=== PATIENT | female | born 1995 | race Caucasian/White ===

== ENCOUNTER 2019-11-21 14:00 | Emergency (ER) | payer OTHER, SELFPAY ==
[2019-11-21 14:28] VITALS: BP 134/81; PULSE 106; RESP 18; TEMP 37.3; O2SAT 100
--- NOTE | 2019-11-21 14:40 | ED.GENADULT ---
HPI - General Adult General Chief complaint: Upper Respiratory Infection Stated complaint: Cold symptoms Source: patient and RN notes reviewed Mode of arrival: ambulatory Limitations: no limitations History of Present Illness HPI narrative: This patient had onset of a nonproductive cough yesterday, 11/20/2019, without any ear pain or nasal drainage. She has had no sore throat. She had a temperature to 101 maximum took Tylenol it did bring the temperature down. She has not had any nausea, no vomiting, and no diarrhea. She has had no hematuria, no dysuria, no pyuria. She has had no rashes. She not been traveling. She has had no known exposure anyone with strep throat, mono, influenza, bronchitis, pneumonia that she is aware of. Related Data Home Medications Medication Instructions Recorded Confirmed No Home Medications 11/21/19 11/21/19 Allergies Allergy/AdvReac Type Severity Reaction Status Date / Time codeine Allergy Intermediate Hives / Verified 02/03/19 14:55 Red Face prochlorperazine AdvReac Unknown DYSTONIC Unverified 02/03/19 14:55 REACTION Review of Systems Review of Systems: Narrative: CONSTITUTIONAL: Denies fever, chills, or sweats. Noncontributory except as pertains to the past medical history and history of present illness. EYES: Denies visual changes, redness, or discharge. ENT: Denies rhinorrhea, congestion, sore throat, or otalgia. CARDIOVASCULAR: Denies chest pain, palpitations, or edema. RESPIRATORY: Denies cough or dyspnea. GASTROINTESTINAL: Denies abdominal pain, nausea, vomiting, or diarrhea. GENITOURINARY: Denies dysuria or hematuria. SKIN: Denies rash or itching. MUSCULOSKELETAL: Denies back pain, joint pain, or myalgia. NEUROLOGIC: Denies headache, numbness, or weakness. PSYCHIATRIC: Denies anxiety or depression. PMFSH Comments At time of signature, I have reviewed and agree with nursing past medical, surgical, social, and family history.Please see nursing chart for further information. There is no relevant family history pertinent to the presenting complaint. Exam Narrative: Exam Narrative: GENERAL: Well-appearing, well-nourished, and in no acute distress. HEAD: Normocephalic, atraumatic. EYES: PERRLA and EOMI. EARS: TM's clear bilaterally and the canals are clear. NOSE: Nares clear, no rhinorrhea or epistaxis. THROAT:Mucous membranes moist.Oropharynx Normal without erythema or exudates. NECK: Supple. No adenopathy of the neck, supraclavicular, axillary, or inguinal areas. RESPIRATORY: No respiratory distress. Airway patent. Respirations non-labored. Clear to auscultation. She has a loose wet mild cough during the exam. There are no wheezes, no rales, no retractions, no use accessory muscle respirations. Patient not cyanotic and not dyspneic. Her pulse ox on room air is 100% current temperature is 37.3 ?C. HEART: Regular rate and rhythm. No murmur heard. Normal peripheral pulses. ABDOMEN: Soft, nontender, nondistended, normal active bowel sounds.No masses. No rebound or guarding, No organomegaly. No CVA pain. No pain McBurney's point. Patient is a negative Navarro sign and negative Rovsing sign. There are no pulsatile masses no audible bruits. EXTREMITIES: No clubbing/cyanosis/ edema. Normal strength & range of motion. SKIN: Warm, dry.Normal Color. No skin rash or skin lesions. Patient is well-nourished well-hydrated and has moist mucous membranes and no tenting of the skin. NEURO: Alert and oriented. CN 2-12 grossly intact. No focal deficits. PSYCH: Normal mood and affect. Course Vital Signs Vital signs: Vital Signs Temperature 37.3 C 11/21/19 14:28 Pulse Rate 106 H 11/21/19 14:28 Respiratory Rate 18 11/21/19 14:28 Blood Pressure 134/81 11/21/19 14:28 Pulse Oximetry 100 11/21/19 14:28 Temperature 37.3 C 11/21/19 14:28 Pulse Rate 106 H 11/21/19 14:28 Respiratory Rate 18 11/21/19 14:28 Blood Pressure 134/81 11/21/19 14:28 Pulse Oximet
== END 2019-11-21 14:55 | disposition home or self-care (01) ==
PROVIDERS: Emergency Provider Family Medicine; PCP Physician Assistant
DX: J06.9 Acute upper respiratory infection, unspecified (principal)
CPT/HCPCS: 87804; 99213; G0463

== ENCOUNTER 2021-05-22 17:47 | Emergency (ER) | payer OTHER, SELFPAY ==
[2021-05-22 17:55] VITALS: BP 153/100; PULSE 90; RESP 17; TEMP 37.1; O2SAT 97
--- NOTE | 2021-05-22 18:08 | ED.GENADULT ---
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 Her headache started 5 days ago. It came on over a few minutes. Since that time she has had right sided pounding headache pain that shoots to the left occasioinally. She admits a little nausea but no vomiting. No photo or phonophobia. Her vision is usually fine but it occasionally gets blurry when the pain shoots to the left. Then it returns to normal. No trauma reported. Related Data Home Medications Medication Instructions Recorded Confirmed tramadol 50 mg PO PRN PRN 05/22/21 05/22/21 Allergies Allergy/AdvReac Type Severity Reaction Status Date / Time codeine Allergy Intermediate Hives / Verified 02/03/19 14:55 Red Face prochlorperazine AdvReac Unknown DYSTONIC Unverified 02/03/19 14:55 REACTION Review of Systems Constitutional: Constitutional: Reports no additional constitutional complaints Eyes: Eyes: Reports as per HPI and Reports no additional eye complaints ENT: Reports system reviewed and no additional complaints, except as documented Cardiovascular: Cardiovascular: Reports no additional cardiovascular complaints Respiratory: Respiratory: Reports no additional respiratory complaints Gastrointestinal: Gastrointestinal: Reports no additional gastrointestinal complaints Genitourinary: Genitourinary: Reports no additional female genitourinary complaints Musculoskeletal: Musculoskeletal: Reports no additional musculoskeletal complaints Integumentary/Breasts: Skin/Breast: Reports system reviewed and no additional complaints, except as docu Neurologic: Reports as per HPI Psychiatric: Psychiatric: Reports no additional psychiatric complaints Endocrine: Endocrine: Reports no additional endocrine complaints Hematologic/Lymphatic: Hematologic/Lymphatic: Reports no additional hematologic/lymphatic complaints Allergic/Immunologic: Allergic/Immunologic: Reports no additional allergic/immunologic complaints Exam Const: General: no acute distress and alert Orientation/consciousness: patient oriented x3 Limitations: No altered mental status HENMT: Head: normal to inspection Other: atraumatic Eyes: Conjunctivae: conjunctivae normal Pupils: Equal, round and reactive pupils present Neck: Neck: normal visual inspection Chest: Chest palpation & inspection: normal inspection of the chest Resp: Effort & Inspection: normal respiratory effort Cardio: Rate: regular rate GI: Inspection: non-distended GI Palp: Yes Soft to palpation, No Tenderness to palpation present (GI) and No Guarding due to palpation present (GI) Skin: General skin exam: normal color Rashes: no rashes Neuro: General: patient oriented x3, moves all extremities, no meningeal signs, no focal motor deficits and CN's II-XI intact bilaterally (had 3 beats of nystagmus to the right) Extrem: General: normal to inspection Psych: Appearance: grossly normal Mental Status: mental status grossly normal Course Course Emergency Course: Annie was evalauted. Ordered fluids, benadryl and toradol. (allergic to compazine). Headache only improved from 7 to 03/20. Ordered haldol and Tylenol. This resolved her pain and she stated that she was ready to go home. Vital Signs Vital signs: Vital Signs Temperature 98.7 F 05/22/21 17:55 Pulse Rate 90 05/22/21 17:55 Respiratory Rate 17 05/22/21 17:55 Blood Pressure 153/100 H 05/22/21 17:55 Pulse Oximetry 97 05/22/21 17:55 Temperature 98.7 F 05/22/21 17:55 Pulse Rate 73 05/22/21 19:37 Respiratory Rate 20 05/22/21 19:37 Blood Pressure 101/66 05/22/21 19:37 Pulse Oximetry 97 05/22/21 19:37 Medical Dec
[2021-05-22] MEDS: SODIUM CHLORIDE 0.9% IV 1,000 ML 999 ML IV CONT (18:16)
[2021-05-22] MEDS: KETOROLAC 15 MG/ML VIAL (*BKC) IV PUSH (18:17)
[2021-05-22] MEDS: diphenhydrAMINE HCl INJ 50 MG/ML VIAL IV PUSH (18:17)
[2021-05-22 19:37] VITALS: BP 101/66; PULSE 73; RESP 20; O2SAT 97
[2021-05-22] MEDS: ACETAMINOPHEN 500 MG TABLET 1000 MG PO (19:43)
[2021-05-22] MEDS: HALOPERIDOL LACTATE 5 MG/ML VIAL 2.5 MG IV PUSH (19:53)
[2021-05-22 20:27] VITALS: BP 98/62; PULSE 92; RESP 20; TEMP 36.9; O2SAT 98
== END 2021-05-22 20:35 | disposition home or self-care (01) ==
PROVIDERS: Emergency Provider Family Medicine; PCP Physician Assistant
DX: R51.9 Headache, unspecified (principal)
CPT/HCPCS: 96361; 96374; 96375; 99283; 99284; J1200; J1630; J1885; J7030

== ENCOUNTER 2021-10-14 11:47 | Outpatient (CLI) | payer OTHER, SELFPAY ==
[2021-10-14 13:53] LABS: SARS-CoV-2 RNA PCR Positive (Negative)
== END 2021-10-14 11:48 | disposition home or self-care (01) ==
LOC: CHSLAB 11:50
PROVIDERS: PCP Physician Assistant; Visit Provider Physician Assistant
DX: U07.1 COVID-19 (principal); B34.9 Viral infection, unspecified
CPT/HCPCS: C9803; U0003; U0005

== ENCOUNTER 2022-09-22 18:09 | Emergency (ER) | payer OTHER, SELFPAY ==
[2022-09-22 18:20] VITALS: BP 140/84; PULSE 88; RESP 20; TEMP 37; O2SAT 100
--- NOTE | 2022-09-22 19:38 | ED.DENTAL ---
HPI - Dental/Oral General Chief complaint: Dental/Oral Stated complaint: Facial Swelling Time Seen by Provider: 09/22/22 19:30 Source: patient, family, RN notes reviewed and old records reviewed Mode of arrival: ambulatory Limitations: no limitations History of Present Illness HPI Narrative: 27 year old female presents to [facility] with acute dental pain to #19 tooth lower left for the past 3 weeks. Patient reports that she took 10 days of Amoxicillin she had at home and it day get a little better now is worse again. Patient has been taking Tylenol and Ibuprofen for her discomfort rates pain at present time 05/20. Patient has some left facial swelling noted, no difficulty with swallowing or any difficulty breathing no trismus nted. MD Complaint: tooth pain Location: Tooth # (19) Severity scale (1-10): 8 Treatment prior to arrival: other (Tylenol and Ibuprofen) Related Data Allergies Allergy/AdvReac Type Severity Reaction Status Date / Time codeine Allergy Intermediate Hives / Verified 09/22/22 18:31 Red Face prochlorperazine AdvReac Unknown DYSTONIC Verified 09/22/22 18:31 REACTION Review of Systems Review of Systems: CONSTITUTIONAL: Denies fever, chills, or sweats. ENT: Denies rhinorrhea, congestion, sore throat, or otalgia. Reports dental pain to #19 tooth with some left facial swelling CARDIOVASCULAR: Denies chest pain, palpitations, or edema. RESPIRATORY: Denies cough or dyspnea. SKIN: Denies rash or itching. MUSCULOSKELETAL: Denies myalgia. 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 There is no relevant family history pertinent to the presenting complaint Exam Narrative: GENERAL: Well-appearing, well-nourished, and in no acute distress HEAD: Normocephalic, atraumatic. EYES: PERRLA and EOMI. ENT: Nares clear, no rhinorrhea or epistaxis. Mucous membranes moist. #19 dental caries with tooth darkened and gum red swollen, facial swelling left side. No Lukas angina or trismus noted NECK: Supple.no lymphadenopathy CHEST: Clear to auscultation. No respiratory distress.SAO2 100% on room air HEART: Regular rate and rhythm. No murmur heard. Normal peripheral pulses. SKIN: Warm, dry, no rash. NEURO: No focal deficits. Alert and oriented x3. Course Course Emergency Course: Patient is aware of diagnosis, understands and agrees to treatment plan. Anticipatory guidance given. Patient agrees to follow-up as directed and is aware of reasons to seek care at the emergency department. Portions of this record may have been created with voice recognition software Level of Care: Express Care Visit Vital Signs Vital signs: Vital Signs Temperature 37.0 C 09/22/22 18:20 Pulse Rate 88 09/22/22 18:20 Respiratory Rate 20 09/22/22 18:20 Blood Pressure 140/84 09/22/22 18:20 Pulse Oximetry 100 09/22/22 18:20 Oxygen Delivery Room Air 09/22/22 18:20 Temperature 37.0 C 09/22/22 18:20 Pulse Rate 88 09/22/22 18:20 Respiratory Rate 20 09/22/22 18:20 Blood Pressure 140/84 09/22/22 18:20 Pulse Oximetry 100 09/22/22 18:20 Oxygen Delivery Room Air 09/22/22 18:20 Reviewed MDM - Dental/Oral MDM Narrative Medical decision making narrative: Patients pain and complaint coupled with physical findings are consistent with dentalgi
== END 2022-09-22 19:45 | disposition home or self-care (01) ==
PROVIDERS: Emergency Provider Registered Nurse; PCP Physician Assistant
DX: K04.7 Periapical abscess without sinus (principal); M41.9 Scoliosis, unspecified
CPT/HCPCS: 99213; G0463

== ENCOUNTER 2022-12-21 17:49 | Emergency (ER) | payer OTHER, SELFPAY ==
[2022-12-21] VITALS (11 sets, daily range): BP systolic 110–129; BP diastolic 72–81; PULSE 88–97; RESP 18–28; TEMP 36.3; O2SAT 99–100
--- NOTE | ~2022-12-21 | CT_ITS ---
Non-contrast Head CT History: Headache Technique: Axial non-contrast imaging of the brain was performed. Dose reduction technique was used on this scan by utilizing automated exposure control and iterative reconstruction technique. The dose -length product (DLP) was 605.33 mGy-cm. Findings: There is no evidence of intracranial hemorrhage, mass lesion, or acute infarct. Brain par enchyma appears normal. The ventricles and subarachnoid spaces are normal in size. The calvarium ap pears normal. The visualized paranasal sinuses and mastoid air cells are clear. Impression: No significant abnormality seen. Reviewed, dictated and finalized at location . Impression: No significant abnormality seen.
--- NOTE | 2022-12-21 22:59 | ED.GENADULT ---
HPI - General Adult General Chief complaint: Headache Stated complaint: headache Time Seen by Provider: 12/21/22 22:46 History of Present Illness HPI narrative: 27-year-old female who is 7 weeks reports for headache x3 days. Patient reports the headache is posterior and radiates up into her right zoroastrian. Reports associated blurred vision earlier that resolved when she blinked. Reports headache worse with position changes, especially when she bends foward. Patient states she has felt nauseous today and reports 3 episodes of vomiting. Denies hematemesis. She reports a history of headaches when she was in high school, however has not had any recently. She states the headache came on suddenly and is the worst headache of her life. Denies recent head trauma and use of anticoagulants. She reports a confirmed IUP w/o complications. Saw OB on 12/15. Denies abdominal pain, vaginal bleeding or discharge, urinary complaints, cough, congestion, fever, body aches, chills, CP, SOB, focal numbness or weakness, dizziness. Related Data Allergies Allergy/AdvReac Type Severity Reaction Status Date / Time codeine Allergy Intermediate Hives / Verified 12/21/22 22:53 Red Face prochlorperazine AdvReac Unknown DYSTONIC Verified 12/21/22 22:53 REACTION Review of Systems Review of Systems: CONSTITUTIONAL: Denies fever, chills EYES: Denies visual changes, redness, or discharge. ENT: Denies rhinorrhea, congestion, sore throat, or otalgia. CARDIOVASCULAR: Denies chest pain, palpitations, or edema. RESPIRATORY: Denies cough or dyspnea. GASTROINTESTINAL: Denies abdominal pain, nausea, vomiting, or diarrhea. GENITOURINARY: Denies dysuria or hematuria. SKIN: Denies rash or itching. MUSCULOSKELETAL: Denies back pain, joint pain, or myalgia. NEUROLOGIC: See HPI PSYCHIATRIC: Denies anxiety or depression. 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 Pt sitting in exam bed, pleasant and conversational. HEAD: Normocephalic, atraumatic. EYES: PERRLA and EOMI. Strabismus to L eye. ENT: Nares clear, no rhinorrhea or epistaxis. Mucous membranes moist. Oropharynx without tonsillar hypertrophy exudate or other lesions. Bilateral TMs pearly palomino nonbulging NECK: Supple. No adenopathy or masses. No nuchal rigidity. Full ROM of neck. Negative Brudzinski's and Kernig's CHEST: Clear to auscultation. No respiratory distress. No wheezes rales or rhonchi HEART: Regular rate and rhythm. No murmur heard. Normal peripheral pulses. ABDOMEN: Soft, nontender, nondistended, normal active bowel sounds. EXTREMITIES: Normal range of motion. No edema. SKIN: Warm, dry, no rash. NEURO: No focal deficits. Alert and oriented x3. CN II-XII intact. Strength 5/5 in all extremities. Sensation intact. No cerebellar signs. PSYCH: Normal mood and affect. Course Course Emergency Course: 230: Discussed risk vs benefits of CT brain w/o contrast in . Educated patient on risk of fetotoxicity with radiation secondary to CT, but also concern for SAH given patient's acute onset and severity of headache. Pt reports she would like to get a CT despite risks to fetus. Vital Signs Vital signs: Vital Signs Temperature 97.4 F L 12/21/22 18:13 Pulse Rate 88 12/21/22 18:13 Respiratory Rate 18 12/21/22 18:13 Pulse Oximetry 100 12/21/22 18:13 Oxygen Delivery Room Air 12/21/22 18:13 Temperature 97.4 F L
[2022-12-21 23:28] LABS: Basophils Percent Auto 0.1 % (0.2-1.2); Eosinophils Percent Auto 0.1 % (0-4.4); Hematocrit 35.7 % (37.0-47.0); Hemoglobin 12.1 g/dL (12.0-15.0); Immature Granulocyte Absolute 0.02 K/mm3 (0.00-0.031); Immature Granulocyte Percent A 0.3 % (0-0.5); Lymphocytes Absolute Auto 2.49 K/mm3 (0.9-3.2); Lymphocytes Percent Auto 31.2 % (18.3-44.2); Mean Corpuscular HGB Conc 33.9 g/dl (32-36); Mean Corpuscular Hemoglobin 30.4 pg (26-34); Mean Corpuscular Volume 89.7 fl (80-100); Mean Platelet Volume 9.7 fl (7.4-10.4); Monocytes Absolute Auto 0.5 K/mm3 (0.1-0.6); Monocytes Percent Auto 6.5 % (2.6-8.5); Neutrophils Absolute Auto 4.9 K/mm3 (1.3-6.7); Neutrophils Percent Auto 61.8 % (45.5-73.1); Platelet Count Result 261 k/mm3 (150-375); Red Blood Count 3.98 M/mm3 (4.2-5.4); Red Cell Distribution Width 13.1 % (11.5-14.5)
[2022-12-21 23:38] LABS: Alanine Aminotransferase 23 U/L (6-35); Albumin Level 4.1 g/dL (3.5-5.1); Alkaline Phosphatase 65 U/L (38-126); Anion Gap 5 mmol/L (8-16); Aspartate Amino Transferase 25 U/L (14-36); Bilirubin,Total 0.4 mg/dL (0.2-1.3); Blood Urea Nitrogen 12 mg/dL (7-17); Carbon Dioxide 26 mmol/L (22-30); Chloride 103 mmol/L (98-107); Estimated CRCL calculation 151 ml/min; Estimated Glomerular Filt Rate > 60; Glucose 107 mg/dL (65-110); Potassium 3.4 mmol/L (3.4-5.0); Sodium 134 mmol/L (137-145)
[2022-12-21] MEDS: SODIUM CHLORIDE 0.9% IV 1,000 ML 999 ML IV CONT (23:47)
[2022-12-21] MEDS: diphenhydrAMINE HCl INJ 50 MG/ML VIAL 25 MG IV PUSH (23:48)
[2022-12-22] VITALS (8 sets, daily range): BP systolic 114; BP diastolic 67; PULSE 79–92; RESP 19–33; O2SAT 98–100
[2022-12-22] LABS: Appearance Urine Clear (Clear); Bilirubin Urine Negative (Negative); Blood Urine Negative (Negative); Color Urine Yellow (Yellow); Glucose Urine UA Negative (Negative); Ketones Urine Trace mg/dL (Negative); Leukocyte Esterase Ur Negative LEU/UL (Negative); Nitrate Urine Negative (Negative); Protein Urine Negative (Negative); Specific Grav Ur 1.028 (1.001-1.035)
[2022-12-22 00:08] LABS: Add Urine Microscopic? NO
== END 2022-12-22 02:29 | disposition home or self-care (01) ==
PROVIDERS: Emergency Provider Physician Assistant; PCP Physician Assistant
DX: O26.891 Other specified pregnancy related conditions, first trimester (principal); R51.9 Headache, unspecified; Z3A.01 Less than 8 weeks gestation of pregnancy
CPT/HCPCS: 36415; 70450; 80053; 81003; 85025; 96374; 96375; 99284; J0131; J1200; J7030

== ENCOUNTER 2023-02-12 10:35 | Emergency (ER) | payer OTHER, SELFPAY ==
[2023-02-12 10:53] VITALS: BP 118/77; PULSE 90; RESP 18; TEMP 36.7; O2SAT 100
--- NOTE | 2023-02-12 11:32 | PC.NURSE ---
c/o n/v x 2 weeks. states she is 15 weeks preg. took zofran but states it gave her a lr so ob switched to reglan and it is not workiing. states ob called in rx for patches but was told to come here first for eval. denies any abd pain or vaginal bleeding. a0
[2023-02-12 12:00] LABS: Basophils Percent Auto 0.2 % (0.2-1.2); Eosinophils Percent Auto 0.1 % (0-4.4); Hematocrit 37.1 % (37.0-47.0); Hemoglobin 12.7 g/dL (12.0-15.0); Immature Granulocyte Absolute 0.02 K/mm3 (0.00-0.031); Immature Granulocyte Percent A 0.2 % (0-0.5); Lymphocytes Absolute Auto 1.95 K/mm3 (0.9-3.2); Lymphocytes Percent Auto 21.1 % (18.3-44.2); Mean Corpuscular HGB Conc 34.2 g/dl (32-36); Mean Corpuscular Hemoglobin 30.5 pg (26-34); Mean Platelet Volume 9.6 fl (7.4-10.4); Monocytes Absolute Auto 0.4 K/mm3 (0.1-0.6); Monocytes Percent Auto 3.9 % (2.6-8.5); Neutrophils Absolute Auto 6.9 K/mm3 (1.3-6.7); Neutrophils Percent Auto 74.5 % (45.5-73.1); Platelet Count Result 235 k/mm3 (150-375); Red Blood Count 4.17 M/mm3 (4.2-5.4); Red Cell Distribution Width 13.2 % (11.5-14.5); White Blood Count 9.2 K/mm3 (4.5-10.0)
[2023-02-12 12:02] LABS: Appearance Urine Clear (Clear); Bilirubin Urine Negative (Negative); Blood Urine Negative (Negative); Color Urine Yellow (Yellow); Glucose Urine UA Negative (Negative); Ketones Urine Negative (Negative); Leukocyte Esterase Ur Negative LEU/UL (Negative); Nitrate Urine Negative (Negative); Protein Urine Negative (Negative); Urobilinogen Urine 0.2 mg/dL (<2.0)
[2023-02-12 12:11] LABS: Alanine Aminotransferase 16 U/L (6-35); Alkaline Phosphatase 55 U/L (38-126); Anion Gap 6 mmol/L (8-16); Aspartate Amino Transferase 22 U/L (14-36); Bilirubin,Total 0.4 mg/dL (0.2-1.3); Blood Urea Nitrogen 7 mg/dL (7-17); Calcium 9.1 mg/dL (8.4-10.2); Carbon Dioxide 26 mmol/L (22-30); Chloride 102 mmol/L (98-107); Estimated CRCL calculation 195 ml/min; Estimated Glomerular Filt Rate > 60; Glucose 85 mg/dL (65-110); Lipase 115 U/L (23-300); Potassium 3.8 mmol/L (3.4-5.0); Sodium 134 mmol/L (137-145)
[2023-02-12] MEDS: SODIUM CHLORIDE 0.9% IV 1,000 ML 999 ML IV CONT (12:16)
[2023-02-12] MEDS: ONDANSETRON INJ 4 MG/2 ML VIAL IV PUSH (12:16)
[2023-02-12 12:19] VITALS: BP 112/72; PULSE 80
[2023-02-12 12:19] LABS: Add Urine Microscopic? NO
[2023-02-12 12:21] VITALS: BP 108/71; PULSE 82
[2023-02-12 12:23] VITALS: BP 108/74; PULSE 92
--- NOTE | 2023-02-12 13:32 | ED.GENADULT ---
HPI - General Adult General Chief complaint: Nausea/Vomiting/Diarrhea Stated complaint: OB sent for dehydration Time Seen by Provider: 02/12/23 11:44 History of Present Illness HPI narrative: Patient is a 27-year-old female who is 15 weeks that presents to the ER with nausea and vomiting. She has been taking Zofran and Reglan. No vaginal bleeding. No urinary frequency urgency or dysuria. Denies fevers or chills or sweats. She was sent here by her OB to get fluids. Related Data Allergies Allergy/AdvReac Type Severity Reaction Status Date / Time codeine Allergy Intermediate Hives / Verified 02/12/23 10:36 Red Face prochlorperazine AdvReac Unknown DYSTONIC Verified 02/12/23 10:36 REACTION Review of Systems Review of Systems: All systems reviewed & are unremarkable except as noted in HPI and below Constitutional: Constitutional: Denies chills, Denies fatigue and Denies fever(s) ENT: Denies nasal congestion and Denies sore throat Cardiovascular: Cardiovascular: Denies chest pain and Denies radiating jaw, neck or arm pain Respiratory: Respiratory: Denies cough, Denies dyspnea and Denies wheezing Gastrointestinal: Gastrointestinal: Denies abdominal pain, Denies diarrhea, Reports nausea and Reports vomiting Genitourinary: Genitourinary: Denies nocturia and Denies dysuria PMFSH Past Medical History Medical History Scoliosis has had 13 surgeries Surgical History Surgical History 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 HEAD: Normocephalic, atraumatic. EYES: PERRL and EOMI. ENT: Mucous membranes moist. CHEST: Clear to auscultation. No respiratory distress. HEART: Regular rate and rhythm. Normal peripheral pulses. ABDOMEN: Soft, nontender, nondistended. EXTREMITIES: Normal range of motion. No edema. NEURO: Alert and oriented x3. PSYCH: Normal mood and affect. Course Course Emergency Course: Patient resting comfortably. Hydrated and given antiemetics. Feels comfortable discharge home. Reports her doctor is called in scopolamine for her to use for antinausea. Vital Signs Vital signs: Vital Signs Temperature 98.0 F 02/12/23 10:53 Pulse Rate 90 02/12/23 10:53 Respiratory Rate 18 02/12/23 10:53 Blood Pressure 118/77 02/12/23 10:53 Pulse Oximetry 100 02/12/23 10:53 Oxygen Delivery Room Air 02/12/23 10:53 Temperature 98.0 F 02/12/23 10:53 Pulse Rate 92 02/12/23 12:23 Respiratory Rate 18 02/12/23 10:53 Blood Pressure 108/74 02/12/23 12:23 Pulse Oximetry 100 02/12/23 10:53 Oxygen Delivery Room Air 02/12/23 10:53 Medical Decision Making Vital Signs Vital Signs: Vital Signs Temperature 98.0 F 02/12/23 10:53 Pulse Rate 90 02/12/23 10:53 Respiratory Rate 18 02/12/23 10:53 Blood Pressure 118/77 02/12/23 10:53 Pulse Oximetry 100 02/12/23 10:53 Oxygen Delivery Room Air 02/12/23 10:53 Temperature 98.0 F 02/12/23 10:53 Pulse Rate 92 02/12/23 12:23 Respiratory Rate 18 02/12/23 10:53 Blood Pressure 108/74 02/12/23 12:23 Pulse Oximetry 100 02/12/23 10:53 Oxygen Delivery Room Air 02/12/23 10:53 Lab Data 02/12/23 11:44 02/12/23 11:44 Labs: Lab Results 02/12/23 Range/Units 11:44 WBC 9.2 (4.5-10.0) K/mm3 RBC 4.17 L (4.2-5.4) M/mm3 Hgb 12.7 (12.0-15.0) g/dL Hct 37.1 (37.0-47.0) % MCV 89.0 (80-100) fl MCH 30.5 (26-34) pg MCHC 34.2 (32-36) g/dl RDW 13.2 (11.5-14.5) % Plt Count 235
[2023-02-12 14:07] VITALS: BP 107/63; PULSE 74; RESP 16; O2SAT 100
== END 2023-02-12 14:08 | disposition home or self-care (01) ==
PROVIDERS: Emergency Provider Emergency Medicine; PCP Physician Assistant
DX: O21.9 Vomiting of pregnancy, unspecified (principal); Z3A.15 15 weeks gestation of pregnancy
CPT/HCPCS: 36415; 80053; 81003; 81025; 83690; 85025; 96361; 96374; 99284; J2405; J7030

== ENCOUNTER 2023-04-24 16:27 | Observation (INO) | payer OTHER, SELFPAY ==
[2023-04-24 16:50] VITALS: BP 111/73; PULSE 98
[2023-04-24 17:00] VITALS: BP 107/83; PULSE 98; BMI 30.4
--- NOTE | 2023-04-24 17:01 | LDADM ---
This patient, Annie Chirinos, was admitted to [facility] on 04/24/23 at 16:27. Plans for labor, pain management and were discussed with patient. Patient/family oriented to hospital policies and general routines including ID bracelet, bed and alarms, visiting hours, pain management, procedures, bathroom and other care routines, personal items, smoking policy, room service/diet and guest tray routines, infant security routines, and visiting hours. Patient/Family are encouraged to report perceived risks to care and to ask questions if they do not understand what they are told or what they should do. See OBIX for further documentation.
[2023-04-24 17:06] LABS: Appearance Urine Cloudy (Clear); Bacteria Urine Rare /hpf; Bilirubin Urine Negative (Negative); Blood Urine Negative (Negative); Color Urine Yellow (Yellow); Glucose Urine UA Negative (Negative); Ketones Urine Negative (Negative); Leukocyte Esterase Ur Trace LEU/UL (Negative); Nitrate Urine Negative (Negative); Non Pathogenic Casts 0-2; Protein Urine Trace mg/dL (Negative); RBC Urine 0-2 /hpf (0-2); Specific Grav Ur 1.026 (1.001-1.035); Squamous Epithelial Cell Urine Few /hpf (Few); pH Urine 7.5 (5.0-9.0)
[2023-04-24 17:15] VITALS: BP 111/77; PULSE 101
[2023-04-24 17:30] VITALS: BP 108/77; PULSE 93
[2023-04-24 17:36] LABS: Add Urine Microscopic? YES
--- NOTE | 2023-04-24 17:58 | PC.NURSE ---
Addendum entered by Nancy Cunningham RN 04/24/23 18:14: *Notified MD of lab results when speaking with him about patient complaints and NST. Original Note: Patient admitted for observation with complaints of losing her mucus plug around 1400 with intermittent abdominal cramping and continuous back pain since then. Obtained UA as well as NST. Notified MD of complaints and NST results. Orders to check cervix and send home with labor precautions if cervix is closed. Cervical exam was closed and thick.
--- NOTE | 2023-04-28 07:11 | PM.OBTRLD ---
OB - Triage/Final Diagnosis Visit Information Comments/Additional reasons for admission: I have assessed the risk for this patient, Annie Chirinos, and determined that she would benefit from observation care. Evaluation Laboratory results: Laboratory Tests 04/24/23 16:42 Urine Color Yellow Urine Appearance Cloudy H Urine pH 7.5 Ur Specific [place] 1.026 Urine Protein Trace Urine Glucose (UA) Negative Urine Ketones Negative Ur Blood (Man) Negative Urine Nitrate Negative Urine Bilirubin Negative Urine Urobilinogen 1.0 Leukocyte Esterase Rfl Trace H Urine RBC 0-2 Urine WBC 6-10 H Ur Squamous Epith Cells Few Urine Bacteria Rare Urine Casts 0-2 Final Diagnosis (1) Back pain affecting : Code(s): O99.891 - Other specified diseases and conditions complicating ; M54.9 - Dorsalgia, unspecified Status: Acute (2) contractions: Code(s): O47.00 - False labor before 37 completed weeks of gestation, unspecified trimester Status: Acute
== END 2023-04-24 18:15 | disposition home or self-care (01) ==
PROVIDERS: Admitting Provider Obstetrics & Gynecology; PCP Physician Assistant; Visit Provider Obstetrics & Gynecology
DX: O99.891 Other specified diseases and conditions complicating pregnancy (principal); M54.9 Dorsalgia, unspecified; O47.02 False labor before 37 completed weeks of gestation, second trimester; Z3A.24 24 weeks gestation of pregnancy
CPT/HCPCS: 81001; 87086; 87088; G0378; G0379

== ENCOUNTER 2023-10-07 09:20 | Emergency (ER) | payer OTHER, SELFPAY ==
--- NOTE | 2023-10-07 09:30 | ED.URI ---
HPI - URI/Sore Throat General Chief Complaint: Upper Respiratory Infection Stated Complaint: Cough;Congestiom;Nausea Time Seen by Provider: 10/07/23 09:30 Source: patient Mode of arrival: ambulatory Limitations: no limitations History of Present Illness HPI Narrative: Don is a 28-year-old female patient presenting to clinic today with complaints of cough, congestion, and nausea at x3 days. She reports symptoms started on Aubree Arlen. Reports having cough, left nasal congestion, headache, and nausea. No known fever or chills. MD elicited complaint: cough and nasal congestion Related Data Allergies Allergy/AdvReac Type Severity Reaction Status Date / Time codeine Allergy Intermediate Hives / Verified 10/07/23 09:30 Red Face prochlorperazine AdvReac Unknown DYSTONIC Verified 10/07/23 09:30 REACTION Review of Systems Review of Systems: Pertinent positives per HPI. Patient denies any fever, chills, rash, visual changes, dizziness, shortness of breath, chest pain, palpitations, nausea, vomiting, diarrhea, constipation, abdominal pain, or any urinary issues. 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 There is no relevant family history pertinent to the patient complaint. Exam Narrative: General: Well-developed, well nourished, in no apparent distress Head: Normocephalic, atraumatic Eyes: Pupils equally round and reactive to light bilaterally, EOM intact, sclera and conjunctive clear, no discharge, lids normal Ears: TMs intact and clear, ear canals clear, no drainage, grossly hearing normal. Nose: Nares patent, clear nasal discharge, no inflammation, no sinus tenderness. Mouth: Oral pharynx without lesions or masses, good dentition, MMM. Neck: Supple, trachea midline, no enlargement of anterior or posterior cervical nodes, no thyroid masses or goiter palpable. Cardio: Regular rate and rhythm, s1 and s2 normal, no murmur appreciated. Resp: Clear to auscultation bilaterally, no rhonchi, rales, wheezing or rubs Course Course Emergency Course: Portions of this record may have been created with voice recognition software. Level of Care: Express Care Visit Vital Signs Vital signs: Vital signs reviewed MDM - URI/Sore Throat MDM Narrative Medical decision making narrative: At the time of visit patient is resting comfortably on the exam table. Patient appears to be nontoxic. COVID and influenza testing was performed. COVID testing was positive. Prescription for Zofran was sent to the pharmacy for nausea. Supportive measures were discussed with the patient and they voiced understanding discharge instructions and agrees to treatment plan. Return precautions reviewed Differential Diagnosis Differential diagnosis: Likely upper respiratory infection, otitis media, sinusitis, viral infection, bronchitis, influenza, pharyngitis and other (COVID) Discharge Plan Discharge Clinical Impression: COVID-19 Patient Disposition: Home, Self-Care Condition: Stable Instructions: Antibiotic Form, COVID-19 (Coronavirus Disease 2019) (ED), How to Recover from COVID-19 at Home (ED) Additional Instructions: COVID testing was positive in the clinic today. You will need isolate for 5 days from the onset of symptoms. May return to work on October 09, 2023 Take prescription medications only as prescrib
[2023-10-07 09:32] VITALS: BP 131/87; PULSE 86; RESP 20; TEMP 37.4; O2SAT 100
== END 2023-10-07 10:01 | disposition home or self-care (01) ==
PROVIDERS: Emergency Provider Nurse Practitioner Family; PCP Physician Assistant
DX: U07.1 COVID-19 (principal)
CPT/HCPCS: 87426; 87804; 99213; C9803; G0463

== ENCOUNTER 2024-01-16 18:58 | Observation (INO) | payer OTHER, SELFPAY ==
--- NOTE | ~2024-01-16 | MR_ITS ---
EXAMINATION: MR brain/brain stem wo/w con DATE: 01/17/2024 07:57 INDICATION: Proximal leg weakness. TECHNIQUE: Magnetic resonance imaging (MRI) of the brain and brainstem was performed without and with 14 mL MultiHance intravenous contrast. COMPARISON: Head CT 01/16/2024 FINDINGS: There are greater than 20 scattered foci of increased T2-weighted signal intensity in the c erebral white matter including periventricular and juxtacortical foci. There is no intracranial hemor rhage or acute ischemic infarct. The ventricles are normal in size. There is mucosal thickening in th e paranasal sinuses. The orbits are normal. The mastoid air cells are normal. IMPRESSION: 1. Mild nonspecific cerebral white matter disease. The differential diagnosis includes premature chief creative officer dwain small vessel ischemic disease (especially if the patient has cardiovascular risk factors), demyel inating disease such as multiple sclerosis, drug abuse, vasculitis, or reactive astrocytosis (gliosis ) secondary to nonspecific etiology. Reviewed, dictated and finalized at location A. IMPRESSION: 1. Mild nonspecific cerebral white matter disease. The differential diagnosis i ncludes premature chronic small vessel ischemic disease (especially if the ty ent has cardiovascular risk factors), demyelinating disease such as multiple sc lerosis, drug abuse, vasculitis, or reactive astrocytosis (gliosis) secondary t o nonspecific etiology.
--- NOTE | ~2024-01-16 | MR_ITS ---
MRI of the cervical spine Clinical History: Multiple sclerosis Technique: Axial T2-weighted and gradient images, and sagittal T1-weighted, T2-weighted, and STIR andi ges were acquired.. Following intravenous administration of 14 cc MultiHance gadolinium, T1-weighted fat-sat imaging was performed in the axial and sagittal planes. Findings: There is no fracture or sublocation of the cervical spine. Vertebral bodies maintain normal height and line. No bone marrow signal abnormality seen. No significant disc bulge or herniation seen at any cervical level. No spinal canal stenosis, cord co mpression, or neural foraminal narrowing identified in the cervical spine. No abnormal signal seen in the spinal cord. Paravertebral soft tissues are unremarkable. No abnormal postcontrast enhancement identified. Impression: Unremarkable exam. Reviewed, dictated and finalized at [facility]. Impression: Unremarkable exam.
--- NOTE | ~2024-01-16 | CT_ITS ---
Non-contrast Head CT History: Proximal leg weakness Technique: Axial non-contrast imaging of the brain was performed. Dose reduction technique was used on this scan by utilizing automated exposure control and iterative reconstruction technique. The dose -length product (DLP) was 681.00 mGy-cm. Findings: There is no evidence of intracranial hemorrhage, mass lesion, or acute infarct. Brain par enchyma appears normal. The ventricles and subarachnoid spaces are normal in size. The calvarium ap pears normal. The visualized paranasal sinuses and mastoid air cells are clear. Impression: No significant abnormality seen. Reviewed, dictated and finalized at location . Impression: No significant abnormality seen.
--- NOTE | ~2024-01-16 | MR_ITS ---
MRI of the thoracic spine Clinical History: Multiple sclerosis Technique: Axial T2-weighted and gradient images, and sagittal T1-weighted, T2-weighted, and STIR andi ges were acquired. Following intravenous administration of 14 cc MultiHance gadolinium, T1-weighted f at-sat imaging was performed in the axial and sagittal planes. Findings: There is prominent levoscoliosis. No acute fracture or subluxation evident. No bone marrow signal abnormality evident. No significant disc bulge or herniation seen. No spinal canal stenosis or cord compression evident. T here is extensive probable partial fusion across the disc spaces from T2 through T12. Paravertebral soft tissues are unremarkable. No abnormal signal seen in the spinal cord. No abnormal postcontrast enhancement identified. Impression: No evidence of multiple sclerosis. Prominent levoscoliosis. Reviewed, dictated and finalized at [facility]. Impression: No evidence of multiple sclerosis. Prominent levoscoliosis.
--- NOTE | ~2024-01-16 | XR_ITS ---
EXAMINATION: XR chest 2V Exam Date/Time: 01/16/2024 21:43 CDT HISTORY: weakness Comparison: 11/17/2011, report only. RESULT: Lines, tubes, and devices: None. Lungs and pleura: Clear. Cardiomediastinal silhouette: Unremarkable.. Other: No acute osseous or upper abdominal finding. Severe thoracic scoliosis. Distorted anatomy of the thoracic cage. IMPRESSION: No acute cardiopulmonary process. Reviewed, dictated and finalized at location [facility].
--- NOTE | ~2024-01-16 | MR_ITS ---
MRI of the lumbar spine Clinical History: Multiple sclerosis Technique: Axial T2-weighted images, and sagittal T1-weighted, T2-weighted, and and T2 fat-sat images were acquired. Following intravenous administration of 14 cc MultiHance gadolinium, T1-weighted fat- sat imaging was performed in the axial and sagittal planes. Findings: There is no fracture or subluxation of the lumbar spine. No bone marrow signal abnormality seen. No significant disc bulge or herniation seen at any lumbar level. There is severe facet arthropathy a t the lower lumbar spine, especially L4-L5 and L5-S1, possible fusion of the facet joints. No spinal canal stenosis or neural foraminal narrowing evident in the lumbar spine. Paravertebral soft tissues are unremarkable. No abnormal postcontrast enhancement seen. Impression: No evidence for multiple sclerosis. Facet joint degenerative changes and fusion, presumably related to underlying scoliosis. Correlate fo r surgical change at the lower lumbar spine. Reviewed, dictated and finalized at location . Impression: No evidence for multiple sclerosis. Facet joint degenerative changes and fusion, presumably related to underlying s coliosis. Correlate for surgical change at the lower lumbar spine.
--- NOTE | ~2024-01-16 | CT_ITS ---
CT of the Abdomen and Pelvis: Indication: Abdominal pain Technique: 2.5 mm axial scans were obtained through the abdomen and pelvis following intravenous adm inistration of 100 cc of Omnipaque 350. Dose reduction technique was used on this scan by utilizing a utomated exposure control and iterative reconstruction technique. The dose-length product (DLP) was 9 44.39 mGy-cm. Findings: Scans through the lung bases are unremarkable. The liver, spleen, pancreas, gallbladder, adrenals and kidneys are within normal limits. No evidence of aortic aneurysm. No lymphadenopathy. No bowel obstruction or bowel wall thickening. There is no evidence to suggest acute appendicitis. Images through the pelvis were performed. Urinary bladder unremarkable. No pelvic mass seen. No ascit es. Impression: No acute abnormalities seen. Reviewed, dictated and finalized at location . Impression: No acute abnormalities seen.
[2024-01-16 19:08] VITALS: BP 145/76; PULSE 93; RESP 14; TEMP 36.8; O2SAT 100
[2024-01-16 21:17] VITALS: BP 121/77; PULSE 98; RESP 20; TEMP 36.8; O2SAT 100
[2024-01-16 21:18] VITALS: PULSE 99
[2024-01-16 21:19] VITALS: O2SAT 100
[2024-01-16 21:34] LABS: Basophils Percent Auto 0.4 % (0.2-1.2); Eosinophils Percent Auto 0.6 % (0-4.4); Hematocrit 37.5 % (37.0-47.0); Hemoglobin 12.1 g/dL (12.0-15.0); Lymphocytes Absolute Auto 1.57 K/mm3 (0.9-3.2); Lymphocytes Percent Auto 29.5 % (18.3-44.2); Mean Corpuscular HGB Conc 32.3 g/dl (32-36); Mean Corpuscular Hemoglobin 26.9 pg (26-34); Mean Corpuscular Volume 83.5 fl (80-100); Mean Platelet Volume 9.9 fl (7.4-10.4); Monocytes Absolute Auto 0.6 K/mm3 (0.1-0.6); Monocytes Percent Auto 10.3 % (2.6-8.5); Neutrophils Absolute Auto 3.2 K/mm3 (1.3-6.7); Neutrophils Percent Auto 59.2 % (45.5-73.1); Platelet Count Result 281 k/mm3 (150-375); Red Blood Count 4.49 M/mm3 (4.2-5.4); Red Cell Distribution Width 15.2 % (11.5-14.5); White Blood Count 5.3 K/mm3 (4.5-10.0)
--- NOTE | 2024-01-16 21:34 | ECG_ITS ---
Measurements Intervals [place] Rate: 93 P: 17 IA: 164 QRS: 7 QRSD: 94 T: -15 QT: 347 AVG RR: 643 QTc: 398 QTCB: 432 QTCF: 402 Interpretive Statements SINUS TACHYCARDIA ABNORMAL RHYTHM ECG SEE SCANNED COPY FOR SIGNATURE MTDD
[2024-01-16 21:47] LABS: Alanine Aminotransferase 56 U/L (6-35); Albumin Level 4.4 g/dL (3.5-5.1); Alkaline Phosphatase 108 U/L (38-126); Anion Gap 9 mmol/L (4-12); Aspartate Amino Transferase 46 U/L (14-36); Bilirubin,Total 0.2 mg/dL (0.2-1.3); Blood Urea Nitrogen 15 mg/dL (7-17); Calcium 9.5 mg/dL (8.4-10.2); Carbon Dioxide 23 mmol/L (22-30); Chloride 106 mmol/L (98-107); Estimated CRCL calculation 150 ml/min; Estimated Glomerular Filt Rate > 60; Glucose 118 mg/dL (65-110); Potassium 3.7 mmol/L (3.4-5.0); Sodium 138 mmol/L (137-145)
[2024-01-16 21:48] LABS: Appearance Urine Clear (Clear); Color Urine Yellow (Yellow)
[2024-01-16 21:49] LABS: Glucose Urine UA Negative (Negative); Protein Urine Negative (Negative); Specific Grav Ur 1.023 (1.001-1.035)
[2024-01-16 21:50] LABS: Bilirubin Urine Negative (Negative); Blood Urine Negative (Negative); Ketones Urine Negative (Negative); Leukocyte Esterase Ur 1+ LEU/UL (Negative); Nitrate Urine Negative (Negative); Urobilinogen Urine 0.2 mg/dL (<2.0)
[2024-01-16 21:51] LABS: Bacteria Urine 1+ /hpf; Squamous Epithelial Cell Urine Moderate /hpf (Few); WBC Urine 0-5 /hpf (0-3)
[2024-01-16 21:52] LABS: Hyaline Casts Urine 0-2 /lpf
[2024-01-16 21:55] LABS: Add Urine Microscopic? YES; Budding Yeast Urine Present /hpf; Mucus Urine Few /lpf
[2024-01-16 22:30] VITALS: BP 132/82; PULSE 99; RESP 24; O2SAT 100
[2024-01-16] MEDS: SODIUM CHLORIDE 0.9% IV 1,000 ML 999 ML IV CONT (22:33)
--- NOTE | 2024-01-16 22:35 | ED.WEAKNESS ---
HPI - Weakness General Chief complaint: Weakness Stated complaint: whole body is weak Time Seen by Provider: 01/16/24 21:12 History of Present Illness HPI Narrative: 28-year-old female with a hx of scoliosis and POTS presents to the emergency department for sudden-onset leg weakness. Patient states prior to arrival she was sitting all a garden when she felt lightheaded and nauseous. States the symptoms resolved and then she went to stand up in her legs gave out. States she has been able to walk since. She reports weakness in both of her legs but denies any pain or numbness. She is also reporting pain to the right right upper quadrant of her abdomen that wraps around to her back. She denies fever, vomiting or diarrhea, chest pain or shortness of breath, vision changes, focal numbness or weakness, saddle anesthesia, back pain, bowel or bladder incontinence or retention. Prior abdominal surgeries include 2 sections. Denies diarrhea or URI symptoms, recent known tick bite. States her last back surgery was approximately 16 years ago. Related Data Home Medications Medication Instructions Recorded Confirmed No Home Medications 01/17/24 01/17/24 Allergies Allergy/AdvReac Type Severity Reaction Status Date / Time codeine Allergy Intermediate Hives / Verified 10/07/23 09:30 Red Face prochlorperazine AdvReac Unknown DYSTONIC Verified 10/07/23 09:30 REACTION Review of Systems Review of Systems: CONSTITUTIONAL: Denies fever, chills, or sweats. EYES: Denies visual changes, redness, or discharge. ENT: Denies rhinorrhea, congestion, sore throat, or otalgia. CARDIOVASCULAR: Denies chest pain, palpitations, or edema. RESPIRATORY: Denies cough or dyspnea. GASTROINTESTINAL: See HPI GENITOURINARY: Denies dysuria or hematuria. SKIN: Denies rash or itching. MUSCULOSKELETAL: Denies back pain, joint pain, or myalgia. NEUROLOGIC: See HPI PSYCHIATRIC: Denies anxiety or depression. 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 HEAD: Normocephalic, atraumatic. EYES: PERRLA and EOMI. Left eye strabismus which patient states is chronic ENT: Nares clear, no rhinorrhea or epistaxis. Mucous membranes moist. NECK: No midline cervical spinous tenderness, step-offs or deformities. No nuchal rigidity BACK: No thoracolumbar spinous tenderness, step-offs or deformities. Well-healed surgical scars throughout the thoracolumbar spine. CHEST: Clear to auscultation. No respiratory distress. HEART: Regular rate and rhythm. No murmur heard. Normal peripheral pulses. ABDOMEN: Quiet bowel sounds. Abdomen soft with mild tenderness in the right upper quadrant without rebound, guarding or rigidity. Negative Navarro's. No CVA tenderness. EXTREMITIES: Normal range of motion. No edema. Knee extension and flexion, Dorsiflexion and plantar flexion 5/5 bilaterally. Patient able to lift bilateral legs off the bed against gravity but and able to hold against resistance. Patellar reflex 2+ bilaterally. Sensation intact throughout. No saddle anesthesia. SKIN: Warm, dry, no rash. NEURO: No focal deficits. Alert and oriented x3. Cranial nerves 2-12 intact. Strength 5/5 in BUE, see extremity exam for strength in BLE. Sensation intact throughout. Normal [id number]. No pronator drift. Course Vital Signs Vital signs: Vital Signs Temperature 98.2 F 01/16/24 19:08 Pulse Ra
[2024-01-16 23:00] LABS: CRP 2.7 mg/dL (<1.0)
[2024-01-16 23:15] LABS: Lactic Acid Reflex 0.7 mmol/L (0.7-2.0)
[2024-01-16 23:25] LABS: Influenza A QL RT-PCR Negative (Negative); Influenza B QL RT-PCR Negative (Negative); RSV RNA, RT-PCR Negative (Negative); SARS-CoV-2 RNA PCR Negative (Negative)
[2024-01-16 23:46] LABS: Erythrocyte Sedimentation Rate 17 mm/hr (0-20)
[2024-01-17] VITALS (14 sets, daily range): BP systolic 112–135; BP diastolic 61–89; PULSE 78–110; RESP 16–24; TEMP 36.9–37.1; O2SAT 97–100; BMI 30.7
[2024-01-17 00:14] LABS: Creatine Kinase 72 U/L (30-135)
--- NOTE | 2024-01-17 03:06 | PM.IMHP ---
H&P: HPI History of Present Illness Date/Time: 01/17/24 03:06 Chief Complaint: gait disturbance Narrative: this is a 28-year-old female with past medical history significant for scoliosis status post multiple surgeries during childhood, patient presents to the emergency room after having episode of bilateral lower extremity weakness start and eating in and ready to leave the restaurant was unable to get up on her on from sitting position, her legs felt heavy like having sand bags attached to them. Patient denies it pre abdominal pain no fevers no rigors no chills no cough she has been her usual state of health up until this point. Patient has been placed in observation for further evaluation management and treatment. EXAMINATION:? XR chest 2V Exam Date/Time:? 01/16/2024 21:43 CDT HISTORY: weakness ? Comparison:? 11/17/2011, report only. RESULT: Lines, tubes, and devices:? None. Lungs and pleura:? Clear. Cardiomediastinal silhouette:? Unremarkable.. Other:? No acute osseous or upper abdominal finding. Severe thoracic scoliosis. Distorted anatomy of the thoracic cage. ? IMPRESSION: No acute cardiopulmonary process. Review of Systems Review of Systems: Bilateral lower extremity weakness, gait disturbance Constitutional: Constitutional: Denies chills, Denies fever(s), Denies headache(s), Denies malaise, Denies poor appetite and Reports weakness Eyes: Eyes: Denies change in vision ENT: Denies dysphagia, Denies vertigo, Denies dizziness and Denies odynophagia Cardiovascular: Cardiovascular: Denies chest pain, Denies radiating jaw, neck or arm pain and Denies palpitations Respiratory: Respiratory: Denies cough and Denies excessive phlegm production Gastrointestinal: Gastrointestinal: Denies abdominal pain, Denies diarrhea, Denies nausea and Denies vomiting Genitourinary: Genitourinary: Denies dysuria Musculoskeletal: Musculoskeletal: Denies back pain, Denies myalgias, Denies arthralgias and Reports muscle weakness Integumentary/Breasts: Skin/Breast: Denies rash Neurologic: Reports abnormal gait, Denies focal weakness, Denies Sensory deficit (Neuro) and Reports weakness Psychiatric: Psychiatric: Reports no additional psychiatric complaints and Reports as per HPI Endocrine: Endocrine: Denies cold intolerance, Denies flushing, Denies heat intolerance, Denies polyphagia, Denies polydipsia, Denies polyuria and Denies palpitations Hematologic/Lymphatic: Hematologic/Lymphatic: Reports no additional hematologic/lymphatic complaints and Reports as per HPI Allergic/Immunologic: Allergic/Immunologic: Reports no additional allergic/immunologic complaints and Reports as per HPI [facility] Past Medical History Medical History Scoliosis has had 13 surgeries Surgical History Surgical History 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e Degree Difficulty w/ Childcare or Family Care: No Gender identity (if verbalized by the patient): Female Spiritual care concerns: No Meds Home Medications and Allergies Home Medications Medication Instructions Recorded Confirmed Type No Home Medications 01/17/24 01/17/24 History Allergies Allergy/AdvReac Type Severity Reaction Status Date / Time codeine Allergy Intermediate Hives / Verified 10/07/23 09:30 Red Face
--- NOTE | 2024-01-17 15:51 | PM.IMPN ---
Progress Note: A&P Assessment and Plan (1) Proximal leg weakness: Code(s): R29.898 - Other symptoms and signs involving the musculoskeletal system Status: Acute Assessment and Plan: Patient developed spontaneous symmetrical weakness of the lower extremities. Before today she was independent in all ADLs. Now requiring assistance with ambulation and has severe weakness of bilateral lower extremities on exam. - Brain MRI: Mild nonspecific cerebral white matter disease. The differential diagnosis includes premature chronic small vessel ischemic disease (especially if the patient has cardiovascular risk factors), demyelinating disease such as multiple sclerosis, drug abuse, vasculitis, or reactive astrocytosis (gliosis) secondary to nonspecific etiology. - Head CT: No significant abnormality seen - Neurology following. Plan to get a MRI Cervical Spine and MRI Thoracic Spine for further MS workup. Depending on results patient may need a spinal tap. If necessary will likely be done with IR due to prior spinal surgery secondary to scoliosis. Time Spent With Patient Time with patient: 25 - 35 minutes Subjective Date/time seen: 01/17/24 15:51 Interval history: 28-year-old female with a history of scoliosis and POTS presents to the hospital for sudden-onset leg weakness. She states that her and her were at a restaurant and when going to leave she was unable to stand up. She continues to be weak and unable to walk without assistance. She states that the weakness is even for each leg without associated numbness or tingling. She notes that when the symptoms first started she felt tingling/numbness to both of her arms, but this has resolved. She denies similar symptoms in the past. She also denies chest pain, shortness of breath, nausea/vomitng, and changes in bowel/bladder. She notes that her mother was previously worked up for MS and possibly her maternal grandmother as well. She was evaluated by neurology and will undergo more testing while inpatient. Review of Systems Review of Systems: All systems reviewed & are unremarkable except as noted in HPI and below Exam Narrative: AF HR 84 RR 18 SpO2 100 BP 114/61 General: well nourished, well-developed female in no acute respiratory distress who is nontoxic appearing, lying semi recumbent in bed. HEENT: Normocephalic. Atraumatic. Pupils equal round reactive to light. Extraocular movement intact. No facial asymmetry. Chest: Lungs are clear to auscultation bilaterally. No wheezes or crackles. CV: Heart was regular rate and rhythm. S1-S2. No murmurs, gallops, or rubs. Abd: Abdomen was soft. Nontender. Nondistended. Positive bowel sounds. No organomegaly or masses. Ext: No clubbing, cyanosis, or edema. 2+ DP pulses bilaterally. Neuro: Patient is alert and oriented x4. Strength is 5/5 in both upper extremities. Lower extremities symmetrically weak, unable to keep them lifted without support. Cranial nerves 2-12 are intact. Speech is clear. Psych: Normal mood and affect. Patient is pleasant and cooperative. Skin: Warm and dry. No rashes noted. Scar from prior spinal surgery extending down entire mid back. Objective Data Vital Signs Vital Signs: Vital Signs - 24 hr 01/16/24 19:08 01/16/24 21:17 01/16/24 21:18 Temperature 98.2 F 98.2 F Pulse Rate 93 98 99 Respiratory Rate 14 20 Blood Pressure 145/76 H 121/77 Pulse Oximetry 100 100 Oxygen Delivery Room Air 01/16/24 21:19 01/16/24 22:30 01/17/24 00:20 Temperature Pulse Rate 99 110 H Respiratory Rate 24 H 24 H Blood Pressure 132/82 135/81 Pulse Oximetry 100 100 100 Oxygen Delivery Room Air 01/17/24 00:55 01/17/24 02:32 01/17/24 04:00 Temperature Pulse Rate 100 90 85 Respiratory Rate 19 17 Blood Pressure 126/89 122/82 Pulse Oximetry 100 100 Oxygen Delivery 01/17/24 04:08 01/17/24 03:10 01/17/24 03:19 Temperature Pulse Rate 92 90 Respiratory Rate 20 17 Blood Pressure 114/75 1
--- NOTE | 2024-01-17 17:33 | WPDNEURCNPN ---
Assessment and Plan Assessment and plan (1) Proximal leg weakness: Code(s): R29.898 - Other symptoms and signs involving the musculoskeletal system Status: Acute (2) Abdominal pain: Qualifiers: Abdominal location: right upper quadrant Qualified Code(s): R10.11 - Right upper quadrant pain Code(s): R10.9 - Unspecified abdominal pain Status: Acute Plan Sudden onset of subjective weakness in both lower limbs along with abdominal pain requires further evaluation. Deep tendon reflexes in the lower limbs appears somewhat brisk compared to upper limbs however no sensory level noted. Patient denies any bladder or bowel symptoms. I doubt she has any vascular etiology. Demyelinating conditions have been considered. There is no history suggestive of possible development of when brain syndrome nevertheless that could be a differential diagnosis with multiple sclerosis although I doubt at this time. Further follow-up and investigations are recommended. I would suggest MRI of the cervical and dorsal spine and also lumbar spine. She has had MRI of the brain that shows mild white matter changes. Although not typical for multiple sclerosis that certainly would be a consideration. In terms of the history it was noted that she has had multiple surgeries on the spine scoliosis. Consult date: 01/17/24 Reason for consult: Weakness and legs HPI: Annie Chirinos is a 28 year old female with complaints of sudden onset of weakness in the lower limbs yesterday. She also has some pain in the right side of the abdomen for which she is being investigated. MRI of the brain was performed the results of which were reviewed and this is a to be discussed below. No bladder difficulties. No weakness in upper limbs. No diplopia or difficulty speech or swallowing. No history of trauma or any febrile illness. Review of Systems Review of Systems: All systems reviewed & are unremarkable except as noted in HPI and below Constitutional: Constitutional: Denies chills, Denies fever(s) and Denies weight loss Eyes: Eyes: Denies diplopia and Denies loss of vision ENT: Denies dizziness, Denies hearing loss and Denies tinnitus Cardiovascular: Cardiovascular: Denies chest pain, Denies syncope and Denies dyspnea Respiratory: Respiratory: Denies cough, Denies dyspnea and Denies wheezing Gastrointestinal: Gastrointestinal: Denies abdominal pain, Denies change in bowel habits and Denies vomiting Genitourinary: Genitourinary: Denies urinary incontinence Musculoskeletal: Musculoskeletal: Denies arthralgias and Denies joint swelling Integumentary/Breasts: Skin/Breast: Denies new lesions and Denies rash Neurologic: Reports as per HPI, Denies dizziness, Denies syncope and Denies loss of vision Psychiatric: Psychiatric: Denies anxiety and Denies depression Endocrine: Endocrine: Denies cold intolerance and Denies heat intolerance Hematologic/Lymphatic: Hematologic/Lymphatic: Denies easy bleeding and Denies easy bruising Allergic/Immunologic: Allergic/Immunologic: Denies no additional allergic/immunologic complaints and Denies wheezing PMFSH Past Medical History Medical History Scoliosis has had 13 surgeries Surgical History Surgical History 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
[2024-01-18] VITALS (10 sets, daily range): BP systolic 117–126; BP diastolic 73–76; PULSE 85–101; RESP 16–21; TEMP 36.4–37.1; O2SAT 97–100
[2024-01-18 09:12] LABS: Hematocrit 37.9 % (37.0-47.0); Hemoglobin 11.8 g/dL (12.0-15.0); Mean Corpuscular HGB Conc 31.1 g/dl (32-36); Mean Corpuscular Hemoglobin 26.8 pg (26-34); Mean Corpuscular Volume 86.1 fl (80-100); Mean Platelet Volume 10.2 fl (7.4-10.4); Platelet Count Result 282 k/mm3 (150-375); Red Cell Distribution Width 15.2 % (11.5-14.5); White Blood Count 7.6 K/mm3 (4.5-10.0)
[2024-01-18 09:21] LABS: Anion Gap 8 mmol/L (4-12); Blood Urea Nitrogen 16 mg/dL (7-17); Calcium 8.9 mg/dL (8.4-10.2); Carbon Dioxide 23 mmol/L (22-30); Chloride 108 mmol/L (98-107); Estimated CRCL calculation 156 ml/min; Estimated Glomerular Filt Rate > 60; Glucose 97 mg/dL (65-110); Potassium 3.5 mmol/L (3.4-5.0); Sodium 139 mmol/L (137-145)
--- NOTE | 2024-01-18 14:32 | PCCCNOTE ---
On 01/18/24, the student, Sharon Galicia, provided care and completed [facility] documentation on this patient. I have reviewed the student's documentation and agree with the findings.
--- NOTE | 2024-01-18 15:43 | PM.IMPN ---
Progress Note: A&P Assessment and Plan (1) Proximal leg weakness: Code(s): R29.898 - Other symptoms and signs involving the musculoskeletal system Status: Acute Assessment and Plan: Patient developed spontaneous symmetrical weakness of the lower extremities. Before today she was independent in all ADLs. Now requiring assistance with ambulation and has severe weakness of bilateral lower extremities on exam. Of note she has had extensive spinal surgery for scoliosis. - C spine MRI: unremarkable - Thoracic MRI: No evidence of MS. Prominent levoscoliosis. - Lumbar MRI: No evidence of MS. Facet joint degenerative changes And fusion presumably related to underlying scoliosis. - Brain MRI: Mild nonspecific cerebral white matter disease. The differential diagnosis includes premature chronic small vessel ischemic disease (especially if the patient has cardiovascular risk factors), demyelinating disease such as multiple sclerosis, drug abuse, vasculitis, or reactive astrocytosis (gliosis) secondary to nonspecific etiology. - Head CT: No significant abnormality seen - Neurology following. Plan to get a MRI Cervical Spine and MRI Thoracic Spine for further MS workup. Depending on results patient may need a spinal tap. If necessary will likely be done with IR due to prior spinal surgery secondary to scoliosis. Time Spent With Patient Time with patient: 25 - 35 minutes Subjective Date/time seen: 01/18/24 15:43 Interval history: 28-year-old female with a history of scoliosis and POTS presents to the hospital for sudden-onset leg weakness. She denies similar symptoms in the past. Patient is lying in bed comfortably with at bedside. She states that the weakness is the same as yesterday and she continues to struggle with ambulation. She notes that her legs will begin to tingle and become increasingly numb when dangling on the side of the bed. This sensation quickly resolves with elevation. 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 She also denies chest pain, shortness of breath, nausea/vomitng, and changes in bowel/bladder. She remains inpatient pending neurology recommendations. She has had several spinal surgeries at [facility] for her scoliosis. She states that following one of her surgeries she developed leg weakness resulting in her legs spontaneously giving out. She is unsure what was done for this problem, but it did resolve. She last saw the [facility] spine doctor for a spinal shot 4 years ago. She states that the doctor told her that if the shot did not work she may need to return to the OR for complete spinal fusion of the lumbar spine. Review of Systems Review of Systems: All systems reviewed & are unremarkable except as noted in HPI and below Exam Narrative: AF HR 85 RR 16 SpO2 100 BP 117/73 General: well nourished, well-developed female in no acute respiratory distress who is nontoxic appearing, lying semi recumbent in bed. HEENT: Normocephalic. Atraumatic. Pupils equal round reactive to light. Extraocular movement intact. No facial asymmetry. Chest: Lungs are clear to auscultation bilaterally. No wheezes or crackles. CV: Heart was regular rate and rhythm. S1-S2. No murmurs, gallops, or rubs. Abd: Abdomen was soft. Nontender. Nondistended. Positive bowel sounds. No organomegaly or masses. Ext: No clubbing, cyanosis, or edema. 2+ DP pulses bilaterally. Neuro: Patient is alert and oriented x4. Strength is 5/5 in both upper extremities. Lower extremities symmetrically weak, unable to keep them lifted without support. Cranial nerves 2-12 are intact. Speech is clear. Psych: Normal mood and affect. Patient is pleasant and cooperative. Skin: Warm and dry. No rashes noted. Scar from prior spinal surgery extending down entire mid back. Objective Data Vital Signs Vital Signs: Vital Signs - 24 hr 01/17/24 16:00 01/17/24 19:43 01/17/24 20:11 Temperature 98.7 F P
[2024-01-19] VITALS: PULSE 86
[2024-01-19 04:00] VITALS: PULSE 87
[2024-01-19 05:09] LABS: Hematocrit 37.2 % (37.0-47.0); Hemoglobin 11.5 g/dL (12.0-15.0); Mean Corpuscular HGB Conc 30.9 g/dl (32-36); Mean Corpuscular Hemoglobin 26.4 pg (26-34); Mean Corpuscular Volume 85.3 fl (80-100); Platelet Count Result 293 k/mm3 (150-375); Red Blood Count 4.36 M/mm3 (4.2-5.4); Red Cell Distribution Width 14.8 % (11.5-14.5); White Blood Count 6.4 K/mm3 (4.5-10.0)
[2024-01-19 05:20] LABS: Anion Gap 9 mmol/L (4-12); Blood Urea Nitrogen 15 mg/dL (7-17); Carbon Dioxide 23 mmol/L (22-30); Chloride 108 mmol/L (98-107); Estimated CRCL calculation 128 ml/min; Estimated Glomerular Filt Rate > 60; Glucose 101 mg/dL (65-110); Potassium 3.9 mmol/L (3.4-5.0); Sodium 140 mmol/L (137-145)
[2024-01-19 06:00] VITALS: BP 115/63; PULSE 88; RESP 21; TEMP 36.2; O2SAT 100
[2024-01-19 08:00] VITALS: PULSE 111
--- NOTE | 2024-01-19 10:52 | WPDNEUROPN ---
Subjective Date/time seen: 01/19/24 10:52 Interval history: 28 years old right-handed female seen by Dr. Sotelo in for the complaints of the leg weakness of sudden onset along with the abdominal pain and with the finding of mildly brisk deep tendon reflexes in the lower extremities but no sensory changes and also no bowel or bladder dysfunction. Consideration was given to the possibility of demyelinating disease MRI of lumbar spine was obtained in addition to MRI of cervical and thoracic s. . MRI of the lumbar spine was negative except the facet joint arthritis fusion with underlying scoliosis, MRI of the thoracic spine was negative except prominent levoscoliosis An MRI of cervical spine was normal. Patient remains clinically stable and at present she can be involved in physical therapy as an outpatient can be discharged from the hospital with instruction to follow-up with the [place] neurosurgeon either at [facility] or [facility] to see if any further intervention is necessary for the chronic pain or else an onset of weakness the consideration of the vascular supply to spinal cord is the rneason. But at present she definitely and is stable. Objective Data Vital Signs Vital Signs: Vital Signs - 24 hr 01/18/24 15:23 01/18/24 16:00 01/18/24 19:48 Temperature 36.8 C Pulse Rate 85 87 Respiratory Rate 16 Blood Pressure 117/73 Pulse Oximetry 100 Oxygen Delivery Room Air 01/18/24 22:33 01/18/24 20:00 01/19/24 00:00 Temperature 36.4 C L Pulse Rate 89 90 86 Respiratory Rate 21 H Blood Pressure 122/75 Pulse Oximetry 100 Oxygen Delivery 01/19/24 04:00 01/18/24 21:55 01/19/24 06:00 Temperature 36.2 C L Pulse Rate 87 88 Respiratory Rate 21 H Blood Pressure 115/63 Pulse Oximetry 100 100 Oxygen Delivery Room Air 01/19/24 09:45 Temperature Pulse Rate Respiratory Rate Blood Pressure Pulse Oximetry Oxygen Delivery Room Air Intake/Output Intake/Output: Intake & Output 01/16/24 01/17/24 01/18/24 01/19/24 23:59 23:59 23:59 23:59 Intake Total 1000 790 550 720 Output Total 400 1000 Balance 1000 390 550 -280 Meds/Results Radiology Results: ITS Impressions Chest X-Ray 01/16/24 21:57 IMPRESSION: No acute cardiopulmonary process. Abdomen/Pelvis CT 01/17/24 05:41 Impression: No acute abnormalities seen. Head CT 01/17/24 05:41 Impression: No significant abnormality seen. Brain MRI 01/17/24 08:36 IMPRESSION: 1. Mild nonspecific cerebral white matter disease. The differential diagnosis includes premature chronic small vessel ischemic disease (especially if the patient has cardiovascular risk factors), demyelinating disease such as multiple sclerosis, drug abuse, vasculitis, or reactive astrocytosis (gliosis) secondary to nonspecific etiology. Cervical Spine MRI 01/18/24 12:37 Impression: Unremarkable exam. Thoracic Spine MRI 01/18/24 12:40 Impression: No evidence of multiple sclerosis. Prominent levoscoliosis. Lumbar Spine MRI 01/18/24 12:42 Impression: No evidence for multiple sclerosis. Facet joint degenerative changes and fusion, presumably related to underlying scoliosis. Correlate for surgical change at the lower lumbar spine. Labs Labs: Laboratory Results - last 24 hr 01/19/24 04:39 WBC 6.4 RBC 4.36 Hgb 11.5 L Hct 37.2 MCV 85.3 MCH 26.4 MCHC 30.9 L RDW 14.8 H Plt Count 293 MPV 10.0 Sodium 140 Potassium 3.9 Chloride 108 H Carbon Dioxide 23 Anion Gap 9 BUN 15 Creatinine 0.50 L Estim Creat Clear Calc 128 Estimated GFR > 60 Glucose 101 Calcium 9.0 Amg Follow-up Billing Hospital Follow-up Hospital Follow-up: [id number] [facility]
[2024-01-19 14:11] VITALS: BP 99/65; PULSE 95; RESP 16; TEMP 36.7; O2SAT 99
--- NOTE | 2024-01-19 15:49 | PM.DS ---
DS: Admitting Diagnosis Discharge Date 01/19/24 Admitting Diagnosis gait disturbance DS: Discharge Diagnosis Discharge Diagnosis (1) Proximal leg weakness: Code(s): R29.898 - Other symptoms and signs involving the musculoskeletal system Status: Acute Assessment and Plan: Patient developed spontaneous symmetrical weakness of the lower extremities. Before today she was independent in all ADLs. Now requiring assistance with ambulation and has severe weakness of bilateral lower extremities on exam. Of note she has had extensive spinal surgery for scoliosis. - C spine MRI: unremarkable - Thoracic MRI: No evidence of MS. Prominent levoscoliosis. - Lumbar MRI: No evidence of MS. Facet joint degenerative changes And fusion presumably related to underlying scoliosis. - Brain MRI: Mild nonspecific cerebral white matter disease. The differential diagnosis includes premature chronic small vessel ischemic disease (especially if the patient has cardiovascular risk factors), demyelinating disease such as multiple sclerosis, drug abuse, vasculitis, or reactive astrocytosis (gliosis) secondary to nonspecific etiology. - Head CT: No significant abnormality seen - Neurology following and cleared for d/c with outpatient PT. (2) Scoliosis: Code(s): M41.9 - Scoliosis, unspecified Status: Chronic DS: Summary Hospital Course Hospital Course: Patient is a 28-year-old female with PMH of scoliosis status post multiple surgeries during childhood, with most recent f/u with [facility] provider 2019. She is 6 months PP. She was admitted after having episode of bilateral lower extremity weakness after she was unable to get up on her on own from a sitting position, reports her legs felt heavy like having sand bags attached to them. Neurology consulted and imaging obtained. She was evaluated for demyelinating disease with MRI of lumbar spine in addition to MRI of cervical and thoracic spine. MRI of the lumbar spine was negative except the facet joint arthritis fusion with underlying scoliosis, MRI of the thoracic spine was negative except prominent levoscoliosis An MRI of cervical spine was normal. Neurology felt the patient clinically stable and can have PT outpatient therapy as an outpatient and to follow-up with the [place] neurosurgeon at [facility]. Attempt was made to transfer to [facility] per patient and family request. Discussed with [facility] neurology who declined to accept. Discussed options with patient/family and ordered outpatient PT until she can see neuro at [facility] with information given and clinician reviewing [facility] records. Patient is otherwise stable for d/c, denies incontinence, numbness/tingling or inability to move her legs. Symptoms have not worsened and she would like to go home today. Status at Discharge Functional status at discharge: wheelchair bound Overall status at discharge: patient is not back to baseline Time Spent with Patient Time attestation: Total time spent providing and/or coordinating discharge services: Exam Narrative: General: well nourished, well-developed female in no acute respiratory distress HEENT: Normocephalic. Atraumatic. PERRLA, EOMI. No facial asymmetry. Chest: Lungs are clear to auscultation bilaterally. No wheezes or crackles. CV: RRR. S1-S2. No murmurs, gallops, or rubs. Abd: soft, nontender. Nondistended. Positive bowel sounds. Ext: No clubbing, cyanosis, or edema. 2+ DP pulses bilaterally. Skin: Warm and dry. No rashes noted. Scar from prior spinal surgery extending down entire mid back. Neuro: alert and oriented x4. Strength is 5/5 in both upper extremities. Lower extremities symmetrically weakened, Cranial nerves 2-12 are intact. Speech is clear. Psych: Normal mood and affect. Patient is pleasant and cooperative. DS: Data Data Completed and Pending Labs on day of discharge: Labs from last 24 hours 01/19/24 04:39 WBC 6.4 RBC 4.36 Hgb 11.5 L Hct 37.2 MCV 85.3 MCH 26.4 MCHC 30.9 L RDW
== END 2024-01-19 16:20 | disposition home or self-care (01) ==
LOC: ANHED 01-17 02:30 → ANH2MED 01-17 03:19 → ANH3MEDSUR 01-20 07:34
PROVIDERS: Emergency Medicine; Student in an Organized Health Care Education/Training Program; Admitting Provider Internal Medicine; Emergency Provider Physician Assistant; PCP Physician Assistant; Visit Provider Student in an Organized Health Care Education/Training Program
DX: R29.898 Other symptoms and signs involving the musculoskeletal system (principal); M41.9 Scoliosis, unspecified; R10.11 Right upper quadrant pain; G90.A Postural orthostatic tachycardia syndrome [POTS]; Z99.3 Dependence on wheelchair; R90.82 White matter disease, unspecified; R94.31 Abnormal electrocardiogram [ECG] [EKG]; Z20.822 Contact with and (suspected) exposure to COVID-19
CPT/HCPCS: 36415; 70450; 70553; 71046; 72156; 72157; 72158; 74177; 80048; 80053; 81001; 81025; 82550; 83605; 85025; 85027; 85652; 86140; 87086; 87637; 93005; 96360; 99285; A9577; G0378; J7030; Q9967

== ENCOUNTER 2025-01-22 10:18 | Emergency (ER) | payer MEDICARE, SELFPAY ==
[2025-01-22 10:27] VITALS: BP 123/72; PULSE 80; RESP 16; TEMP 36.3; O2SAT 100
--- NOTE | 2025-01-22 10:45 | ED.HA ---
HPI - Headache General Chief Complaint: Headache Stated Complaint: headache and blurred vision Time Seen by Provider: 01/22/25 10:22 Source: patient Mode of arrival: ambulatory Limitations: no limitations History of Present Illness HPI Narrative: Patient is a 29-year-old female who presents with the worst headache of her life and burn vision since 6:00 a.m.. Patient states she had minor headache starting Wednesday but thought it was just stressed from daughters and competition. Patient tried multiple different kinds of pain medication both Wednesday and Wednesday without any relief. Denies any numbness, tingling or weakness to extremities. Reports pain wraps from back of head to behind her eyes on both sides. Denies any history of migraines Related Data Home Medications ?Medication ?Instructions ?Recorded ?Confirmed ?Last Taken ?Type epinephrine 0.3 mg/0.3 mL 11/12/24 Unknown History injection, auto-injector Allergies Allergy/AdvReac Type Severity Reaction Status Date / Time codeine Allergy Intermediate Hives / Verified 01/22/25 10:33 Red Face prochlorperazine AdvReac Unknown DYSTONIC Verified 01/22/25 10:33 REACTION Review of Systems Review of Systems: All systems reviewed & are unremarkable except as noted in HPI and below Constitutional: Constitutional: Denies body ache(s), Denies chills, Denies fatigue, Denies fever(s), Denies headache(s), Denies malaise and Denies weakness Eyes: Eyes: Reports blurry vision, Reports change in vision, Denies irritation and Denies loss of vision ENT: Denies otalgia, Reports headache(s), Denies nasal discharge, Denies sinus pain and Denies sore throat Cardiovascular: Cardiovascular: Denies chest pain, Denies irregular heart rhythm and Denies dyspnea Respiratory: Respiratory: Denies dyspnea Gastrointestinal: Gastrointestinal: Denies abdominal pain, Denies melena, Denies hematochezia, Denies diarrhea, Denies nausea and Denies vomiting Musculoskeletal: Musculoskeletal: Denies back pain, Denies myalgias and Denies arthralgias Integumentary/Breasts: Skin/Breast: Denies pruritus and Denies rash Neurologic: Reports headache(s), Denies loss of vision and Denies weakness Psychiatric: Psychiatric: Reports no additional psychiatric complaints Endocrine: Endocrine: Denies fatigue PMFSH Past Medical History Medical History Scoliosis has had 13 surgeries Surgical History Surgical History History of tonsillectomy Hx of eye surgery 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 Social History Social History Smoking status: Never smoker Alcohol intake: never Substance use: never Do You Feel Safe in your Home?: Yes Lack of Transportation: No Lack of Food: Never True Current Housing: I Have Housing Concerned About Future Housing: No Difficulty Paying Gas/Electric Bills: No Difficulty Paying for Meds: No Currently Unemployed: No Education: Associate Degree Difficulty w/ Childcare or Family Care: No Gender identity (if verbalized by the patient): Female Spiritual care concerns: No Comments At time of signature, agree with nursing past medical, surgical, social and family history. There is no relevant family history pertinent to the presenting complaint. Exam Const: General: cooperative, healthy appearing, comfortable, no acute distress and well nourished Nutritional Appearance: well nourished Orientation/consciousness: patient oriented x3 Limitations: no limitations HENMT: Head: normal to inspection, normocephalic and atraumatic Ears: hearing grossly normal bilaterally and external ears normal Face/Nose/Sinus: Normal external nose present, normal facial exam and face symmetric Face and sinus: normal facial exam and face symmetric Mouth: Yes lip normal Eyes: General: appearance normal, both eyes and all related structures Alignment and Position: alignment normal and position normal Periorbital: periorbital findings normal Eyelids: eyelids normal Pupils: Equal, round and reactive pupils present EOM: EOMs intact bilaterally Neck: Neck: normal visual inspection, full ROM and supple Chest: Chest palpation & inspection: normal inspection of the chest Resp: Effort & Inspection: normal respiratory effort and able to speak in complete sentences Auscultation: clear to auscultation bilaterally Cardio: Rate: regular rate Rhythm: regular rhythm Heart sounds: S1 normal heart sound present and S2 normal heart sound present GI: Inspection: normal to inspection Skin: General skin exam: normal color and no rashes or lesions noted Neuro: General: patient oriented x3 and moves all extremities Cranial nerves: Yes CN's II-XII intact bilaterally and Yes Equal, round and reactive pupils present Cognition (Neuro): normal cognition Speech: normal speech Gait exam (Neuro): Normal gait present Motor exam (neuro): 5/5 motor strength present throughout, Normal motor muscle tone present throughout and Motor abnormalities not present Sensory Exam: normal sensation Extrem: General: normal to inspection, full ROM and no edema Psych: Appearance: grossly normal and well kempt Mental Status: mental status grossly normal Speech and movement: Normal speech and movement present Affect: normal affect Attitude: cooperative Thought process: Normal thought process present Course Course Emergency Course: Patient being transferred to [facility] for further workup and evaluation. Patient having headache with blurred vision requiring advanced imaging, labs and potentially IV fluids or medication. Portions of this record may have been created with voice recognition software Level of Care: Express Care Visit Vital Signs Vital signs: Vital Signs Temperature 36.3 C L 01/22/25 10:27 Pulse Rate 80 01/22/25 10:27 Respiratory Rate 16 01/22/25 10:27 Blood Pressure 123/72 01/22/25 10:27 Pulse Oximetry 100 01/22/25 10:27 Oxygen Delivery Room Air 01/22/25 10:27 Temperature 36.3 C L 01/22/25 10:27 Pulse Rate 80 01/22/25 10:27 Respiratory Rate 16 01/22/25 10:27 Blood Pressure 123/72 01/22/25 10:27 Pulse Oximetry 100 01/22/25 10:27 Oxygen Delivery Room Air 01/22/25 10:27 Reviewed Transfer Transfered to: [facility] Transportation: Other (private auto, refused EMS transport) Transfer rationale: Patient having headache with blurred vision requiring advanced imaging, labs and potentially IV fluids or medication. MDM - Headache MDM Narrative Medical decision making narrative: Patient being transferred to [facility] for further workup and evaluation. Patient having headache with blurred vision requiring advanced imaging, labs and potentially IV fluids or medication. Patient is neuro intact with equal strength and sensation bilaterally Differential Diagnosis Differential diagnosis: Likely migraine, tension headache, subarachnoid hemorrhage, headache and other (Intracranial abnormality) Medical Records Attestation: I reviewed the patient's medical records. Discharge Plan Discharge Clinical Impression: Headache, Changes in vision Patient Disposition: Acute Care Hospital Condition: Stable Patient Language: Korean Prescriptions: No Action epinephrine 0.3 mg/0.3 mL auto-injector 0.3 mg IM Q10M PRN (Reason: anaphylaxis) Follow-up/Referrals: Cristina,Chavez Mccollum PA [Primary Care Provider] - Time of Disposition: 10:55
--- OUTSIDE RECORDS SUMMARY | 2025-01-22 11:34 | XMS_ITS | Clinical Summary ---
Author Organization [facility] Address [address] [place] [address] Care Team Providers Care Hose Wrapper Name Role Phone Chavez Evans Primary Care Provider [phone] Source Comments [facility],non-owned Affiliates and Associated Physician Practices is amultiple site organization consisting of ambulatory clinics and hospital sitesin [place], [place], [place] and [place]. This disclosure is being madepursuant to the Care Everywhere program and may not contain all information available regarding this patient. Last updated 18.[facility] Allergies Active Allergy Reactions Criticality Noted Date Comments Codeine Urticaria Medium 03/07/2024 Prochlorperazine Other High 03/07/2024 Medications * Be aware that medications may not be up to date on this document. Alwaysverify current medications with the patient. 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, glaucoma, hypertelorism, microdontia, hypospadias, heart defects) Autosomal Dominant (iris abnormalities, glaucoma, hypertelorism, microdontia, hypospadias, heart defects) History of spinal fusion 02/05/2023 Overview (03/07/2024): multiple, no spinal/epidural, CS under GENERAL multiple, no spinal/epidural, CS under GENERAL Tachycardia 02/05/2023 Overview (03/07/2024): 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, ECHO end of February, off metoprolol 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, ECHO end february, off metoprolol 02/01/2023 Social History Tobacco Use Types Packs/Day Years Used Date Smoking Tobacco: Never Assessed Comments Unknown Sex and Gender Information Value Date Recorded Sex Assigned at Not on file Legal Sex Female 11:06 AM CDT Gender Identity Not on file Sexual Orientation Not on file Last Filed Vital Signs Vital Sign Reading Time Taken Comments Blood Pressure 138/88 03/07/2024 3:47 PM CDT Pulse 98 03/07/2024 3:47 PM CDT Temperature - - Respiratory Rate - - Oxygen Saturation 99% 03/07/2024 3:47 PM CDT Inhaled Oxygen Concentration - - Weight 76 kg (167 lb 8 oz) 03/07/2024 3:47 PM CD T Height 154.9 cm (5' 1 ) 03/07/2024 3:47 PM CDT Body Mass Index 31.65 03/07/2024 3:47 PM CDT Plan of Treatment Health Maintenance Due Date Last Done Comments PAP SMEAR 1995 HEPATITIS C SCREENING 04/16/2013 DTAP/TDAP/TD VACCINES (1 - Tdap) 2014 HEPATITIS B VACCINE (1 of 3 - 19+ 3-dose series) 2014 COVID-19 VACCINE (1 - 2023-2 5 season) 2024 DEPRESSION SCREENING 10/11/2024 MEDICARE AWV CALENDAR YEAR 2024 INFLUENZA VACCINE (Season Ended) 2025 ZOSTER VACCINE (1 of 2) 2045 HIV SCREENING Completed 03/01/2023 HIB VACCINE Aged Out No longer eligi ble based on patient's age to complete this topic HPV VACCINE Aged Out No longer eligi ble based on patient's age to complete this topic MENINGOCOCCAL (Group B) VACC INE SHARED DECISION-MAKING Aged Out No longer eligibl e based on patient's age to complete this topic MENINGOCOCCAL GROUPS A/C/Y/W VACCINE Aged Out No longer eligible b ased on patient's age to complete this topic PNEUMOCOCCAL VACCINE Aged Out No long er eligible based on patient's age to complete this topic Insurance [employer] MEDICARE DUAL ADV [place] Care Teams Hose Wrapper Relationship Specialty Start Date End Date Chavez Evans PA [address] [place] [address] PCP - General Physician Director Life Insurance 03/07/24
--- OUTSIDE RECORDS SUMMARY | 2025-01-22 11:34 | XMS_ITS | Clinical Summary ---
Author Organization [facility] Address [address] [place] [address] Phone Care Team Providers Care Hedge Fund Accountant Name Role Phone Chavez Evans Primary Care Provider [phone] Allergies Active Allergy Reactions Criticality Noted Date Comments Codeine Hives 01/08/2016 Prochlorperazine Maleate Other (see Comments) 0 01/08/2016 Medications traMADol (ULTRAM) 50 MG Tablet Take 50 mg by mouth every 8 hours as needed. Active butalbital-aceta minophen-caffein e-codeine (FIORICET WITH CODEINE) 31-284-36-30 MG Capsule Take 1 Cap by mouth every 4 hours as needed. Active HYDROcodone-acet aminophen (NORCO) 5-325 MG Tablet Take 1 Tab by mouth every 6 hours as needed for Severe pain. 8 Tab 01/18/2019 Active Social History Tobacco Use Types Packs/Day Years Used Date Smoking Tobacco: Never Alcohol Use Standard Drinks/Week Comments Not Currently 0 (1 standard drink = 0.6 oz pur e alcohol) Comments No Sex and Gender Information Value Date Recorded Sex Assigned at Not on file Legal Sex Female 7:23 PM CDT Gender Identity Not on file Sexual Orientation Not on file Last Filed Vital Signs Vital Sign Reading Time Taken Comments Blood Pressure 126/79 05/12/2022 4:21 PM CDT Pulse 82 05/12/2022 4:21 PM CDT Temperature 36.7 C (98 F) 05/12/2022 4:21 PM CDT Respiratory Rate 16 05/12/2022 4:21 PM CDT Oxygen Saturation 100% 05/12/2022 4:21 PM CDT Inhaled Oxygen Concentration - - Weight 59.9 kg (132 lb) 05/12/2022 3:27 PM CDT Height 154.9 cm (5' 1 ) 05/12/2022 3:27 PM CDT Body Mass Index 24.94 05/12/2022 3:27 PM CDT Plan of Treatment Health Maintenance Due Date Last Done Comments Hepatitis C Virus (HCV) Screening 1995 TdaP Immunization 1995 Hepatitis B Immunization (1 of 3 - 19+ 3-dose series) 2014 Influenza Immunization (#1) 2024 SARS-COV-2 Immunization (2023- season) 2024 Respiratory Syncytial Virus (RSV) Immunization (Adult) (1 - 1-dose 75+ series) 2070 Meningococcal Immunization (ACWY) Aged Out No longer eligible based on patient's age to complete this topic Pneumococcal Immunization Combined Aged Out No longer eligible based on patient's age to complete this topic Rotavirus Immunization Aged Out No lo nger eligible based on patient's age to complete this topic Insurance MEDICARE C [employer] Care Teams Hedge Fund Accountant Relationship Specialty Start Date End Date Chavez Evans PAC [address] [place] [address] PCP - General Physician Food Beverage Attendant 01/18/19
--- OUTSIDE RECORDS SUMMARY | 2025-01-22 11:34 | XMS_ITS | Data Portability ---
Author Organization 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 Discussed plan. Not available 04/07/2023 11:10:53 Plan of Treatment Reminders Order Date Submit Date Provider Last Modified By Organization Details Last Modified Time Details Appointments None recorded. Lab None recorded. Referral None recorded. Procedures None recorded. Surgeries None recorded. Imaging US, obstetric, nuchal translucenc y 2022 023 [facility], [address], [address], [place], [address], 13:30:23 Medication Orders None recorded. Patient TargetsNo targets recorded. Patient InstructionsNo instructions recorded. Reason for Referral None Reported. Results Created Date Observation Date Name Description Value Unit Range Abnormal Flag Note LastModifiedBy Organization Detail LastModifiedTime 01/12/2001/11/2023 LEAD, BLOOD (ADUL T/PED IATRI C) lead, whole blood <1.0 mcg/d L <3.5 See Note 1 A blood lead refer ence value of <5 mcg/d L shoul d apply to only [facility] resid ents per [facility] D[facility]. Tanya sis was perfo rmed by Myranda Chapman ed Plasm a Mass Spect romet ry (ICPM S) Note 1 This test was devel oped and its tanya tical perfo rmanc e rodrigo cteri stics have been deter mined by [employer] ostic s. It has not been clear ed or appro sumeet by the FDA. This assay has been valid ated pursu ant to the CLIA regul ation s and is used for clini mj purpo ses. Ethni city: Not Hispa julio or Latin o Perfo rming Organ izati on Infor matio n: Site ID: [id number] Name: [facility] [employer] [facility]-Julio [facility] Chloe parnell Addre ss: [id number] Chloe [facility] [place] [address] Direc tor: Roselyn perez M.D. Not Available [facility] (Lab) [address], [place], [address], 01/16/2023 19:36:43 02/02/2002/01/2023 CULTU RE: URINE result report SEE RESULT S BELOW Test: Cultu re: Urine Speci men Sourc e: Urine Voide d Speci men Type: Urine Speci men Date: 2022 3:45 PM Resul t Date: 2022 5:50 AM Resul t Statu s: Final resul t Abnor mal: No Resul ting Lab: [facility] [address] [facility] [address] Tel: CULTU RE ----- ----- ----- --- No growt h in 1 day (dete ction level of 10,00 0 colon ies / ml.) Not Available [facility] (Lab) [address] , [place], [address], 02/03/2023 06:53:42 02/02/2002/01/2023 drug scree n, urine Amphetamines : negati ve Not Available [place] [address], [place], [address], 02/01/2023 15:05:00 02/02/20 23 02/01/2023 drug scree n, urine Cannabinoids : negati ve Not Available [place] [address], [place], [address], 02/01/2023 15:05:00 02/02/20 23 02/01/2023 drug scree n, urine Opiates: negati ve Not Available [place] [address], [place], [address], 02/01/2023 15:05:00 02/02/20 23 02/01/2023 drug scree n, urine Benzodiazepi stephen: negati ve Not Available [place] [address], [place], [address], 02/01/2023 15:05:00 03/01/20 23 03/01/2023 CBC W/DIF F WBC 8.3 10'3/ uL 3.6-10 .2 Not Available [facility] (Lab) [address], [place], [address], 03/02/2023 11:33:45 03/01/20 23 03/01/2023 CBC W/DIF F RBC 4.21 10'6/ uL (based on docume nted legal sex) 4.10-5 .30 Not Available [facility] (Lab) [address], [place], [address], 03/02/2023 11:33:45 03/01/20 23 03/01/2023 CBC W/DIF F HGB 12.6 g/dL (based on docume nted legal sex) 11.9-1 5.8 Not Available [facility] (Lab) [address], [place], [address], 03/02/2023 11:33:45 03/01/20 23 03/01/2023 CBC W/DIF F HCT 38.7 % (based on docume nted legal sex) 37.4-4 8.3 Not Available [facility] (Lab) [address], [place], [address], 03/02/2023 11:33:45 03/01/20 23 03/01/2023 CBC W/DIF F MCV 91.9 fL 82.0-9 9.0 Not Available [facility] (Lab) [address], [place], [address], 03/02/2023 11:33:45 03/01/20 23 03/01/2023 CBC W/DIF F MCH 29.9 pg 27.0-3 3.0 Not Available [facility] (Lab) [address], [place], [address], 03/02/2023 11:33:45 03/01/20 23 03/01/2023 CBC W/DIF F MCHC 32.6 g/dL 32.0-3 6.0 Not Available [facility] (Lab) [address], [place], [address], 03/02/2023 11:33:45 03/01/20 23 03/01/2023 CBC W/DIF F RDW 14.2 % 11.0-1 5.0 Not Available [facility] (Lab) [address], [place], [address], 03/02/2023 11:33:45 03/01/20 23 03/01/2023 CBC W/DIF F plt 266 10'3/ uL 150-45 0 Not Available [facility] (Lab) [address], [place], [address], 03/02/2023 11:33:45 03/01/20 23 03/01/2023 CBC W/DIF F MPV 10.5 fL 9.8-12 .7 Not Available [facility] (Lab) [address], [place], [address], 03/02/2023 11:33:45 03/01/20 23 03/01/2023 CBC W/DIF F NRBC's 0.0 % 0 Not Available [facility] (Lab) [address], [place], [address], 03/02/2023 11:33:45 03/01/20 23 03/01/2023 CBC W/DIF F absolute NRBCs 0.0 10'3/ uL 0 Not Available [facility] (Lab) [address], [place], [address], 03/02/2023 11:33:45 03/01/20 23 03/01/2023 CBC W/DIF F neutrophils 71.3 % 37.0-7 2.0 Not Available [facility] (Lab) [address], [place], [address], 03/02/2023 11:33:45 03/01/20 23 03/01/2023 CBC W/DIF F lymphocytes 23.5 % 16.0-4 8.0 Not Available [facility] (Lab) [address], [place], [address], 03/02/2023 11:33:45 03/01/20 23 03/01/2023 CBC W/DIF F monocytes 4.5 % 4.0-14 .0 Not Available [facility] (Lab) [address], [place], [address], 03/02/2023 11:33:45 03/01/20 23 03/01/2023 CBC W/DIF F eosinophils 0.2 % 0.0-9. 0 Not Available [facility] (Lab) [address], [place], [address], 03/02/2023 11:33:45 03/01/20 23 03/01/2023 CBC W/DIF F basophils 0.4 % 0.0-2. 0 Not Available [facility] (Lab) [address] [place], [address], 03/02/2023 11:33:45 03/01/20 23 03/01/2023 CBC W/DIF F immature granulocytes 0.1 % no define d refere nce range Not Available [facility] (Lab) [address] [place], [address], 03/02/2023 11:33:45 03/01/20 23 03/01/2023 CBC W/DIF F absolute neutrophils 5.9 10'3/ uL 1.1-6. 0 Not Available [facility] (Lab) [address], [place], [address], 03/02/2023 11:33:45 03/01/20 23 03/01/2023 CBC W/DIF F absolute lymphocytes 2.0 10'3/ uL 0.7-3. 4 Not Available [facility] (Lab) [address], [place], [address], 03/02/2023 11:33:45 03/01/20 23 03/01/2023 CBC W/DIF F absolute monocytes 0.4 10'3/ uL 0.3-1. 0 Not Available [facility] (Lab) [address], [place], [address], 03/02/2023 11:33:45 03/01/20 23 03/01/2023 CBC W/DIF F absolute eosinophils 0.0 10'3/ uL 0.0-0. 6 Not Available [facility] (Lab) [address], [place], [address], 03/02/2023 11:33:45 03/01/20 23 03/01/2023 CBC W/DIF F absolute basophils 0.0 10'3/ uL 0.0-0. 1 Not Available [facility] (Lab) [address], [place], [address], 03/02/2023 11:33:45 03/01/20 23 03/01/2023 CBC W/DIF F absolute immature granulocytes 0.0 10'3/ uL 0.00-0 .10 2022 3:37 AM: P indic ates parti al resul ts on a panel have been relea sed. Addit ional resul ts will leobardoo w. 2022 3:37 AM: This resul t has been final verif ied. No addit ional or chin ed resul ts are expec pricila. Not Available [facility] (Lab) [address], [place], [address], 03/02/2023 11:33:45 03/01/20 23 03/01/2023 HEPAT ITIS C ANTIB CARLITOS SCREE N, REFLE X TO CONFI RMATI ON hepatitis C antibody Non-re active non-re active Antib odies to HCV Not Detec pricila, does not exclu de the possi bilit y of expos ure to HCV. Not Available [facility] (Lab) [address], [place], [address], 03/02/2023 11:33:46 03/01/20 23 03/01/2023 HIV 1/2 ANTIG EN/AN TIBOD Y, REFLE X CONFI RMATI ON HIV antigen/anti body Nonrea ctive nonrea ctive HIV-1 antig en and HIV-1 /HIV- 2 antib odies were not detec pricila. No labor atory evide nce of HIV infec tion. Not Available [facility] (Lab) [address], [place], [address], 03/02/2023 11:33:47 03/01/20 23 03/01/2023 HEPAT ITIS B SURFA CE ANTIG EN hepatitis B surface antigen Non-re active non-re active This assay was perfo rmed using [employer] ratio n reage nts and test kits. Value s obtai bobby with other assay metho ds or kits canno t be used inter chin eably . Not Available [facility] (Lab) [address], [place], [address], 03/02/2023 11:33:47 03/01/20 23 03/01/2023 TSH, REFLE X FREE T4 TSH 1.07 uIU/m L 0.30-5 .33 Not Available [facility] (Lab) [address], [place], [address], 03/02/2023 11:33:48 03/01/20 23 03/01/2023 RUBEL LA IGG ANTIB CARLITOS, QUANT rubella antibodies, IgG Reacti ve reacti ve Not Available [facility] (Lab) [address], [place], [address], 03/02/2023 11:33:49 03/01/20 23 03/01/2023 RUBEL LA IGG ANTIB CARLITOS, QUANT rubella antibodies, IgG quant 73.7 IU/mL >=10 Non-r eacti ve (Non- Immun e) <10 IU/mL React boy (Immu ne) > or = 10 IU/mL Not Available [facility] (Lab) [address], [place], [address], 03/02/2023 11:33:49 03/01/20 23 03/01/2023 HEMOG LOBIN A1C hemoglobin A1C 5.3 % 0-5.6 The Ameri can Diabe ranjit Assoc iatio n recom mends that a prima ry goal of thera py shoul d be a HBA1C of < 7% and that physi cians shoul d reeva luate the treat ment regim en in patie nts with HBA1C value s consi stent ly > 8%. <5.7% Lorraine l 5.7 - 6.4% Incre ased risk for diabe ranjit >=6.5 % Diagn ostic of diabe ranjit <7.0% Goal of thera py >8.0% Actio n sugge sted Not Available [facility] (Lab) [address], [place], [address], 03/02/2023 11:33:50 03/01/20 23 03/01/2023 TYPE/ RH/SC REEN ABO/Rh type B POS Not Available [facility] (Lab) [address], [place], [address], 03/02/2023 11:33:51 03/01/20 23 03/01/2023 TYPE/ RH/SC REEN antibody screen NEG Not Available [facility] (Lab) [address], [place], [address], 03/02/2023 11:33:51 03/01/20 23 03/01/2023 TYPE/ RH/SC REEN exp date 2022 23:59 Not Available [facility] (Lab) [address], [place], [address], 03/02/2023 11:33:51 03/01/20 23 03/01/2023 RPR SCREE N/REF DALTON TITER /FTA RPR screen Nonrea ctive nonrea ctive Not Available [facility] (Lab) [address], [place], [address], 03/02/2023 11:33:52 02/02/20 23 02/01/2023 US, obste tric, nucha l trans lucen cy No observ ation record ed. [email or web address] [place] [address], [place], [address], 02/01/2023 17:48:17 02/02/20 23 02/01/2023 US, obste tric, nucha l trans lucen cy No observ ation record ed. UYEN [address] [facility], [place], [address], 02/12/2023 09:24:43 03/25/20 23 03/25/2023 US, obste tric, follo w-up No observ ation record ed. [email or web address] [facility] [address] [facility] [address], [place], [address], 04/08/2023 14:17:34 04/22/20 23 04/22/2023 US, obste tric, follo w-up No observ ation record ed. [email or web address] [facility] [address] [facility] [address], [place], [address], 04/23/2023 11:58:16 Result Notes None recorded. Problems Name Problem SNOMED Code Status Onset Date Resolution Date Notes Provider Name and Address Organization Details Recorded Time Pregnanc y 59961130 Completed 202207/30/2023 Noemi Mcclendon [facility] 3 11:58:54 Tachycar yolis 6576959 Active 2022 has cardiolo gist, ECHO end of February, off metoprol ol [facility] Hakan [facility] 3 11:58:50 Tachycar yolis 4796146 Completed 2022 has cardiolo gist, ECHO end of February, [facility] 3 11:58:50 History of spinal fusion 05222755302 107 Active 2022 multiple , no spinal/e pidural, [facility] 3 11:58:50 History of spinal fusion 35190747177 107 Completed 2022 multiple , no spinal/e pidural, CS under GENERAL Noemi Spannle [facility] 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 3 11:58:50 Axenfeld -Jessica syndrome 675287518 Completed 2022 [employer] Domin[employer] (iris abnormal ities, glaucoma , hypertel orism, microdon tia, hypospad ias, heart defects) [facility] 3 11:58:50 Past pregnanc y history of section 595758489 Active repeat under GENERAL Noemi Spannle [facility] 3 11:58:50 Past pregnanc y history of section 386777245 Completed repeat under GENERAL Noemi andrea, [facility] 3 11:58:50 Problem Notes None recorded. Procedures Surgical History Date Name Laterality Status Provider Name and Address Organization Details Recorded Time 12/15/19 23 Date of Last Pap Smear completed [facility] 04/06/2023 15:50:01 09/14/20 16 Caesarean Section completed [facility] 12/14/2022 15:28:24 10/11/19 16 cardiac catheterization completed [facility] 12/22/2022 19:42:33 10/11/19 14 surgical procedure on eye proper using laser completed [facility] 12/22/2022 19:43:49 10/11/19 13 Tonsillectomy completed [facility] 12/14/2022 15:37:48 10/11/19 08 application of back brace completed [facility] 12/14/2022 15:31:39 10/11/19 08 procedure on back completed [facility] 12/14/2022 15:36:11 10/11/19 07 application of back brace completed [facility] 12/14/2022 15:31:35 10/11/19 07 procedure on back completed [facility] 12/14/2022 15:36:02 10/11/19 05 application of back brace completed [facility] 12/14/2022 15:31:25 10/11/19 05 procedure on back completed [facility] 12/14/2022 15:35:51 10/11/19 05 procedure on back completed [facility] 12/14/2022 15:35:54 10/11/19 05 procedure on back completed [facility] 12/14/2022 15:35:58 10/11/19 05 surgical procedure on eye proper using laser completed [facility] 12/22/2022 19:43:33 10/11/19 04 back fusion completed [facility] 12/14/2022 15:29:02 10/11/19 04 application of back brace completed [facility] 12/14/2022 15:31:09 10/11/19 04 procedure on back completed [facility] 12/14/2022 15:35:48 10/11/19 03 application of back brace completed [facility] 12/14/2022 15:31:06 10/11/19 03 procedure on back completed [facility] 12/14/2022 15:35:44 10/11/19 03 surgical procedure on eye proper using laser completed [facility] 12/22/2022 19:43:17 10/11/19 02 application of back brace completed [facility] 12/14/2022 15:31:02 10/11/19 02 procedure on back completed [facility] 12/14/2022 15:35:41 10/11/19 01 application of back brace completed [facility] 12/14/2022 15:30:59 10/11/19 01 procedure on back completed [facility] 12/14/2022 15:35:38 10/11/19 00 application of back brace completed [facility] 12/14/2022 15:30:52 10/11/19 00 procedure on back completed [facility] 12/14/2022 15:35:33 10/11/18 99 procedure on ear completed [facility] 12/14/2022 15:29:45 10/11/18 99 application of back brace completed [facility] 12/14/2022 15:30:44 10/11/18 99 procedure on back completed [facility] 12/14/2022 15:35:29 10/11/18 98 application of back brace completed [facility] 12/14/2022 15:30:42 10/11/18 98 procedure on back completed [facility] 12/14/2022 15:35:26 10/11/18 97 procedure on ear completed [facility] 12/14/2022 15:29:26 10/11/18 97 adenomyomectomy completed [facility] 12/14/2022 15:38:32 10/11/18 96 application of back brace completed [facility] 12/14/2022 15:30:19 10/11/18 96 procedure on back completed [facility] 12/14/2022 15:36:36 10/11/18 96 biopsy of muscle completed [facility] 12/14/2022 15:37:20 Imaging Results Imaging Date Name Status LastModified by Organization Details LastModified Time 02/01/2023 US, obstetric, nuchal translucency completed [email or web address] [place] [address], [place], [address], 02/01/2023 17:48:17 02/01/2023 US, obstetric, nuchal translucency completed UYEN Iman [address], [place], [address], 02/12/2023 09:24:43 03/25/2023 US, obstetric, follow-up completed [email or web address] [facility] [address], [place], [address], 04/08/2023 14:17:34 04/22/2023 US, obstetric, follow-up completed [email or web address] [facility] [address], [place], [address], 04/23/2023 11:58:16 Procedure Notes None recorded. Medical Equipment None Reported. Allergies Allergen ID Allergen Name Allergen Category Reaction Reaction Severity Criticality Documentation Date Start Date Code Code System Note Provider Name and Address Organization Details Recorded Time codeine medicatio n hives moderate Not available 12/14/2022 2670 RxNorm Katalina andrea [facility] 15:20:39 adhesive tape environme nt,medica tion rash moderate Not available 12/14/2022 65820 UNK Katalina andrea [facility] 3 11:36:27 Compazine medicatio n other severe Not available 12/14/2022 68348 6 RxNorm Katalina Carmichael [facility] 15:20:39 Medications Name Sig Start Date Stop Date Status Note LastModified by Organization Details LastModified Time verapamil ER (SR) 120 mg tablet,exte nded release TAKE 1 TABLET BY MOUTH NIGHTLY 12/14 completed Not Available Not Available Not Available cyclobenzap rine 10 mg tablet TAKE 1 TABLET BY MOUTH THREE TIMES A DAY NEEDED FOR MUSCLE SPASMS 12/14 completed Not Available Not Available Not Available amoxicillin 500 mg capsule TAKE 1 CAPSULE BY MOUTH 4 TIMES A DAY UNTIL GONE 12/14 completed Not Available Not Available Not Available prednisone 10 mg tablet PLEASE SEE ATTACHED FOR DETAILED DIRECTION S 12/14 completed Not Available Not Available Not Available clindamycin HCl 300 mg capsule TAKE 1 CAPSULE BY MOUTH EVERY 6 HOURS FOR 14 DAYS 12/14 completed Not Available Not Available Not Available ibuprofen 800 mg tablet TAKE 1 TABLET (800 MG TOTAL) BY MOUTH 3 (THREE) TIMES A DAY NEEDED FOR PAIN/SWEL LING - WITH FOOD 12/14 completed Not Available Not Available Not Available riboflavin (vitamin B2) 100 mg tablet TAKE 4 TABLETS BY MOUTH DAILY 02/01 completed Not Available Not Available Not Available metoprolol succinate ER 50 mg tablet,exte nded release 24 hr TAKE 1 TABLET BY MOUTH EVERY DAY active Not Available Not Available No t Available hydrocodone 5 mg-acetamin ophen 325 mg tablet TAKE 1 TABLET BY MOUTH EVERY 6 HOURS NEEDED FOR PAIN OR 1/2 TABLET FOR COUGH NEEDED 12/14 completed Not Available Not Available Not Available dexamethaso ne 6 mg tablet TAKE 1 TABLET (6 MG TOTAL) BY MOUTH 2 (TWO) TIMES A DAY WITH MEALS FOR 3 DAYS 12/14 completed Not Available Not Available Not Available penicillin V potassium 500 mg tablet TAKE 1 TABLET BY MOUTH EVERY 12 HOURS FOR 10 DAYS 12/14 completed Not Available Not Available Not Available hydrocodone 10 mg-acetamin ophen 325 mg tablet TAKE 1 TABLET BY MOUTH EVERY 4-6 HOURS NEEDED FOR PAIN 12/14 completed Not Available Not Available Not Available aspirin 81 mg tablet,rik yed release TAKE 1 TABLET BY MOUTH EVERY DAY active Not Available Not Available No t Available ofloxacin 0.3 % ear drops INSTILL 10 DROPS INTO LEFT EAR EVERY DAY FOR 7 DAYS 04/07 completed Not Available Not Available Not Available magnesium oxide 400 mg (241.3 mg magnesium) tablet TAKE 1 TABLET BY MOUTH EVERY DAY active Not Available Not Available No t Available metoclopram eleanor 5 mg tablet TAKE 1 TABLET BY MOUTH EVERY 6 HOURS NEEDED active Not Available Not Available No t Available docusate sodium 100 mg capsule TAKE 1 CAPSULE BY MOUTH TWICE A DAY active Not Available Not Available No t Available Senna Laxative 8.6 mg tablet TAKE 1 TABLET BY MOUTH EVERY DAY 02/01 completed Not Available Not Available Not Available mupirocin 2 % topical ointment APPLY TO AFFECTED AREA 3 TIMES A DAY 02/01 completed Not Available Not Available Not Available metoprolol succinate ER 25 mg tablet,exte nded release 24 hr TAKE 1 TABLET (25 MG TOTAL) BY MOUTH DAILY. active Not Available Not Available No t Available ibuprofen 600 mg tablet TAKE 1 TABLET BY MOUTH 4 TIMES A DAY NEEDED FOR PAIN WITH FOOD 12/14 completed Not Available Not Available Not Available polyethylen e glycol 3350 17 gram/dose oral powder MIX 17 GRAMS IN LIQUID AND DRINK BY MOUTH 2 (TWO) TIMES A DAY NEEDED (CONSTIPA TION) active Not Available Not Available No t Available scopolamine 1 mg over 3 days transdermal patch Apply 1 patch behind the ear every 72 hours. active Not Available Not Available No t Available amoxicillin 875 mg-potassiu m clavulanate 125 mg tablet TAKE 1 TABLET BY MOUTH EVERY 12 HOURS 12/14 completed Not Available Not Available Not Available nabumetone 500 mg tablet TAKE 1 TABLET BY MOUTH TWICE A DAY 12/14 completed Not Available Not Available Not Available azithromyci n 500 mg tablet TAKE 1 TABLET EVERY NIGHT AT BEDTIME FOR 5 DAYS 12/14 completed Not Available Not Available Not Available FeroSul 325 mg (65 mg iron) tablet TAKE 1 TABLET BY MOUTH EVERY DAY WITH BREAKFAST active Not Available Not Available No t Available Vitals Date Recorded Body height Body mass index (BMI) Body weight Systolic blood pressure Diastolic blood pressure Provider Name and Address Organization Details Last Updated DateTime 02/01/2023 154.94 cm 29.7 kg/m2 32076.00 209 g 120 mm[Hg] 68 mm[Hg] Peg Bland [facility] 3 15:00:33 Date Recorded Body height Body mass index (BMI) Body weight Systolic blood pressure Diastolic blood pressure Provider Name and Address Organization Details Last Updated DateTime 03/01/2023 154.94 cm 29.5 kg/m2 17694.40 972 g 112 mm[Hg] 77 mm[Hg] Katalina Carmichael [facility] 3 11:35:59 Date Recorded Body height Body mass index (BMI) Body weight Systolic blood pressure Diastolic blood pressure Provider Name and Address Organization Details Last Updated DateTime 04/07/2023 154.94 cm 30 kg/m2 63912.18 683 g 118 mm[Hg] 78 mm[Hg] Katalina Carmichael [facility] 3 11:03:33 Date Recorded Body height Body mass index (BMI) Body weight Systolic blood pressure Diastolic blood pressure Provider Name and Address Organization Details Last Updated DateTime 05/04/2023 154.94 cm 30.4 kg/m2 09421.37 157 g 116 mm[Hg] 77 mm[Hg] [facility] 3 11:41:52 Date Recorded Body height Body mass index (BMI) Body weight Systolic blood pressure Diastolic blood pressure Provider Name and Address Organization Details Last Updated DateTime 05/17/2023 154.94 cm 30.4 kg/m2 87230.37 157 g 108 mm[Hg] 75 mm[Hg] [facility] 3 11:30:21 Social History Question Answer Notes LastModified by Organizat ion Details LastModified Time Tobacco Smoking Status Never Smoker Katalina Carmichael [facility], [facility] 03/01/2023 11:36:28 What Is Your Level Of Alcohol Consumption? None [email or web address] Information not available 12/14/2022 If You Are , What Was Your Level Of Alcohol Consumption Prior To ? None [email or web address] Information not available 03/01/2023 Are You Blind Or Do You Have Difficulty Seeing? No [email or web address] Information n ot available 12/14/2022 What Is Your Level Of Caffeine Consumption? Moderate [email or web address] Information not available 12/14/2022 How Much Tobacco Do You Chew? None [email or web address] Information not available 12/14/2022 In The 14 Days Before Symptom Onset, Have You Had Close Contact With A Laboratory-confirm ed COVID-19 While That Case Was Ill? No [email or web address] Information n ot available 12/14/2022 In The 14 Days Before Symptom Onset, Have You Had Close Contact With A Person Who Is Under Investigation For COVID-19 While That Person Was Ill? No [email or web address] Information not available 12/14/2022 Have You Been To An Area Known To Be High Risk For COVID-19? No [email or web address] Information not available 12/14/2022 Are You Deaf Or Do You Have Serious Difficulty Hearing? No Information not available 12/14/2022 What Type Of Diet Are You Following? REGULAR [email or web address] Information n ot available 12/14/2022 What Is The Highest Grade Or Level Of School You Have Completed Or The Highest Degree You Have Received? 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 No [email or web address] Information not available 12/14/2022 Do You Use Protection During Sex? No [email or web address] Information not available 12/14/2022 Do You Use Your Seat Belt Or Car Seat Routinely? Yes [email or web address] Information not available 12/14/2022 Do You Have Smoke And Carbon Monoxide Detectors In Your Home? Yes [email or web address] Information not available 12/14/2022 How Much Tobacco Do You Smoke? No Information not available 12/14/2022 Do You Feel Stressed (tense, Restless, Nervous, Or Anxious, Or Unable To Sleep At Night)? [id number] [email or web address] Information not available 03/01/2023 Do You Use Any Illicit Or Recreational Drugs? No [email or web address] Information not available 12/14/2022 Do You Use Sunscreen Routinely? No Information not available 12/14/2022 Has Tobacco Cessation Counseling Been Provided? No [email or web address] Information not available 03/01/2023 Have You Used IV Drugs? No [email or web address] Information not available 03/01/2023 Do You Or Have You Ever Used Any Other Forms Of Tobacco Or Nicotine? No [email or web address] Information not available 03/01/2023 Sex: Unknown Functional Status Question Answer Note LastModified by Organizat ion Details LastModified Time Do you have difficulty walking or climbing stairs? No [email or web address] Information not available 03/01/2023 Are you able to walk? YESWOREST [email or web address] Information not available 12/14/2022 Are you able to care for yourself? Yes [email or web address] Information not available 03/01/2023 Do you have difficulty dressing or bathing? No [email or web address] Information not available 03/01/2023 What is your exercise level? Occasional Information not available 12/14/2022 Mental Status None recorded. Family History Relationship Description Onset Age of this Age Resolved Age Notes LastModified by Organization Details LastModified Time Mother Asthma [email or web address] Not available 12/14/2022 15:20:39 Mother Heart disease [email or web address] Not available 03/01 11:36:27 Mother Mitral valve prolapse [email or web address] Not available 03/01 11:36:27 Brother Asthma [email or web address] Not availabl e 12/14/2022 15:20:39 Brother Heart disease [email or web address] Not available 03/01 11:36:27 Sister Asthma [email or web address] Not available 12/14/2022 15:20:39 Daughter Asthma [email or web address] Not availab le 12/14/2022 15:20:39 Maternal Grandmother Heart disease [email or web address] Not available 03/01 11:36:27 Maternal Grandmother Aneurysm Not available 11:36:27 Maternal Grandmother Diabetes mellitus [email or web address] Not available 03/01 11:36:27 Maternal Grandmother Hypertensive disorder [email or web address] Not available 03/01 11:36:27 Maternal Grandmother Hypercholest erolemia gznxiqvm57 Not available 03/01 11:36:27 Maternal Grandfather Diabetes mellitus [email or web address] Not available 03/01 11:36:27 Medical History Condition Response Allergies (Food, seasonal, environmental ) N Other N Breast Cancer N Drug/Latex Allergies/Reactions Y Blood Transfusion N Dermatologic Disorders N Lung Disease N Defects or Inherited Disease N Breast Problem N Gestational Diabetes N Hematologic disorders N Anesthesia Complications N History of STI N Deep Vein Thrombosis N Polycystic ovary syndrome N Anxiety Disorder N Autoimmune disease N Arthritis N Infertility N Polyps N Acid Reflux (GERD) N History of abnormal pap N Cancer N Stroke N Varicosities N Neurologic/Epilepsy Y Endometriosis N High Cholesterol N Headaches N Fibromyalgia N Kidney Disease N Heart Problems Y Kidney or Bladder Problems N Thyroid Problems N GI Problems N Eating Disorder N Anemia N Art (IVF or FET) N Psychiatric Illness N Ovarian Cancer N Diabetes N Pulmonary (TB, Asthma) N Hepatitis/Liver Disease N No Past Medical History N Eczema N Urinary Tract Infection N Abuse/Domestic Violence N Asthma N Trauma/Violence N Depression/ depression N Heart Disease N Pre-Eclampsia N Hypertension N Osteoporosis N Thrombophilias N Gynecological History Statement/Question Response Date of Last Mammogram Date of LMP 11/01/2022 On BCP's at Conception? N N Was last menstrual period normal Y STIs/STDs N HPV Vaccine N Duration of Flow (days) 5 Current Control Method Frequency of Cycle (Q days) 28 Sexually Active? Y N/A Date of DEXA bone scan Age of first menstrual cycle 12 Date of Last Pap Smear 12/14/2022 Sexual Problems? N Desired Control Method N/A LMP Unknown N Obstetrics History GPAL:G 2 P 1 0 0 1 Type Value Full Term 1 Living 1 Total 2 Past Encounters Encounter ID Performer Location Encounter Start Date Encounter Closed Date Diagnosis/Indication Diagnosis SNOMED-CT Code Diagnosis ICD10 Code Diagnosis Note [id number] Snow Foster [place] [address],[facility] [place] [address] 12/14/2022 14:12:31 12/14/2022 14:49:15 [id number] Katalina Carmichael [place] [address],[facility] [place] [address] 12/14/2022 14:12:48 12/14/2022 15:58:50 Gynecologic examination 82487799 Z01.419 test positive 337745314 Z32.01 Risk factors addressed: Tobacco Cessation, Safe Sexual Practices, environmen marielle, work hazards, travel restrictio ns, seat belt use.Eat a health well balanced diet, avoid alcohol, tobacco, and street drugs.Enga ge in daily low impact exercise, avoid temperatur e extremes, and cat, rodent, and bird feces.Avoi d travel to areas where zika virus is a concern.Of fered cf/sma/nip t. Desires at 12 weeks. Handouts given and discussed with patient.Ch ildbirth classes recommende d.New OB sheet given.If previous , counseling .Pt verbalizes that she understand s the importance of above instructio ns.All questions were answered.P atient reminded to have annual well woman examinatio n and address preventati ve healthcare . Fatigue 56097746 R53.83 Increased fatigue and feeling very cold. 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 0 Past pregn azra history of section 293628110 Z98.890 [id number] Clare Jhaveri MD [place] [address],[place] [address] 03/01/2023 11:02:13 03/01/2023 14:34:42 Routine care 754571047 Z34.91 Tachycardia 4496892 R00. 0 Past pregn azra history of section 371707976 Z98.890 [id number] [facility] [address],[place] [address] 04/07/2023 10:50:17 04/07/2023 11:24:31 Routine care 897166750 Z34.92 [id number] Clare Jhaveri MD [place] [address],[place] [address] 05/04/2023 11:29:06 05/04/2023 12:20:05 Routine care 969496625 Z34.91 [id number] Clare Jhaveri MD [place] [address] [address] 05/17/2023 11:24:58 05/17/2023 11:51:31 Routine care 042222353 Z34.91 Health Concerns Section Related Observation LastModified by Organization Detai ls LastModified Time None Recorded Concern Status LastModified by Organization Details LastModified Time None Recorded Advance Directives Directive None Recorded Payers Encounter Date Sequence Insurance Name Policy Number Policy Castellanos Covered Member ID Castellanos Member ID Guarantor Name 02/01/2023 1 [employer] [place]MEDICARE - MEDICAID REPLACEMENT O) [id number] Annie Irwin Taran [id number] Annie Taran 03/01/2023 1 [employer] [place] - MEDICAID REPLACEMENT O) [id number] Annie Irwin Robeson [id number] Annie Taran 04/07/2023 1 [employer] [place] - MEDICAID REPLACEMENT O) [id number] Annie Irwin Robeson [id number] Annie Robeson 05/04/2023 1 [employer] [place] - MEDICAID REPLACEMENT O) [id number] Annie Irwin Taran [id number] Annie Robeson 05/17/2023 1 [employer] [place] - MEDICAID REPLACEMENT O) [id number] Annie Irwin Taran [id number] Annie Taran OBGyn Episode Ob Episode Information Episode Created Date Number of Fetuses Patient Bloodtype Patient rh Status Prepregnancy Weight lbs Domestic Partner Domestic Partner Phone Father Name Dope Maintenance Worker Status 02/02/20 23 1 B Positive 157 CLOSED Fetus Data First Name Last Name Admitted to NICU Weight (g) Sex Living Outcome Pediatric Complications Fetus ID Race Codes Race Delivery Type [id number] Problems Problem Notes MFM Next Appt WASHU: 05/20 U/ S Problem Name Start Date End Date Resolution Snomed Code Not e Past history of section 818595047 repeat under GENERAL Tachycardia 02/05/2023 [id number] has car diologist, ECHO end of February, off metoprolol History of spinal fusion 02/05/2023 [id number] multiple, no spinal/epidural, CS under GENERAL 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 Autosomal Domin ant (iris abnormalities, glaucoma, hypertelorism, microdontia, hypospadias, heart defects) Haja Calculation Initial Haja Date Initial Exam Date Initial Exam Provider Initial Ultrasound Date Last Menstrual Period Date Ultra Sound Weeks Gestation 08/08/2023 02/01/2023 12/31/2022 11/01/2022 9 Eighteen To Twenty Week Haja Update Ultra Sound Date Fundal Height At Umbil Quickening Date Ultra Sound Latest Weeks Gestation Final Haja Confirmed By Final Haja Confirmed Date Final Haja Date Ultra Sound Latest Days Gestation 0 [email or web address] 02/01/2023 08/08/20 23 0 Pre-derrick Flowsheet Flowsheet Date 02/01/2023 Gracia Score Blood Edema Fundus Height Fundus Units Glucose Ketones Leukocytes Nitrite Labor Signs Protein Cervic Dilation Cervic Effacement Cervic Station neg none none trace Type Weight in lbs Pre/Post Dialysis Refused Weight 157.712323348912 BP Diastolic BP Location Tested BP Systolic BP Type 68 120 Fetus Heart Rate Present A 155 Fetus Movement A No Comments Annie is a 27yo at 1 3.1 for care. Her history is significant for maternal tachycardia (she had a failed cardiac ablation because the vessels were to tortuous. she stopped her metoprolol. 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 She is already established at [facility] and delivered there last time. She would like to deliver with us if they ok it. I suspect they will do a echo as cardiac anomalies are part of AR syndrome. She also has mild asthma. She is planning a repeat CS which will have to be under general anesthesia. Does not want tubal. Normal NT today. Labs today. Flowsheet Date 03/01/2023 Gracia Score Blood Edema Fundus Height Fundus Units Glucose Ketones Leukocytes Nitrite Labor Signs Protein Cervic Dilation Cervic Effacement Cervic Station neg none none trace Type Weight in lbs Pre/Post Dialysis Refused Weight 156.741157196120 BP Diastolic BP Location Tested BP Systolic BP Type 77 112 Fetus Heart Rate Present A 155 Fetus Movement A Yes Comments Doing ok. Having daily tachy cardic episodes. Seeing cardiology 03/19 after echo on 03/09. Cardiology has her off metoprolol or the like until after echo. Back to [facility] for anatomy on 03/25. After these will determine if reasonable to deliver at and then talk with anesthesia. Flowsheet Date 04/07/2023 Gracia Score Blood Edema Fundus Height Fundus Units Glucose Ketones Leukocytes Nitrite Labor Signs Protein Cervic Dilation Cervic Effacement Cervic Station neg none none trace Type Weight in lbs Pre/Post Dialysis Refused Weight 159.093267105015 BP Diastolic BP Location Tested BP Systolic BP Type 78 118 Fetus Heart Rate Present Fetus Movement A Yes Comments patient is having some co ntractions. f/u at [facility] for anatomy on wednesday, doing well, no complaints, planning on care here and delivery at [facility] f/u 4 weeks Flowsheet Date 05/04/2023 Gracia Score Blood Edema Fundus Height Fundus Units Glucose Ketones Leukocytes Nitrite Labor Signs Protein Cervic Dilation Cervic Effacement Cervic Station neg none none trace Type Weight in lbs Pre/Post Dialysis Refused Weight 161.054233390054 BP Diastolic BP Location Tested BP Systolic BP Type 77 116 Fetus Heart Rate Present A 145 Fetus Movement A Yes Comments Diong fine. Delivering at [facility] and already did GCT there (100) and was found to be anemic, on iron. Discussed and encouraged Tdap. Will fully transfer care to [facility] at [facility] since needs to deliver there. Might have one more visit here. Flowsheet Date 05/17/2023 Gracia Score Blood Edema Fundus Height Fundus Units Glucose Ketones Leukocytes Nitrite Labor Signs Protein Cervic Dilation Cervic Effacement Cervic Station none 28 Type Weight in lbs Pre/Post Dialysis Refused Weight 161.538608596918 BP Diastolic BP Location Tested BP Systolic BP Type 75 108 Fetus Heart Rate Present A 140 Fetus Movement A Yes Comments Doing well. NO labor sx. Gre at . RH pos. GCT done. Tx to [facility]- this is last appt here. Will return . Menstrual History Last Menstrual Date Menses Monthly On Bcp Conception Prior Menses Frequency Hcg Plus Date Menarche Onset Age 0111/01/2022 Genetic Screening And Infection History Question Response Note Mental Retardation/Autism false Patient's Age Will Be 35 Years Or Older At Estim ated Date of Delivery false Thalassemia (Hebrew, Divehi, Mediterranean, Or Background): MCV < 80 false Neural Tube Defect (Meningomyelocele, Spina Bifi da, Or Anencephaly) false Congenital Heart Defect false Down Syndrome false Cristi-Sachs (eg, Amish, Cajun, Turkmen-Jessie) f alse Gardenia Disease false Sickle Cell Disease Or Trait () false Hemophilia Or Other Blood Disorders false Muscular Dystrophy false Cystic Fibrosis false Bertha's Chorea false Intellectual Disability/Autism false If Yes, Was Person Tested For Fragile X? false Other Inherited Genetic Or Chromosomal Disorder false Maternal Metabolic Disorder (eg, Type 1 Diabetes , PKU) false Patient Or Baby's Father Had A Child With Defects Not Listed Above false Recurrent Loss, Or A Stillbirth false Medications (including Suppl ements, Vitamins, Herbs, OTC Drugs), Illicit/Recreational Drugs, Alcohol false If Yes, Agent(s) And Strength/Dosage false Any Other Genetic History false Live With Someone With TB Or Exposed To TB false Patient Or Partner Has History Of Genital Herpes false Rash Or Viral Illness Since Last Menstrual Perio d false History Of STD, Gonorrhea, Chlamydia, HPV, Syphi lis false Other Infection History false History of HIV false History of Hepatitis false Prior GBS-infected child false Hemoglobinopathy Or Carrier false Other Structural Defect false Recent Travel History Outside of Country false Delivery Information Delivery Date Delivery Type Labor Anesthesia Weeks Gestation Incision Type Labor Labor Length Hrs Delivered By Post Complications Tubal Sterilization Discharge Date Comments Discharge Information Feeding Method Contraceptive Method Maternal HG B and HCT Levels Ob Episode Information Episode Created Date Number of Fetuses Patient Bloodtype Patient rh Status Prepregnancy Weight lbs Domestic Partner Domestic Partner Phone Father Name Dope Maintenance Worker Status 12/15/19 23 1 CLOSED Fetus Data First Name Last Name Admitted to NICU Weight (g) Sex Living Outcome Pediatric Complications Fetus ID Race Codes Race Delivery Type 3515.33 8 F Full Term [id number] Primary Haja Calculation Initial Haja Date Initial Exam Date Initial Exam Provider Initial Ultrasound Date Last Menstrual Period Date Ultra Sound Weeks Gestation 0 Eighteen To Twenty Week Haja Update Ultra Sound Date Fundal Height At Umbil Quickening Date Ultra Sound Latest Weeks Gestation Final Haja Confirmed By Final Haja Confirmed Date Final Haja Date Ultra Sound Latest Days Gestation 0 0 Menstrual History Last Menstrual Date Menses Monthly On Bcp Conception Prior Menses Frequency Hcg Plus Date Menarche Onset Age Delivery Information Delivery Date Delivery Type Labor Anesthesia Weeks Gestation Incision Type Labor Labor Length Hrs Delivered By Post Complications Tubal Sterilization Discharge Date Comments 6 39.5 history of elevated heart rate Discharge Information Feeding Method Contraceptive Method Maternal HG B and HCT Levels
--- OUTSIDE RECORDS SUMMARY | 2025-01-22 11:34 | XMS_ITS | Referral Summary ---
Author Organization [facility] Address [address] [place] [address] Care Team Providers Care Shredder Tender Name Role Phone Chavez Evans Primary Care Provider [phone] Lizzy Thompson DO Unavailable [phone] Encounters Date Type Department Care Team Description 01/03/2025 12:45 PM CDT Telemedicine [facility] Virtual Care [address] [place] [address] Jaimie Gustafson NP Pain in throat (Primary Dx) 01/02/2025 Patient Self-Triage [facility]/ Physicians [address] [place] [id number] Mychart, Generic Provider from Last 3 Months Allergies Active Allergy Reactions Criticality Noted Date Comments Adhesive Tape-Silicones Hives Medium 11/19/2017 Codeine Hives,Other (See comments),Nausea & Vomiting Medium Reaction: UNKNOWN, , , Reaction: Hives, , Duloxetine Nausea only,Nausea & Vomiting Low 06/27/2018 Latex Medium Prochlorperazine Dystonia High Medications ferrous sulfate 325 mg (65 mg of elemental iron) tabletIndicatio ns:Iron Deficiency Anemia Take 1 tablet (325 mg total) by mouth daily with breakfast 30 tablet 3 3 Active Additional Information Patient not taking.Reported on 08/03/2023 famotidine (PEPCID) 20 mg tablet Take 1 tablet (20 mg total) by mouth 2 (two) times a day 60 tablet 2 3 Active Additional Information Patient not taking.Reported on 08/03/2023 propranolol LA (INDERAL LA) 60 mg 24 hr capsule Take 1 capsule (60 mg total) by mouth daily 30 capsule 11 3 Active Additional Information Patient not taking.Reported on 08/03/2023 propranoloL (INDERAL) 10 mg tablet Take 1 tablet (10 mg total) by mouth 3 (three) times a day as needed (for HR greater the 120 for at least 5-10mins.) 60 tablet 2 3 Active Additional Information Patient not taking.Reported on 08/03/2023 cyclobenzaprine (FLEXERIL) 5 mg tablet Take 1 tablet (5 mg total) by mouth 3 (three) times a day as needed for muscle spasms 5 tablet 3 Active Additional Information Patient not taking.Reported on 08/03/2023 docusate sodium (COLACE) 100 mg capsuleIndicati ons:constipatio n,Stool Softener Take 1 capsule (100 mg total) by mouth 2 (two) times a day for 5 days 10 capsule 3 Active Additional Information Patient not taking.Reported on 08/03/2023 gabapentin (NEURONTIN) 100 mg capsule Take 2 capsules (200 mg total) by mouth 3 (three) times a day for 5 days 30 capsule 3 Active Additional Information Patient not taking.Reported on 08/03/2023 polyethylene glycol (MIRALAX) 17 gram/dose bulk powderIndicatio ns:constipation Take 17 g by mouth daily for 5 days 85 g 3 Active Additional Information Patient not taking.Reported on 08/03/2023 senna (SENOKOT) 8.6 mg tabletIndicatio ns:constipation Take 1 tablet by mouth 2 (two) times a day for 5 days 10 tablet 3 Active acetaminophen 32 mg/mL Active ofloxacin (FLOXIN) 0.3 % otic solutionIndicat ions:Acute swimmer's ear of right side Administer 5 drops into the right ear daily 5 mL 3 Active al & mag hydroxide with simethicone-dip henhydramine-li docaine (MAGIC MOUTHWASH) suspension [id number] s:Viral URI with cough Take 10 mL by mouth every 6 (six) hours as needed (Sore throat) May cause drowsiness, if drowsiness is undesirable may gargle and spit. 240 mL 3 Active Active Problems Problem Noted Date Diagnosed Date Pain in throat 01/03/2025 Assessment & Plan (01/03/2025 1:41 PM CDT): Feeling of something stuck in her throat. Reports possible pill. Recommend in person evaluation for physical exam. UC or CC. Patient verbalized understanding and agreed to plan of care at this time. History of section 03/25/2023 Overview (07/18/2023): Julián Chirinos is a 28 y.o. female at 37w0d who is dated by L=1 and is being admitted for a scheduled repeat due to gHTN . Admit to L&D: Consents signed and placed in chart. Labs: CBC and T&S pending. section after labs return. FWB: Continuous monitoring. NST to be performed. ID: 3rd trimester HIV (>28 wga) negative on 05/20/23. GBS unknown, collected 07/15 . RPR on admission: pending. Membrane Status: intact. Indications for UDS: none. Verbal consent obtained for UDS: Not indicated. MOF: Plans to breastfeed. Urine drug screen not indicated. Patient informed of results: N/A. MOC: Undecided on contraception. Pain management: for GETA given history of multiple spinal surgeries. Post DVT prophylaxis: The patient has the following MAJOR risk factors none and the following MINOR risk factors BMI 30-39 and delivery. enoxaparin 40 mg daily will be ordered for VTE prophylaxis . gHTN: Dx in outpatient setting. For CBC/CMP/UPC on admission. 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 Plan: - Continue home propanolol 10mg TID - Telemetry on L&D Delivery Planning: - Mode of delivery: No cardiac contraindication to vaginal delivery at this time - Mode of anesthesia: No cardiac contraindication anesthesia; per anesthesia recommendations - SBE prophylaxis is NOT indicated per 2020 ACC/AHA valve guidelines. - Telemetry monitoring is recommended. - Fluids: Usual management - Filtered lines ARE NOT required - Any other specific precautions: Check electrolytes on admission, supplement for goal K>4, Mg>2 Post- Management: - Volume overload IS NOT anticipated 24-72 hours post-delivery. - Post- monitoring: Per usual post- standards 11. Varicella equivocal: for Varivax PP. Assessment & Plan (07/08/2023 9:07 AM CDT): Hx of CS under GETA due to inability to get neuraxial anesthesia (multiple spine surgeries) Anesthesia consult completed 05/31/23 C/s scheduled 08/02 Melena 01/28/2023 Overview (03/11/2023): Patient reports recent black tarry stools. CBC without aenmia Saw GI 02/16- expectant mgmt Precautions reviewed. Assessment & Plan (07/15/2023 12:46 PM CDT): Reports this has not recurred. 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 Follows with [facility] Cardiology, last saw Dr Wilson 03/19 Stress echo 02/2020: LV low normal systolic function, LVEF 55%. Upper normal RV size with normal systolic function. Normal diastolic function. Mild MR, mild TR. PASP 25+3. Cardiac cath 2016: likely involution of coronary artery fistula with normal coronary anatomy Echo 03/09: Left ventricular systolic function is normal. EF 55-60%. Mild mitral and tricuspid regurg. RVSP normal. Plan: -Metoprolol to 50mg daily initially, now on propanolol 10mg TID with good effect - Next cardiology visit in Nov -Asa 81 mg - echo completed - Continue to monitor symptoms -Plan to deliver at [facility]: Delivery Planning: - Mode of delivery: No cardiac contraindication to vaginal delivery at this time - Mode of anesthesia: No cardiac contraindication anesthesia; per anesthesia recommendations - SBE prophylaxis is NOT indicated per 2020 ACC/AHA valve guidelines. - Telemetry monitoring is recommended. - Fluids: Usual management - Filtered lines ARE NOT required - Any other specific precautions: Check electrolytes on admission, supplement for goal K>4, Mg>2 Post- Management: - Volume overload IS NOT anticipated 24-72 hours post-delivery. 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 Follows with [facility]iology, last saw Dr Wilson 03/19 Stress echo 02/2020: LV low normal systolic function, LVEF 55%. Upper normal RV size with normal systolic function. Normal diastolic function. Mild MR, mild TR. PASP 25+3. Cardiac cath 2016: likely involution of coronary artery fistula with normal coronary anatomy Echo 03/09: Left ventricular systolic function is normal. EF 55-60%. Mild mitral and tricuspid regurg. RVSP normal. Plan: -Metoprolol to 50mg daily initially, now on propanolol 10mg TID with good effect - Next cardiology visit in Nov -Asa 81 mg - echo completed - Continue to monitor symptoms -Plan to deliver at [facility]: Delivery Planning: - Mode of delivery: No cardiac contraindication to vaginal delivery at this time - Mode of anesthesia: No cardiac contraindication anesthesia; per anesthesia recommendations - SBE prophylaxis is NOT indicated per 2020 ACC/AHA valve guidelines. - Telemetry monitoring is recommended. - Fluids: Usual management - Filtered lines ARE NOT required - Any other specific precautions: Check electrolytes on admission, supplement for goal K>4, Mg>2 Post- Management: - Volume overload IS NOT anticipated 24-72 hours post-delivery. 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 She is heterozygous for the FOXC1 gene, associated with ARS. G1 was uncomplicated from perspective. Her child does not have a diagnosis of ARS and is seeing a Hydrotel Operator at the end of December. We reviewed increased risk for growth restriction, congenital heart disease and other structural anomalies. We reviewed inheritance pattern for ARS, which Ms. Chirinos is familiar with. She is interested in genetic counseling. We discussed potential for diagnostic genetic testing for current in the setting of known single-gene variant. Plan: - Recommend follow up eye exam, pt to schedule - Genetic counseling Completed on 02/01/23, declines invasive testing - Specialized anatomic survey - echocardiogram completed - Serial growth US Assessment & Plan (07/15/2023 12:47 PM CDT): Inform Peds during admission. Assessment & Plan (07/08/2023 9:05 AM CDT): Axenfeld-Jessica syndrome (ARS) is an autosomal dominant disorder of neural crest development that results in a spectrum of abnormalities including ocular anterior segment dysgenesis, glaucoma, dental abnormalities, craniofacial dysmorphism, growth restriction, cardiovascular malformations and redundant periumbilical skin. 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 She is heterozygous for the FOXC1 gene, associated with ARS. G1 was uncomplicated from perspective. Her child does not have a diagnosis of ARS and is seeing a Hydrotel Operator at the end of December. Previously counseled Plan: - Recommend follow up eye exame - Genetic counseling Completed on 02/01/23, declines invasive testing - Specialized anatomic survey - echocardiogram completed - Serial growth US History of tachycardia 12/30/2022 Overview (07/08/2023): History of tachycardia and atypical chest pain, followed by [facility]. Required metoprolol for symptomatic tachycardia and palpitations in prior . She previously trialed verapamil, which did not alleviate symptoms. Transition back to metoprolol in May 2022, however stopped medication when she became . Restarted March 2023, switched to propanolol. Likely inappropriate sinus tachycardia, possible POTS. Most recent EKG 08/2022 - NSR Plan: - continue propanolol - Serial growth US -Telemetry at time of delivery - see above delivery planning Assessment & Plan (07/15/2023 12:46 PM CDT): Maternal HR wnl. At risk for hypoglycemia. Assessment & Plan (07/08/2023 9:06 AM CDT): History of tachycardia and atypical chest pain, followed by [facility]. Required metoprolol for symptomatic tachycardia and palpitations in prior . She previously trialed verapamil, which did not alleviate symptoms. Transition back to metoprolol in May 2022, however stopped medication when she became . Restarted March 2023, switched to propanolol. Likely inappropriate sinus tachycardia, possible POTS. Most recent EKG 08/2022 - NSR Plan: - continue propanolol - Serial growth US -Telemetry at time of delivery - see above delivery planning Assessment & Plan (05/31/2023 9:59 AM CDT): Discussed continuing to hydrate well, slow position changes, compression socks, metoprolol Scoliosis 12/30/2022 Overview (06/23/2023): History of multiple spinal fusions, 13 surgeries, including thoracic and lumbar spine. Prior required GETA due to contraindication for regional anesthesia. Plan for 3rd trimester anesthesia consult, done 05/31/23 Assessment & Plan (07/08/2023 9:07 AM CDT): History of multiple spinal fusions, 13 surgeries, including thoracic and lumbar spine. Prior required GETA due to contraindication for regional anesthesia. Plan for 3rd trimester anesthesia consult, done 05/31/23 Poor dentition 06/26/2022 Muscle spasm 06/25/2022 Elevated blood pressure reading 06/24/2022 Assessment & Plan (06/24/2022 10:51 PM CDT): No previously documented history of of hypertension. At the time of admission blood pressure was slightly elevated. Currently stable and improving. Will monitor for now. Patient is on metoprolol for palpitations. Dental infection 06/23/2022 Precordial pain 02/08/2020 Assessment & Plan (02/13/2021 3:36 PM CDT): Her chest pain does not sound anginal, and she had a negative stress test last year. It sounds pleuritic in quality - potentially consistent with pericarditis given the positional qualities of it. I would like to check an ESR, CRP, SSA and KSENIA to evaluate for possible pericarditis We will trial a 2 week course of ASA 650 bid and colchicine 0.6 mg BID. I have asked her to take pantoprazole 40 mg daily for GI protection We will call in 2 weeks to see if she has responded to this therapy Assessment & Plan (02/08/2020 3:32 PM CDT): The quality of her pain does have some anginal features, and she does have a known coronary to PA fistula. It is possible that the fistula flow has increased over time, or that she has developed an atrial arrhythmia which is leading to demand ischemia due to tachycardia + coronary steal. I have recommended she undergo an exercise stress echocardiogram given her baseline abnormal EKG and her coronary anomaly. I would like to check a BNP today. Coronary artery fistula 02/08/2020 Assessment & Plan (02/13/2021 3:37 PM CDT): No evidence of ischemia on functional testing Assessment & Plan (02/08/2020 3:32 PM CDT): We will check an KATLYN per above If abnormal, we will pursue LHC vs coronary CT for further direct imaging. Palpitations 02/08/2020 Assessment & Plan (06/24/2022 10:53 PM CDT): On metoprolol Assessment & Plan (02/08/2020 3:33 PM CDT): Her symptoms are concerning for atrial arrhythmia We will place a 7 d event monitor I will check a TSH today Resolved Problems Problem Noted Date Diagnosed Date Resolved Date care following delivery 07/18/2023 09/06/2023 Overview (07/21/2023): # ID: Afebrile. No signs/symptoms of infection. #Varicella equivocal: for Varivax PP. # Heme: EBL 600 mL. Hemodynamically stable. #Acute blood loss anemia: POD1 hgb 6.9. Symptomatic with dizziness. Transfused 1 unit pRBC 07/19 > 8.2 > 8.1 > 8.5. Ordered for iron supplement. # CV/Pulm: Gestational hypertension - Blood pressures well controlled on propanolol (see coronary art fistula problem below). Asymptomatic, denies BLACK/RUQ pain/vision changes. CBC/CMP wnl, UPC wnl. #Palpitations: propranolol XL 60 daily, propranolol 10mg TID prn. Propranolol XL not on formulary, ordered as propranolol 30 mg BID. # History of coronary artery fistula s/p involution and tachycardia with atypical chest pain: seen by Maternal Cardiology this , on propranolol as above Post- Management: - Volume overload IS NOT anticipated 24-72 hours post-delivery. - Post- monitoring: tele - supplement for goal K>4, Mg>2. Repletion ordered PRN. # GI/: Tolerating PO. Voiding spontaneously. # Pain: Controlled with above regimen. Discontinued BAR TACKER 07/19. # MOC: Declines s/p counseling. # MOF: . Urine drug screen not indicated. Patient informed of results: N/A. # Post DVT prophylaxis: The patient has the following MAJOR risk factors cardiac disease and the following MINOR risk factors delivery. enoxaparin 40 mg daily ordered for VTE prophylaxis. # Disposition: Follow up task sent to [facility] scheduling pool. Desires discharge home today. Gestational htn w/o signific ant proteinuria, third trimester 07/15/2023 09/06/2023 Overview (07/15/2023): Patient with 2 visits to [facility] that have documented mild elevation of her BP without proteinuria. She was seen yesterday when the diagnosis was confirmed and scheduled for ERCS at 37 weeks. Patient counseled on symptoms of severe disease and when to present to hospital respective of her BP. Patient has a BP cuff at home and aware to present if asymptomatic but SBP 160 or DBP 110 . ERCS scheduled on 07/18/23. We discussed the CS and patient had no questions. Other specified diseases and conditions complicating 12/30/2022 07/08/2023 Supervision of high-risk pre gnancy, third trimester 12/30/2022 09/06/2023 Overview (07/08/2023): [x] Full MFM Care; [] Red Team [x] Blue Team *Delivering at [facility]*-email sent to financial team for global on 03/25/23-jlb- CHERYLE referral sent 05/05/2023 Referring Provider: Farzana Gutierrez [phone] [] or Medicare Insurance [x] Dating Criteria: LMP 11/01/22 NISA 08/08/23 12-14-2022 NISA 08/08/23 [x] Labs: Rh [B+], Ab [negative], Rubella [immune], HIV [non-reactive], HepBSAg [non-reactive], RPR [non-reactive], Hep C [non-reactive], Varicella [equivocal], GC/CT [Negative/negative] [x] Genetic Screening: NIPT low risk, [x] CBC/Hgb 12.6/39.0 PLT 315 [] Early 1hr GTT [x] UCx: 02/01/23 no growth [x] Pap: 12/14/22 NILM [] LD ASA (if indicated) starting at 12 weeks: [] EPDS [ ]; PNBHS referral (if indicated) 2nd Tri Labs: [x] Anatomy ultrasound:incomplete 03/25, completed on 04/09 [x] CBC/Ferritin/1hr gtt at 24-28wks: 10.8/32.2/253, 1 hour gtt: 100. Ferritin: 25 on 05/20/23 [] Flu Shot (Jun-Sep):07/08/23 maybe next visit [x] Tdap (27-36wks):05/20 mj [] COVID Vaccine: B+ 3rd Tri Labs: [x] CBC/HIV/RPR/T&S: CBC: 11.2/31.3/263K Ferritin: 25, HIV: nonreactive, RPR: nonreactive done 05/20/2023 [] GBS: [] GC/CT (if indicated): [] testing: Consider weekly at 32 weeks (maternal cardiac disease) Counseling [x] MOD: Repeat Csection scheduled for 08/02/23 at 0930, letter to pt in [facility] [x] Place of delivery: [facility] [] Last clinic visit SVE: [] IOL start agent: [] Epidural: [] Consents signed: [] MOC: [] Method of feeding: [] Director Of Retail Merchandising: [] PP Depression Discussed: Assessment & Plan (07/08/2023 9:08 AM CDT): RTC 2 wks with growth scan 3rd trimester precautions discussed [x] Full MFM Care; [] Red Team [x] Blue Team *Delivering at [facility]*-email sent to financial team for global on 03/25/23-jlb- CHERYLE referral sent 05/05/2023 Referring Provider: Farzana Gutierrez [phone] [] or Medicare Insurance [x] Dating Criteria: LMP 11/01/22 NISA 08/08/23 12-14-2022 NISA 08/08/23 [x] Labs: Rh [B+], Ab [negative], Rubella [immune], HIV [non-reactive], HepBSAg [non-reactive], RPR [non-reactive], Hep C [non-reactive], Varicella [equivocal], GC/CT [Negative/negative] [x] Genetic Screening: NIPT low risk, [x] CBC/Hgb 12.6/39.0 PLT 315 [] Early 1hr GTT [x] UCx: 02/01/23 no growth [x] Pap: 12/14/22 NILM [] LD ASA (if indicated) starting at 12 weeks: [] EPDS [ ]; PNBHS referral (if indicated) 2nd Tri Labs: [x] Anatomy ultrasound:incomplete 03/25, completed on 04/09 [x] CBC/Ferritin/1hr gtt at 24-28wks: 10.8/32.2/253, 1 hour gtt: 100. Ferritin: 25 on 05/20/23 [] Flu Shot (Jun-Sep):07/08/23 maybe next visit [x] Tdap (27-36wks):05/20 mj [] COVID Vaccine: B+ 3rd Tri Labs: [x] CBC/HIV/RPR/T&S: CBC: 11.2/31.3/263K Ferritin: 25, HIV: nonreactive, RPR: nonreactive done 05/20/2023 [] GBS: [] GC/CT (if indicated): [] testing: Consider weekly at 32 weeks (maternal cardiac disease) Counseling [x] MOD: Repeat Csection scheduled for 08/02/23 at 0930, letter to pt in [facility] [x] Place of delivery: [facility] [] Last clinic visit SVE: [] IOL start agent: [] Epidural: [] Consents signed: [] MOC: [] Method of feeding: [] Director Of Retail Merchandising: [] PP Depression Discussed: Assessment & Plan (05/31/2023 9:59 AM CDT): Pepcid 20mg daily ordered for heartburn Growth US on 06/17 RTC in 3 weeks (appt with US) Assessment & Plan (01/05/2023 12:01 PM CDT): #Constipation - Rx for Miralax and Senna sent today. Advised adequate hydration. #Headaches - Rx for riboflavin sent to pharmacy Periorbital cellulitis of right eye 06/25/2022 03/11/2023 Cellulitis of face 06/24/2022 Assessment & Plan (06/24/2022 10:50 PM CDT): Noted small subperiosteal abscess. Consider inpatient ENT consult, otherwise patient will need outpatient referral for oral maxillary surgery for possible I&D. CBC in a.m. Pain control Tylenol p.r.n. for fever and pain Congenital heart disease 10/2022 Overview (06/24/2022): Continue metoprolol Immunizations Immunization Administration Dates Next Due Influenza, Unspecified 07/11/2016 Tdap 05/20/2023,09/07/2016 Varicella 07/21/2023 Social History Tobacco Use Types Packs/Day Years Used Date Smoking Tobacco: Never Smokeless Tobacco: Never Tobacco Cessation:Counseling Given: Not Answered Alcohol Use Standard Drinks/Week Comments No 0 (1 standard drink = 0.6 oz pur e alcohol) AUDIT-C Answer Date Recorded Q1: How often do you have a drink containing alc ohol? Monthly or less 02/16/2023 Average Number of Drinks Not on file 023 Frequency of Binge Drinking Not on file 06/2023 [place] Depression Scale Answer Date Recorded [place] Depression Scale Total 4 09/06/2023 The thought of harming myself has occurred to me . Never 09/06/2023 Personal Safety Answer Date Recorded Have you ever been in or are you currently in a harmful physical or emotional relationship or is someone making you feel afraid or unsafe? 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 Not on file Not on file Not on f ile Last Filed Vital Signs Vital Sign Reading Time Taken Comments Blood Pressure 120/84 09/14/2023 6:53 PM STOCK TRACER Pulse 71 09/14/2023 6:53 PM STOCK TRACER Temperature 36.9 C (98.4 F) 09/14/2023 6:53 PM STOCK TRACER Respiratory Rate 16 09/14/2023 6:53 PM STOCK TRACER Oxygen Saturation 99% 09/14/2023 6:53 PM STOCK TRACER Inhaled Oxygen Concentration - - Weight 72.6 kg (160 lb) 09/14/2023 6:53 PM STOCK TRACER Height 154.9 cm (5' 1 ) 09/14/2023 6:53 PM STOCK TRACER Body Mass Index 30.23 09/14/2023 6:53 PM STOCK TRACER Plan of Treatment Not on file Procedures Procedure Name Priority Date/Time Associated Diagnosis Comments THINPREP IMAGING PAP REFLEX HPV MRNA E6/E7 Routine 10/22/2016 1:38 PM STOCK TRACER HEPATITIS C ANTIBODY Routine 02/10/2016 3:50 PM CDT from Last 3 Months or Most Recently Relevant to Health Maintenance Results * ThinPrep Imaging Pap Reflex HPV mRNA E6/E7 (10/22/2016 1:38 PM STOCK TRACER) SOURCE: SEE NOTE [facility] HISTORICAL RESULTS Comment:Cervix, Endocervix CLINICAL INFORMATION: SEE NOTE [facility] HISTORICAL RESULTS Comment: LMP SEE NOTE [facility] HISTORICAL RESULTS Comment:NONE GIVEN Previous Pap SEE NOTE [facility] HISTORICAL RESULTS Comment:NONE GIVEN Prev. Bx SEE NOTE [facility] HISTORICAL RESULTS Comment:NONE GIVEN Pap, specimen adequacy SEE NOTE [facility] HISTORICAL RESULTS Comment:SATISFACTORY FOR THOM LUATION HPV interp SEE NOTE [facility] HISTORICAL RESULTS Comment: Negative for intraepithelial lesion or malignancy. Atrophic pattern; predominantly parabasal cells Lactobacillus species SEE NOTE [facility] H[facility]OR[facility] RESULTS Comment: This Pap test has been evaluated with computer assisted technology. Cryptologic Technician Technical SEE NOTE [facility] HISTORICAL RESULTS Comment: TMK, CT(ASCP) CT screening location: [place] [address] [place] [address] Test performed at [facility] [address] Director: BLAINE FERREIRA MD 10/22/2016 1:38 PM STOCK TRACER Gloria Turner MD LAB PATHOLOGY ORDERAB LES Final Result Performing Organization Address [facility] Co de Phone Number [facility] HISTORICAL RESULTS * Hepatitis C antibody (02/10/2016 3:50 PM CDT) Pathologist [facility] SIGNAL TO CUT-OFF 0.03 <1.00 [facility] HISTORICAL RESULTS Comment: Test performed at [facility] [address] [address] [place] [address] Director: JANE NEWSOME DO,MPH Hep C Ab NON-REACT SEAN NON-REACT SEAN [facility]OR[facility] RESULTS 02/10/2016 3:50 PM CDT Gloria Turner MD LAB MICROBIOLOGY - GE NERAL ORDERABLES Final Result [facility] HISTORICAL RESULTS from Last 3 Months or Most Recently Relevant to Health Maintenance Insurance [facility] [place] [employer] [facility] [place]UAL [place] [facility] MEDICARE [facility] MEDICARE Advance Directives For more information, please contact: [phone] * Full Code (Latest Code Status on File) Date Activated Date Inactivated Comments 07/18/2023 1:48 PM 07/21/2023 5:48 PM * Full Code Date Activated Date Inactivated Comments 07/18/2023 7:36 AM 07/18/2023 1:48 PM Full CPR in case of cardiopulmonary arrest * Full Code Date Activated Date Inactivated Comments 06/24/2022 9:18 PM 06/27/2022 5:29 PM Care Teams Shredder Tender Relationship Specialty Start Date End Date Chavez Evans PA [address] [place] [address] PCP - General 08/26/18 Lizzy Thompson DO [address] [place] [address] DR GEM Rolon [address] [address] Consulting Physician Otolaryngology 06/27/22
--- OUTSIDE RECORDS SUMMARY | 2025-01-22 11:34 | XMS_ITS | Clinical Summary ---
Author Organization [facility] Address [address] [place] [address] Care Team Providers Care Broadcast Systems Engineer Name Role Phone Chavez Evans Primary Care Provider [phone] JayLizzyWilly DO Unavailable [phone] Allergies Active Allergy Reactions Criticality Noted Date [...] with simethicone-dip henhydramine-li docaine (MAGIC MOUTHWASH) suspension [id number] s:Viral URI with cough Take 10 mL [...] History of section 03/25/2023 Overview (07/18/2023): Julián Barnett is a 28 y.o. 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 Follows with [facility], last saw Dr Wilson 03/19 Stress echo 02/2020: LV low normal systolic function, LVEF 55%. Upper normal RV size with normal systolic function. Normal diastolic function. Mild MR, mild TR. PASP 25+3. 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 EF 55-60%. Mild mitral and tricuspid regurg. RVSP normal. 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 Follows with [facility], last saw Dr Wilson 03/19 [...] good effect - Next cardiology visit in Aug -Asa 81 mg - echo completed - Continue to monitor symptoms -Plan to deliver at [facility]: Delivery Planning: - Mode of delivery: No [...] cardiovascular malformations and redundant periumbilical skin. 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 G1 was uncomplicated from perspective. Her child does not have a diagnosis of ARS and is seeing a Basting Puller at the end of December. We reviewed increased risk for growth restriction, congenital heart disease and other structural anomalies. We reviewed inheritance pattern for ARS, which Ms. Barnett is familiar with. She is interested in [...] cardiovascular malformations and redundant periumbilical skin. 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 G1 was uncomplicated from perspective. Her child does not have a diagnosis of ARS and is seeing a Basting Puller at the end of December. Previously counseled Plan: - Recommend follow up eye exame - Genetic counseling Completed on 02/01/23, declines invasive testing - Specialized anatomic survey - echocardiogram completed - Serial growth US History of tachycardia 12/30/2022 Overview (07/08/2023): History of tachycardia and atypical chest pain, followed by [facility]. Required metoprolol for symptomatic tachycardia [...] tachycardia and atypical chest pain, followed by [facility]. Required metoprolol for symptomatic tachycardia [...] per above If abnormal, we will pursue C vs coronary CT for further direct imaging. [...] # Pain: Controlled with above regimen. Discontinued CLIENT SERVICE REPRESENTATIVE 07/19. # MOC: Declines s/p counseling. # MOF: . Urine drug screen not indicated. Patient informed of results: N/A. # Post DVT prophylaxis: The patient has the following MAJOR risk factors cardiac disease and the following MINOR risk factors delivery. enoxaparin 40 mg daily ordered for VTE prophylaxis. # Disposition: Follow up task sent to [facility] scheduling pool. Desires discharge home today. Gestational htn w/o signific ant proteinuria, third trimester 07/15/2023 09/06/2023 Overview (07/15/2023): Patient with [address] [facility] that have documented mild elevation of her [...] Red Team [x] Blue Team *Delivering at [facility]*-email sent to financial team for global on 03/25/23-jlb- CHERYLE referral sent 05/05/2023 Referring Provider: Farzana Gutierrez [phone] [] or Medicare Insurance [x] Dating Criteria: [...] 08/02/23 at 0930, letter [facility] [place] [facility] [x] Place of delivery: [facility] [] Last clinic visit SVE: [] IOL start agent: [] Epidural: [] Consents signed: [] MOC: [] Method of feeding: [] Medical Officer Psychiatry: [] PP Depression Discussed: Assessment & Plan (07/08/2023 9:08 AM CDT): RTC 2 wks with growth scan 3rd trimester precautions discussed [x] Full MFM Care; [] Red Team [x] Blue Team *Delivering at [facility]*-email sent to financial team for global on 03/25/23-jlb- CHERYLE referral sent 05/05/2023 Referring Provider: Farzana Gutierrez [phone] [] or Medicare Insurance [x] Dating Criteria: [...] 08/02/23 at 0930, letter to pt [place] [facility] [x] Place of delivery: [facility] [] Last clinic visit SVE: [] IOL start agent: [] Epidural: [] Consents signed: [] MOC: [] Method of feeding: [] Medical Officer Psychiatry: [] PP Depression Discussed: Assessment & Plan [...] eye 06/25/2022 03/11/2023 Cellulitis of face 06/24/2022 3 Assessment & Plan (06/24/2022 10:50 PM CDT): Noted small subperiosteal abscess. Consider inpatient ENT consult, otherwise patient will need outpatient referral for oral maxillary surgery for possible I&D. CBC in a.m. Pain control Tylenol p.r.n. for fever and pain Congenital heart disease 10/2022 Overview (06/24/2022): Continue metoprolol Encounters Date Type Department Care Team Description 01/03/2025 12:45 PM CDT Telemedicine [facility] Virtual Care [address] [place] [id number] Jaimie Gustafson NP Pain in throat (Primary Dx) 01/02/2025 Patient Self-Triage [facility] [address] [place] [address] Mychart, Generic Provider from Last 3 Months Immunizations Immunization Administration Dates Next Due Influenza, Unspecified 07/11/2016 Tdap 05/20/2023,09/07/2016 Varicella 07/21/2023 Surgical History Surgery Date Site/Laterality Comments TONSILLECTOMY/ADENOIDECTOM Y Tonsillectomy and adenoidectomy TYMPANOSTOMY TUBE PLACEMENT Ear tubes MYRINGOTOMY W/ TUBES 11/10/2001 TONSILLECTOMY 10/11/2013 - 10/10/2014 ADENOIDECTOMY 10/11/2021 - 10/10/2022 SPINAL FUSION (lumbar spine 1998, 1999, 2000, 2001), (thoracic spine 1999, anterior fusion T7-L1 with rods, T5-L3 with 3 subsequent lengthening procedures), (thoracic spine 2003, posterior fusion T4-L2, anterior spine, diskectomy with local bone graft T5-T12) SECTION, LOW TRANSVERSE 10/11/2015 - 10/10/2016 BACK SURGERY Per pt - spinal surgery x 13 with jessenia placement, removal and eventual fusion EYE SURGERY for strabismus age 7, 12, 18 HEART SURGERY 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 GERD (gastroesophageal reflux disease) Hypertelorism Previous section Electi ve 1' LTCS for h/o scoliosis.; Outcome: 39W0D week 7lb(s) 12 oz Female Vision loss, left eye Family History Medical History Relation Name Comments Diabetes Maternal Grandmother Diabete s mellitus; Heart attack Maternal Grandmother Myocard ial infarction; Hypertension Maternal Grandmother Hyperte nsion; Stroke Maternal Grandmother Stroke; Migraines Mother Migraine; Relation Name Status Comments Maternal Grandmother Mother Social History Tobacco Use Types Packs/Day Years [...] Frequency of Binge Drinking Not on file 0 06/2023 Sweeny Depression Scale Answer Date Recorded Sweeny Depression Scale Total 4 09/06/2023 The thought [...] on file Legal Sex Female 2:59 AM PHOTOGRAMMETRIC TECH Gender Identity Female 02/01/2023 7:56 AM CDT Sexual Orientation Not on file 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 Not on file Not on file Not on f ile Obstetrics History Para Term AB IAB SAB Ectopic Multiple Livin g Live Births 2 2 2 0 0 0 2 2 Date Outcome GA Total Labor Labor/2nd/3rd Weight Sex Type Anes PTL Lupis A1 A5 Name Clin 2015 Term 39w 0d 3.515 kg (7 lb 12 oz) F C-Sec tion Livin g 2022 Term 37w 0d 0h 02m 0h 02m 3.06 kg (6 lb 11.9 oz) F C-Sec tion Genera l N Livin g 4 9 NARCISO HARRIS W,ENMA ROSS Y Quinn l, Herbert Galindo MD Complications:None Delivery Location:[facility] Main C ampus ([facility] L AND D PROCEDURE) Last Filed Vital Signs Vital Sign Reading Time Taken Comments Blood Pressure 120/84 09/14/2023 6:53 PM PHOTOGRAMMETRIC TECH Pulse 71 09/14/2023 6:53 PM PHOTOGRAMMETRIC TECH Temperature 36.9 C (98.4 F) 09/14/2023 6:53 PM PHOTOGRAMMETRIC TECH Respiratory Rate 16 09/14/2023 6:53 PM PHOTOGRAMMETRIC TECH Oxygen Saturation 99% 09/14/2023 6:53 PM PHOTOGRAMMETRIC TECH Inhaled Oxygen Concentration - - Weight 72.6 kg (160 lb) 09/14/2023 6:53 PM PHOTOGRAMMETRIC TECH Height 154.9 cm (5' 1 ) 09/14/2023 6:53 PM PHOTOGRAMMETRIC TECH Body Mass Index 30.23 09/14/2023 6:53 PM PHOTOGRAMMETRIC TECH Plan of Treatment Health Maintenance Due Date Last Done Comments Hepatitis B Screening 2013 Regular Well Visit/Exam 18-64 2013 Cervical Cancer Screening 10/22/2017 10/22/2016 Varicella Vaccines (2 of 2 - 13+ 2-dose series) 08/18/2023 07/21/2023 Depression Screening 09/06/2024 09/06/2023 Influenza Vaccine (Season Ended) 2025 07/11/2016 DTaP/Tdap/Td Vaccine (3 - Td or Tdap) 05/20/2033 05/20/2023, 09/07/2016 Hepatitis C Screening Completed 02/10/2016 HPV Vaccines Aged Out No longer eligi ble based on patient's age to complete this topic Pneumococcal vaccine <65 Aged Out No longer eligible based on patient's age to complete this topic Procedures Procedure Name Priority Date/Time Associated Diagnosis Comments THINPREP IMAGING PAP REFLEX HPV MRNA E6/E7 Routine 10/22/2016 1:38 PM PHOTOGRAMMETRIC TECH HEPATITIS C ANTIBODY Routine 02/10/2016 3:50 PM CDT from Last 3 Months or Most Recently Relevant to Health Maintenance Results * ThinPrep Imaging Pap Reflex HPV mRNA E6/E7 (10/22/2016 1:38 PM PHOTOGRAMMETRIC TECH) SOURCE: SEE NOTE [facility] HISTORICAL RESULTS Comment:Cervix, [...] has been evaluated with computer assisted technology. Licensed Therapist SEE NOTE [facility] HISTORICAL RESULTS Comment: TMK, CT(ASCP) CT screening location: [place] [address] [place] [address] Test performed at [facility] [address] Director: BLAINE FERREIRA MD 10/22/2016 1:38 PM PHOTOGRAMMETRIC TECH Gloria Turner MD LAB PATHOLOGY ORDERAB LES Final Result [facility] HISTORICAL RESULTS * Hepatitis C antibody (02/10/2016 3:50 PM CDT) SIGNAL TO CUT-OFF 0.03 <1.00 [facility] HISTORICAL RESULTS Comment: Test performed at [facility] [address] [address] Director: JANE NEWSOME DO,MPH Hep C Ab NON-REACT SEAN NON-REACT SEAN [facility] HISTORICAL RESULTS 02/10/2016 3:50 PM CDT Gloria Turner MD LAB MICROBIOLOGY - GE NERAL ORDERABLES Final Result Performing Organization Address City/[facility]/ZIP Co de Phone Number [facility] HISTORICAL RESULTS from Last 3 Months or Most Recently Relevant to Health Maintenance Insurance [facility] Member Subscriber Plan / Payer (Ef fective 2021-Present) Name:Julián Barnett Relation to Subscriber:Self Name:Julián Barnett Payer ID:[id number] (NAIC) Type:MEDICARE RISK OTHER Address: [address] FAMILY INSURANCE [place] [id number] [facility] MEDICARE [facility] MEDICARE Advance Directives For more information, please contact: [phone] * Full Code (Latest Code Status on File) Date Activated Date Inactivated Comments 07/18/2023 1:48 PM 07/21/2023 5:48 PM * Full Code Date Activated Date Inactivated Comments 07/18/2023 7:36 AM 07/18/2023 1:48 PM Full CPR in case of cardiopulmonary arrest * Full Code Date Activated Date Inactivated Comments 06/24/2022 9:18 PM 06/27/2022 5:29 PM Care Teams Broadcast Systems Engineer Relationship Specialty Start Date End Date Chavez Evans PA [address] [place] [address] PCP - General 08/26/18 Lizzy Thompson DO [address] [facility] [address] GEM Rolon [address] [address] Consulting Physician Otolaryngology 06/27/22
== END 2025-01-22 10:47 | disposition short-term general hospital (02) ==
PROVIDERS: Emergency Provider Nurse Practitioner Family; PCP Physician Assistant
DX: R51.9 Headache, unspecified (principal); H53.8 Other visual disturbances; M41.9 Scoliosis, unspecified
CPT/HCPCS: 99213; G0463

== ENCOUNTER 2025-01-22 11:05 | Emergency (ER) | payer MEDICARE, SELFPAY ==
--- NOTE | ~2025-01-22 | XR_ITS ---
CHEST RADIOGRAPH CLINICAL HISTORY: headache . COMPARISON: 01/16/2024 TECHNIQUE: Single portable view of the chest. FINDINGS Redemonstration of severe thoracic scoliosis markedly distorting the anatomy of the mediastinum and t he bilateral lung molina. The lungs are clear. IMPRESSION: No focal infiltrate or effusion. Reviewed, dictated and finalized at location A.
--- NOTE | ~2025-01-22 | CT_ITS ---
EXAMINATION: CT brain wo con DATE: 01/22/2025 12:41 INDICATION: Headache TECHNIQUE: Computed tomography (CT) of the head was performed without intravenous contrast. Sagittal and coronal reconstructions were performed. The mA was adjusted according to patient size. Iterative reconstruction technique was employed. The dose-length product was 605.33 mGy-cm. 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 No acute intracra nial hemorrhage, acute infarction or abnormal extra axial fluid collection. Ventricles are normal and symmetric. No mass/mass effect. The orbits, paranasal sinuses and mastoid air cells are normal. IMPRESSION: 1. 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 No acute intra cranial process. Reviewed, dictated and finalized at location A. IMPRESSION: 1. 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 No acute intracranial process.
[2025-01-22 11:28] VITALS: BP 126/77; PULSE 77; RESP 18; TEMP 37.2; O2SAT 100
--- NOTE | 2025-01-22 12:26 | ED_ITS ---
HPI - Headache General Chief Complaint: Headache Stated Complaint: headache Time Seen by Provider: 01/22/25 12:24 Source: patient Mode of arrival: ambulatory Limitations: no limitations History of Present Illness HPI Narrative: 29 years old white female history of anxiety and depression years ago, not on any medication anymore, came to the ED complaining of occipital headache radiating to the front bilaterally aching started few days ago, nothing make it worse, gets better if she sits in a quite place. Patient telling me that she have some stress lately because her daughter going to competition. She denies any fever, chills, nausea, vomiting, diarrhea, chest pain, shortness of breath, back pain or abdominal pain or urinary symptoms or vaginal bleeding or discharge. Patient is telling me that she been taking Tylenol, ibuprofen as needed with slight improvement. Related Data Home Medications ?Medication ?Instructions ?Recorded ?Confirmed ?Last Taken ?Type epinephrine 0.3 mg/0.3 mL 0.3 mg IM Q10M PRN anaphylaxis 11/12/24 01/22/25 Unknown History injection, auto-injector Allergies Allergy/AdvReac Type Severity Reaction Status Date / Time codeine Allergy Intermediate Hives / Verified 01/22/25 11:31 Red Face prochlorperazine AdvReac Unknown DYSTONIC Verified 01/22/25 11:31 REACTION Review of Systems 2 Review of Systems: All systems reviewed & are unremarkable except as noted in HPI and below PMFSH Past Medical History Medical History Scoliosis has had 13 surgeries Surgical History Surgical History History of tonsillectomy Hx of eye surgery 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 Social History Social History Smoking status: Never smoker Alcohol intake: never Substance use: never Do You Feel Safe in your Home?: Yes Lack of Transportation: No Lack of Food: Never True Current Housing: I Have Housing Concerned About Future Housing: No Difficulty Paying Gas/Electric Bills: No Difficulty Paying for Meds: No Currently Unemployed: No Education: Associate Degree Difficulty w/ Childcare or Family Care: No Gender identity (if verbalized by the patient): Female Spiritual care concerns: No Exam 2 Narrative: General appearance: Well-developed, well-nourished Skin: Normal color Head: Normocephalic, nontraumatic Eyes: Clear conjunctiva ENT: Oropharynx normal, ears normal, nose normal Neck: Supple, nontender Chest and respiratory: Airway patent, no respiratory distress, no accessory muscle use Heart: Regular rate/rhythm Abdomen: Soft, nontender, no organomegaly, quiet bowel sounds Vascular: Normal peripheral pulses, normal capillary refill. Musculoskeletal: Normal range of motion, nontender back Neurologic: Alert and oriented ?3, HOME HEALTH CARE CASE MANAGER is normal as tested, no gross motor deficit Course Vital Signs Vital signs: Vital Signs Temperature 37.2 C 01/22/25 11:28 Pulse Rate 77 01/22/25 11:28 Respiratory Rate 18 01/22/25 11:28 Blood Pressure 126/77 01/22/25 11:28 Pulse Oximetry 100 01/22/25 11:28 Oxygen Delivery Room Air 01/22/25 11:28 Temperature 37.2 C 01/22/25 11:28 Pulse Rate 77 01/22/25 11:28 Respiratory Rate 18 01/22/25 11:28 Blood Pressure 126/77 01/22/25 11:28 Pulse Oximetry 100 01/22/25 11:28 Oxygen Delivery Room Air 01/22/25 11:28 MDM - Headache MDM Narrative Medical decision making narrative: Headache Vital signs are stable Physical examination is unremarkable Differential diagnosis include stress like symptoms, tension headache, urinary tract infection, , electrolyte imbalance, dehydration, intracranial pathology. Blood workup today includes CBC, CMP, TSH showed no significant abnormality Urinalysis showed no evidence of infection Chest x-ray showed no significant abnormality CT head without contrast showed. Within normal limit Patient declined to get IV access and declined IV Toradol and would like to get diarrhea p.o.. Diagnosis headache, anxiety like symptoms-suspected Discharged home on [id number] Excedrin, ibuprofen as needed. The pt was discharged to home.the pt,s condition upon discharge was fair,education was provided to the pt in reference to the final impression,discharge study results,treatment,prognosis and need for follow up . Differential Diagnosis Differential diagnosis: Likely other (As above) Medical Records Attestation: I reviewed the patient's medical records. Lab Data Attestation: I reviewed the patient's lab results. 01/22/25 14:15 01/22/25 14:15 Labs: Lab Results 01/22/25 01/22/25 01/22/25 Range/Units 12:59 13:04 14:15 WBC 6.5 (4.5-10.0) K/mm3 RBC 4.37 (4.2-5.4) M/mm3 Hgb 12.4 (12.0-15.0) g/dL Hct 38.9 (37.0-47.0) % MCV 89.0 (80-100) fl MCH 28.4 (26-34) pg MCHC 31.9 L (32-36) g/dl RDW 13.8 (11.5-14.5) % Plt Count 292 (150-375) k/mm3 MPV 9.9 (7.4-10.4) fl Immature Gran % (Auto) 0.3 (0-0.5) % Neut % (Auto) 49.6 (45.5-73.1) % Lymph % (Auto) 42.4 (18.3-44.2) % Osage % (Auto) 6.3 (2.6-8.5) % Eos % (Auto) 0.9 (0-4.4) % Baso % (Auto) 0.5 (0.2-1.2) % Lymph # (Auto) 2.75 (0.9-3.2) K/mm3 [place] # (Auto) 0.4 (0.1-0.6) K/mm3 Eos # (Auto) 0.1 (0-0.3) K/mm3 Baso # (Auto) 0.0 (0.0-0.1) K/mm3 Abs Immat Gran (auto) 0.02 (0.00-0.031) K/mm3 Absolute Neuts (auto) 3.2 (1.3-6.7) K/mm3 Absolute Nucleated RBC 0.000 (0.0-0.012) K/mm3 Nucleated RBC % 0.0 (0.0-0.2) % Sodium 139 (137-145) mmol/L Potassium 4.0 (3.4-5.0) mmol/L Chloride 105 (98-107) mmol/L Carbon Dioxide 25 (22-30) mmol/L Anion Gap 9 (4-12) mmol/L BUN 13 (7-17) mg/dL Creatinine 0.49 L (0.7-1.0) mg/dL Estim Creat Clear Calc 131 ml/min Estimated GFR > 60 (59 - ) Glucose 94 (65-110) mg/dL Calcium 8.7 (8.4-10.2) mg/dL Total Bilirubin 0.4 (0.2-1.3) mg/dL AST 38 H (14-36) U/L ALT 52 H (6-35) U/L Alkaline Phosphatase 94 (38-126) U/L Total Protein 8.0 (6.3-8.2) g/dL Albumin 4.3 (3.5-5.1) g/dL Urine Color Yellow (Yellow) Urine Appearance Clear (Clear) Urine pH 5.5 (5.0-9.0) Ur Specific Hinkle 1.025 (1.001-1.035) Urine Protein Negative (Negative) mg/dL Urine Glucose (UA) Negative (Negative) mg/dL Urine Ketones Negative (Negative) mg/dL Ur Blood (Man) Negative (Negative) Urine Nitrate Negative (Negative) Urine Bilirubin Negative (Negative) Urine Urobilinogen 0.2 (<2.0) mg/dL Leukocyte Esterase Rfl Negative (Negative) GEORGE/UL POC Urine HCG, Qual Negative (Negative) Imaging Data Radiologist's impression: Impressions Head CT 01/22/25 12:44 IMPRESSION: 1. 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 No acute intracranial process. Chest X-Ray 01/22/25 12:45 IMPRESSION: No focal infiltrate or effusion. Critical Care Time Critical Care Time Critical Care Time: No Discharge Plan Discharge Clinical Impression: Headache Patient Disposition: Home Condition: Stable Instructions: Acute Headache (ED) Additional Instructions: Return if symptoms are worsening , call your family physician for appointment, continue home medication, take 2 tablets of Excedrin every 6 hours as needed, and or ibuprofen 600 every 6 hours as needed Patient Language: Frisian Prescriptions: No Action epinephrine 0.3 mg/0.3 mL auto-injector 0.3 mg IM Q10M PRN (Reason: anaphylaxis) Follow-up/Referrals: Cristina,MALIKA Astudillo [Primary Care Provider] - Stand Alone Forms: Work/School Release IP
--- OUTSIDE RECORDS SUMMARY | 2025-01-22 12:42 | XMS_ITS | Clinical Summary ---
Author Organization [facility] Address [address] [place] [address] Care Team Providers Care Copy Chaser Name Role Phone Chavez Evans Primary Care Provider [phone] Source Comments [facility],non-owned Affiliates and Associated Physician Practices is amultiple site organization consisting of ambulatory clinics and hospital sitesin [place], [place], [place] and [place]. This disclosure is being madepursuant to the Care Everywhere program and may not contain all information available regarding this patient. Last updated 18.[facility] Allergies Active Allergy Reactions Criticality Noted Date [...] under GENERAL Tachycardia 02/05/2023 Overview (03/07/2024): has record filing clerk, ECHO end of February, off metoprolol has record filing clerk, ECHO end february, off metoprolol 02/01/2023 Social [...] [employer] MEDICARE D[place] Care Teams Copy Chaser Relationship Specialty Start Date End Date Chavez Evans PA [address] [place] [address] PCP - General Physician Transition Mgr 03/07/24
--- OUTSIDE RECORDS SUMMARY | 2025-01-22 12:42 | XMS_ITS | Referral Summary ---
Author Organization [facility] Address [address] [place] [address] Care Team Providers Care Automotive Light Mechanic Name Role Phone Chavez Evans Primary Care Provider [phone] Lizzy Thompson DO Unavailable [phone] Encounters Date Type Department Care Team Description 01/03/2025 12:45 PM CDT Telemedicine [facility] Medical Group Virtual Care [address] [place] [address] Jaimie Gustafson NP Pain in throat (Primary Dx) 01/02/2025 Patient Self-Triage [facility] HealthCare/ Physicians [address] [place] [address] Mychart, Generic Provider from Last 3 [...] with simethicone-dip henhydramine-li docaine (MAGIC MOUTHWASH) suspension 8-0-8Kcpuzcpixi s:Viral URI with cough Take 10 mL [...] 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 Follows with [facility], last saw Dr Wilson 03/19 [...] to monitor symptoms -Plan to deliver at [facility]: Delivery Planning: - Mode of delivery: No [...] diagnosis of ARS and is seeing a Policy Writer at the end of December. We reviewed [...] diagnosis of ARS and is seeing a Policy Writer at the end of December. Previously counseled Plan: - Recommend follow up eye exame - Genetic counseling Completed on 02/01/23, declines invasive testing - Specialized anatomic survey - echocardiogram completed - Serial growth US History of tachycardia 12/30/2022 Overview (07/08/2023): History of tachycardia and atypical chest pain, followed by [facility]. Required metoprolol for symptomatic tachycardia [...] tachycardia and atypical chest pain, followed by [facility]. Required metoprolol for symptomatic tachycardia [...] # Pain: Controlled with above regimen. Discontinued DERMATOPATHOLOGIST 07/19. # MOC: Declines s/p counseling. # MOF: . Urine drug screen not indicated. Patient informed of results: N/A. # Post DVT prophylaxis: The patient has the following MAJOR risk factors cardiac disease and the following MINOR risk factors delivery. enoxaparin 40 mg daily ordered for VTE prophylaxis. # Disposition: Follow up task sent to [facility] scheduling pool. Desires discharge home today. Gestational htn w/o signific ant proteinuria, third trimester 07/15/2023 09/06/2023 Overview (07/15/2023): Patient with 2 visits to [facility] that have documented mild elevation of her [...] Red Team [x] Blue Team *Delivering at [facility]*-email sent to financial team for global on 03/25/23-jlb- CHERYLE referral sent 05/05/2023 Referring Provider: Farzana Gutierrez [phone] [] or Medicare Insurance [x] Dating Criteria: [...] 08/02/23 at 0930, [facility]x] Place of delivery: [facility] [] Last clinic visit SVE: [] IOL start agent: [] Epidural: [] Consents signed: [] MOC: [] Method of feeding: [] Cemetery Laborer: [] PP Depression Discussed: Assessment & Plan (07/08/2023 9:08 AM CDT): RTC 2 wks with growth scan 3rd trimester precautions discussed [x] Full MFM Care; [] Red Team [x] Blue Team *Delivering at [facility]*-email sent to financial team for global on 03/25/23-jlb- CHERYLE referral sent 05/05/2023 Referring Provider: Farzana Gutierrez [phone] [] or Medicare Insurance [x] Dating Criteria: [...] 08/02/23 at 0930, [facility] [x] Place of delivery: [facility] [] Last clinic visit SVE: [] IOL start agent: [] Epidural: [] Consents signed: [] MOC: [] Method of feeding: [] Cemetery Laborer: [] PP Depression Discussed: Assessment & Plan [...] of Binge Drinking Not on file 06/2023 Stephen Depression Scale Answer Date Recorded Stephen Depression Scale Total 4 09/06/2023 The thought [...] on file Legal Sex Female 2:59 AM DEPUTY DIRECTOR Gender Identity Female 02/01/2023 7:56 AM CDT Sexual Orientation Not on file 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 Not on file Not on f ile Last Filed Vital Signs Vital Sign Reading Time Taken Comments Blood Pressure 120/84 09/14/2023 6:53 PM DEPUTY DIRECTOR Pulse 71 09/14/2023 6:53 PM DEPUTY DIRECTOR Temperature 36.9 C (98.4 F) 09/14/2023 6:53 PM DEPUTY DIRECTOR Respiratory Rate 16 09/14/2023 6:53 PM DEPUTY DIRECTOR Oxygen Saturation 99% 09/14/2023 6:53 PM DEPUTY DIRECTOR Inhaled Oxygen Concentration - - Weight 72.6 kg (160 lb) 09/14/2023 6:53 PM DEPUTY DIRECTOR Height 154.9 cm (5' 1 ) 09/14/2023 6:53 PM DEPUTY DIRECTOR Body Mass Index 30.23 09/14/2023 6:53 PM DEPUTY DIRECTOR Plan of Treatment Not on file Procedures Procedure Name Priority Date/Time Associated Diagnosis Comments THINPREP IMAGING PAP REFLEX HPV MRNA E6/E7 Routine 10/22/2016 1:38 PM DEPUTY DIRECTOR HEPATITIS C ANTIBODY Routine 02/10/2016 3:50 PM CDT from Last 3 Months or Most Recently Relevant to Health Maintenance Results * ThinPrep Imaging Pap Reflex HPV mRNA E6/E7 (10/22/2016 1:38 PM DEPUTY DIRECTOR) SOURCE: SEE NOTE [facility] HISTORICAL RESULTS Comment:Cervix, [...] has been evaluated with computer assisted technology. Tar Heater SEE NOTE [facility] HISTORICAL RESULTS Comment: TMK, CT(ASCP) CT screening location: [place] [address] [place] [address] Test performed at [facility] [address] Director: BLAINE FERREIRA MD 10/22/2016 1:38 PM DEPUTY DIRECTOR Gloria Turner MD LAB PATHOLOGY ORDERAB LES Final Result Performing Organization Address [facility] Co de Phone Number [facility] HISTORICAL RESULTS * Hepatitis C antibody (02/10/2016 3:50 PM CDT) Pathologist [facility] SIGNAL TO CUT-OFF 0.03 <1.00 [facility] HISTORICAL RESULTS Comment: Test performed at [facility] [address] [address] [place] [address] Director: JANE NEWSOME DO,MPH Hep C Ab NON-REACT SEAN NON-REACT SEAN [facility] HISTORICAL RESULTS 02/10/2016 3:50 PM CDT Gloria Turner MD LAB MICROBIOLOGY - GE NERAL ORDERABLES Final Result [facility] HISTORICAL RESULTS from Last 3 Months or Most Recently Relevant to Health Maintenance Insurance [facility] DUAL [place] [employer] INSURANCE [facility]LL [facility] DUAL AR [facility] MEDICARE [facility] MEDICARE Advance Directives For more information, please contact: [phone] * Full Code (Latest Code Status on File) Date Activated Date Inactivated Comments 07/18/2023 1:48 PM 07/21/2023 5:48 PM * Full Code Date Activated Date Inactivated Comments 07/18/2023 7:36 AM 07/18/2023 1:48 PM Full CPR in case of cardiopulmonary arrest * Full Code Date Activated Date Inactivated Comments 06/24/2022 9:18 PM 06/27/2022 5:29 PM Care Teams Automotive Light Mechanic Relationship Specialty Start Date End Date Chavez Evans PA [address] [place] [address] PCP - General 08/26/18 Lizzy Thompson DO [address] [place] [address] DR GEM Rolon [address] [address] Consulting Physician Otolaryngology 06/27/22
--- OUTSIDE RECORDS SUMMARY | 2025-01-22 12:42 | XMS_ITS | Clinical Summary ---
Author Organization [facility] Address [address] [place] [address] Phone Care Team Providers Care Mainspring Former Name Role Phone Chavez Evans Primary Care Provider [phone] Allergies Active Allergy Reactions Criticality Noted Date Comments Codeine Hives 01/08/2016 Prochlorperazine Maleate Other (see Comments) 0 01/08/2016 Medications traMADol (ULTRAM) 50 MG Tablet Take 50 mg by mouth every 8 hours as needed. Active butalbital-aceta minophen-caffein e-codeine (FIORICET WITH CODEINE) [id number] MG Capsule Take 1 Cap by mouth [...] topic Insurance MEDICARE C [place] Care Teams Mainspring Former Relationship Specialty Start Date End Date Chavez Evans PAC [address] [place] [address] PCP - General Physician Shoe Parts Molder 01/18/19
--- OUTSIDE RECORDS SUMMARY | 2025-01-22 12:42 | XMS_ITS | Clinical Summary ---
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 Follows with [facility], last saw Dr Wilson 03/19 Stress [...] to monitor symptoms -Plan to deliver at [facility]: Delivery Planning: - Mode of delivery: No [...] diagnosis of ARS and is seeing a Parking Lot Attendant at the end of December. We reviewed [...] diagnosis of ARS and is seeing a Parking Lot Attendant at the end of December. Previously counseled Plan: - Recommend follow up eye exame - Genetic counseling Completed on 02/01/23, declines invasive testing - Specialized anatomic survey - echocardiogram completed - Serial growth US History of tachycardia 12/30/2022 Overview (07/08/2023): History of tachycardia and atypical chest pain, followed by [facility]. Required metoprolol for symptomatic tachycardia and [...] tachycardia and atypical chest pain, followed by [facility]. Required metoprolol for symptomatic tachycardia and [...] # Pain: Controlled with above regimen. Discontinued SAUSAGE STUFFER 07/19. # MOC: Declines s/p counseling. # MOF: . Urine drug screen not indicated. Patient informed of results: N/A. # Post DVT prophylaxis: The patient has the following MAJOR risk factors cardiac disease and the following MINOR risk factors delivery. enoxaparin 40 mg daily ordered for VTE prophylaxis. # Disposition: Follow up task sent to [facility] scheduling pool. Desires discharge home today. Gestational htn w/o signific ant proteinuria, third trimester 07/15/2023 09/06/2023 Overview (07/15/2023): Patient with 2 visits to [facility] that have documented mild elevation of her [...] Red Team [x] Blue Team *Delivering at [facility]*-email sent to financial team for global on 03/25/23-jlb- CHERYLE referral sent 05/05/2023 Referring Provider: Farzana Gutierrez [phone] [] or Medicare Insurance [x] Dating Criteria: [...] 08/02/23 at 0930, [facility] [x] Place of delivery: [facility] [] Last clinic visit SVE: [] IOL start agent: [] Epidural: [] Consents signed: [] MOC: [] Method of feeding: [] Cafe Aide: [] PP Depression Discussed: Assessment & Plan (07/08/2023 9:08 AM CDT): RTC 2 wks with growth scan 3rd trimester precautions discussed [x] Full MFM Care; [] Red Team [x] Blue Team *Delivering at [facility]*-email sent to financial team for global on 03/25/23-jlb- CHERYLE referral sent 05/05/2023 Referring Provider: Farzana Gutierrez [phone] [] or Medicare Insurance [x] Dating Criteria: [...] 08/02/23 at 0930, [facility] pt [facility] [x] Place of delivery: [facility] [] Last clinic visit SVE: [] IOL start agent: [] Epidural: [] Consents signed: [] MOC: [] Method of feeding: [] Cafe Aide: [] PP Depression Discussed: Assessment & Plan [...] Team Description 01/03/2025 12:[address] [facility] Medical Group Virtual Care [address] [place] [address] Jaimie Gustafson NP Pain in throat (Primary Dx) 01/02/2025 Patient Self-Triage 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 file Not on file [...] Quinn l, Herbert Galindo MD Complications:None Delivery Location:[facility] Main C ampus ([facility] L AND D PROCEDURE) Last Filed Vital Signs Vital Sign Reading Time Taken Comments Blood Pressure 120/84 09/14/2023 6:53 PM WOODEN BOAT BUILDER Pulse 71 09/14/2023 6:53 PM WOODEN BOAT BUILDER Temperature 36.9 C (98.4 F) 09/14/2023 6:53 PM WOODEN BOAT BUILDER Respiratory Rate 16 09/14/2023 6:53 PM WOODEN BOAT BUILDER Oxygen Saturation 99% 09/14/2023 6:53 PM WOODEN BOAT BUILDER Inhaled Oxygen Concentration - - Weight 72.6 kg (160 lb) 09/14/2023 6:53 PM WOODEN BOAT BUILDER Height 154.9 cm (5' 1 ) 09/14/2023 6:53 PM WOODEN BOAT BUILDER Body Mass Index 30.23 09/14/2023 6:53 PM WOODEN BOAT BUILDER Plan of Treatment Health Maintenance Due Date [...] HPV MRNA E6/E7 Routine 10/22/2016 1:38 PM WOODEN BOAT BUILDER HEPATITIS C ANTIBODY Routine 02/10/2016 3:50 PM CDT from Last 3 Months or Most Recently Relevant to Health Maintenance Results * ThinPrep Imaging Pap Reflex HPV mRNA E6/E7 (10/22/2016 1:38 PM WOODEN BOAT BUILDER) SOURCE: SEE NOTE [facility] HISTORICAL RESULTS Comment:Cervix, [...] has been evaluated with computer assisted technology. Communication Technician SEE NOTE [facility] HISTORICAL RESULTS Comment: TMK, CT(ASCP) CT screening location: [place] [address] [place] [address] Test performed at [facility] [address] Director: BLAINE FERREIRA MD 10/22/2016 1:38 PM WOODEN BOAT BUILDER Gloria Turner MD LAB PATHOLOGY ORDERAB LES Final Result [facility] HISTORICAL RESULTS * Hepatitis C antibody (02/10/2016 3:50 PM CDT) SIGNAL TO CUT-OFF 0.03 <1.00 [facility] HISTORICAL RESULTS Comment: Test performed at [facility] [address] [address] Director: JANE NEWSOME DO,MPH Hep C Ab NON-REACT SEAN NON-REACT SEAN [facility] HISTORICAL RESULTS 02/10/2016 3:50 PM CDT Gloria Turner MD LAB MICROBIOLOGY - GE NERAL ORDERABLES Final Result Performing Organization Address City/[facility]/ZIP Co de Phone Number [facility] HISTORICAL RESULTS from Last 3 Months or Most Recently Relevant to Health Maintenance Insurance [facility] Member Subscriber Plan / Payer (Ef fective 2021-Present) Name:Julián Barnett Relation to Subscriber:Self Name:Julián Barnett Payer ID:[id number] (NAIC) Type:MEDICARE RISK OTHER Address: [address] FAMILY INSURANCE [place] [address] [facility] MEDICARE D[facility]ELL [facility] MEDICARE Advance Directives For more information, please contact: [phone] * Full Code (Latest Code Status on File) Date Activated Date Inactivated Comments 07/18/2023 1:48 PM 07/21/2023 5:48 PM * Full Code Date Activated Date Inactivated Comments 07/18/2023 7:36 AM 07/18/2023 1:48 PM Full CPR in case of cardiopulmonary arrest * Full Code Date Activated Date Inactivated Comments 06/24/2022 9:18 PM 06/27/2022 5:29 PM Care Teams Receptionist Clerk Relationship Specialty Start Date End Date Chavez Evans PA [address] [place] [address] PCP - General 08/26/18 Lizzy Thompson DO [address] GEM Rolon [address] [address] Consulting Physician Otolaryngology 06/27/22
--- NOTE | 2025-01-22 12:49 | PC.NURSE ---
pt states she does not want the IV medications that are ordered. pt states she has had it in the past and does not like the way it makes her feel. pt requesting Tylenol instead. Dr. Castro made aware.
[2025-01-22] MEDS: ACETAMINOPHEN 500 MG TABLET 1000 MG PO (12:57)
[2025-01-22 13:06] LABS: BEDSIDEPREGUCG Negative (Negative)
[2025-01-22 13:11] LABS: Add Urine Microscopic? NO; Appearance Urine Clear (Clear); Bilirubin Urine Negative (Negative); Blood Urine Negative (Negative); Color Urine Yellow (Yellow); Glucose Urine UA Negative (Negative); Ketones Urine Negative (Negative); Leukocyte Esterase Ur Negative LEU/UL (Negative); Nitrate Urine Negative (Negative); Protein Urine Negative (Negative); Specific Grav Ur 1.025 (1.001-1.035); Urobilinogen Urine 0.2 mg/dL (<2.0); pH Urine 5.5 (5.0-9.0)
--- OUTSIDE RECORDS SUMMARY | 2025-01-22 13:35 | XMS_ITS | Referral Summary ---
Author Organization [facility] Address [address] [place] [address] Care Team Providers Care Foster Parent Name Role Phone Chavez Evans Primary Care Provider [phone] Lizzy Thompson DO Unavailable [phone] Encounters Date Type Department Care Team Description 01/03/2025 12:45 PM CDT Telemedicine [facility] Medical Group Virtual Care [address] [place] [address] Jaimie Gustafson NP Pain in throat (Primary Dx) 01/02/2025 Patient Self-Triage [facility] HealthCare/ Physicians [address] [place] [address] Mychart, Generic Provider from Last 3 [...] with simethicone-dip henhydramine-li docaine (MAGIC MOUTHWASH) suspension 5-0-2Olbzygcqgp s:Viral URI with cough Take 10 mL [...] 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 Follows with [facility], last saw Dr Wilson 03/19 Stress [...] to monitor symptoms -Plan to deliver at [facility]: Delivery Planning: - Mode of delivery: No [...] diagnosis of ARS and is seeing a Set And Exhibit Designer at the end of December. We reviewed [...] diagnosis of ARS and is seeing a Set And Exhibit Designer at the end of December. Previously counseled Plan: - Recommend follow up eye exame - Genetic counseling Completed on 02/01/23, declines invasive testing - Specialized anatomic survey - echocardiogram completed - Serial growth US History of tachycardia 12/30/2022 Overview (07/08/2023): History of tachycardia and atypical chest pain, followed by [facility]. Required metoprolol for symptomatic tachycardia and [...] tachycardia and atypical chest pain, followed by [facility]. Required metoprolol for symptomatic tachycardia and [...] # Pain: Controlled with above regimen. Discontinued KETTLE FIRER 07/19. # MOC: Declines s/p counseling. # MOF: . Urine drug screen not indicated. Patient informed of results: N/A. # Post DVT prophylaxis: The patient has the following MAJOR risk factors cardiac disease and the following MINOR risk factors delivery. enoxaparin 40 mg daily ordered for VTE prophylaxis. # Disposition: Follow up task sent to [facility] scheduling pool. Desires discharge home today. Gestational htn w/o signific ant proteinuria, third trimester 07/15/2023 09/06/2023 Overview (07/15/2023): Patient with 2 visits to [facility] that have documented mild elevation of [...] Red Team [x] Blue Team *Delivering at [facility]*-email sent to financial team for global on 03/25/23-jlb- CHERYLE referral sent 05/05/2023 Referring Provider: Farzana Gutierrez [phone] [] or Medicare Insurance [x] Dating Criteria: [...] 08/02/23 at 0930, letter to pt in [facility] [x] Place of delivery: [facility] [] Last clinic visit SVE: [] IOL start agent: [] Epidural: [] Consents signed: [] MOC: [] Method of feeding: [] International Marketing Manager: [] PP Depression Discussed: Assessment & Plan (07/08/2023 9:08 AM CDT): RTC 2 wks with growth scan 3rd trimester precautions discussed [x] Full MFM Care; [] Red Team [x] Blue Team *Delivering at [facility]*-email sent to financial team for global on 03/25/23-jlb- CHERYLE referral sent 05/05/2023 Referring Provider: Farzana Gutierrez [phone] [] or Medicare Insurance [x] Dating Criteria: [...] 08/02/23 at 0930, letter to pt in [facility] [x] Place of delivery: [facility] [] Last clinic visit SVE: [] IOL start agent: [] Epidural: [] Consents signed: [] MOC: [] Method of feeding: [] International Marketing Manager: [] PP Depression Discussed: Assessment & Plan [...] of Binge Drinking Not on file 06/2023 [place] Depression Scale Answer Date Recorded [place] Depression Scale Total 4 09/06/2023 The thought [...] on file Legal Sex Female 2:59 AM APPRENTICE STYLIST Gender Identity Female 02/01/2023 7:56 AM CDT Sexual Orientation Not on file 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 Not on file Not on f ile Last Filed Vital Signs Vital Sign Reading Time Taken Comments Blood Pressure 120/84 09/14/2023 6:53 PM APPRENTICE STYLIST Pulse 71 09/14/2023 6:53 PM APPRENTICE STYLIST Temperature 36.9 C (98.4 F) 09/14/2023 6:53 PM APPRENTICE STYLIST Respiratory Rate 16 09/14/2023 6:53 PM APPRENTICE STYLIST Oxygen Saturation 99% 09/14/2023 6:53 PM APPRENTICE STYLIST Inhaled Oxygen Concentration - - Weight 72.6 kg (160 lb) 09/14/2023 6:53 PM APPRENTICE STYLIST Height 154.9 cm (5' 1 ) 09/14/2023 6:53 PM APPRENTICE STYLIST Body Mass Index 30.23 09/14/2023 6:53 PM APPRENTICE STYLIST Plan of Treatment Not on file Procedures Procedure Name Priority Date/Time Associated Diagnosis Comments THINPREP IMAGING PAP REFLEX HPV MRNA E6/E7 Routine 10/22/2016 1:38 PM APPRENTICE STYLIST HEPATITIS C ANTIBODY Routine 02/10/2016 3:50 PM CDT from Last 3 Months or Most Recently Relevant to Health Maintenance Results * ThinPrep Imaging Pap Reflex HPV mRNA E6/E7 (10/22/2016 1:38 PM APPRENTICE STYLIST) SOURCE: SEE NOTE [facility] HISTORICAL RESULTS Comment:Cervix, [...] has been evaluated with computer assisted technology. Flame Brazing Machine Operator SEE NOTE [facility] HISTORICAL RESULTS Comment: TMK, CT(ASCP) CT screening location: [place] [address] [place] [address] Test performed at [facility] [address] Director: BLAINE FERREIRA MD 10/22/2016 1:38 PM APPRENTICE STYLIST Gloria Turner MD LAB PATHOLOGY ORDERAB LES Final Result Performing Organization Address [facility] Co de Phone Number [facility] HISTORICAL RESULTS * Hepatitis C antibody (02/10/2016 3:50 PM CDT) Pathologist [facility] SIGNAL TO CUT-OFF 0.03 <1.00 [facility] HISTORICAL RESULTS Comment: Test performed at [facility] [place] [address] [place] [address] Director: JANE NEWSOME DO,MPH Hep C Ab NON-REACT SEAN NON-REACT SEAN [facility] HISTORICAL RESULTS 02/10/2016 3:50 PM CDT Gloria Turner MD LAB MICROBIOLOGY - GE NERAL ORDERABLES Final Result [facility] HISTORICAL RESULTS from Last 3 Months or Most Recently Relevant to Health Maintenance Insurance [facility] DUAL [place] [employer] INSURANCE [facility] DUAL SD [facility] MEDICARE [facility] MEDICARE Advance Directives For more information, please contact: [phone] * Full Code (Latest Code Status on File) Date Activated Date Inactivated Comments 07/18/2023 1:48 PM 07/21/2023 5:48 PM * Full Code Date Activated Date Inactivated Comments 07/18/2023 7:36 AM 07/18/2023 1:48 PM Full CPR in case of cardiopulmonary arrest * Full Code Date Activated Date Inactivated Comments 06/24/2022 9:18 PM 06/27/2022 5:29 PM Care Teams Foster Parent Relationship Specialty Start Date End Date Chavez Evans PA [address] [place] [address] PCP - General 08/26/18 Lizzy Thompson DO [address] [place] [address] DR GEM Rolon [address] [address] Consulting Physician Otolaryngology 06/27/22
--- OUTSIDE RECORDS SUMMARY | 2025-01-22 13:35 | XMS_ITS | Clinical Summary ---
Author Organization [facility] Address [address] [place] [address] Phone Care Team Providers Care Driver Guard Name Role Phone Chavez Evans Primary Care Provider [phone] Allergies Active Allergy Reactions Criticality Noted Date Comments Codeine Hives 01/08/2016 Prochlorperazine Maleate Other (see Comments) 0 01/08/2016 Medications traMADol (ULTRAM) 50 MG Tablet Take 50 mg by mouth every 8 hours as needed. Active butalbital-aceta minophen-caffein e-codeine (FIORICET WITH CODEINE) 67-638-62-30 MG Capsule Take 1 Cap by mouth [...] topic Insurance MEDICARE C [place] Care Teams Driver Guard Relationship Specialty Start Date End Date Chavez Evans PAC [address] [place] [address] PCP - General Physician Food Or Baggage Handling [place] 01/18/19
--- OUTSIDE RECORDS SUMMARY | 2025-01-22 13:35 | XMS_ITS | Clinical Summary ---
Author Organization [facility] [employer] Address [address] [place] [address] Care Team Providers Care Technical Fellow Name Role Phone Chavez Evans Primary Care Provider [phone] Source Comments [facility] [employer] [employer]non-owned Affiliates and Associated Physician Practices is amultiple site organization consisting of ambulatory clinics and hospital sitesin [place], [place], [place] and [place]. This disclosure is being madepursuant to the Care Everywhere program and may not contain all information available regarding this patient. Last updated 18.[facility] [employer] [employer] Allergies Active Allergy Reactions Criticality Noted Date [...] under GENERAL Tachycardia 02/05/2023 Overview (03/07/2024): has signals collector/analyst, ECHO end of February, off metoprolol has signals collector/analyst, ECHO end february, off metoprolol 02/01/2023 Social [...] this topic Insurance [employer] MEDICARE D[place]V [place] Care Teams Technical Fellow Relationship Specialty Start Date End Date Chavez Evans PA [address] [place] [address] PCP - General Physician Tire Mold Tester 03/07/24
--- OUTSIDE RECORDS SUMMARY | 2025-01-22 13:35 | XMS_ITS | Clinical Summary ---
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 Follows with [facility]iology, last saw Dr Wilson [...] to monitor symptoms -Plan to deliver at [facility]: Delivery Planning: - Mode of [...] diagnosis of ARS and is seeing a Commissary Representative at the end of December. We reviewed [...] diagnosis of ARS and is seeing a Commissary Representative at the end of December. Previously counseled Plan: - Recommend follow up eye exame - Genetic counseling Completed on 02/01/23, declines invasive testing - Specialized anatomic survey - echocardiogram completed - Serial growth US History of tachycardia 12/30/2022 Overview (07/08/2023): History of tachycardia and atypical chest pain, followed by [facility]. Required metoprolol for symptomatic [...] tachycardia and atypical chest pain, followed by [facility]. Required metoprolol for symptomatic [...] # Pain: Controlled with above regimen. Discontinued COMPOUND SPECIALIST 07/19. # MOC: Declines s/p counseling. # MOF: . Urine drug screen not indicated. Patient informed of results: N/A. # Post DVT prophylaxis: The patient has the following MAJOR risk factors cardiac disease and the following MINOR risk factors delivery. enoxaparin 40 mg daily ordered for VTE prophylaxis. # Disposition: Follow up task sent to [facility] scheduling pool. Desires discharge home today. Gestational htn w/o signific ant proteinuria, third trimester 07/15/2023 09/06/2023 Overview (07/15/2023): Patient with 2 visits to [facility] that have documented mild elevation of [...] Red Team [x] Blue Team *Delivering at [facility]*-email sent to financial team for global on 03/25/23-jlb- CHERYLE referral sent 05/05/2023 Referring Provider: Farzana Gutierrez [phone] [] or Medicare Insurance [x] Dating Criteria: [...] 08/02/23 at 0930, [facility] [x] Place of delivery: [facility] [] Last clinic visit SVE: [] IOL start agent: [] Epidural: [] Consents signed: [] MOC: [] Method of feeding: [] Supply Officer: [] PP Depression Discussed: Assessment & Plan (07/08/2023 9:08 AM CDT): RTC 2 wks with growth scan 3rd trimester precautions discussed [x] Full MFM Care; [] Red Team [x] Blue Team *Delivering at [facility]*-email sent to financial team for global on 03/25/23-jlb- CHERYLE referral sent 05/05/2023 Referring Provider: Farzana Gutierrez [phone] [] or Medicare Insurance [x] Dating Criteria: [...] 08/02/23 at 0930, [facility] [x] Place of delivery: [facility] [] Last clinic visit SVE: [] IOL start agent: [] Epidural: [] Consents signed: [] MOC: [] Method of feeding: [] Supply Officer: [] PP Depression Discussed: Assessment & Plan [...] Team Description 01/03/2025 12:45 PM CDT Telemedicine [facility] Virtual Care [address] [place] [phone] Jaimie Gustafson NP Pain in throat (Primary Dx) 01/02/2025 Patient Self-Triage [facility] [address] [place] [address] Mychart, Generic Provider from Last [...] Binge Drinking Not on file 0 06/2023 [place] Depression Scale Answer Date Recorded [place] Depression Scale Total 4 09/06/2023 The thought [...] on file Legal Sex Female 2:59 AM BOOK CANVASSER Gender Identity Female 02/01/2023 7:56 AM CDT Sexual Orientation Not on file 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 file Not on file [...] Quinn l, Herbert Galindo MD Complications:None Delivery Location:[facility] Main C ampus ([facility] L AND D PROCEDURE) Last Filed Vital Signs Vital Sign Reading Time Taken Comments Blood Pressure 120/84 09/14/2023 6:53 PM BOOK CANVASSER Pulse 71 09/14/2023 6:53 PM BOOK CANVASSER Temperature 36.9 C (98.4 F) 09/14/2023 6:53 PM BOOK CANVASSER Respiratory Rate 16 09/14/2023 6:53 PM BOOK CANVASSER Oxygen Saturation 99% 09/14/2023 6:53 PM BOOK CANVASSER Inhaled Oxygen Concentration - - Weight 72.6 kg (160 lb) 09/14/2023 6:53 PM BOOK CANVASSER Height 154.9 cm (5' 1 ) 09/14/2023 6:53 PM BOOK CANVASSER Body Mass Index 30.23 09/14/2023 6:53 PM BOOK CANVASSER Plan of Treatment Health Maintenance Due Date [...] HPV MRNA E6/E7 Routine 10/22/2016 1:38 PM BOOK CANVASSER HEPATITIS C ANTIBODY Routine 02/10/2016 3:50 PM CDT from Last 3 Months or Most Recently Relevant to Health Maintenance Results * ThinPrep Imaging Pap Reflex HPV mRNA E6/E7 (10/22/2016 1:38 PM BOOK CANVASSER) SOURCE: SEE NOTE [facility]OR[facility] RESULTS Comment:Cervix, [...] has been evaluated with computer assisted technology. Senior Behavioral Scientist SEE NOTE [facility]OR[facility] RES[facility] Comment: TMK, CT(ASCP) CT screening location: [place] [address] [place] [address] Test performed at [facility] [address] Director: BLAINE FERREIRA MD 10/22/2016 1:38 PM BOOK CANVASSER Gloria Turner MD LAB PATHOLOGY ORDERAB LES Final Result [facility]OR[facility] RESULTS * Hepatitis C antibody (02/10/2016 3:50 PM CDT) SIGNAL TO CUT-OFF 0.03 <1.00 [facility] RES[facility] Comment: Test performed at [facility] [address] [address] Director: JANE NEWSOME DO,MPH Hep C Ab NON-REACT SEAN NON-REACT SEAN [facility] RESULTS 02/10/2016 3:50 PM CDT Gloria Turner MD LAB MICROBIOLOGY - GE NERAL ORDERABLES Final Result Performing Organization Address City/[facility]/ZIP Co de Phone Number [facility]ORICAL RESULTS from Last 3 Months or Most Recently Relevant to Health Maintenance Insurance [facility] Member Subscriber Plan / Payer (Ef fective 2021-Present) Name:Julián Barnett Relation to Subscriber:Self Name:Julián Barnett Payer ID:[id number] (NAIC) Type:MEDICARE RISK OTHER Address: [address] FAMILY INSURANCE [place] [address] [facility] MEDICARE [facility] MEDICARE Advance Directives For more information, please contact: [phone] * Full Code (Latest Code Status on File) Date Activated Date Inactivated Comments 07/18/2023 1:48 PM 07/21/2023 5:48 PM * Full Code Date Activated Date Inactivated Comments 07/18/2023 7:36 AM 07/18/2023 1:48 PM Full CPR in case of cardiopulmonary arrest * Full Code Date Activated Date Inactivated Comments 06/24/2022 9:18 PM 06/27/2022 5:29 PM Care Teams Potato Sorter Relationship Specialty Start Date End Date Chavez Evans PA [address] [place] [address] PCP - General 08/26/18 Lizzy Thompson DO [address] GEM Rolon [address] [address] Consulting Physician Otolaryngology 06/27/22
[2025-01-22 14:27] LABS: Basophils Percent Auto 0.5 % (0.2-1.2); Eosinophils Absolute Auto 0.1 K/mm3 (0-0.3); Eosinophils Percent Auto 0.9 % (0-4.4); Hematocrit 38.9 % (37.0-47.0); Hemoglobin 12.4 g/dL (12.0-15.0); Immature Granulocyte Absolute 0.02 K/mm3 (0.00-0.031); Immature Granulocyte Percent A 0.3 % (0-0.5); Lymphocytes Absolute Auto 2.75 K/mm3 (0.9-3.2); Lymphocytes Percent Auto 42.4 % (18.3-44.2); Mean Corpuscular HGB Conc 31.9 g/dl (32-36); Mean Corpuscular Hemoglobin 28.4 pg (26-34); Mean Platelet Volume 9.9 fl (7.4-10.4); Monocytes Absolute Auto 0.4 K/mm3 (0.1-0.6); Monocytes Percent Auto 6.3 % (2.6-8.5); Neutrophils Absolute Auto 3.2 K/mm3 (1.3-6.7); Neutrophils Percent Auto 49.6 % (45.5-73.1); Platelet Count Result 292 k/mm3 (150-375); Red Blood Count 4.37 M/mm3 (4.2-5.4); Red Cell Distribution Width 13.8 % (11.5-14.5); White Blood Count 6.5 K/mm3 (4.5-10.0)
[2025-01-22 14:42] LABS: Alanine Aminotransferase 52 U/L (6-35); Albumin Level 4.3 g/dL (3.5-5.1); Alkaline Phosphatase 94 U/L (38-126); Anion Gap 9 mmol/L (4-12); Aspartate Amino Transferase 38 U/L (14-36); Bilirubin,Total 0.4 mg/dL (0.2-1.3); Blood Urea Nitrogen 13 mg/dL (7-17); Calcium 8.7 mg/dL (8.4-10.2); Carbon Dioxide 25 mmol/L (22-30); Chloride 105 mmol/L (98-107); Estimated CRCL calculation 131 ml/min; Estimated Glomerular Filt Rate > 60; Glucose 94 mg/dL (65-110); Sodium 139 mmol/L (137-145)
[2025-01-22 15:14] VITALS: BP 123/76; PULSE 71; RESP 14; O2SAT 100
== END 2025-01-22 15:15 | disposition home or self-care (01) ==
PROVIDERS: Emergency Provider Emergency Medicine; PCP Physician Assistant
DX: R51.9 Headache, unspecified (principal)
CPT/HCPCS: 36415; 70450; 71045; 80053; 81003; 81025; 85025; 99284; A9270

== ENCOUNTER 2025-02-27 12:51 | Emergency (ER) | payer MEDICARE, SELFPAY ==
--- OUTSIDE RECORDS SUMMARY | 2025-02-27 12:55 | XMS_ITS | Clinical Summary ---
Author Organization [facility] Address [address] [place] [address] Care Team Providers Care Vacuum Tank Tender Name Role Phone Chavez Evans Primary Care Provider [phone] JayLizzyWilly DO Unavailable [phone] Allergies Active Allergy Reactions Criticality Noted Date [...] with simethicone-dip henhydramine-li docaine (MAGIC MOUTHWASH) suspension 0-7-0Didmabpoke s:Viral URI with cough Take 10 mL [...] to monitor symptoms -Plan to deliver at [facility]: Delivery Planning: - Mode of delivery: [...] to monitor symptoms -Plan to deliver at [facility]: Delivery Planning: - Mode of delivery: [...] diagnosis of ARS and is seeing a Machine Hand at the end of December. We reviewed [...] diagnosis of ARS and is seeing a Machine Hand at the end of December. Previously counseled [...] # Pain: Controlled with above regimen. Discontinued STATION ENGINEER MAIN LINE 07/19. # MOC: Declines s/p counseling. # MOF: . Urine drug screen not indicated. Patient informed of results: N/A. # Post DVT prophylaxis: The patient has the following MAJOR risk factors cardiac disease and the following MINOR risk factors delivery. enoxaparin 40 mg daily ordered for VTE prophylaxis. # Disposition: Follow up task sent to [facility] scheduling pool. Desires discharge home today. Gestational htn w/o signific ant proteinuria, third trimester 07/15/2023 09/06/2023 Overview (07/15/2023): Patient with 2 visits to [facility] that have documented mild elevation of her [...] Red Team [x] Blue Team *Delivering at [facility]*-email sent to financial team for global on 03/25/23-jlb- CHERYLE referral sent 05/05/2023 Referring Provider: Farzana Gutierrez [phone] [] or Medicare Insurance [x] Dating Criteria: [...] 08/02/23 at 0930, [facility] [x] Place of delivery: [facility] [] Last clinic visit SVE: [] IOL start agent: [] Epidural: [] Consents signed: [] MOC: [] Method of feeding: [] Last Picker: [] PP Depression Discussed: Assessment & Plan (07/08/2023 9:08 AM CDT): RTC 2 wks with growth scan 3rd trimester precautions discussed [x] Full MFM Care; [] Red Team [x] Blue Team *Delivering at [facility]*-email sent to financial team for global on 03/25/23-jlb- CHERYLE referral sent 05/05/2023 Referring Provider: Farzana Gutierrez [phone] [] or Medicare Insurance [x] Dating Criteria: [...] 08/02/23 at 0930, [facility] [x] Place of delivery: [facility] [] Last clinic visit SVE: [] IOL start agent: [] Epidural: [] Consents signed: [] MOC: [] Method of feeding: [] Last Picker: [] PP Depression Discussed: Assessment & Plan [...] Team Description 01/03/2025 12:45 PM CDT Telemedicine [facility] Medical [facility] Virtual Care [address] [place] [phone] Jaimie Gustafson NP Pain in throat (Primary Dx) 01/02/2025 Patient Self-Triage [facility] [address] [place] [address] Mychart, Generic Provider from Last [...] Binge Drinking Not on file 0 06/2023 [place] Depression Scale Answer Date Recorded [place] Depression Scale Total 4 09/06/2023 The thought [...] on file Legal Sex Female 2:59 AM CONTROL CLERK Gender Identity Female 02/01/2023 7:56 AM CDT Sexual Orientation Not on file 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 Not on file Not on file Not [...] Quinn l, Herbert Galindo MD Complications:None Delivery Location:[facility] Main C ampus ([facility] L AND D PROCEDURE) Last Filed Vital Signs Vital Sign Reading Time Taken Comments Blood Pressure 120/84 09/14/2023 6:53 PM CONTROL CLERK Pulse 71 09/14/2023 6:53 PM CONTROL CLERK Temperature 36.9 C (98.4 F) 09/14/2023 6:53 PM CONTROL CLERK Respiratory Rate 16 09/14/2023 6:53 PM CONTROL CLERK Oxygen Saturation 99% 09/14/2023 6:53 PM CONTROL CLERK Inhaled Oxygen Concentration - - Weight 72.6 kg (160 lb) 09/14/2023 6:53 PM CONTROL CLERK Height 154.9 cm (5' 1 ) 09/14/2023 6:53 PM CONTROL CLERK Body Mass Index 30.23 09/14/2023 6:53 PM CONTROL CLERK Plan of Treatment Health Maintenance Due Date [...] HPV MRNA E6/E7 Routine 10/22/2016 1:38 PM CONTROL CLERK HEPATITIS C ANTIBODY Routine 02/10/2016 3:50 PM CDT from Last 3 Months or Most Recently Relevant to Health Maintenance Results * ThinPrep Imaging Pap Reflex HPV mRNA E6/E7 (10/22/2016 1:38 PM CONTROL CLERK) SOURCE: SEE NOTE [facility]ISTOR[facility] RESULTS Comment:Cervix, [...] has been evaluated with computer assisted technology. Manufacturing Helper SEE NOTE [facility]ORICAL RESULTS Comment: TMK, CT(ASCP) CT screening location: [place] [address] [place] [address] Test performed at [facility] [address] Director: BLAINE FERREIRA MD 10/22/2016 1:38 PM CONTROL CLERK Gloria Turner MD LAB PATHOLOGY ORDERAB LES Final Result [facility]OR[facility] RESULTS * Hepatitis C antibody (02/10/2016 3:50 PM CDT) SIGNAL TO CUT-OFF 0.03 <1.00 [facility]OR[facility] RESULTS Comment: Test performed at [facility] [address] [address] Director: JANE NEWSOME DO,MPH Hep C Ab NON-REACT SEAN NON-REACT SEAN [facility]OR[facility] RESULTS 02/10/2016 3:50 PM CDT Gloria Turner MD LAB MICROBIOLOGY - GE NERAL ORDERABLES Final Result Performing Organization Address City/[facility]/ZIP Co de Phone Number [facility] HISTORICAL RESULTS from Last 3 Months or Most Recently Relevant to Health Maintenance Insurance [facility] Member Subscriber Plan / Payer (Ef fective 2021-Present) Name:Julián Barnett Relation to Subscriber:Self Name:Julián Barnett Payer ID:[id number] (NAIC) Type:MEDICARE RISK OTHER Address: [address] FAMILY INSURANCE [place] [id number] [facility] MEDICARE [facility] MEDICARE Advance Directives For more information, please contact: [phone] * Full Code (Latest Code Status on File) Date Activated Date Inactivated Comments 07/18/2023 1:48 PM 07/21/2023 5:48 PM * Full Code Date Activated Date Inactivated Comments 07/18/2023 7:36 AM 07/18/2023 1:48 PM Full CPR in case of cardiopulmonary arrest * Full Code Date Activated Date Inactivated Comments 06/24/2022 9:18 PM 06/27/2022 5:29 PM Care Teams Vacuum Tank Tender Relationship Specialty Start Date End Date Chavez Evans PA [address] [place] [address] PCP - General 08/26/18 Lizzy Thompson DO [address] [facility] [address] GEM Rolon [address] [address] Consulting Physician Otolaryngology 06/27/22
--- OUTSIDE RECORDS SUMMARY | 2025-02-27 12:55 | XMS_ITS | Referral Summary ---
Author Organization [facility] Address [address] [place] [address] Care Team Providers Care Auto Clutch Specialist Name Role Phone Chavez Evans Primary Care Provider [phone] Lizyz Thompson DO Unavailable [phone] Encounters Date Type Department Care Team Description 01/03/2025 12:45 PM CDT Telemedicine [facility] Virtual Care [address] [place] [address] Jaimie Gustafson NP Pain in throat (Primary Dx) 01/02/2025 Patient Self-Triage [facility] HealthCare/ Physicians [address] [place] [id number] Mychart, Generic Provider from Last 3 [...] with simethicone-dip henhydramine-li docaine (MAGIC MOUTHWASH) suspension 7-8-7Airhaggzhw s:Viral URI with cough Take 10 mL [...] 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 Follows with [facility]iology, last saw Dr Wilson 03/19 [...] to monitor symptoms -Plan to deliver at [facility]: Delivery Planning: - Mode of delivery: [...] diagnosis of ARS and is seeing a Feller Operator at the end of December. We [...] diagnosis of ARS and is seeing a Feller Operator at the end of December. Previously counseled Plan: - Recommend follow up eye exame - Genetic counseling Completed on 02/01/23, declines invasive testing - Specialized anatomic survey - echocardiogram completed - Serial growth US History of tachycardia 12/30/2022 Overview (07/08/2023): History of tachycardia and atypical chest pain, followed by [facility]. Required metoprolol for symptomatic tachycardia [...] tachycardia and atypical chest pain, followed by [facility]. Required metoprolol for symptomatic tachycardia [...] # Pain: Controlled with above regimen. Discontinued BATCH ROLLER OPERATOR 07/19. # MOC: Declines s/p counseling. # MOF: . Urine drug screen not indicated. Patient informed of results: N/A. # Post DVT prophylaxis: The patient has the following MAJOR risk factors cardiac disease and the following MINOR risk factors delivery. enoxaparin 40 mg daily ordered for VTE prophylaxis. # Disposition: Follow up task sent to [facility] scheduling pool. Desires discharge home today. Gestational htn w/o signific ant proteinuria, third trimester 07/15/2023 09/06/2023 Overview (07/15/2023): Patient with 2 visits to [facility] that have documented mild elevation of [...] Red Team [x] Blue Team *Delivering at [facility]*-email sent to financial team for global on 03/25/23-jlb- CHERYLE referral sent 05/05/2023 Referring Provider: Farzana Gutierrez [phone] [] or Medicare Insurance [x] Dating Criteria: [...] 08/02/23 at 0930, letter to pt in [facility] [x] Place of delivery: [facility] [] Last clinic visit SVE: [] IOL start agent: [] Epidural: [] Consents signed: [] MOC: [] Method of feeding: [] Manufacturing Engineer Chief: [] PP Depression Discussed: Assessment & Plan (07/08/2023 9:08 AM CDT): RTC 2 wks with growth scan 3rd trimester precautions discussed [x] Full MFM Care; [] Red Team [x] Blue Team *Delivering at [facility]*-email sent to financial team for global on 03/25/23-jlb- CHERYLE referral sent 05/05/2023 Referring Provider: Farzana Gutierrez [phone] [] or Medicare Insurance [x] Dating Criteria: [...] 08/02/23 at 0930, letter to pt in [facility] [x] Place of delivery: [facility] [] Last clinic visit SVE: [] IOL start agent: [] Epidural: [] Consents signed: [] MOC: [] Method of feeding: [] Manufacturing Engineer Chief: [] PP Depression Discussed: Assessment & Plan [...] of Binge Drinking Not on file 06/2023 Sandborn Depression Scale Answer Date Recorded Sandborn Depression Scale Total 4 09/06/2023 The thought [...] on file Legal Sex Female 2:59 AM CUSTOMER TRAINING SPECIALIST Gender Identity Female 02/01/2023 7:56 AM CDT Sexual Orientation Not on file 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 on file Not on file Not on f ile Last Filed Vital Signs Vital Sign Reading Time Taken Comments Blood Pressure 120/84 09/14/2023 6:53 PM CUSTOMER TRAINING SPECIALIST Pulse 71 09/14/2023 6:53 PM CUSTOMER TRAINING SPECIALIST Temperature 36.9 C (98.4 F) 09/14/2023 6:53 PM CUSTOMER TRAINING SPECIALIST Respiratory Rate 16 09/14/2023 6:53 PM CUSTOMER TRAINING SPECIALIST Oxygen Saturation 99% 09/14/2023 6:53 PM CUSTOMER TRAINING SPECIALIST Inhaled Oxygen Concentration - - Weight 72.6 kg (160 lb) 09/14/2023 6:53 PM CUSTOMER TRAINING SPECIALIST Height 154.9 cm (5' 1 ) 09/14/2023 6:53 PM CUSTOMER TRAINING SPECIALIST Body Mass Index 30.23 09/14/2023 6:53 PM CUSTOMER TRAINING SPECIALIST Plan of Treatment Not on file Procedures Procedure Name Priority Date/Time Associated Diagnosis Comments THINPREP IMAGING PAP REFLEX HPV MRNA E6/E7 Routine 10/22/2016 1:38 PM CUSTOMER TRAINING SPECIALIST HEPATITIS C ANTIBODY Routine 02/10/2016 3:50 PM CDT from Last 3 Months or Most Recently Relevant to Health Maintenance Results * ThinPrep Imaging Pap Reflex HPV mRNA E6/E7 (10/22/2016 1:38 PM CUSTOMER TRAINING SPECIALIST) SOURCE: SEE NOTE [facility] HISTORICAL RESULTS Comment:Cervix, [...] has been evaluated with computer assisted technology. Auto Electrical Technician SEE NOTE [facility] HISTORICAL RESULTS Comment: TMK, CT(ASCP) CT screening location: [place] [address] [place] [address] Test performed at [facility] [address] Director: BLAINE FERREIRA MD 10/22/2016 1:38 PM CUSTOMER TRAINING SPECIALIST Gloria Turner MD LAB PATHOLOGY ORDERAB LES Final Result Performing Organization Address [facility] Co de Phone Number [facility] HISTORICAL RESULTS * Hepatitis C antibody (02/10/2016 3:50 PM CDT) Pathologist [facility] SIGNAL TO CUT-OFF 0.03 <1.00 [facility]ISTORICAL RESULTS Comment: Test performed at [facility] [address] [address] [place] [address] Director: JANE NEWSOME DO,MPH Hep C Ab NON-REACT SEAN NON-REACT SEAN [facility] HISTORICAL RESULTS 02/10/2016 3:50 PM CDT Gloria Turner MD LAB MICROBIOLOGY - GE NERAL ORDERABLES Final Result [facility] HISTORICAL RESULTS from Last 3 Months or Most Recently Relevant to Health Maintenance Insurance [facility] DUAL [place] [facility] [employer] [facility] DUAL [place] [facility] MEDICARE [facility] MEDICARE Advance Directives For more information, please contact: [phone] * Full Code (Latest Code Status on File) Date Activated Date Inactivated Comments 07/18/2023 1:48 PM 07/21/2023 5:48 PM * Full Code Date Activated Date Inactivated Comments 07/18/2023 7:36 AM 07/18/2023 1:48 PM Full CPR in case of cardiopulmonary arrest * Full Code Date Activated Date Inactivated Comments 06/24/2022 9:18 PM 06/27/2022 5:29 PM Care Teams Auto Clutch Specialist Relationship Specialty Start Date End Date Chavez Evans PA [address] [place] [address] PCP - General 08/26/18 Lizzy Thompson DO [address] [place] [address] DR GEM Rolon [address] [address] Consulting Physician Otolaryngology 06/27/22
--- OUTSIDE RECORDS SUMMARY | 2025-02-27 12:55 | XMS_ITS | Clinical Summary ---
Author Organization [facility] Address [address] [place] [address] Care Team Providers Care Relish Blender Name Role Phone Chavez Evans Primary Care Provider [phone] Source Comments [facility],non-owned Affiliates and Associated Physician Practices is amultiple site organization consisting of ambulatory clinics and hospital sitesin [place], [place], [place] and [place]. This disclosure is being madepursuant to the Care Everywhere program and may not contain all information available regarding this patient. Last updated 18.[facility] Allergies Active Allergy Reactions Criticality Noted Date [...] under GENERAL Tachycardia 02/05/2023 Overview (03/07/2024): has wringer operator, ECHO end of February, off metoprolol has wringer operator, ECHO end february, off metoprolol 02/01/2023 Social [...] this topic Insurance [employer] MED[employer]ARE DUAL ADV [place] Care Teams Relish Blender Relationship Specialty Start Date End Date Chavez Evans PA [address] [place] [address] PCP - General Physician Street Car Mechanic 03/07/24
--- OUTSIDE RECORDS SUMMARY | 2025-02-27 12:55 | XMS_ITS | Clinical Summary ---
Author Organization [facility] Address [address] [place] [address] Phone Care Team Providers Care Cable Armorer Name Role Phone Chavez Evans Primary Care Provider [phone] Allergies Active Allergy Reactions Criticality Noted Date Comments Codeine Hives 01/08/2016 Prochlorperazine Maleate Other (see Comments) 0 01/08/2016 Medications traMADol (ULTRAM) 50 MG Tablet Take 50 mg by mouth every 8 hours as needed. Active butalbital-aceta minophen-caffein e-codeine (FIORICET WITH CODEINE) 62-219-01-30 MG Capsule Take 1 Cap by mouth [...] topic Insurance MEDICARE C [employer] Care Teams Cable Armorer Relationship Specialty Start Date End Date Chavez Evans PAC [address] [place] [address] PCP - General Physician Base Brander 01/18/19
--- OUTSIDE RECORDS SUMMARY | 2025-02-27 12:56 | XMS_ITS | Data Portability ---
Author Organization [facility] Address [address] [place] [address] [place] [address] Care Team Providers Care Industrial Controller Name Role Phone IZABEL TYLER Primary Care Provider [phone] Assessment Encounter Date Assessment Date Assessment LastModified [...] US, obstetric, nuchal translucenc y 2022 023 [facility], [address], [address], [place], [address], 13:30:23 Medication Orders None recorded. Patient TargetsNo [...] mcg/d L shoul d apply to only [facility] resid ents per [facility] DPH. Tanya sis was perfo rmed by Myranda Chapman ed Plasm a Mass Spect romet ry (ICPM S) Note 1 This test was devel oped and its tanya tical perfo rmanc e rodrigo cteri stics have been deter mined by [employer]. It has not been clear ed or appro sumeet by the FDA. This assay has been valid ated pursu ant to the CLIA regul ation s and is used for clini mj purpo ses. Ethni city: Not Hispa julio or Latin o Perfo rming Organ izati on Infor matio n: Site ID: [id number] Name: [facility] [employer] [facility] [employer] Chloe parnell Addre ss: [id number] formerly [place] [address] Direc tor: Roselyn perez M.D. Not Available [facility] (Lab) [address], [place], [address], 01/16/2023 19:36:43 02/02/2002/01/2023 CULTU RE: URINE result report SEE RESULT S BELOW Test: Cultu re: Urine Speci men Sourc e: Urine Voide d Speci men Type: Urine Speci men Date: 2022 3:45 PM Resul t Date: 2022 5:50 AM Resul t Statu s: Final resul t Abnor mal: No Resul ting Lab: [facility] [address] [facility] [address] Tel: CULTU RE ----- ----- ----- --- No growt h in 1 day (dete ction level of 10,00 0 colon ies / ml.) Not Available [facility] (Lab) [address], [place], [address], 02/03/2023 06:53:42 02/02/2002/01/2023 drug scree n, urine Amphetamines : negati ve Not Available [facility] [address], [place], [address], 02/01/2023 15:05:00 02/02/20 23 02/01/2023 drug scree n, urine Cannabinoids : negati ve Not Available [facility] [address], [place], [address], 02/01/2023 15:05:00 02/02/20 23 02/01/2023 drug scree n, urine Opiates: negati ve Not Available [facility] [address], [place], [address], 02/01/2023 15:05:00 02/02/20 23 02/01/2023 drug scree n, urine Benzodiazepi stephen: negati ve Not Available [facility] [address], [place], [address], 02/01/2023 15:05:00 03/01/20 23 03/01/2023 CBC W/DIF F WBC 8.3 10'3/ uL 3.6-10 .2 Not Available [facility] (Lab) [address], [place], [address], 03/02/2023 11:33:45 03/01/20 23 03/01/2023 CBC W/DIF F RBC 4.21 10'6/ uL (based on docume nted legal sex) 4.10-5 .30 Not Available [facility] (Lab) [address], [place], [address], 03/02/2023 11:33:45 03/01/20 23 03/01/2023 CBC W/DIF F HGB 12.6 g/dL (based on docume nted legal sex) 11.9-1 5.8 Not Available [facility] (Lab) [address], [place], [address], 03/02/2023 11:33:45 03/01/20 23 03/01/2023 CBC W/DIF F HCT 38.7 % (based on docume nted legal sex) 37.4-4 8.3 Not Available [facility] (Lab) [address], [place], [address], 03/02/2023 11:33:45 03/01/20 23 03/01/2023 CBC W/DIF F MCV 91.9 fL 82.0-9 9.0 Not Available [facility] (Lab) [address], [place], [address], 03/02/2023 11:33:45 03/01/20 23 03/01/2023 CBC W/DIF F MCH 29.9 pg 27.0-3 3.0 Not Available [facility] (Lab) [address], [place], [address], 03/02/2023 11:33:45 03/01/20 23 03/01/2023 CBC W/DIF F MCHC 32.6 g/dL 32.0-3 6.0 Not Available [facility] (Lab) [address], [place], [address], 03/02/2023 11:33:45 03/01/20 23 03/01/2023 CBC W/DIF F RDW 14.2 % 11.0-1 5.0 Not Available [facility] (Lab) [address], [place], [address], 03/02/2023 11:33:45 03/01/20 23 03/01/2023 CBC W/DIF F plt 266 10'3/ uL 150-45 0 Not Available [facility] (Lab) [address], [place], [address], 03/02/2023 11:33:45 03/01/20 23 03/01/2023 CBC W/DIF F MPV 10.5 fL 9.8-12 .7 Not Available [facility] (Lab) [address], [place], [address], 03/02/2023 11:33:45 03/01/20 23 03/01/2023 CBC W/DIF F NRBC's 0.0 % 0 Not Available [facility] (Lab) [address], [place], [address], 03/02/2023 11:33:45 03/01/20 23 03/01/2023 CBC W/DIF F absolute NRBCs 0.0 10'3/ uL 0 Not Available [facility] (Lab) [address], [place], [address], 03/02/2023 11:33:45 03/01/20 23 03/01/2023 CBC W/DIF F neutrophils 71.3 % 37.0-7 2.0 Not Available [facility] (Lab) [address], [place], [address], 03/02/2023 11:33:45 03/01/20 23 03/01/2023 CBC W/DIF F lymphocytes 23.5 % 16.0-4 8.0 Not Available [facility] (Lab) [address], [place], [address], 03/02/2023 11:33:45 03/01/20 23 03/01/2023 CBC W/DIF F monocytes 4.5 % 4.0-14 .0 Not Available [facility] (Lab) [address], [place], [address], 03/02/2023 11:33:45 03/01/20 23 03/01/2023 CBC W/DIF F eosinophils 0.2 % 0.0-9. 0 Not Available [facility] (Lab) [address], [place], [address], 03/02/2023 11:33:45 03/01/20 23 03/01/2023 CBC W/DIF F basophils 0.4 % 0.0-2. 0 Not Available [facility] (Lab) [address], [place], [address], 03/02/2023 11:33:45 03/01/20 23 03/01/2023 CBC W/DIF F immature granulocytes 0.1 % no define d refere nce range Not Available [facility] (Lab) [address], [place], [address], 03/02/2023 11:33:45 03/01/20 23 03/01/2023 CBC W/DIF F absolute neutrophils 5.9 10'3/ uL 1.1-6. 0 Not Available [facility] (Lab) [address], [place], [address], 03/02/2023 11:33:45 03/01/20 23 03/01/2023 CBC W/DIF F absolute lymphocytes 2.0 10'3/ uL 0.7-3. 4 Not Available [facility] (Lab) [address], [place], [address], 03/02/2023 11:33:45 03/01/20 23 03/01/2023 CBC W/DIF F absolute monocytes 0.4 10'3/ uL 0.3-1. 0 Not Available [facility] (Lab) [address], [place], [address], 03/02/2023 11:33:45 03/01/20 23 03/01/2023 CBC W/DIF F absolute eosinophils 0.0 10'3/ uL 0.0-0. 6 Not Available [facility] (Lab) [address], [place], [address], 03/02/2023 11:33:45 03/01/20 23 03/01/2023 CBC W/DIF F absolute basophils 0.0 10'3/ uL 0.0-0. 1 Not Available [facility] (Lab) [address], [place], [address], 03/02/2023 11:33:45 03/01/20 23 03/01/2023 CBC W/DIF F absolute immature granulocytes 0.0 10'3/ uL 0.00-0 .10 2022 3:37 AM: P indic ates parti al resul ts on a panel have been relea sed. Addit ional resul ts will follo w. 2022 3:37 AM: This resul t has been final verif ied. No addit ional or chin ed resul ts are expec pricila. Not Available [facility] (Lab) [address], [place], [address], 03/02/2023 11:33:45 03/01/20 23 03/01/2023 HEPAT ITIS C ANTIB CARLITOS SCREE N, REFLE X TO CONFI RMATI ON hepatitis C antibody Non-re active non-re active Antib odies to HCV Not Detec pricila, does not exclu de the possi bilit y of expos ure to HCV. Not Available [facility] (Lab) [address], [place], [address], 03/02/2023 11:33:46 03/01/20 23 03/01/2023 HIV 1/2 ANTIG EN/AN TIBOD Y, REFLE X CONFI RMATI ON HIV antigen/anti body Nonrea ctive nonrea ctive HIV-1 antig en and HIV-1 /HIV- 2 antib odies were not detec pricila. No labor atory evide nce of HIV infec tion. Not Available [facility] (Lab) [address], [place], [address], 03/02/2023 11:33:47 03/01/20 23 03/01/2023 HEPAT ITIS B SURFA CE ANTIG EN hepatitis B surface antigen Non-re active non-re active This assay was perfo rmed using [employer] ratio n reage nts and test kits. Value s obtai bobby with other assay metho ds or kits canno t be used inter chin eably . Not Available [facility] (Lab) [address], [place], [address], 03/02/2023 11:33:47 03/01/20 23 03/01/2023 TSH, REFLE X FREE T4 TSH 1.07 uIU/m L 0.30-5 .33 Not Available [facility] (Lab) [address], [place], [address], 03/02/2023 11:33:48 03/01/20 23 03/01/2023 RUBEL LA IGG ANTIB CARLITOS, QUANT rubella antibodies, IgG Reacti ve reacti ve Not Available [facility] (Lab) [address], [place], [address], 03/02/2023 11:33:49 03/01/20 23 03/01/2023 RUBEL LA IGG ANTIB CARLITOS, QUANT rubella antibodies, IgG quant 73.7 IU/mL >=10 Non-r eacti ve (Non- Immun e) <10 IU/mL React boy (Immu ne) > or = 10 IU/mL Not Available [facility] (Lab) [address], [place], [address], 03/02/2023 11:33:49 03/01/20 23 03/01/2023 HEMOG LOBIN [...] - 6.4% Incre ased risk for diabe ranjti >=6.5 % Diagn ostic of diabe ranjit <7.0% Goal of thera py >8.0% Actio n sugge sted Not Available [facility] (Lab) [address], [place], [address], 03/02/2023 11:33:50 03/01/20 23 03/01/2023 TYPE/ RH/SC REEN ABO/Rh type B POS Not Available [facility] (Lab) [address], [place], [address], 03/02/2023 11:33:51 03/01/20 23 03/01/2023 TYPE/ RH/SC REEN antibody screen NEG Not Available [facility] (Lab) [address], [place], [address], 03/02/2023 11:33:51 03/01/20 23 03/01/2023 TYPE/ RH/SC REEN exp date 2022 23:59 Not Available [facility] (Lab) [address], [place], [address], 03/02/2023 11:33:51 03/01/20 23 03/01/2023 RPR SCREE N/REF DALTON TITER /FTA RPR screen Nonrea ctive nonrea ctive Not Available [facility] (Lab) [address], [place], [address], 03/02/2023 11:33:52 02/02/20 23 02/01/2023 US, obste tric, nucha l trans lucen cy No observ ation record ed. [email or web address] [facility] [address], [place], [address], 02/01/2023 17:48:17 02/02/20 23 02/01/2023 US, obste tric, nucha l trans lucen cy No observ ation record ed. UY[facility] [address] [facility], [place], [address], 02/12/2023 09:24:43 03/25/20 23 03/25/2023 US, obste tric, follo w-up No observ ation record ed. [email or web address] [facility] [address] [facility] [address] [facility] [address], [place], [address], 04/08/2023 14:17:34 04/22/20 23 04/22/2023 US, obste tric, follo w-up No observ ation record ed. [email or web address] [facility] [address] [facility] [address], [place], [address], 04/23/2023 11:58:16 Result Notes None recorded. Problems Name Problem SNOMED Code Status Onset Date Resolution Date Notes Provider Name and Address Organization Details Recorded Time Pregnanc y 11128117 Completed 202207/30/2023 Noemi Mcclendon [facility] 3 11:58:54 Tachycar yolis 6389942 Active 2022 has cardiolo gist, ECHO end of February, off metoprol ol [facility] Hakan [facility] 3 11:58:50 Tachycar yolis [id number] Completed 2022 has cardiolo gist, ECHO end of February, [facility] 3 11:58:50 History of spinal fusion 02417330551 107 Active 2022 multiple , no spinal/e pidural, [facility] 3 11:58:50 History of spinal fusion 69607913341 107 Completed 2022 multiple , no spinal/e pidural, [facility] 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 3 11:58:50 Axenfeld -Jessica syndrome [id number] Completed 2022 [employer] Dominant (iris abnormal ities, glaucoma , hypertel orism, microdon tia, hypospad ias, heart defects) [facility] 3 11:58:50 Past pregnanc y history of section 187434151 Active repeat under GENERAL Noemi Spannle [facility] 3 11:58:50 Past pregnanc y history of section 263696876 Completed repeat under GENERAL Noemi andrea, [facility] 3 11:58:50 Problem Notes None recorded. Procedures Surgical History Date Name Laterality Status Provider Name and Address Organization Details Recorded Time 12/15/19 23 Date of Last Pap Smear completed [facility] 04/06/2023 15:50:01 09/14/20 16 Caesarean Section completed [facility] 12/14/2022 15:28:24 10/11/19 16 cardiac catheterization completed [facility] 12/22/2022 19:42:33 10/11/19 14 surgical procedure on eye proper using laser completed [facility] 12/22/2022 19:43:49 10/11/19 13 Tonsillectomy completed [facility] 12/14/2022 15:37:48 10/11/19 08 application of back brace completed [facility] 12/14/2022 15:31:39 10/11/19 08 procedure on back completed [facility] 12/14/2022 15:36:11 10/11/19 07 application of back brace completed [facility] 12/14/2022 15:31:35 10/11/19 07 procedure on back completed [facility] 12/14/2022 15:36:02 10/11/19 05 application of back brace completed [facility] 12/14/2022 15:31:25 10/11/19 05 procedure on back completed [facility] 12/14/2022 15:35:51 10/11/19 05 procedure on back completed [facility] 12/14/2022 15:35:54 10/11/19 05 procedure on back completed [facility] 12/14/2022 15:35:58 10/11/19 05 surgical procedure on eye proper using laser completed [facility] 12/22/2022 19:43:33 10/11/19 04 back fusion completed [facility] 12/14/2022 15:29:02 10/11/19 04 application of back brace completed [facility] 12/14/2022 15:31:09 10/11/19 04 procedure on back completed [facility] 12/14/2022 15:35:48 10/11/19 03 application of back brace completed [facility] 12/14/2022 15:31:06 10/11/19 03 procedure on back completed [facility] 12/14/2022 15:35:44 10/11/19 03 surgical procedure on eye proper using laser completed [facility] 12/22/2022 19:43:17 10/11/19 02 application of back brace completed [facility] 12/14/2022 15:31:02 10/11/19 02 procedure on back completed [facility] 12/14/2022 15:35:41 10/11/19 01 application of back brace completed [facility] 12/14/2022 15:30:59 10/11/19 01 procedure on back completed [facility] 12/14/2022 15:35:38 10/11/19 00 application of back brace completed [facility] 12/14/2022 15:30:52 10/11/19 00 procedure on back completed [facility] 12/14/2022 15:35:33 10/11/18 99 procedure on ear completed [facility] 12/14/2022 15:29:45 10/11/18 99 application of back brace completed [facility] 12/14/2022 15:30:44 10/11/18 99 procedure on back completed [facility] 12/14/2022 15:35:29 10/11/18 98 application of back brace completed [facility] 12/14/2022 15:30:42 10/11/18 98 procedure on back completed [facility] 12/14/2022 15:35:26 10/11/18 97 procedure on ear completed [facility] 12/14/2022 15:29:26 10/11/18 97 adenomyomectomy completed [facility] 12/14/2022 15:38:32 10/11/18 96 application of back brace completed [facility] 12/14/2022 15:30:19 10/11/18 96 procedure on back completed [facility] 12/14/2022 15:36:36 10/11/18 96 biopsy of muscle completed [facility] 12/14/2022 15:37:20 Imaging Results Imaging Date Name Status LastModified by Organization Details LastModified Time 02/01/2023 US, obstetric, nuchal translucency completed [email or web address] [facility] [address], [place], [address], 02/01/2023 17:48:17 02/01/2023 US, obstetric, nuchal translucency completed UYEN [facility]man [address], [place], [address], 02/12/2023 09:24:43 03/25/2023 US, obstetric, follow-up completed [email or web address] [facility] [address], [place], [address], 04/08/2023 14:17:34 04/22/2023 US, obstetric, follow-up completed [email or web address] [facility] [address], [place], [address], 04/23/2023 11:58:16 Procedure Notes None recorded. Medical Equipment None Reported. Allergies Allergen ID Allergen Name Allergen Category Reaction Reaction Severity Criticality Documentation Date Start Date Code Code System Note Provider Name and Address Organization Details Recorded Time codeine medicatio n hives moderate Not available 12/14/2022 2670 RxNorm Katalina andrea [facility] 15:20:39 adhesive tape environme nt,medica tion rash moderate Not available 12/14/2022 20763 UNK Katalina andrea [facility] 11:36:27 Compazine medicatio n other severe Not available 12/14/2022 [address]39 6 RxNorm Katalina andrea [facility] 15:20:39 Medications Name Sig Start [...] Updated DateTime 02/01/2023 154.94 cm 29.7 kg/m2 78686.00 209 g 120 mm[Hg] 68 mm[Hg] Peg Bland [facility] 3 15:00:33 Date Recorded Body height Body mass index (BMI) Body weight Systolic blood pressure Diastolic blood pressure Provider Name and Address Organization Details Last Updated DateTime 03/01/2023 154.94 cm 29.5 kg/m2 89123.40 972 g 112 mm[Hg] 77 mm[Hg] Katalina Carmichael [facility] 3 11:35:59 Date Recorded Body height Body mass index (BMI) Body weight Systolic blood pressure Diastolic blood pressure Provider Name and Address Organization Details Last Updated DateTime 04/07/2023 154.94 cm 30 kg/m2 88702.18 683 g 118 mm[Hg] 78 mm[Hg] Katalina Amol [facility] 3 11:03:33 Date Recorded Body height Body mass index (BMI) Body weight Systolic blood pressure Diastolic blood pressure Provider Name and Address Organization Details Last Updated DateTime 05/04/2023 154.94 cm 30.4 kg/m2 91298.37 157 g 116 mm[Hg] 77 mm[Hg] [facility] 3 11:41:52 Date Recorded Body height Body mass index (BMI) Body weight Systolic blood pressure Diastolic blood pressure Provider Name and Address Organization Details Last Updated DateTime 05/17/2023 154.94 cm 30.4 kg/m2 10166.37 157 g 108 mm[Hg] 75 mm[Hg] [facility] 684357|[id number]|2025-02-27 12:57:00|2025-02-27 12:57:00|ED_ITS|[employer]|Health Information Management|[id number]|"HPI - URI/Sore Throat General Chief Complaint: Upper Respiratory Infection Stated Complaint: sore throat Time Seen by Provider: 02/27/25 12:55 Source: patient Mode of arrival: ambulatory Limitations: no limitations History of Present Illness HPI Narrative: Patient is a 29-year-old female presenting with complaint of sore throat. Additional symptoms reported include right otalgia. Symptoms began on Wednesday. Treatments initiated prior to arrival include Aleve. No known exposure to COVID, flu, strep, pneumonia. No distal complaints. Related Data Home Medications Medication Instructions Recorded Confirmed Last Taken Type epinephrine 0.3 mg/0.3 mL 0.3 mg IM Q10M PRN anaphylaxis 11/12/24 02/27/25 Unknown History injection, auto-injector Allergies Allergy/AdvReac Type Severity Reaction Status Date / Time codeine Allergy Intermediate Hives / Verified 02/27/25 13:01 Red Face prochlorperazine AdvReac Unknown DYSTONIC Verified 02/27/25 13:01 REACTION Review of Systems Review of Systems: All systems reviewed & are unremarkable except as noted in HPI and below Constitutional: Constitutional: Denies chills, Denies fatigue, Denies fever(s), Denies headache(s), Denies malaise and Denies weakness Eyes: Eyes: Denies blurry vision, Denies itchy eyes and Denies loss of vision ENT: Reports otalgia, Denies headache(s), Reports nasal congestion, Denies sinus pain and Reports sore throat Cardiovascular: Cardiovascular: Denies chest pain, Denies irregular heart rhythm and Denies dyspnea Respiratory: Respiratory: Denies cough and Denies dyspnea Gastrointestinal: Gastrointestinal: Denies abdominal pain, Denies diarrhea, Denies nausea and Denies vomiting Musculoskeletal: Musculoskeletal: Denies back pain, Denies myalgias and Denies arthralgias Integumentary/Breasts: Skin/Breast: Denies pruritus and Denies rash Neurologic: Denies headache(s), Denies loss of vision and Denies weakness Psychiatric: Psychiatric: Reports no additional psychiatric complaints Endocrine: Endocrine: Denies fatigue Allergic/Immunologic: Allergic/Immunologic: Denies itchy eyes PMFSH Past Medical History Medical History Scoliosis has had 13 surgeries Surgical History Surgical History History of tonsillectomy Hx of eye surgery 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 Social History Social History Smoking status: Never smoker Alcohol intake: never Substance use: never Do You Feel Safe in your Home?: Yes Lack of Transportation: No Lack of Food: Never True Current Housing: I Have Housing Concerned About Future Housing: No Difficulty Paying Gas/Electric Bills: No Difficulty Paying for Meds: No Currently Unemployed: No Education: Associate Degree Difficulty w/ Childcare or Family Care: No Gender identity (if verbalized by the patient): Female Spiritual care concerns: No Comments At time of signature, agree with nursing past medical, surgical, social and family history. There is no relevant family history pertinent to the presenting complaint. Exam Const: General: cooperative, healthy appearing, comfortable, no acute distress and well nourished Nutritional Appearance: well nourished Orientation/consciousness: patient oriented x3 Limitations: no limitations HENMT: Head: normal to inspection, normocephalic and atraumatic Ears: hearing grossly normal bilaterally, external ears normal, TM's normal bilaterally, EAC's normal, no periauricular adenopathy and other (No mastoid tenderness.) Face/Nose/Sinus: Normal external nose present, Abnormal mucous membranes and turbinates present erythematous bilateral and diffuse, normal faci al exam, sinuses nontender and face symmetric Face and sinus: normal facial exam, sinuses nontender and face symmetric Mouth: Yes Normal oral and palatal mucosa present, Yes lip normal, Yes tongue normal, Yes Normal salivary glands and ducts present, Yes oropharynx normal and Yes moist mucous membranes Teeth and gingiva: dentition normal Throat: posterior oropharynx normal, uvula midline and other (Tonsils are surgically absent.) Eyes: General: appearance normal, both eyes and all related structures Alignment and Position: alignment normal and position normal Periorbital: periorbital findings normal Eyelids: eyelids normal Pupils: Equal, round and reactive pupils present Neck: Neck: normal visual inspection, full ROM, no lymphadenopathy and supple Chest: Chest palpation & inspection: normal inspection of the chest and normal palpation of entire chest wall Resp: Effort & Inspection: normal respiratory effort and able to speak in complete sentences Auscultation: clear to auscultation bilaterally, no crackles, no rales, no rhonchi and no wheezes Cardio: Rate: regular rate Rhythm: regular rhythm Heart sounds: S1 normal heart sound present and S2 normal heart sound present GI: Inspection: normal to inspection Skin: General skin exam: normal color and no rashes or lesions noted Neuro: General: patient oriented x3 and moves all extremities Cranial nerves: Yes Equal, round and reactive pupils present Speech: normal speech Gait exam (Neuro): Normal gait present Extrem: General: normal to inspection, full ROM and no edema Psych: Appearance: grossly normal and well kempt Mental Status: mental status grossly normal Speech and movement: Normal speech and movement present Affect: normal affect Attitude: cooperative Thought process: Normal thought process present Course Course Emergency Course: Discharge instructions reviewed with patient, as well as provided in writing per nursing staff. The instructions also include specific and strict return/GO TO THE ER as well as f/u information. All questions have been answered, and the patient deny any further questions with discharge and discharge plan. Portions of this record may have been created with voice recognition software Level of Care: Express Care Visit Vital Signs Vital signs: Vital Signs Temperature 36.6 C 02/27/25 13:04 Pulse Rate 94 02/27/25 13:04 Respiratory Rate 17 02/27/25 13:04 Blood Pressure 136/78 02/27/25 13:04 Pulse Oximetry 98 02/27/25 13:04 Oxygen Delivery Room Air 02/27/25 13:04 Temperature 36.6 C 02/27/25 13:04 Pulse Rate 94 02/27/25 13:04 Respiratory Rate 17 02/27/25 13:04 Blood Pressure 136/78 02/27/25 13:04 Pulse Oximetry 98 02/27/25 13:04 Oxygen Delivery Room Air 02/27/25 13:04 Reviewed MDM - URI/Sore Throat MDM Narrative Medical decision making narrative: Pt well hydrated appearing, in no respiratory distress, hemodynamically stable. Recommend supportive care. The patient is stable at time of discharge the clinical impression was discussed and the patient was given the opportunity to ask questions, which were addressed as completely as possible given the information available at present. Anticipatory guidance and return to care precautions were discussed and the importance of primary care follow-up was stressed and encouraged. The patient voiced understanding of the plan, indications to return, and the need for follow-up. Exam findings show no acute concerns or changes Patient is appropriate for outpatient treatment and follow-up. Differential diagnosis considered: Wakefield virus, strep pharyngitis, allergic rhinitis, upper respiratory tract infection, sinusitis, rhinosinusitis, nasopharyngitis. viral pharyngitis, otitis media, otitis externa, otitis effusion, foreign body, cerumen impaction, viral syndrome, and influenza. Medical Records Attestation: I reviewed the patient's medical records. Lab Data Attestation: I reviewed the patient's lab results. Labs: Lab Results 02/27/25 Range/Units 13:08 POC Grp A Strep Screen Negative (Negative) Discharge Plan Discharge Clinical Impression: Upper respiratory infection Qualifiers: URI type: unspecified viral URI Qualified Code(s): J06.9 - Acute upper respiratory infection, unspecified Patient Disposition: Home Condition: Stable Instructions: Upper Respiratory Infection (ED) Additional Instructions: Your rapid strep swab was negative today at [facility]. A throat culture will be sent to the laboratory for further testing. If the test is positive, you will receive a phone call within 48 hours and an appropriate antibiotic will be initiated at that time. Your symptoms are likely due to a viral illness, which is not treated with antibiotics. Viral symptoms can be present for up to a few weeks. -For pain/fever, you may take: Tylenol 650-1000mg by mouth every 4-6 hours. Do not exceed 4000mg in 24 hours. Advil (Ibuprofen) 600 mg by mouth every 6 hours. Do not exceed 2400mg in 24 hours. 8 AM: Tylenol 11 AM: Ibuprofen 2 PM: Tylenol 5 PM: Ibuprofen 8 PM: Tylenol 11 PM: Ibuprofen 2 AM: Tylenol 5 AM: Ibuprofen -Antihistamine medication such as Benadryl/Zyrtec at night and Claritin/Francesca during the day can help improve symptoms. -Use Flonase twice a day for 5 days then daily to help reduce the inflammation and dry up your sinuses. -You can also use Sudafed behind the pharmacy counter(12 or 24 hour). Be sure to drink plenty of water with these medications at least 8 ounces with every dose and it is important to drink 8 to 10 glasses of water per day. Water is a natural decongestant -Eat and drink things that are easy to swallow, like tea or soup, or popsicles. -Oral rinses such as: Salt water gargles and/or may use topical anesthetic (eg. Chloraseptic spray) or lozenges to relieve dryness or throat pain). -Frequent hand washing or hand crystal syrup maker is one of the best ways to prevent spread of infection. -Using a vaporizer or humidifier at night will also help thin secretions and help with coughing up phlegm. Call your Primary Care Doctor and make a follow-up appointment in 3 days. If your cough worsens, you develop a fever greater than 103, you develop shaking chills, a fast heartbeat, trouble breathing and/or feel you are are breathing much faster than usual, call your Primary Care Doctor or go to the ER. Patient Language: German Prescriptions: New fluticasone propionate [Flonase Allergy Relief] 50 mcg/actuation spray,suspension 1 spray intranasal DAILY Qty: 16 0RF Rx Instructions: administer into each nostril No Action epinephrine 0.3 mg/0.3 mL auto-injector 0.3 mg IM Q10M PRN (Reason: anaphylaxis) Follow-up/Referrals: Cristina,MALIKA Astudillo [Primary Care Provider] - Stand Alone Forms: Work/School Release IP Time of Disposition: 13:42 "
--- NOTE | 2025-02-27 12:57 | ED.URI ---
HPI - URI/Sore Throat General Chief Complaint: Upper Respiratory Infection Stated Complaint: sore throat Time Seen by Provider: 02/27/25 12:55 Source: patient Mode of arrival: ambulatory Limitations: no limitations History of Present Illness HPI Narrative: Patient is a 29-year-old female presenting with complaint of sore throat. Additional symptoms reported include right otalgia. Symptoms began on Wednesday. Treatments initiated prior to arrival include Aleve. No known exposure to COVID, flu, strep, pneumonia. No distal complaints. Related Data Home Medications Medication Instructions Recorded Confirmed Last Taken Type epinephrine 0.3 mg/0.3 mL 0.3 mg IM Q10M PRN anaphylaxis 11/12/24 02/27/25 Unknown History injection, auto-injector Allergies Allergy/AdvReac Type Severity Reaction Status Date / Time codeine Allergy Intermediate Hives / Verified 02/27/25 13:01 Red Face prochlorperazine AdvReac Unknown DYSTONIC Verified 02/27/25 13:01 REACTION Review of Systems Review of Systems: All systems reviewed & are unremarkable except as noted in HPI and below Constitutional: Constitutional: Denies chills, Denies fatigue, Denies fever(s), Denies headache(s), Denies malaise and Denies weakness Eyes: Eyes: Denies blurry vision, Denies itchy eyes and Denies loss of vision ENT: Reports otalgia, Denies headache(s), Reports nasal congestion, Denies sinus pain and Reports sore throat Cardiovascular: Cardiovascular: Denies chest pain, Denies irregular heart rhythm and Denies dyspnea Respiratory: Respiratory: Denies cough and Denies dyspnea Gastrointestinal: Gastrointestinal: Denies abdominal pain, Denies diarrhea, Denies nausea and Denies vomiting Musculoskeletal: Musculoskeletal: Denies back pain, Denies myalgias and Denies arthralgias Integumentary/Breasts: Skin/Breast: Denies pruritus and Denies rash Neurologic: Denies headache(s), Denies loss of vision and Denies weakness Psychiatric: Psychiatric: Reports no additional psychiatric complaints Endocrine: Endocrine: Denies fatigue Allergic/Immunologic: Allergic/Immunologic: Denies itchy eyes PMFSH Past Medical History Medical History Scoliosis has had 13 surgeries Surgical History Surgical History History of tonsillectomy Hx of eye surgery 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 Social History Social History Smoking status: Never smoker Alcohol intake: never Substance use: never Do You Feel Safe in your Home?: Yes Lack of Transportation: No Lack of Food: Never True Current Housing: I Have Housing Concerned About Future Housing: No Difficulty Paying Gas/Electric Bills: No Difficulty Paying for Meds: No Currently Unemployed: No Education: Associate Degree Difficulty w/ Childcare or Family Care: No Gender identity (if verbalized by the patient): Female Spiritual care concerns: No Comments At time of signature, agree with nursing past medical, surgical, social and family history. There is no relevant family history pertinent to the presenting complaint. Exam Const: General: cooperative, healthy appearing, comfortable, no acute distress and well nourished Nutritional Appearance: well nourished Orientation/consciousness: patient oriented x3 Limitations: no limitations HENMT: Head: normal to inspection, normocephalic and atraumatic Ears: hearing grossly normal bilaterally, external ears normal, TM's normal bilaterally, EAC's normal, no periauricular adenopathy and other (No mastoid tenderness.) Face/Nose/Sinus: Normal external nose present, Abnormal mucous membranes and turbinates present erythematous bilateral and diffuse, normal facial exam, sinuses nontender and face symmetric Face and sinus: normal facial exam, sinuses nontender and face symmetric Mouth: Yes Normal oral and palatal mucosa present, Yes lip normal, Yes tongue normal, Yes Normal salivary glands and ducts present, Yes oropharynx normal and Yes moist mucous membranes Teeth and gingiva: dentition normal Throat: posterior oropharynx normal, uvula midline and other (Tonsils are surgically absent.) Eyes: General: appearance normal, both eyes and all related structures Alignment and Position: alignment normal and position normal Periorbital: periorbital findings normal Eyelids: eyelids normal Pupils: Equal, round and reactive pupils present Neck: Neck: normal visual inspection, full ROM, no lymphadenopathy and supple Chest: Chest palpation & inspection: normal inspection of the chest and normal palpation of entire chest wall Resp: Effort & Inspection: normal respiratory effort and able to speak in complete sentences Auscultation: clear to auscultation bilaterally, no crackles, no rales, no rhonchi and no wheezes Cardio: Rate: regular rate Rhythm: regular rhythm Heart sounds: S1 normal heart sound present and S2 normal heart sound present GI: Inspection: normal to inspection Skin: General skin exam: normal color and no rashes or lesions noted Neuro: General: patient oriented x3 and moves all extremities Cranial nerves: Yes Equal, round and reactive pupils present Speech: normal speech Gait exam (Neuro): Normal gait present Extrem: General: normal to inspection, full ROM and no edema Psych: Appearance: grossly normal and well kempt Mental Status: mental status grossly normal Speech and movement: Normal speech and movement present Affect: normal affect Attitude: cooperative Thought process: Normal thought process present Course Course Emergency Course: Discharge instructions reviewed with patient, as well as provided in writing per nursing staff. The instructions also include specific and strict return/GO TO THE ER as well as f/u information. All questions have been answered, and the patient deny any further questions with discharge and discharge plan. Portions of this record may have been created with voice recognition software Level of Care: Express Care Visit Vital Signs Vital signs: Vital Signs Temperature 36.6 C 02/27/25 13:04 Pulse Rate 94 02/27/25 13:04 Respiratory Rate 17 02/27/25 13:04 Blood Pressure 136/78 02/27/25 13:04 Pulse Oximetry 98 02/27/25 13:04 Oxygen Delivery Room Air 02/27/25 13:04 Temperature 36.6 C 02/27/25 13:04 Pulse Rate 94 02/27/25 13:04 Respiratory Rate 17 02/27/25 13:04 Blood Pressure 136/78 02/27/25 13:04 Pulse Oximetry 98 02/27/25 13:04 Oxygen Delivery Room Air 02/27/25 13:04 Reviewed MDM - URI/Sore Throat MDM Narrative Medical decision making narrative: Pt well hydrated appearing, in no respiratory distress, hemodynamically stable. Recommend supportive care. The patient is stable at time of discharge the clinical impression was discussed and the patient was given the opportunity to ask questions, which were addressed as completely as possible given the information available at present. Anticipatory guidance and return to care precautions were discussed and the importance of primary care follow-up was stressed and encouraged. The patient voiced understanding of the plan, indications to return, and the need for follow-up. Exam findings show no acute concerns or changes Patient is appropriate for outpatient treatment and follow-up. Differential diagnosis considered: Wakefield virus, strep pharyngitis, allergic rhinitis, upper respiratory tract infection, sinusitis, rhinosinusitis, nasopharyngitis. viral pharyngitis, otitis media, otitis externa, otitis effusion, foreign body, cerumen impaction, viral syndrome, and influenza. Medical Records Attestation: I reviewed the patient's medical records. Lab Data Attestation: I reviewed the patient's lab results. Labs: Lab Results 02/27/25 Range/Units 13:08 POC Grp A Strep Screen Negative (Negative) Discharge Plan Discharge Clinical Impression: Upper respiratory infection Qualifiers: URI type: unspecified viral URI Qualified Code(s): J06.9 - Acute upper respiratory infection, unspecified Patient Disposition: Home Condition: Stable Instructions: Upper Respiratory Infection (ED) Additional Instructions: Your rapid strep swab was negative today at [facility]. A throat culture will be sent to the laboratory for further testing. If the test is positive, you will receive a phone call within 48 hours and an appropriate antibiotic will be initiated at that time. Your symptoms are likely due to a viral illness, which is not treated with antibiotics. Viral symptoms can be present for up to a few weeks. -For pain/fever, you may take: Tylenol 650-1000mg by mouth every 4-6 hours. Do not exceed 4000mg in 24 hours. Advil (Ibuprofen) 600 mg by mouth every 6 hours. Do not exceed 2400mg in 24 hours. 8 AM: Tylenol 11 AM: Ibuprofen 2 PM: Tylenol 5 PM: Ibuprofen 8 PM: Tylenol 11 PM: Ibuprofen 2 AM: Tylenol 5 AM: Ibuprofen -Antihistamine medication such as Benadryl/Zyrtec at night and Claritin/Francesca during the day can help improve symptoms. -Use Flonase twice a day for 5 days then daily to help reduce the inflammation and dry up your sinuses. -You can also use Sudafed behind the pharmacy counter(12 or 24 hour). Be sure to drink plenty of water with these medications at least 8 ounces with every dose and it is important to drink 8 to 10 glasses of water per day. Water is a natural decongestant -Eat and drink things that are easy to swallow, like tea or soup, or popsicles. -Oral rinses such as: Salt water gargles and/or may use topical anesthetic (eg. Chloraseptic spray) or lozenges to relieve dryness or throat pain). -Frequent hand washing or hand collections assistant is one of the best ways to prevent spread of infection. -Using a vaporizer or humidifier at night will also help thin secretions and help with coughing up phlegm. Call your Primary Care Doctor and make a follow-up appointment in 3 days. If your cough worsens, you develop a fever greater than 103, you develop shaking chills, a fast heartbeat, trouble breathing and/or feel you are are breathing much faster than usual, call your Primary Care Doctor or go to the ER. Patient Language: Tristanian Prescriptions: New fluticasone propionate [Flonase Allergy Relief] 50 mcg/actuation spray,suspension 1 spray intranasal DAILY Qty: 16 0RF Rx Instructions: administer into each nostril No Action epinephrine 0.3 mg/0.3 mL auto-injector 0.3 mg IM Q10M PRN (Reason: anaphylaxis) Follow-up/Referrals: Cristina,MALIKA Astudillo [Primary Care Provider] - Stand Alone Forms: Work/School Release IP Time of Disposition: 13:42
[2025-02-27 13:04] VITALS: BP 136/78; PULSE 94; RESP 17; TEMP 36.6; O2SAT 98
[2025-02-27 13:10] LABS: EDSTREPNEGPOS1 Negative (Negative)
== END 2025-02-27 13:47 | disposition home or self-care (01) ==
PROVIDERS: Emergency Provider Nurse Practitioner Family; PCP Physician Assistant
DX: J06.9 Acute upper respiratory infection, unspecified (principal); M41.9 Scoliosis, unspecified
CPT/HCPCS: 87081; 87880; 99213; G0463

== ENCOUNTER 2025-04-25 21:10 | Emergency (ER) | payer MEDICARE, SELFPAY ==
--- NOTE | ~2025-04-25 | XR_ITS ---
EXAMINATION: XR chest 1V portable Exam Date/Time: 04/25/2025 21:22 CDT HISTORY: LEFT SIDE CP Comparison: 01/22/2025. RESULT: Lines, tubes, and devices: Surgical clips over the midline upper posterior chest. Lungs and pleura: Subsegmental left basilar airspace disease with mild costophrenic angle blunting. Cardiomediastinal silhouette: Stable. Other: No acute osseous or upper abdominal finding. Chronic thoracic cage deformity. Scoliosis. IMPRESSION: Subsegmental left basilar atelectasis/consolidation. Possible small left pleural effusion. Reviewed, dictated and finalized at location K. IMPRESSION: Subsegmental left basilar atelectasis/consolidation. Possible small left pleura l effusion.
[2025-04-25 21:10] VITALS: BP 143/79; PULSE 82; RESP 14; TEMP 36.2; O2SAT 100
--- NOTE | 2025-04-25 21:11 | ECG_ITS ---
Test Date: 2025-04-25 21:23:10 Measurements Intervals [place] Rate: 83 P: 16 NM: 174 QRS: 8 QRSD: 103 T: 5 QT: 388 QTc: 457 Interpretive Statements SINUS RHYTHM No previous ECG available for comparison Electronically Signed On 04-26-2025 14:39:50 CDT by Den Flores M.D.
--- OUTSIDE RECORDS SUMMARY | 2025-04-25 21:13 | XMS_ITS | Clinical Summary ---
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 Follows with [facility], last saw Dr Wilson 03/19 [...] to monitor symptoms -Plan to deliver at [facility]: Delivery Planning: - Mode of delivery: No [...] diagnosis of ARS and is seeing a Telephone Collector at the end of December. We reviewed [...] diagnosis of ARS and is seeing a Telephone Collector at the end of December. Previously counseled Plan: - Recommend follow up eye exame - Genetic counseling Completed on 02/01/23, declines invasive testing - Specialized anatomic survey - echocardiogram completed - Serial growth US History of tachycardia 12/30/2022 Overview (07/08/2023): History of tachycardia and atypical chest pain, followed by [facility]. Required metoprolol for symptomatic tachycardia [...] tachycardia and atypical chest pain, followed by [facility]. Required metoprolol for symptomatic tachycardia [...] # Pain: Controlled with above regimen. 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 # MOC: Declines s/p counseling. # MOF: . Urine drug screen not indicated. Patient informed of results: N/A. # Post DVT prophylaxis: The patient has the following MAJOR risk factors cardiac disease and the following MINOR risk factors delivery. enoxaparin 40 mg daily ordered for VTE prophylaxis. # Disposition: Follow up task sent to [facility] scheduling pool. Desires discharge home today. Gestational htn w/o signific ant proteinuria, third trimester 07/15/2023 09/06/2023 Overview (07/15/2023): Patient with 2 visits to [facility] that have documented mild elevation of her [...] Red Team [x] Blue Team *Delivering at [facility]*-email sent to financial team for global on 03/25/23-jlb- CHERYLE referral sent 05/05/2023 Referring Provider: Farzana Gutierrez [phone] [] or Medicare Insurance [x] Dating Criteria: [...] 08/02/23 at 0930, [facility] [x] Place of delivery: [facility] [] Last clinic visit SVE: [] IOL start agent: [] Epidural: [] Consents signed: [] MOC: [] Method of feeding: [] Shoeblack: [] PP Depression Discussed: Assessment & Plan (07/08/2023 9:08 AM CDT): RTC 2 wks with growth scan 3rd trimester precautions discussed [x] Full MFM Care; [] Red Team [x] Blue Team *Delivering at [facility]*-email sent to financial team for global on 03/25/23-jlb- CHERYLE referral sent 05/05/2023 Referring Provider: Farzana Gutierrez [phone] [] or Medicare Insurance [x] Dating Criteria: [...] 08/02/23 at 0930, [facility] [x] Place of delivery: [facility] [] Last clinic visit SVE: [] IOL start agent: [] Epidural: [] Consents signed: [] MOC: [] Method of feeding: [] Shoeblack: [] PP Depression Discussed: Assessment & Plan [...] of Binge Drinking Not on file 06/2023 Irving Depression Scale Answer Date Recorded Irving Depression Scale Total 4 09/06/2023 The thought [...] file Legal Sex Female 2:59 AM BOOK REPAIRER Gender Identity Female 02/01/2023 7:56 AM CDT Sexual Orientation Not on file 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 Not on file [...] l N Livin g 4 9 NARCISO OLOME W,GIR LHALE Y Tramme l, Herbert Galindo MD Complications:None Delivery Location:[facility] Main C ampus ([facility] L AND D PROCEDURE) Last Filed Vital Signs Vital Sign Reading Time Taken Comments Blood Pressure 120/84 09/14/2023 6:53 PM BOOK REPAIRER Pulse 71 09/14/2023 6:53 PM BOOK REPAIRER Temperature 36.9 C (98.4 F) 09/14/2023 6:53 PM BOOK REPAIRER Respiratory Rate 16 09/14/2023 6:53 PM BOOK REPAIRER Oxygen Saturation 99% 09/14/2023 6:53 PM BOOK REPAIRER Inhaled Oxygen Concentration - - Weight 72.6 kg (160 lb) 09/14/2023 6:53 PM BOOK REPAIRER Height 154.9 cm (5' 1) 09/14/2023 6:53 PM BOOK REPAIRER Body Mass Index 30.23 09/14/2023 6:53 PM BOOK REPAIRER Plan of Treatment Health Maintenance Due Date Last Done Comments Hepatitis B Screening 2013 Regular Well Visit/Exam 18-64 2013 Cervical Cancer Screening 10/22/2017 10/22/2016 Varicella Vaccines (2 of 2 - 13+ 2-dose series) 08/18/2023 07/21/2023 Depression Screening 09/06/2024 09/06/2023 Influenza Vaccine (#1) 2025 07/11/2016 DTaP/Tdap/Td Vaccine (3 - Td [...] MRNA E6/E7 Routine 10/22/2016 1:38 PM BOOK REPAIRER HEPATITIS C ANTIBODY Routine 02/10/2016 3:50 PM CDT from Last 3 Months or Most Recently Relevant to Health Maintenance Results * ThinPrep Imaging Pap Reflex HPV mRNA E6/E7 (10/22/2016 1:38 PM BOOK REPAIRER) SOURCE: SEE NOTE [facility] HISTORICAL RESULTS Comment:Cervix, [...] has been evaluated with computer assisted technology. Membership Director SEE NOTE [facility]ISTORICAL RESULTS Comment: TMK, CT(ASCP) CT screening location: [place] [address] Test performed at [facility] [address] Director: BLAINE FERREIRA MD 10/22/2016 1:38 PM BOOK REPAIRER us Gloria Turner MD LAB PATHOLOGY ORDERAB LES Final Result [facility]ISTORICAL RESULTS * Hepatitis C antibody (02/10/2016 3:50 PM CDT) SIGNAL TO CUT-OFF 0.03 <1.00 [facility]OR[facility] RESULTS Comment: Test performed at [facility] [address] [place] [address] Director: JANE NEWSOME DO,MPH Hep C Ab NON-REACT SEAN NON-REACT SEAN [facility]ORICAL RESULTS 02/10/2016 3:50 PM CDT Gloria Turner MD LAB MICROBIOLOGY - NERAL ORDERABLES Final Result [facility]ISTORICAL RESULTS from Last 3 Months or Most Recently Relevant to Health Maintenance Insurance [employer] [place] [employer] [place] [id number] DANYELL CAR[employer]OS DUAL [place] MEDICARE [facility] MEDICARE Advance Directives For more information, please contact: [phone] * Full Code (Latest Code Status on File) Date Activated Date Inactivated Comments 07/18/2023 1:48 PM 07/21/2023 5:48 PM * Full Code Date Activated Date Inactivated Comments 07/18/2023 7:36 AM 07/18/2023 1:48 PM Full CPR in case of cardiopulmonary arrest * Full Code Date Activated Date Inactivated Comments 06/24/2022 9:18 PM 06/27/2022 5:29 PM Care Teams Tax Agent Relationship Specialty Start Date End Date Chavez Evans PA [address] [place] [address] PCP - General 08/26/18 Lizzy Thompson DO [address] [place] [address] [address] RABAGO B [address] [address] Consulting Physician Otolaryngology 06/27/22
--- OUTSIDE RECORDS SUMMARY | 2025-04-25 21:13 | XMS_ITS | Clinical Summary ---
Author Organization [facility] Address [address] [place] [address] Care Team Providers Care Licensed Occupational Therapy Assistant Name Role Phone Chavez Evans Primary Care Provider [phone] Source Comments [facility],non-owned Affiliates and Associated Physician Practices is amultiple site organization consisting of ambulatory clinics and hospital sitesin [place], [place], [place] and [place]. This disclosure is being madepursuant to the Care Everywhere program and may not contain all information available regarding this patient. Last updated 18.[facility] Allergies Active Allergy Reactions Criticality Noted Date [...] under GENERAL Tachycardia 02/05/2023 Overview (03/07/2024): has digital advisor, ECHO end of February, off metoprolol has digital advisor, ECHO end february, off metoprolol 02/01/2023 Social [...] PM CD T Height 154.9 cm (5' 1) 03/07/2024 3:47 PM CDT Body Mass Index 31.65 03/07/2024 3:47 PM CDT Plan of Treatment Health Maintenance Due Date Last Done Comments HEPATITIS C SCREENING 04/16/2013 DTAP/TDAP/TD VACCINES (1 - Tdap) 2014 HEPATITIS B VACCINE (1 of 3 - 19+ 3-dose series) 2014 PAP SMEAR 2016 HPV VACCINE (1 - 3-dose SCDM series) 2022 COVID-19 VACCINE (1 - 2023-2 5 season) 2024 DEPRESSION SCREENING 10/11/2024 MEDICARE AWV CALENDAR YEAR 2024 INFLUENZA VACCINE (#1) 2025 ZOSTER VACCINE (1 of 2) 2045 [...] this topic Insurance [employer] MEDICARE DUAL ADV [place] Care Teams Licensed Occupational Therapy Assistant Relationship Specialty Start Date End Date Chavez Evans PA [address] [place] [address] PCP - General Physician Tire Trimmer Hand 03/07/24"
--- OUTSIDE RECORDS SUMMARY | 2025-04-25 21:13 | XMS_ITS | Referral Summary ---
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 Previously counseled Plan: - Recommend follow up eye exame - Genetic counseling Completed on 02/01/23, declines invasive testing - Specialized anatomic survey - echocardiogram completed - Serial growth US History of tachycardia 12/30/2022 Overview (07/08/2023): History of tachycardia and atypical chest pain, followed by [facility]. Required metoprolol for symptomatic tachycardia [...] tachycardia and atypical chest pain, followed by [facility]. Required metoprolol for symptomatic tachycardia [...] # Pain: Controlled with above regimen. 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 # MOC: Declines s/p counseling. # MOF: . Urine drug screen not indicated. Patient informed of results: N/A. # Post DVT prophylaxis: The patient has the following MAJOR risk factors cardiac disease and the following MINOR risk factors delivery. enoxaparin 40 mg daily ordered for VTE prophylaxis. # Disposition: Follow up task sent to [facility] scheduling pool. Desires discharge home today. Gestational htn w/o signific ant proteinuria, third trimester 07/15/2023 09/06/2023 Overview (07/15/2023): Patient with 2 visits to [facility] that have documented mild elevation of [...] Red Team [x] Blue Team *Delivering at [facility]*-email sent to financial team for global on 03/25/23-jlb- CHERYLE referral sent 05/05/2023 Referring Provider: Farzana Gutierrez [phone] [] or Medicare Insurance [x] Dating Criteria: [...] 08/02/23 at 0930, [facility] [x] Place of delivery: [facility] [] Last clinic visit SVE: [] IOL start agent: [] Epidural: [] Consents signed: [] MOC: [] Method of feeding: [] Buffet Waiter/Waitress: [] PP Depression Discussed: Assessment & Plan (07/08/2023 9:08 AM CDT): RTC 2 wks with growth scan 3rd trimester precautions discussed [x] Full MFM Care; [] Red Team [x] Blue Team *Delivering at [facility]*-email sent to financial team for global on 03/25/23-jlb- CHERYLE referral sent 05/05/2023 Referring Provider: Farzana Gutierrez [phone] [] or Medicare Insurance [x] Dating Criteria: [...] 08/02/23 at 0930, [facility] [x] Place of delivery: [facility] [] Last clinic visit SVE: [] IOL start agent: [] Epidural: [] Consents signed: [] MOC: [] Method of feeding: [] Buffet Waiter/Waitress: [] PP Depression Discussed: Assessment & Plan [...] of Binge Drinking Not on file 06/2023 [place] Depression Scale Answer Date Recorded [place] Depression Scale Total 4 09/06/2023 The thought [...] on file Legal Sex Female 2:59 AM CORPORATE STRATEGY INTERN Gender Identity Female 02/01/2023 7:56 AM CDT Sexual Orientation Not on file 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 Not on file Not on file Not on f ile Last Filed Vital Signs Vital Sign Reading Time Taken Comments Blood Pressure 120/84 09/14/2023 6:53 PM CORPORATE STRATEGY INTERN Pulse 71 09/14/2023 6:53 PM CORPORATE STRATEGY INTERN Temperature 36.9 C (98.4 F) 09/14/2023 6:53 PM CORPORATE STRATEGY INTERN Respiratory Rate 16 09/14/2023 6:53 PM CORPORATE STRATEGY INTERN Oxygen Saturation 99% 09/14/2023 6:53 PM CORPORATE STRATEGY INTERN Inhaled Oxygen Concentration - - Weight 72.6 kg (160 lb) 09/14/2023 6:53 PM CORPORATE STRATEGY INTERN Height 154.9 cm (5' 1) 09/14/2023 6:53 PM CORPORATE STRATEGY INTERN Body Mass Index 30.23 09/14/2023 6:53 PM CORPORATE STRATEGY INTERN Plan of Treatment Not on file Procedures Procedure Name Priority Date/Time Associated Diagnosis Comments THINPREP IMAGING PAP REFLEX HPV MRNA E6/E7 Routine 10/22/2016 1:38 PM CORPORATE STRATEGY INTERN HEPATITIS C ANTIBODY Routine 02/10/2016 3:50 PM CDT from Last 3 Months or Most Recently Relevant to Health Maintenance Results * ThinPrep Imaging Pap Reflex HPV mRNA E6/E7 (10/22/2016 1:38 PM CORPORATE STRATEGY INTERN) SOURCE: SEE NOTE [facility] HISTORICAL RESULTS Comment:Cervix, [...] been evaluated with computer assisted technology. Senior Integration Architect SEE NOTE [facility] HISTORICAL RESULTS Comment: TMK, CT(ASCP) CT screening location: [place] [address] [place] [address] Test performed at [facility] [address] Director: BLAINE FERREIRA MD 10/22/2016 1:38 PM CORPORATE STRATEGY INTERN Gloria Turner MD LAB PATHOLOGY ORDERAB LES Final Result Performing Organization Address [facility] Co de Phone Number [facility]ISTOR[facility] RESULTS * Hepatitis C antibody (02/10/2016 3:50 PM CDT) SIGNAL TO CUT-OFF 0.03 <1.00 [facility]ORICAL RESULTS Comment: Test performed at [facility] [place] [address] [place] [address] Director: JANE NEWSOME DO,MPH Hep C Ab NON-REACT SEAN NON-REACT SEAN [facility]ORICAL RESULTS 02/10/2016 3:50 PM CDT Gloria Turner MD LAB MICROBIOLOGY - GE NERAL ORDERABLES Final Result [facility] HISTORICAL RESULTS from Last 3 Months or Most Recently Relevant to Health Maintenance Insurance [facility] [employer]URANCE [facility] MEDICARE [facility] MEDICARE Advance Directives For more information, please contact: [phone] * Full Code (Latest Code Status on File) Date Activated Date Inactivated Comments 07/18/2023 1:48 PM 07/21/2023 5:48 PM * Full Code Date Activated Date Inactivated Comments 07/18/2023 7:36 AM 07/18/2023 1:48 PM Full CPR in case of cardiopulmonary arrest * Full Code Date Activated Date Inactivated Comments 06/24/2022 9:18 PM 06/27/2022 5:29 PM Care Teams Training Executive Relationship Specialty Start Date End Date Chavez Evans PA [address] [place] [address] PCP - General 08/26/18 Lizzy Thompson DO [address] [place] [address] [address] RABAGO [address] [address] Consulting Physician Otolaryngology 06/27/22
--- OUTSIDE RECORDS SUMMARY | 2025-04-25 21:13 | XMS_ITS | Clinical Summary ---
Author Organization [facility] Address [address] [place] [address] Phone Care Team Providers Care Steel Post Installer Name Role Phone Chavez Evans Primary Care Provider [phone] Allergies Active Allergy Reactions Criticality Noted Date Comments Codeine Hives 01/08/2016 Prochlorperazine Maleate Other (see Comments) 0 01/08/2016 Medications traMADol (ULTRAM) 50 MG Tablet Take 50 mg by mouth every 8 hours as needed. Active butalbital-aceta minophen-caffein e-codeine (FIORICET WITH CODEINE) 66-477-27-30 MG Capsule Take 1 Cap by mouth [...] 3:27 PM CDT Height 154.9 cm (5' 1) 05/12/2022 3:27 PM CDT Body Mass Index 24.94 05/12/2022 3:27 PM CDT Plan of Treatment Health Maintenance Due Date Last Done Comments Hepatitis C Virus (HCV) Screening 1995 TdaP Immunization 1995 Human Papillomavirus (HPV) Immunization (1 - 3-dose series) 2010 Hepatitis B Immunization (1 of 3 - 19+ 3-dose series) 2014 Pap Smear 2016 SARS-COV-2 Immunization ( - 2023- season) 2024 Cervical Cancer Screening (CCS) 2025 HPV/Cotest 2025 Influenza Immunization (#1) 2025 Respiratory Syncytial Virus (RSV) Immunization (Adult) (1 - 1-dose 75+ series) 2070 Meningococcal Immunization (ACWY) Aged Out No longer eligible based on patient's age to complete this topic Pneumococcal Immunization Combined Aged Out No longer eligible based on patient's age to complete this topic Rotavirus Immunization Aged Out No lo nger eligible based on patient's age to complete this topic Insurance MEDICARE C CHILD Care Teams Steel Post Installer Relationship Specialty Start Date End Date Chavez Evans PAC [address] [place] [address] PCP - General Physician Photogrammetric Compilation Specialist 01/18/19
--- OUTSIDE RECORDS SUMMARY | 2025-04-25 21:13 | XMS_ITS | Data Portability ---
Author Organization [facility] Address [address] [address] Care Team Providers Care City Editor Name Role Phone JAYSONIZABEL Primary Care Provider Assessment Encounter Date Assessment [...] US, obstetric, nuchal translucenc y 2022 023 [facility], [address], [address], [place], [address], 13:30:23 Medication Orders None recorded. Patient TargetsNo [...] mcg/d L shoul d apply to only [facility] resid ents per [facility] D[facility]. Tanya sis was perfo rmed by Myranda Chapman ed Plasm a Mass Spect romet ry (ICPM S) Note 1 This test was devel oped and its tanya tical perfo rmanc e rodrigo cteri stics have been deter mined by [employer] ostic s. It has not been clear ed or appro sumeet by the FDA. This assay has been valid ated pursu ant to the CLIA regul ation s and is used for clini mj purpo ses. Ethni city: Not [facility] Latin o Perfo rming Organ izati on Infor matio n: Site ID: [id number] Name: [facility]Julio sai Cor[place] cia Addre ss: [id number] [place] [address] Direc tor: Roselyn perez M.D. Not Available [facility] (Lab) [address], [place], [address], 01/16/2023 19:36:43 02/02/2002/01/2023 CULTU RE: URINE result report SEE RESULT S BELOW Test: Cultu re: Urine Speci men Sourc e: Urine Voide d Speci men Type: Urine Speci men Date: 2022 3:45 PM Resul t Date: 2022 5:50 AM Resul t Statu s: Final resul t Abnor mal: No Resul ting Lab: [facility] [address] [facility] [address] Tel: CULTU RE ----- ----- ----- --- No growt h in 1 day (dete ction level of 10,00 0 colon ies / ml.) Not Available [facility] (Lab) [address], [place], [address], 02/03/2023 06:53:42 02/02/2002/01/2023 drug scree n, urine Amphetamines : negati ve Not Available [facility] [address], [place], [address], 02/01/2023 15:05:00 02/02/2002/01/2023 drug scree n, urine Cannabinoids : negati ve Not Available [facility] [address], [place], [address], 02/01/2023 15:05:00 02/02/20 23 02/01/2023 drug scree n, urine Opiates: negati ve Not Available [facility] [address], [place], [address], 02/01/2023 15:05:00 02/02/20 23 02/01/2023 drug scree n, urine Benzodiazepi stephen: negati ve Not Available [facility] [address], [place], [address], 02/01/2023 15:05:00 03/01/20 23 03/01/2023 CBC W/DIF F WBC 8.3 10'3/ uL 3.6-10 .2 Not Available [facility] (Lab) [address], [place], [address], 03/02/2023 11:33:45 03/01/20 23 03/01/2023 CBC W/DIF F RBC 4.21 10'6/ uL (based on docume nted legal sex) 4.10-5 .30 Not Available [facility] (Lab) [address], [place], [address], 03/02/2023 11:33:45 03/01/20 23 03/01/2023 CBC W/DIF F HGB 12.6 g/dL (based on docume nted legal sex) 11.9-1 5.8 Not Available [facility] (Lab) [address], [place], [address], 03/02/2023 11:33:45 03/01/20 23 03/01/2023 CBC W/DIF F HCT 38.7 % (based on docume nted legal sex) 37.4-4 8.3 Not Available [facility] (Lab) [address], [place], [address], 03/02/2023 11:33:45 03/01/20 23 03/01/2023 CBC W/DIF F MCV 91.9 fL 82.0-9 9.0 Not Available [facility] (Lab) [address], [place], [address], 03/02/2023 11:33:45 03/01/20 23 03/01/2023 CBC W/DIF F MCH 29.9 pg 27.0-3 3.0 Not Available [facility] (Lab) [address], [place], [address], 03/02/2023 11:33:45 03/01/20 23 03/01/2023 CBC W/DIF F MCHC 32.6 g/dL 32.0-3 6.0 Not Available [facility] (Lab) [address], [place], [address], 03/02/2023 11:33:45 03/01/20 23 03/01/2023 CBC W/DIF F RDW 14.2 % 11.0-1 5.0 Not Available [facility] (Lab) [address], [place], [address], 03/02/2023 11:33:45 03/01/20 23 03/01/2023 CBC W/DIF F plt 266 10'3/ uL 150-45 0 Not Available [facility] (Lab) [address], [place], [address], 03/02/2023 11:33:45 03/01/20 23 03/01/2023 CBC W/DIF F MPV 10.5 fL 9.8-12 .7 Not Available [facility] (Lab) [address], [place], [address], 03/02/2023 11:33:45 03/01/20 23 03/01/2023 CBC W/DIF F NRBC's 0.0 % 0 Not Available [facility] (Lab) [address], [place], [address], 03/02/2023 11:33:45 03/01/20 23 03/01/2023 CBC W/DIF F absolute NRBCs 0.0 10'3/ uL 0 Not Available [facility] (Lab) [address], [place], [address], 03/02/2023 11:33:45 03/01/20 23 03/01/2023 CBC W/DIF F neutrophils 71.3 % 37.0-7 2.0 Not Available [facility] (Lab) [address], [place], [address], 03/02/2023 11:33:45 03/01/20 23 03/01/2023 CBC W/DIF F lymphocytes 23.5 % 16.0-4 8.0 Not Available [facility] (Lab) [address], [place], [address], 03/02/2023 11:33:45 03/01/20 23 03/01/2023 CBC W/DIF F monocytes 4.5 % 4.0-14 .0 Not Available [facility] (Lab) [address], [place], [address], 03/02/2023 11:33:45 03/01/20 23 03/01/2023 CBC W/DIF F eosinophils 0.2 % 0.0-9. 0 Not Available [facility] (Lab) [address], [place], [address], 03/02/2023 11:33:45 03/01/20 23 03/01/2023 CBC W/DIF F basophils 0.4 % 0.0-2. 0 Not Available [facility] (Lab) [address] [place], [address], 03/02/2023 11:33:45 03/01/20 23 03/01/2023 CBC W/DIF F immature granulocytes 0.1 % no define d refere nce range Not Available [facility] (Lab) [address], [place], [address], 03/02/2023 11:33:45 03/01/20 23 03/01/2023 CBC W/DIF F absolute neutrophils 5.9 10'3/ uL 1.1-6. 0 Not Available [facility] (Lab) [address], [place], [address], 03/02/2023 11:33:45 03/01/20 23 03/01/2023 CBC W/DIF F absolute lymphocytes 2.0 10'3/ uL 0.7-3. 4 Not Available [facility] (Lab) [address], [place], [address], 03/02/2023 11:33:45 03/01/20 23 03/01/2023 CBC W/DIF F absolute monocytes 0.4 10'3/ uL 0.3-1. 0 Not Available [facility] (Lab) [address], [place], [address], 03/02/2023 11:33:45 03/01/20 23 03/01/2023 CBC W/DIF F absolute eosinophils 0.0 10'3/ uL 0.0-0. 6 Not Available [facility] (Lab) [address], [place], [address], 03/02/2023 11:33:45 03/01/20 23 03/01/2023 CBC W/DIF F absolute basophils 0.0 10'3/ uL 0.0-0. 1 Not Available [facility] (Lab) [address], [place], [address], 03/02/2023 11:33:45 03/01/20 23 03/01/2023 CBC W/DIF [...] resul ts are expec pricila. Not Available [facility] (Lab) [address], [place], [address], 03/02/2023 11:33:45 03/01/20 23 03/01/2023 HEPAT ITIS C ANTIB CARLITOS SCREE N, REFLE X TO CONFI RMATI ON hepatitis C antibody Non-re active non-re active Antib odies to HCV Not Detec pricila, does not exclu de the possi bilit y of expos ure to HCV. Not Available [facility] (Lab) [address], [place], [address], 03/02/2023 11:33:46 03/01/20 23 03/01/2023 HIV 1/2 ANTIG EN/AN TIBOD Y, REFLE X CONFI RMATI ON HIV antigen/anti body Nonrea ctive nonrea ctive HIV-1 antig en and HIV-1 /HIV- 2 antib odies were not detec pricila. No labor atory evide nce of HIV infec tion. Not Available [facility] (Lab) [address], [place], [address], 03/02/2023 11:33:47 03/01/2003/01/2023 HEPAT ITIS B SURFA CE ANTIG EN hepatitis B surface antigen Non-re active non-re active This assay was perfo rmed using [facility] [employer] [facility] [facility] [employer] ratio n reage nts and test kits. Value s obtai bobby with other assay metho ds or kits canno t be used inter chin eably . Not Available [facility] (Lab) [address], [place], [address], 03/02/2023 11:33:47 03/01/20 23 03/01/2023 TSH, REFLE X FREE T4 TSH 1.07 uIU/m L 0.30-5 .33 Not Available [facility] (Lab) [address], [place], [address], 03/02/2023 11:33:48 03/01/20 23 03/01/2023 RUBEL LA IGG ANTIB CARLITOS, QUANT rubella antibodies, IgG Reacti ve reacti ve Not Available [facility] (Lab) [address], [place], [address], 03/02/2023 11:33:49 03/01/20 23 03/01/2023 RUBEL LA IGG ANTIB CARLITOS, QUANT rubella antibodies, IgG quant 73.7 IU/mL >=10 Non-r eacti ve (Non- Immun e) <10 IU/mL React boy (Immu ne) > or = 10 IU/mL Not Available [facility] (Lab) [address], [place], [address], 03/02/2023 11:33:49 03/01/20 23 03/01/2023 HEMOG LOBIN [...] >8.0% Actio n sugge sted Not Available [facility] (Lab) [address], [place], [address], 03/02/2023 11:33:50 03/01/20 23 03/01/2023 TYPE/ RH/SC REEN ABO/Rh type B POS Not Available [facility] (Lab) [address], [place], [address], 03/02/2023 11:33:51 03/01/20 23 03/01/2023 TYPE/ RH/SC REEN antibody screen NEG Not Available [facility] (Lab) [address], [place], [address], 03/02/2023 11:33:51 03/01/20 23 03/01/2023 TYPE/ RH/SC REEN exp date 2022 23:59 Not Available [facility] (Lab) [address], [place], [address], 03/02/2023 11:33:51 03/01/20 23 03/01/2023 RPR SCREE N/REF DALTON TITER /FTA RPR screen Nonrea ctive nonrea ctive Not Available [facility] (Lab) [address], [place], [address], 03/02/2023 11:33:52 02/02/20 23 02/01/2023 US, obste tric, nucha l trans lucen cy No observ ation record ed. [email or web address] [place] [address], [place], [address], 02/01/2023 17:48:17 02/02/20 23 02/01/2023 US, obste tric, nucha l trans lucen cy No observ ation record ed. UYEN [address] [facility], [place], [address], 02/12/2023 09:24:43 03/25/20 23 03/25/2023 US, obste tric, follo w-up No observ ation record ed. [email or web address] [facility] [address] [facility] [address], [place], [address], 04/08/2023 14:17:34 04/22/20 23 04/22/2023 US, obste tric, follo w-up No observ ation record ed. [email or web address] [facility] [address] [facility] [address], [place], [address], 04/23/2023 11:58:16 Result Notes None recorded. Problems Name Problem SNOMED Code Status Onset Date Resolution Date Notes Provider Name and Address Organization Details Recorded Time Pregnanc y 56445811 Completed 202207/30/2023 Noemi Mcclendon [facility] 3 11:58:54 Tachycar yolis 5447480 Active 2022 has cardiolo gist, ECHO end of February, off metoprol ol [place] Hakan [facility] 3 11:58:50 Tachycar yolis 5788657 Completed 2022 has cardiolo gist, ECHO end of February, [facility] 3 11:58:50 History of spinal fusion 23012160358 107 Active 2022 multiple , no spinal/e pidural, [facility] 3 11:58:50 History of spinal fusion 89917300338 107 Completed 2022 multiple , no spinal/e pidural, CS under GENERAL Noemi Spannle [facility] 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 3 11:58:50 Past pregnanc y history of section 993705990 Active repeat under GENERAL Dainaaney Hakan [facility] 3 11:58:50 Past pregnanc y history of section 139017769 Completed repeat under GENERAL [facility] 11:58:50 Problem Notes None recorded. Procedures Surgical History Date Name Laterality Status Provider Name and Address Organization Details Recorded Time 12/15/19 23 Date of Last Pap Smear completed [facility] 04/06/2023 15:50:01 09/14/20 16 Caesarean Section completed [facility] 12/14/2022 15:28:24 10/11/19 16 cardiac catheterization completed [facility] 12/22/2022 19:42:33 10/11/19 14 surgical procedure on eye proper using laser completed [facility] 12/22/2022 19:43:49 10/11/19 13 Tonsillectomy completed [facility] 12/14/2022 15:37:48 10/11/19 08 application of back brace completed [facility] 12/14/2022 15:31:39 10/11/19 08 procedure on back completed [facility] 12/14/2022 15:36:11 10/11/19 07 application of back brace completed [facility] 12/14/2022 15:31:35 10/11/19 07 procedure on back completed [facility] 12/14/2022 15:36:02 10/11/19 05 application of back brace completed [facility] 12/14/2022 15:31:25 10/11/19 05 procedure on back completed [facility] 12/14/2022 15:35:51 10/11/19 05 procedure on back completed [facility] 12/14/2022 15:35:54 10/11/19 05 procedure on back completed [facility] 12/14/2022 15:35:58 10/11/19 05 surgical procedure on eye proper using laser completed [facility] 12/22/2022 19:43:33 10/11/19 04 back fusion completed [facility] 12/14/2022 15:29:02 10/11/19 04 application of back brace completed [facility] 12/14/2022 15:31:09 10/11/19 04 procedure on back completed [facility] 12/14/2022 15:35:48 10/11/19 03 application of back brace completed [facility] 12/14/2022 15:31:06 10/11/19 03 procedure on back completed [facility] 12/14/2022 15:35:44 10/11/19 03 surgical procedure on eye proper using laser completed [facility] 12/22/2022 19:43:17 10/11/19 02 application of back brace completed [facility] 12/14/2022 15:31:02 10/11/19 02 procedure on back completed [facility] 12/14/2022 15:35:41 10/11/19 01 application of back brace completed [facility] 12/14/2022 15:30:59 10/11/19 01 procedure on back completed [facility] 12/14/2022 15:35:38 10/11/19 00 application of back brace completed [facility] 12/14/2022 15:30:52 10/11/19 00 procedure on back completed [facility] 12/14/2022 15:35:33 10/11/18 99 procedure on ear completed [facility] 12/14/2022 15:29:45 10/11/18 99 application of back brace completed [facility] 12/14/2022 15:30:44 10/11/18 99 procedure on back completed [facility] 12/14/2022 15:35:29 10/11/18 98 application of back brace completed [facility] 12/14/2022 15:30:42 10/11/18 98 procedure on back completed [facility] 12/14/2022 15:35:26 10/11/18 97 procedure on ear completed [facility] 12/14/2022 15:29:26 10/11/18 97 adenomyomectomy completed [facility] 12/14/2022 15:38:32 10/11/18 96 application of back brace completed [facility] 12/14/2022 15:30:19 10/11/18 96 procedure on back completed [facility] 12/14/2022 15:36:36 10/11/18 96 biopsy of muscle completed [facility] 12/14/2022 15:37:20 Imaging Results None recorded. Procedure Notes None recorded. Medical Equipment None Reported. Allergies Allergen ID Allergen Name Allergen Category Reaction Reaction Severity Criticality Documentation Date Start Date Code Code System Note Provider Name and Address Organization Details Recorded Time codeine medicatio n hives moderate Not available 12/14/2022 2670 RxNorm Katalina Finchcindy andrea, [facility] 3 15:20:39 adhesive tape environme nt,medica tion rash moderate Not available 12/14/2022 36304 UNK Katalina Finchcindy andrea, [facility] 3 11:36:27 Compazine medicatio n other severe Not available 12/14/2022 41725 6 RxNorm Katalina Finchcindy andrea, [facility] 3 15:20:39 Medications Name Sig Start Date Stop [...] Body mass index (BMI) Body weight Systolic And Diastolic Provider Name and Address Organization Details Last Updated DateTime 02/01/2023 154.94 cm 29.7 kg/m2 75256.002 09 g 120/68 mm[Hg] [facility] 02/01/2023 15:00:33 Date Recorded Body height Body mass index (BMI) Body weight Systolic And Diastolic Provider Name and Address Organization Details Last Updated DateTime 03/01/2023 154.94 cm 29.5 kg/m2 86936.409 72 g 112/77 mm[Hg] [facility] 03/01/2023 11:35:59 Date Recorded Body height Body mass index (BMI) Body weight Systolic And Diastolic Provider Name and Address Organization Details Last Updated DateTime 04/07/2023 154.94 cm 30 kg/m2 17861.186 83 g 118/78 mm[Hg] [facility] 04/07/2023 11:03:33 Date Recorded Body height Body mass index (BMI) Body weight Systolic And Diastolic Provider Name and Address Organization Details Last Updated DateTime 05/04/2023 154.94 cm 30.4 kg/m2 99728.371 57 g 116/77 mm[Hg] [facility] 05/04/2023 11:41:52 Date Recorded Body height Body mass index (BMI) Body weight Systolic And Diastolic Provider Name and Address Organization Details Last Updated DateTime 05/17/2023 154.94 cm 30.4 kg/m2 41824.371 57 g 108/75 mm[Hg] [facility] 05/17/2023 11:30:21 Social History Question Answer Notes LastModified by Organizat ion Details LastModified Time Tobacco Smoking Status Never Smoker Katalina Carmichael [facility] 03/01/2023 11:36:28 If You Are , What Was Your Level Of Alcohol Consumption Prior To ? None [email or web address] Information not available 03/01/2023 Are You Blind Or Do You Have Difficulty Seeing? No [email or web address] Information n ot available 12/14/2022 What Is Your Level Of Caffeine Consumption? Moderate [email or web address] Information not available 12/14/2022 How Much Tobacco Do You Chew? None [email or web address] Information not available 12/14/2022 In The 14 Days Before Symptom Onset, Have You Had Close Contact With A Laboratory-confirm ed COVID-19 While That Case Was Ill? No [email or web address] Information n ot available 12/14/2022 In The 14 Days Before Symptom Onset, Have You Had Close Contact With A Person Who Is Under Investigation For COVID-19 While That Person Was Ill? No [email or web address] Information not available 12/14/2022 Have You Been To An Area Known To Be High Risk For COVID-19? No [email or web address] Information not available 12/14/2022 Are You Deaf Or Do You Have Serious Difficulty Hearing? No Information not available 12/14/2022 What Type Of Diet Are You Following? REGULAR [email or web address] Information n ot available 12/14/2022 What Is The Highest Grade Or Level Of School You Have Completed Or The Highest Degree You Have Received? [id number] [email or web address] Information not available 03/01/2023 Are There Any Guns Present In Your Home? No Information not available 12/14/2022 Do You Use Protection During Sex? No [email or web address] Information not available 12/14/2022 Do You Use Your Seat Belt Or Car Seat Routinely? Yes [email or web address] Information not available 12/14/2022 Do You Have Smoke And Carbon Monoxide Detectors In Your Home? Yes [email or web address] Information not available 12/14/2022 How Much Tobacco Do You Smoke? No [email or web address] Information not available 12/14/2022 Do You Use Sunscreen Routinely? No [email or web address] Information not available 12/14/2022 Has Tobacco Cessation Counseling Been Provided? No [email or web address] Information not available 03/01/2023 Have You Used IV Drugs? No [email or web address] Information not available 03/01/2023 Do You Have Difficulty Walking Or Climbing Stairs? No [email or web address] Information not available 03/01/2023 Sex: Unknown Functional Status Question Answer Note LastModified by Organizat ion Details LastModified Time Do you use any illicit or recreational drugs? No [email or web address] Information not available 12/14/2022 Do you or have you ever used any other forms of tobacco or nicotine? No [email or web address] Information not available 03/01/2023 What is your level of alcohol consumption? None [email or web address] Information not available 12/14/2022 Are you able to walk? YESWOREST [email or web address] Information not available 12/14/2022 Are you able to care for yourself? 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 No [email or web address] Information not available 03/01/2023 What is your exercise level? Occasional [email or web address] Information not available 12/14/2022 Mental Status Question Answer Note LastModified by Organization D etails LastModified Time Do you feel stressed (tense, restless, nervous, or anxious, or unable to sleep at night)? [id number] [email or web address] Information not available 03/01/2023 Family History Relationship Description Onset Age of this Age Resolved Age Notes LastModified by Organization Details LastModified Time Mother Asthma [email or web address] Not available 12/14/2022 15:20:39 Mother Heart disease [email or web address] Not available 03/01 11:36:27 Mother Mitral valve prolapse [email or web address] Not available 03/01 11:36:27 Brother Asthma [email or web address] Not availabl e 12/14/2022 15:20:39 Brother Heart disease [email or web address] Not available 03/01 11:36:27 Sister Asthma [email or web address] Not available 12/14/2022 15:20:39 Daughter Asthma [email or web address] Not availab le 12/14/2022 15:20:39 Maternal Grandmother Heart disease [email or web address] Not available 03/01 11:36:27 Maternal Grandmother Aneurysm [email or web address] Not available 11:36:27 Maternal Grandmother Diabetes mellitus [email or web address] Not available 03/01 11:36:27 Maternal Grandmother Hypertensive disorder Not available 03/01 11:36:27 Maternal Grandmother Hypercholest erolemia [email or web address] Not available 03/01 11:36:27 Maternal Grandfather Diabetes mellitus Not available 03/01 11:36:27 Medical History Condition [...] SNOMED-CT Code Diagnosis ICD10 Code Diagnosis Note [id number] David Fritz MD [facility] [address],[place] [address] 12/14/2022 14:12:31 12/14/2022 14:49:15 [id number] Farzana Gutierrez [facility] [address],[place] [address] 12/14/2022 14:12:48 12/14/2022 15:58:50 Gynecologic examination 11167477 Z01.419 test positive 849145782 Z32.01 Risk factors addressed: Tobacco Cessation, Safe [...] and address preventati ve healthcare . Fatigue 54763851 R53.83 Increased fatigue and feeling very cold. [id number] David Fritz MD [facility] [address],[place] [address] 01/11/2023 12:56:05 01/11/2023 13:21:28 [id number] Clare Jhaveri MD [facility] [address],[place] [address] 02/01/2023 14:05:46 02/01/2023 14:46:31 screening 738165650 Z36.82 [id number] Clare Jhaveri MD [facility] [address],[place] [address] 02/01/2023 14:06:04 02/02/2023 15:11:58 Routine care 852390706 Z34.91 Axenfeld-R ieger syndrome 850541712 Q13.89 History of spinal fusion 3371559531 9107 Z98.1 Tachycardia 0015164 R00. 0 Past pregn azra history of section 626094154 Z98.890 [id number] Clare Jhaveri MD [facility] [address],[place] [address] 03/01/2023 11:02:13 03/01/2023 14:34:42 Routine care 135043575 Z34.91 Tachycardia 7436202 R00. 0 Past pregn azra history of section 067698970 Z98.890 [id number] Lina Carcamo [facility] [address],[place] [address] 04/07/2023 10:50:17 04/07/2023 11:24:31 Routine care 809114491 Z34.92 [id number] Clare Jhaveri MD [facility] [address] [address],[place] [address] 05/04/2023 11:29:06 05/04/2023 12:20:05 Routine care [id number] Z34.91 [id number] Clare Jhaveri MD [facility] [address],[place] [address] 05/17/2023 11:24:58 05/17/2023 11:51:31 Routine care [id number] Z34.91 Health Concerns Section Related Observation LastModified by Organization Detai ls LastModified Time None Recorded Concern Status LastModified by Organization Details LastModified Time None Recorded Advance Directives Directive None Recorded Payers Insurance Date Sequence Insurance Name Policy Number Policy Castellanos Covered Member ID Castellanos Member ID Guarantor Name 06/17/2023 1 [facility] OPT[employer] (MEDICARE - MEDICAID REPLACEMENT HMO) [id number] Annie Chirinos [id number] Annie Chirinos OBGyn Episode Ob Episode Information Episode Created Date Number of Fetuses Patient Bloodtype Patient rh Status Prepregnancy Weight lbs Domestic Partner Domestic Partner Phone Father Name Wheel Worker Status 02/02/20 23 1 B Positive 157 CLOSED Fetus Data First Name Last Name Admitted to NICU Weight (g) Sex Living Outcome Pediatric Complications Fetus ID Race Codes Race Delivery Type [id number] Problems Problem Notes MFM Next Appt WASHU: 05/20 U/ S Problem Name Start Date End Date Resolution Snomed Code Not e Past history of section [id number] repeat under GENERAL Tachycardia 02/05/2023 [id number] has car diologist, ECHO end of February, off metoprolol History of spinal fusion 02/05/2023 [id number] multiple, no spinal/epidural, CS under GENERAL 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 She is already established at [facility] and delivered there last time. She would [...] Weight in lbs Pre/Post Dialysis Refused Weight 156.869548484071 BP Diastolic BP Location Tested BP Systolic BP Type 77 112 Fetus Heart Rate Present A 155 Fetus Movement A Yes Comments Doing ok. Having daily tachy cardic episodes. Seeing cardiology 03/19 after echo on 03/09. Cardiology has her off metoprolol or the like until after echo. Back to [facility] for anatomy on 03/25. After these will determine if reasonable to deliver at and then talk with anesthesia. Flowsheet Date 04/07/2023 Gracia Score Blood Edema Fundus Height Fundus Units Glucose Ketones Leukocytes Nitrite Labor Signs Protein Cervic Dilation Cervic Effacement Cervic Station neg none none trace Type Weight in lbs Pre/Post Dialysis Refused Weight 159.231423448011 BP Diastolic BP Location Tested BP Systolic BP Type 78 118 Fetus Heart Rate Present Fetus Movement A Yes Comments patient is having some co ntractions. f/u at [facility] for anatomy on wednesday, doing well, no complaints, planning on care here and delivery at [facility] f/u 4 weeks Flowsheet Date 05/04/2023 Gracia Score Blood Edema Fundus Height Fundus Units Glucose Ketones Leukocytes Nitrite Labor Signs Protein Cervic Dilation Cervic Effacement Cervic Station neg none none trace Type Weight in lbs Pre/Post Dialysis Refused Weight 161.100038475465 BP Diastolic BP Location Tested BP Systolic BP Type 77 116 Fetus Heart Rate Present A 145 Fetus Movement A Yes Comments Enrique brown. Delivering at [facility] and already did GCT there (100) and was found to be anemic, on iron. Discussed and encouraged Tdap. Will fully transfer care to [facility] at [facility] since needs to deliver there. Might have one more visit here. Flowsheet Date 05/17/2023 Gracia Score Blood Edema Fundus Height Fundus Units Glucose Ketones Leukocytes Nitrite Labor Signs Protein Cervic Dilation Cervic Effacement Cervic Station none 28 Type Weight in lbs Pre/Post Dialysis Refused Weight 161.876850436536 BP Diastolic BP Location Tested BP Systolic BP Type 75 108 Fetus Heart Rate Present A 140 Fetus Movement A Yes Comments Doing well. NO labor sx. Gre at . RH pos. GCT done. Tx to [facility]- this is last appt here. Will return . Menstrual History Last Menstrual Date Menses Monthly On Bcp Conception Prior Menses Frequency Hcg Plus Date Menarche Onset Age 0111/01/2022 Genetic Screening And Infection History Question Response Note Mental Retardation/Autism false Patient's Age Will Be 35 Years Or Older At Estim ated Date of Delivery false Thalassemia (Hungarian, Kyrgyz, Mediterranean, Or Background): MCV < 80 false Neural Tube Defect (Meningomyelocele, Spina Bifi da, Or Anencephaly) false Congenital Heart Defect false Down Syndrome false Cristi-Sachs (eg, Protestant, Cajun, Malay-[place]) f alse [place] Disease false Sickle Cell Disease Or Trait () false Hemophilia Or Other Blood Disorders false Muscular Dystrophy false Cystic Fibrosis false [place]'s Chorea false Intellectual Disability/Autism false If Yes, [...] Domestic Partner Domestic Partner Phone Father Name Wheel Worker Status 12/15/19 23 1 CLOSED Fetus Data First Name Last Name Admitted to NICU Weight (g) Sex Living Outcome Pediatric Complications Fetus ID Race Codes Race Delivery Type 3515.33 8 F Full Term [id number] Primary Haja Calculation Initial Haja Date Initial [...]
--- NOTE | 2025-04-25 21:18 | ED_ITS ---
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 Pain is unprovoked. Pain has been continuous with intermittent exacerbations. No nausea/ vomiting. Patient has some shortness of breath during the pain. Patient has lightheadedness during the pain episodes. Pain is currently noted as 7/10. patient to Pepcid and Prilosec without any relief. MD complaint: chest pain Onset (ago): hour(s) ( 6 hours) Timing of current episode: constant Prior episodes: Yes Onset: during rest Pain location: left chest Pain radiation: left arm and left shoulder Severity: moderate Pain scale (0-10): 7 Quality: aching Relieving factors: nothing Exacerbating factors: nothing Associated symptoms: dyspnea Treatment prior to arrival: none Risk Factors Coronary artery disease risk factors: none Thoracic aortic dissection risk factors: none Related Data On Oral Contraceptives: No Home Medications ?Medication ?Instructions ?Recorded ?Confirmed ?Last Taken ?Type epinephrine 0.3 mg/0.3 mL 0.3 mg IM Q10M PRN anaphylaxis 11/12/24 02/27/25 Unknown History injection, auto-injector Allergies Allergy/AdvReac Type Severity Reaction Status Date / Time codeine Allergy Intermediate Hives / Verified 04/25/25 21:35 Red Face prochlorperazine AdvReac Unknown DYSTONIC Verified 04/25/25 21:35 REACTION Review of Systems 2 Review of Systems: All systems reviewed & are unremarkable except as noted in HPI and below Constitutional: Constitutional: Reports as per HPI and Reports no additional constitutional complaints Eyes: Eyes: Reports as per HPI and Reports no additional eye complaints ENT: Reports system reviewed and no additional complaints, except as documented and Reports as per HPI Cardiovascular: Cardiovascular: Reports as per HPI, Reports no additional cardiovascular complaints and Reports chest pain Respiratory: Respiratory: Reports as per HPI and Reports no additional respiratory complaints Gastrointestinal: Gastrointestinal: Reports as per HPI and Reports no additional gastrointestinal complaints Genitourinary: Genitourinary: Reports no additional female genitourinary complaints and Reports as per HPI Musculoskeletal: Musculoskeletal: Reports no additional musculoskeletal complaints, Reports as per HPI and Reports back pain Integumentary/Breasts: Skin/Breast: Reports system reviewed and no additional complaints, except as docu and Reports as per HPI Neurologic: Reports system reviewed and no additional complaints, except as documented and Reports as per HPI Psychiatric: Psychiatric: Reports no additional psychiatric complaints and Reports as per HPI Endocrine: Endocrine: Reports no additional endocrine complaints and Reports as per HPI Hematologic/Lymphatic: Hematologic/Lymphatic: Reports no additional hematologic/lymphatic complaints and Reports as per HPI Allergic/Immunologic: Allergic/Immunologic: Reports no additional allergic/immunologic complaints and Reports as per HPI PMFSH Past Medical History Medical History Scoliosis has had 13 surgeries Surgical History Surgical History History of tonsillectomy Hx of eye surgery 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 Social History Social History Smoking status: Never smoker Alcohol intake: never Substance use: never Do You Feel Safe in your Home?: Yes Lack of Transportation: No Lack of Food: Never True Current Housing: I Have Housing Concerned About Future Housing: No Difficulty Paying Gas/Electric Bills: No Difficulty Paying for Meds: No Currently Unemployed: No Education: Associate Degree Difficulty w/ Childcare or Family Care: No Gender identity (if verbalized by the patient): Female Spiritual care concerns: No Exam 2 Narrative: Vitals are stable Const: General: healthy appearing and no acute distress O rientation/consciousness: patient oriented x3 HENMT: Head: normal to inspection Ears: external ears normal F audie/Nose/Sinus: Normal external nose present Face and sinus: normal facial exam Mouth: Yes Normal oral and palatal mucosa present Throat: posterior oropharynx normal Eyes: Conjunctivae: conjunctivae normal Pupils: Equal, round and reactive pupils present EOM: EOMs intact bilaterally Direct Ophthalmoscopy: no photophobia Neck: Neck: normal visual inspection, no lymphadenopathy and no meningeal signs Chest: Chest palpation & inspection: normal inspection of the chest Resp: Effort & Inspection: normal respiratory effort Auscultation: clear to auscultation bilaterally Cardio: Rate: regular rate Rhythm: regular rhythm GI: GI Palp: Yes Soft to palpation Auscultation: normal bowel sounds O ther: no tenderness/ rigidity /rebound. : General: Yes no CVA tenderness Back/Spine/Pelvis: Back: no CVA tenderness Other: Severe scoliosis with scarring in the Midline from previous surgeries. Skin: General skin exam: normal color Rashes: no rashes Wounds: no wounds Neuro: General: patient oriented x3, moves all extremities, no meningeal signs, no focal motor deficits and CN's II-XI intact bilaterally Cranial nerves: Yes Nystagmus not present Speech: normal speech Gait exam (Neuro): Normal gait present Extrem: General: normal to inspection, no clubbing, cyanosis or edema and no pedal edema Psych: Mental Status: mental status grossly normal Affect: normal affect Attitude: cooperative Course Course Emergency Course: left chest pain-- Unprovoked chest pain the past 6 hours. EKG does not show any acute ST elevation. Patient has normal troponin and D-dimer. X-ray revealed left basilar atelectasis /infiltrate-- patient is afebrile with no respiratory symptoms and a normal white cell count. This makes pneumonia unlikely. Vital Signs Vital signs: Vital Signs Temperature 36.2 C L 04/25/25 21:10 Pulse Rate 82 04/25/25 21:10 Respiratory Rate 14 04/25/25 21:10 Blood Pressure 143/79 H 04/25/25 21:10 Pulse Oximetry 100 04/25/25 21:10 Oxygen Delivery Room Air 04/25/25 21:10 Temperature 36.2 C L 04/25/25 21:10 Pulse Rate 82 04/25/25 21:10 Respiratory Rate 14 04/25/25 21:10 Blood Pressure 143/79 H 04/25/25 21:10 Pulse Oximetry 100 04/25/25 21:10 Oxygen Delivery Room Air 04/25/25 21:15 MDM - Chest Pain MDM Narrative Medical decision making narrative: atypical chest pain Differential Diagnosis Differential diagnosis: Likely pneumothorax, atypical chest pain and costochondritis Medical Records Data Attestation: I reviewed the patient's medical records. Lab Data Attestation: I reviewed the patient's lab results. 04/25/25 21:41 04/25/25 21:41 Labs: Lab Results 04/25/25 Range/Units 21:41 WBC 9.8 (4.8-10.8) K/mm3 RBC 4.40 (4.20-5.40) M/mm3 Hgb 12.8 (12.0-15.0) g/dL Hct 38.7 (35.0-49.0) % MCV 88.0 (78.0-102.0) fL MCH 29.1 (27.0-31.0) pg MCHC 33.1 (32-36) g/dL RDW 13.7 (11.6-14.4) % Plt Count 308 (150-420) K/mm3 MPV 9.7 (9.2-11.8) fl Immature Gran % (Auto) 0.3 H (0.0-0.0) % Neut % (Auto) 55.4 (50.0-70.0) % Lymph % (Auto) 37.6 (18.0-42.0) % [place] % (Auto) 5.6 (2.0-11.0) % Eos % (Auto) 0.7 L (1.0-6.0) % Baso % (Auto) 0.4 (0.0-1.0) % Lymph # (Auto) 3.68 (1.10-4.50) K/mm3 [place] # (Auto) 0.55 (0.10-0.90) K/mm3 Eos # (Auto) 0.07 (0.02-0.50) K/mm3 Baso # (Auto) 0.04 (0.00-0.10) K/mm3 Abs Immat Gran (auto) 0.03 H (0.00-0.00) K/mm3 Absolute Neuts (auto) 5.43 (1.70-7.20) K/mm3 Absolute Nucleated RBC 0.00 (0.00-0.00) K/mm3 Nucleated RBC % 0.0 (0-0.0) % D-Dimer 0.40 (0.19-0.50) mg/L Sodium 141 (137-145) mmol/L Potassium 4.1 (3.4-5.0) mmol/L Chloride 106 (98-107) mmol/L Carbon Dioxide 28 (22-30) mmol/L Anion Gap 7 (4-12) mmol/L BUN 14 (7-17) mg/dL Creatinine 0.65 L (0.7-1.0) mg/dL Estim Creat Clear Calc 100 ml/min Estimated GFR > 60 (59 - ) Glucose 101 (65-110) mg/dL Calculated Osmolality 292 (285-295) mOsm/kg Lactic Acid < 0.5 (0.4-2.0) mmol/L Calcium 9.7 (8.4-10.2) mg/dL Total Bilirubin 0.3 (0.2-1.3) mg/dL AST 50 H (14-36) U/L ALT 55 H (6-35) U/L Alkaline Phosphatase 88 (38-126) U/L Troponin I < 0.012 (0.000-0.034) ng/mL NT-Pro-B Natriuret Pep < 20 (19.9-100) pg/mL Total Protein 8.0 (6.3-8.2) g/dL Albumin 4.4 (3.5-5.1) g/dL Urine Color Light yellow (Yellow) Urine Appearance Clear (Clear) Urine pH 7.0 (5.0-8.0) Ur Specific [place] 1.015 (1.010-1.020) Urine Protein Negative (Negative) Urine Glucose (UA) Negative (Negative) Urine Ketones Negative (Negative) Ur Blood (Man) Negative (Negative) Urine Nitrate Negative (Negative) Urine Bilirubin Negative (Negative) Urine Urobilinogen 0.2 (0.2-1.0) mg/dL Leukocyte Esterase Rfl Trace H (Negative) GEORGE/UL Urine RBC None seen (0-2) /hpf Urine WBC 0-3 (0-3) /hpf Ur Squamous Epith Cells Few (Few) /hpf Urine Bacteria Trace (None) /hpf Urine Test Negative ECG Data EKG #1: ECG completion date: 04/25/25 ECG completion time: 21:23 Interpretation: normal sinus rhythm. Normal axis. No ST elevation. Discharge Plan Discharge Clinical Impression: Atypical chest pain Patient Disposition: Home Condition: Stable Instructions: Antibiotic Form, Chest Wall Pain (ED) Patient Language: Mongolian Prescriptions: No Action epinephrine 0.3 mg/0.3 mL auto-injector 0.3 mg IM Q10M PRN (Reason: anaphylaxis) fluticasone propionate [Flonase Allergy Relief] 50 mcg/actuation spray,suspension 1 spray intranasal DAILY Qty: 16 0RF Rx Instructions: administer into each nostril Follow-up/Referrals: Cristina,MALIKA Astudillo [Primary Care Provider] - Time of Disposition: 22:22 Quality HEART score for chest pain patients History: slightly suspicious ECG: normal Age: < or = to 45 years Risk factors: no risk factors known Troponin: < or = to 1x normal limit Heart score: 0
[2025-04-25 21:45] LABS: Hematocrit 38.7 % (35.0-49.0); Hemoglobin 12.8 g/dL (12.0-15.0); Immature Granulocyte Percent A 0.3 % (0.0-0.0); Lymphocytes Absolute Auto 3.68 K/mm3 (1.10-4.50); Mean Corpuscular HGB Conc 33.1 g/dL (32-36); Mean Corpuscular Hemoglobin 29.1 pg (27.0-31.0); Mean Corpuscular Volume 88.0 fL (78.0-102.0); Nucleated Red Blood Cells Absolute Auto 0.00 K/mm3 (0.00-0.00); Nucleated Red Blood Cells Perc 0.0 % (0-0.0); Platelet Count Result 308 K/mm3 (150-420); Red Blood Count 4.40 M/mm3 (4.20-5.40); White Blood Count 9.8 K/mm3 (4.8-10.8)
[2025-04-25 21:46] LABS: Add Urine Microscopic? YES; Appearance Urine Clear (Clear); Glucose Urine UA Negative (Negative); Leukocyte Esterase Ur Trace LEU/UL (Negative); Nitrate Urine Negative (Negative); Specific Grav Ur 1.015 (1.010-1.020)
[2025-04-25 21:54] LABS: Pregnancy On Board Control Positive
[2025-04-25 21:57] LABS: Alanine Aminotransferase 55 U/L (6-35); Albumin Level 4.4 g/dL (3.5-5.1); Alkaline Phosphatase 88 U/L (38-126); Anion Gap 7 mmol/L (4-12); Aspartate Amino Transferase 50 U/L (14-36); Bilirubin,Total 0.3 mg/dL (0.2-1.3); Blood Urea Nitrogen 14 mg/dL (7-17); Calcium 9.7 mg/dL (8.4-10.2); Carbon Dioxide 28 mmol/L (22-30); Chloride 106 mmol/L (98-107); Estimated CRCL calculation 100 ml/min; Estimated Glomerular Filt Rate > 60; Glucose 101 mg/dL (65-110); Osmolality Calculated 292 mOsm/kg (285-295); Potassium 4.1 mmol/L (3.4-5.0); Sodium 141 mmol/L (137-145); Total Protein 8.0 g/dL (6.3-8.2)
--- OUTSIDE RECORDS SUMMARY | 2025-04-25 21:57 | XMS_ITS | Clinical Summary ---
Author Organization [facility] [employer] Address [address] [place] [address] Care Team Providers Care Staffing Operations Manager Name Role Phone Chavez Evans Primary Care Provider [phone] Source Comments [facility] [employer],non-owned Affiliates and Associated Physician Practices is amultiple site organization consisting of ambulatory clinics and hospital sitesin [place], [place], [place] and [place]. This disclosure is being madepursuant to the Care Everywhere program and may not contain all information available regarding this patient. Last updated 18.[facility] [employer] Allergies Active Allergy Reactions Criticality Noted Date [...] under GENERAL Tachycardia 02/05/2023 Overview (03/07/2024): has marketing writer, ECHO end of February, off metoprolol has marketing writer, ECHO end february, off metoprolol 02/01/2023 Social [...] this topic Insurance [employer] MED[employer] DUAL [place] Care Teams Staffing Operations Manager Relationship Specialty Start Date End Date Chavez Evans PA [address] [place] [address] PCP - General Physician Airplane Designer 03/07/24
--- OUTSIDE RECORDS SUMMARY | 2025-04-25 21:57 | XMS_ITS | Clinical Summary ---
Author Organization [facility] Address [address] [place] [address] Care Team Providers Care Wall Insulation Sprayer Name Role Phone Chavez Evans Primary Care Provider [phone] JayLizzyWilly DO Unavailable [phone] Allergies Active Allergy Reactions Criticality Noted Date [...] with simethicone-dip henhydramine-li docaine (MAGIC MOUTHWASH) suspension 7-4-5Hhvykdtdiu s:Viral URI with cough Take 10 mL [...] 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 Follows with [facility] Cardiology, last saw Dr Wilson 03/19 [...] to monitor symptoms -Plan to deliver at [facility]: Delivery Planning: - Mode of [...] 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 Follows with [facility] Cardiology, last saw Dr Wilson 03/19 [...] to monitor symptoms -Plan to deliver at [facility]: Delivery Planning: - Mode of [...] diagnosis of ARS and is seeing a Cook Sauce at the end of December. We reviewed [...] diagnosis of ARS and is seeing a Cook Sauce at the end of December. Previously counseled Plan: - Recommend follow up eye exame - Genetic counseling Completed on 02/01/23, declines invasive testing - Specialized anatomic survey - echocardiogram completed - Serial growth US History of tachycardia 12/30/2022 Overview (07/08/2023): History of tachycardia and atypical chest pain, followed by [facility] Cardiology. Required metoprolol for symptomatic tachycardia [...] tachycardia and atypical chest pain, followed by [facility] Cardiology. Required metoprolol for symptomatic tachycardia [...] # Pain: Controlled with above regimen. Discontinued TRICOT KNITTER 07/19. # MOC: Declines s/p counseling. # MOF: . Urine drug screen not indicated. Patient informed of results: N/A. # Post DVT prophylaxis: The patient has the following MAJOR risk factors cardiac disease and the following MINOR risk factors delivery. enoxaparin 40 mg daily ordered for VTE prophylaxis. # Disposition: Follow up task sent to [facility] scheduling pool. Desires discharge home today. Gestational htn w/o signific ant proteinuria, third trimester 07/15/2023 09/06/2023 Overview (07/15/2023): Patient with 2 visits to [facility] that have documented mild [...] Red Team [x] Blue Team *Delivering at [facility]*-email sent to financial team for global on 03/25/23-jlb- CHERYLE referral sent 05/05/2023 Referring Provider: Farzana Gutierrez [phone] [] or Medicare Insurance [x] Dating Criteria: [...] 08/02/23 at 0930, letter to pt in [facility] [x] Place of delivery: [facility] [] Last clinic visit SVE: [] IOL start agent: [] Epidural: [] Consents signed: [] MOC: [] Method of feeding: [] Automotive Painter: [] PP Depression Discussed: Assessment & Plan (07/08/2023 9:08 AM CDT): RTC 2 wks with growth scan 3rd trimester precautions discussed [x] Full MFM Care; [] Red Team [x] Blue Team *Delivering at [facility]*-email sent to financial team for global on 03/25/23-jlb- CHERYLE referral sent 05/05/2023 Referring Provider: Farzana Gutierrez [phone] [] or Medicare Insurance [x] Dating Criteria: [...] 08/02/23 at 0930, letter to pt in [facility] [x] Place of delivery: [facility] [] Last clinic visit SVE: [] IOL start agent: [] Epidural: [] Consents signed: [] MOC: [] Method of feeding: [] Automotive Painter: [] PP Depression Discussed: Assessment & Plan [...] of Binge Drinking Not on file 06/2023 [place] Depression Scale Answer Date Recorded [place] Depression Scale Total 4 09/06/2023 The thought [...] on file Legal Sex Female 2:59 AM RESOLUTION MANAGER Gender Identity Female 02/01/2023 7:56 AM CDT Sexual Orientation Not on file 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 Not on file [...] Tramme l, Herbert Galindo MD Complications:None Delivery Location:[facility] Main C ampus ([facility] L AND D PROCEDURE) Last Filed Vital Signs Vital Sign Reading Time Taken Comments Blood Pressure 120/84 09/14/2023 6:53 PM RESOLUTION MANAGER Pulse 71 09/14/2023 6:53 PM RESOLUTION MANAGER Temperature 36.9 C (98.4 F) 09/14/2023 6:53 PM RESOLUTION MANAGER Respiratory Rate 16 09/14/2023 6:53 PM RESOLUTION MANAGER Oxygen Saturation 99% 09/14/2023 6:53 PM RESOLUTION MANAGER Inhaled Oxygen Concentration - - Weight 72.6 kg (160 lb) 09/14/2023 6:53 PM RESOLUTION MANAGER Height 154.9 cm (5' 1) 09/14/2023 6:53 PM RESOLUTION MANAGER Body Mass Index 30.23 09/14/2023 6:53 PM RESOLUTION MANAGER Plan of Treatment Health Maintenance Due Date [...] HPV MRNA E6/E7 Routine 10/22/2016 1:38 PM RESOLUTION MANAGER HEPATITIS C ANTIBODY Routine 02/10/2016 3:50 PM CDT from Last 3 Months or Most Recently Relevant to Health Maintenance Results * ThinPrep Imaging Pap Reflex HPV mRNA E6/E7 (10/22/2016 1:38 PM RESOLUTION MANAGER) SOURCE: SEE NOTE [facility] HISTORICAL RESULTS Comment:Cervix, [...] has been evaluated with computer assisted technology. Public Service Administrator SEE NOTE [facility] HISTORICAL RESULTS Comment: TMK, CT(ASCP) CT screening location: [place] [address] Test performed at [id number] [address] Director: BLAINE FERREIRA MD 10/22/2016 1:38 PM RESOLUTION MANAGER us Gloria Turner MD LAB PATHOLOGY ORDERAB LES Final Result [facility] HISTORICAL RESULTS * Hepatitis C antibody (02/10/2016 3:50 PM CDT) SIGNAL TO CUT-OFF 0.03 <1.00 [facility] HISTORICAL RESULTS Comment: [facility] performed at [facility] [address] [place] [address] Director: JANE NEWSOME DO,MPH Hep C Ab NON-REACT SEAN NON-REACT SEAN [facility] HISTORICAL RESULTS 02/10/2016 3:50 PM CDT Gloria Turner MD LAB MICROBIOLOGY - NERAL ORDERABLES Final Result [facility] HISTORICAL RESULTS from Last 3 Months or Most Recently Relevant to Health Maintenance Insurance DANYELL CARLOS DUAL [place] [employer] [place] [id number] DANYELL CARLOS DUAL [place] MEDICARE [facility] MEDICARE Advance Directives For more information, please contact: [phone] * Full Code (Latest Code Status on File) Date Activated Date Inactivated Comments 07/18/2023 1:48 PM 07/21/2023 5:48 PM * Full Code Date Activated Date Inactivated Comments 07/18/2023 7:36 AM 07/18/2023 1:48 PM Full CPR in case of cardiopulmonary arrest * Full Code Date Activated Date Inactivated Comments 06/24/2022 9:18 PM 06/27/2022 5:29 PM Care Teams Wall Insulation Sprayer Relationship Specialty Start Date End Date Chavez Evans PA [address] [place] [address] PCP - General 08/26/18 Lizzy Thompson DO [address] [place] [address] DR RABAGO B [address] [address] Consulting Physician Otolaryngology 06/27/22
--- OUTSIDE RECORDS SUMMARY | 2025-04-25 21:57 | XMS_ITS | Referral Summary ---
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 Follows with [facility]iology, last saw Dr Wilson 03/19 [...] to monitor symptoms -Plan to deliver at [facility]: Delivery Planning: - Mode of delivery: [...] diagnosis of ARS and is seeing a Liability Claims Representative at the end of December. We [...] diagnosis of ARS and is seeing a Liability Claims Representative at the end of December. Previously counseled Plan: - Recommend follow up eye exame - Genetic counseling Completed on 02/01/23, declines invasive testing - Specialized anatomic survey - echocardiogram completed - Serial growth US History of tachycardia 12/30/2022 Overview (07/08/2023): History of tachycardia and atypical chest pain, followed by [facility]iology. Required metoprolol for symptomatic tachycardia [...] tachycardia and atypical chest pain, followed by [facility]. Required metoprolol for symptomatic tachycardia [...] # Pain: Controlled with above regimen. Discontinued ATTORNEY GENERAL 07/19. # MOC: Declines s/p counseling. # MOF: . Urine drug screen not indicated. Patient informed of results: N/A. # Post DVT prophylaxis: The patient has the following MAJOR risk factors cardiac disease and the following MINOR risk factors delivery. enoxaparin 40 mg daily ordered for VTE prophylaxis. # Disposition: Follow up task sent to [facility] scheduling pool. Desires discharge home today. Gestational htn w/o signific ant proteinuria, third trimester 07/15/2023 09/06/2023 Overview (07/15/2023): Patient with 2 visits to [facility] that have documented mild elevation of [...] Red Team [x] Blue Team *Delivering at [facility]*-email sent to financial team for global on 03/25/23-jlb- CHERYLE referral sent 05/05/2023 Referring Provider: Farzana Gutierrez [phone] [] or Medicare Insurance [x] Dating Criteria: [...] 08/02/23 at 0930, [facility] of delivery: [facility] [] Last clinic visit SVE: [] IOL start agent: [] Epidural: [] Consents signed: [] MOC: [] Method of feeding: [] Gamer: [] PP Depression Discussed: Assessment & Plan (07/08/2023 9:08 AM CDT): RTC 2 wks with growth scan 3rd trimester precautions discussed [x] Full MFM Care; [] Red Team [x] Blue Team *Delivering at [facility]*-email sent to financial team for global on 03/25/23-jlb- CHERYLE referral sent 05/05/2023 Referring Provider: Farzana Gutierrez [phone] [] or Medicare Insurance [x] Dating Criteria: [...] 08/02/23 at 0930, letter to pt in [facility] [x] Place of delivery: [facility] [] Last clinic visit SVE: [] IOL start agent: [] Epidural: [] Consents signed: [] MOC: [] Method of feeding: [] Gamer: [] PP Depression Discussed: Assessment & Plan [...] of Binge Drinking Not on file 06/2023 [place] Depression Scale Answer Date Recorded [place] Depression Scale Total 4 09/06/2023 The thought [...] on file Legal Sex Female 2:59 AM CERTIFIED NEURODIAGNOSTIC TECHNOLOGIST Gender Identity Female 02/01/2023 7:56 AM CDT Sexual Orientation Not on file 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 file Not on file Not on f ile Last Filed Vital Signs Vital Sign Reading Time Taken Comments Blood Pressure 120/84 09/14/2023 6:53 PM CERTIFIED NEURODIAGNOSTIC TECHNOLOGIST Pulse 71 09/14/2023 6:53 PM CERTIFIED NEURODIAGNOSTIC TECHNOLOGIST Temperature 36.9 C (98.4 F) 09/14/2023 6:53 PM CERTIFIED NEURODIAGNOSTIC TECHNOLOGIST Respiratory Rate 16 09/14/2023 6:53 PM CERTIFIED NEURODIAGNOSTIC TECHNOLOGIST Oxygen Saturation 99% 09/14/2023 6:53 PM CERTIFIED NEURODIAGNOSTIC TECHNOLOGIST Inhaled Oxygen Concentration - - Weight 72.6 kg (160 lb) 09/14/2023 6:53 PM CERTIFIED NEURODIAGNOSTIC TECHNOLOGIST Height 154.9 cm (5' 1) 09/14/2023 6:53 PM CERTIFIED NEURODIAGNOSTIC TECHNOLOGIST Body Mass Index 30.23 09/14/2023 6:53 PM CERTIFIED NEURODIAGNOSTIC TECHNOLOGIST Plan of Treatment Not on file Procedures Procedure Name Priority Date/Time Associated Diagnosis Comments THINPREP IMAGING PAP REFLEX HPV MRNA E6/E7 Routine 10/22/2016 1:38 PM CERTIFIED NEURODIAGNOSTIC TECHNOLOGIST HEPATITIS C ANTIBODY Routine 02/10/2016 3:50 PM CDT from Last 3 Months or Most Recently Relevant to Health Maintenance Results * ThinPrep Imaging Pap Reflex HPV mRNA E6/E7 (10/22/2016 1:38 PM CERTIFIED NEURODIAGNOSTIC TECHNOLOGIST) SOURCE: SEE NOTE [facility] HISTORICAL RESULTS Comment:Cervix, [...] has been evaluated with computer assisted technology. Welding Process Engineer SEE NOTE [facility] HISTORICAL RESULTS Comment: TMK, CT(ASCP) CT screening location: [place] [address] [place] [address] Test performed at [facility] [address] Director: BLAINE FERREIRA MD 10/22/2016 1:38 PM CERTIFIED NEURODIAGNOSTIC TECHNOLOGIST Gloria Turner MD LAB PATHOLOGY ORDERAB LES Final Result Performing Organization Address [facility] Co de Phone Number [facility]OR[facility] RESULTS * Hepatitis C antibody (02/10/2016 3:50 PM CDT) SIGNAL TO CUT-OFF 0.03 <1.00 [facility]OR[facility] RESULTS Comment: Test performed at [facility] [address] [place] [address] Director: JANE NEWSOME DO,MPH Hep C Ab NON-REACT SEAN NON-REACT SEAN [facility]ORICAL RESULTS 02/10/2016 3:50 PM CDT Gloria Turner MD LAB MICROBIOLOGY - GE NERAL ORDERABLES Final Result [facility]ISTORICAL RESULTS from Last 3 Months or Most Recently Relevant to Health Maintenance Insurance [facility] [employer] INSURANCE [facility] MEDICARE [facility] MEDICARE Advance Directives For more information, please contact: [phone] * Full Code (Latest Code Status on File) Date Activated Date Inactivated Comments 07/18/2023 1:48 PM 07/21/2023 5:48 PM * Full Code Date Activated Date Inactivated Comments 07/18/2023 7:36 AM 07/18/2023 1:48 PM Full CPR in case of cardiopulmonary arrest * Full Code Date Activated Date Inactivated Comments 06/24/2022 9:18 PM 06/27/2022 5:29 PM Care Teams Nuclear Powerplant Mechanic Relationship Specialty Start Date End Date Chavez Evans PA [address] [place] [address] PCP - General 08/26/18 Lizzy Thompson DO [address] [place] [address] [address] RABAGO [address] [address] Consulting Physician Otolaryngology 06/27/22
[2025-04-25 22:00] VITALS: PULSE 78; RESP 24; O2SAT 99
[2025-04-25 22:01] VITALS: BP 118/75; PULSE 80; RESP 23; O2SAT 98
[2025-04-25] MEDS: ACETAMINOPHEN 325 MG TABLET 650 MG PO (22:07)
[2025-04-25 22:09] LABS: NT Pro B Type Natriuretic Pept < 20 pg/mL (19.9-100); Troponin I < 0.012 ng/mL (0.000-0.034)
[2025-04-25 22:15] VITALS: PULSE 82; RESP 20; O2SAT 98
[2025-04-25 22:34] VITALS: TEMP 36.3
== END 2025-04-25 22:35 | disposition home or self-care (01) ==
PROVIDERS: Emergency Provider Internal Medicine Critical Care Medicine; PCP Physician Assistant
DX: R07.89 Other chest pain (principal)
CPT/HCPCS: 36415; 71045; 80053; 81001; 81025; 83605; 83880; 84484; 85025; 85380; 93005; 99284; A9270

== ENCOUNTER 2025-08-17 14:17 | Observation (INO) | payer MEDICARE, SELFPAY ==
--- NOTE | ~2025-08-17 | US_ITS ---
EXAM/PROCEDURE: US OB limited HISTORY: Previa-bleeding; 17 weeks, check placenta COMPARISON: None available. TECHNIQUE: Directed exam for evaluating placental position. FINDINGS: A single viable intrauterine gestation is present with heart rate of 153 bpm Presentation: Vertex, longitudinal. Placenta: Anterior with inferior margin of the placenta approximately 6.7 mm removed from the internal os. No gross previa. Amniotic fluid volume appears grossly normal. The cervix is not well seen. IMPRESSION: Directed examination demonstrating single bilateral intrauterine gestation; the placenta is low-lying and anterior in position. The cervix is not well seen; the inferior tip of the placenta is less than 1 cm from the internal os. Reviewed, dictated and finalized at location [facility] IMPRESSION: Directed examination demonstrating single bilateral intrauterine ge station; the placenta is low-lying and anterior in position. The cervix is not well seen; the inferior tip of the placenta is less than 1 cm from the internal os.
--- OUTSIDE RECORDS SUMMARY | 2025-08-17 14:25 | XMS_ITS | Encounter Summary ---
Author Organization [facility] Address [address] [place] [address] Phone Care Team Providers Care Perfume Compounder Name Role Phone Chavez Evans Primary Care Provider [phone] Lizzy Thompson DO Unavailable [phone] Reason for Visit * Reason Onset Date Comments Placenta Previa, bleeding/pain 08/17/2025 Encounter Details Date Type Department Care Team (Late st Contact Info) Description 08/17/2025 Telephone [facility] Medicine Maternal- Medicine [address] [facility] 7[address] [place] [address] Denisha Mcmullen, PARTH Placenta Previa, bleeding/pain Social History Tobacco Use Types Packs/Day Years Used Date Smoking Tobacco: Never Smokeless Tobacco: Never Alcohol Use Standard Drinks/Week Comments No 0 (1 standard drink = 0.6 oz pur e alcohol) AUDIT-C Answer Date Recorded Q1: How often do you have a drink containing alc ohol? Monthly or less 02/16/2023 Average Number of Drinks Not on file 023 Frequency of Binge Drinking Not on file 06/2023 [place] Depression Scale Answer Date Recorded [place] Depression Scale Total 4 09/06/2023 The thought of harming myself has occurred to me . Never 09/06/2023 Personal Safety Answer Date Recorded Have you ever been in or are you currently in a harmful physical or emotional relationship or is someone making you feel afraid or unsafe? 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 Today she is experiencing some bleeding and significant pain. Consulted with Elizabeth Ravi NP who is scheduled with her on Mon 08/20 via zoom, and she recommended that the patient immediately present to her nearest emergency department for bleeding with a known previa. This information was relayed to Annie via phone, she verbalized understanding and will present to her closest hospital for evaluation. RINARY PARASITOLOGIST documented in this encounter Plan of Treatment Not on file documented as of this encounter Visit Diagnoses Not on filedocumented in this encounter Care Teams Perfume Compounder Relationship Specialty Start Date End Date Chavez Evans PA [address] [place] [address] PCP - General 08/26/18 Lizzy Thompson DO [address] GEM Rolon [address] [address] Consulting Physician Otolaryngology 06/27/22 documented as of this encounter
--- OUTSIDE RECORDS SUMMARY | 2025-08-17 14:25 | XMS_ITS | Encounter Summary ---
Author Organization [facility] Address [address] [place] [address] Phone Care Team Providers Care Ditcher Name Role Phone Chavez Evans Primary Care Provider [phone] Lizzy Thompson DO Unavailable [phone] Encounter Details Date Type Department Care Team (Late st Contact Info) Description 08/17/2025 Telephone [facility] Medicine Obstetrics and Gynecology [address] [place] [address] Gladys Calvillo Social History Tobacco Use Types Packs/Day Years [...] of Binge Drinking Not on file 06/2023 [place] Depression Scale Answer Date Recorded [place] Depression Scale Total 4 09/06/2023 The thought [...] on file Legal Sex Female 2:59 AM BOTTOM LOADER Gender Identity Female 02/01/2023 7:56 AM CDT Sexual Orientation Not on file 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 Thanks Earnestine Previous Messages ----- Message ----- From: Regla Ravi NP Sent: 08/17/2025 12:40 PM BOTTOM LOADER To: ABE Leo This patient is scheduled for a zoom appt on Wednesday but has medicare. Does it need to be rescheduled to in person? Thanks Leroy OM LOADER documented in this encounter Plan of Treatment Not on file documented as of this encounter Visit Diagnoses Not on filedocumented in this encounter Care Teams Ditcher Relationship Specialty Start Date End Date Chavez Evans PA [address] [place] [address] PCP - General 08/26/18 Lizzy Thompson DO [address] [place] [address] DR RABAGO [address] [facility] [address] [place] [address] Consulting Physician Otolaryngology 06/27/22 documented as of this encounter
--- OUTSIDE RECORDS SUMMARY | 2025-08-17 14:25 | XMS_ITS | Clinical Summary ---
Author Organization [facility] Address [address] [place] [address] Care Team Providers Care Box Turner Name Role Phone Chavez Evans Primary Care Provider [phone] JayLizzyWilly DO Unavailable [phone] Allergies Active Allergy Reactions Criticality Noted Date Comments Adhesive Tape-Silicones Hives Medium 11/19/2017 Codeine Hives,Other (See comments),Nausea & Vomiting Medium Reaction: UNKNOWN, , , Reaction: Hives, , Duloxetine Nausea only,Nausea & Vomiting Low 06/27/2018 Latex Medium Prochlorperazine Dystonia High Medications ferrous sulfate 325 mg (65 mg of elemental iron) tabletIndicati ons:Iron Deficiency Anemia Take 1 tablet (325 mg total) by mouth daily with breakfast 30 tablet 3 3 Active Additional Information Patient not taking.Reported on 07/19/2025 famotidine (PEPCID) 20 mg tablet Take 1 tablet (20 mg total) by mouth 2 (two) times a day 60 tablet 2 3 Active Additional Information Patient not taking.Reported on 07/19/2025 propranolol LA (INDERAL LA) 60 mg 24 hr capsule Take 1 capsule (60 mg total) by mouth daily 30 capsule 11 3 Active Additional Information Patient not taking.Reported on 07/19/2025 propranoloL (INDERAL) 10 mg tablet Take 1 tablet (10 mg total) by mouth 3 (three) times a day as needed (for HR greater the 120 for at least 5-10mins.) 60 tablet 2 3 Active Additional Information Patient not taking.Reported on 07/19/2025 cyclobenzaprin e (FLEXERIL) 5 mg tablet Take 1 tablet (5 mg total) by mouth 3 (three) times a day as needed for muscle spasms 5 tablet 3 Active Additional Information Patient not taking.Reported on 07/19/2025 docusate sodium (COLACE) 100 mg capsuleIndicat ions:constipat ion,Stool Softener Take 1 capsule (100 mg total) by mouth 2 (two) times a day for 5 days 10 capsule 3 Active Additional Information Patient not taking.Reported on 07/19/2025 gabapentin (NEURONTIN) 100 mg capsule Take 2 capsules (200 mg total) by mouth 3 (three) times a day for 5 days 30 capsule 3 Active Additional Information Patient not taking.Reported on 07/19/2025 polyethylene glycol (MIRALAX) 17 gram/dose bulk powderIndicati ons:constipati on Take 17 g by mouth daily for 5 days 85 g 3 Active Additional Information Patient not taking.Reported on 07/19/2025 senna (SENOKOT) 8.6 mg tabletIndicati ons:constipati on Take 1 tablet by mouth 2 (two) times a day for 5 days 10 tablet 3 Active Additional Information Patient not taking.Reported on 07/19/2025 acetaminophen 32 mg/mL Active ofloxacin (FLOXIN) 0.3 % otic solutionIndica tions:Acute swimmer's ear of right side Administer 5 drops into the right ear daily 5 mL 3 Active Additional Information Patient not taking.Reported on 07/19/2025 al & mag hydroxide with simethicone-di phenhydramine- lidocaine (MAGIC MOUTHWASH) suspension 3-8-6Wfsevirkm ns:Viral URI with cough Take 10 mL by mouth every 6 (six) hours as needed (Sore throat) May cause drowsiness, if drowsiness is undesirable may gargle and spit. 240 mL 3 Active Additional Information Patient not taking.Reported on 07/19/2025 traMADoL (ULTRAM) 50 mg tabletIndicati ons:Anterior pleuritic pain Take 1 tablet (50 mg total) by mouth every 6 (six) hours PRN pain. Take 500 mg of acetaminophen with each dose. Take with food.Minnie schroeder physician Tian Waters MD 20 tablet 5 Active Additional Information Patient not taking.Reported on 07/19/2025 PNV no.95/ferrous fum/folic ac ( ORAL) daily 5 Active EPINEPHrine 0.3 mg/0.3 mL auto-injection syringe Inject 0.3 mL (0.3 mg total) into the muscle as instructed 5 Active aspirin 81 mg enteric coated tablet Take 1 tablet (81 mg total) by mouth daily Active metoclopramide (REGLAN) 10 mg tablet Take 1 tablet (10 mg total) by mouth every 6 (six) hours as needed (as needed for nausea and vomiting) 120 tablet 1 5 Active Active Problems Problem Noted Date Diagnosed Date Nausea and vomiting of , antepartum 07/2025 Overview (07/20/2025): - Not well controlled on unisom and patient does not like the drowsy side effect profile - Hx of 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 [] Baby ASA starting at 12 weeks gestation [] Continue to monitor blood pressures at each visit Supervision of high-risk , second trime ster 07/06/2025 Overview (07/20/2025): [] OB consult only, [x] Co-management vs. [] Full M Care; [] Red Team [] Blue Team Referring Provider: Francisco Nicole [phone] [x] or Medicare Insurance [x] Dating Criteria: 06/05/25 with NISA 01/15/26 [x] Labs: Rh [B+], Ab [negative], Rubella [immune], HIV [non-reactive], HepBSAg [non-reactive], HepBSAb [not done], HepBCAb [not done], RPR [non- reactive], Hep C [non-reactive], Varicella [not done], GC/CT [negative/negative] [x] Aneuploidy Screening: NIPT low risk [] Carrier Screening: [] Hgb electrophoresis: [x] CBC/Hgb: 11.7/35.8/plt 296 [x] Hgb A1c 06/15/25: 5.2 [x] UCx: 06/15/25: negative [x] Pap: 12/14/22: NILM [x] LD ASA (if indicated): [] EPDS [ ]; PNBHS referral (if indicated): 2nd Trimester [] Anatomy ultrasound: [] CBC/1hr gtt at 24-28wks: [] Rhogam at 28 wks (if Rh neg): 3rd Trimester [] CBC/HIV/RPR/T&S: [] GBS: [] GC/CT (if indicated): [] testing: Counseling [] MOD: [] Place of delivery: [] Epidural: [] Accepts Blood Products: [] Stop ASA: [] MOC: [] Method of feeding: [] Inventory Analyst (specifically which provider): [] PP Depression Discussed: [] PP visits scheduled: Vaccines [] Flu Shot (Jun-Sep): [] COVID vaccine: [] Tdap (27-36wks): [] RSV vaccine (32-36wks): [] PP HPV vaccine counseling (<=26 yo): Anterior pleuritic pain 04/26/2025 Pain in throat 01/03/2025 Assessment & Plan (01/03/2025 1:41 PM CDT): Feeling of something stuck in her throat. Reports possible pill. Recommend in person evaluation for physical exam. UC or CC. Patient verbalized understanding and agreed to plan of care at this time. History of section 03/25/2023 Overview (07/19/2025): History: - G1: Hx of CS under GETA due to inability to get neuraxial anesthesia (multiple spine surgeries) at 39 weeks - G2: Hx repeat CS under GETA due to inability to get neuraxial at 37 weeks for gHTN Counseling 07/19/2025: We discussed that given their history of a prior low transverse section, they are a candidate for a trial of labor after section (TOLAC). We discussed that the chance of success is highest in the setting of spontaneous labor. We discussed that risks of TOLAC include a 0.5-0.9% (110- ) risk of uterine rupture, which would necessitate emergent delivery. The risk of uterine rupture may be higher in the setting of 2 prior deliveries of 0.9-1.8% (50-). We reviewed the risks of a labored which carries higher risk than an unlabored, scheduled . We also reviewed that multiple cesareans can complicate future pregnancies and deliveries including risks of hemorrhage, need for blood transfusion, injury to surrounding organs, and risk of placenta-accreta spectrum. Based on the [facility] Calculator and their risk factors, they have been estimated to have a 56.3% chance of successful . 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 Follows with [facility] Cardiology, last saw Dr Wilson 06/08/2023 Stress echo 02/2020: LV low normal systolic function, LVEF 55%. Upper normal RV size with normal systolic function. Normal diastolic function. Mild MR, mild TR. PASP 25+3. Cardiac cath 2017: likely involution of coronary artery fistula with normal coronary anatomy Echo 05/31/2023: Left ventricular systolic function is normal. EF 56%. Mild mitral and tricuspid regurg. RVSP normal. 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 Her child does have a diagnosis of ARS. G2 was also uncomplicated from perspective. Her child does not have a diagnosis of ARS. We reviewed increased risk for growth restriction, congenital heart disease and other structural anomalies. We reviewed inheritance pattern for ARS, which Ms. Barnett is familiar with. She is NOT interested in genetic counseling. We discussed potential for diagnostic genetic testing for current in the setting of known single-gene variant. Plan: [] Recommend follow up eye exam, pt to schedule [] [] [] Specialized anatomic survey at 18-20 weeks - ordered 07/19 [] echocardiogram a 20-22 weeks - ordered 07/19 [] Serial growth US starting at 24 weeks gestation Assessment & Plan (07/15/2023 12:47 PM CDT): [...] diagnosis of ARS and is seeing a Travel Pt at the end of December. Previously counseled Plan: - Recommend follow up eye exame - Genetic counseling Completed on 02/01/23, declines invasive testing - Specialized anatomic survey - echocardiogram completed - Serial growth US History of tachycardia 12/30/2022 Overview (07/20/2025): History of tachycardia and atypical chest pain, followed by [facility]iology. Required metoprolol for symptomatic tachycardia and palpitations in prior . She previously trialed verapamil, which did not alleviate symptoms. Transition back to metoprolol in May 2022, however stopped medication when she became . Restarted March 2023, switched to propanolol. Weaned off of meds to see how she'd respond. However, since , has had increased episodes of dizziness/lightheadedness with increased heart rate. Likely inappropriate sinus tachycardia, possible POTS. Most recent EKG 04/2025 - NSR Plan: [x] Referral sent to reestablish with Cardiology (Dr. Wilson) [] Consider restarting propanolol versus metoprolol [] Serial growth US if restarting beta dee dee [] Telemetry at time of delivery Assessment & Plan (07/15/2023 12:46 PM CDT): Maternal HR wnl. At risk for hypoglycemia. Assessment & Plan (07/08/2023 9:06 AM CDT): History of tachycardia and atypical chest pain, followed by [facility] Cardiology. Required metoprolol for symptomatic tachycardia [...] changes, compression socks, metoprolol Scoliosis 12/30/2022 Overview (07/20/2025): History of multiple spinal fusions, 13 surgeries, including thoracic and lumbar spine. Prior pregnancies required GETA due to contraindication for regional anesthesia. [] Plan for 3rd trimester anesthesia consult Assessment & Plan (07/08/2023 9:07 AM CDT): [...] monitor I will check a TSH today Estimated Date of Delivery Comme nts Yes 01/12/2026 Based on last me nstrual period of 04/07/2025 Resolved Problems Problem Noted Date Diagnosed Date [...] # Pain: Controlled with above regimen. Discontinued MANAGER DATABASE ADMINISTRATION 07/19. # MOC: Declines s/p counseling. # MOF: . Urine drug screen not indicated. Patient informed of results: N/A. # Post DVT prophylaxis: The patient has the following MAJOR risk factors cardiac disease and the following MINOR risk factors delivery. enoxaparin 40 mg daily ordered for VTE prophylaxis. # Disposition: Follow up task sent to [facility] scheduling pool. Desires discharge home today. Gestational htn w/o signific ant proteinuria, third trimester 07/15/2023 09/06/2023 Overview (07/15/2023): Patient with 2 visits to [facility] that have documented mild elevation of [...] trimester 12/30/2022 09/06/2023 Overview (07/08/2023): [x] Full [facility] Care; [] Red Team [x] Blue Team *Delivering at [facility]*-email sent to [employer] for global on 03/25/23-jlb- CHERYLE referral sent 05/05/2023 Referring Provider: Farzana Gutierrez [phone] [] or Medicare Insurance [x] Dating Criteria: LMP 11/01/22 NISA 08/08/23 US 12-14-2022 NISA 08/08/23 [x] Labs: Rh [B+], [...] 08/02/23 at 0930, letter to pt in [facility] [x] Place of delivery: [facility] [] Last clinic visit SVE: [] IOL start agent: [] Epidural: [] Consents signed: [] MOC: [] Method of feeding: [] Inventory Analyst: [] PP Depression Discussed: Assessment & Plan (07/08/2023 9:08 AM CDT): RTC 2 wks with growth scan 3rd trimester precautions discussed [x] Full MFM Care; [] Red Team [x] Blue Team *Delivering at [facility]*-email sent to financial team for global on 03/25/23-jlb- CHERYLE referral sent 05/05/2023 Referring Provider: Farzana Gutierrez [phone] [] or Medicare Insurance [x] Dating Criteria: [...] 08/02/23 at 0930, letter [facility] pt [facility] [x] Place of delivery: [facility] [] Last clinic visit SVE: [] IOL start agent: [] Epidural: [] Consents signed: [] MOC: [] Method of feeding: [] Inventory Analyst: [] PP Depression Discussed: Assessment & Plan [...] Encounters Date Type Department Care Team Description 08/17/2025 Telephone [facility] Medicine Obstetrics and Gynecology [address] [place] [id number] Gladys Calvillo 08/17/2025 Telephone [facility] Medicine Maternal- Medicine [address] [place] [address] 7th [address] [place] [phone] Denisha Mcmullen RN Placenta Previa, bleeding/pain 08/13/2025 8:51 AM BENCH MOVER - 08/13/2025 11:59 PM BENCH MOVER Hospital Encounter [facility] - Ultrasound [address] [place] [address], 7th Floor, [address] [place], [place] [id number] Encounter for follow-up ultrasound of anatomy (Primary Dx); Axenfeld-Jessica syndrome; Supervision of high-risk , second trimester; History of coronary artery fistula, s/p involution; History of section; History of gestational hypertension Discharge Disposition: Discharge to home or self care 07/30/2025 Telephone [facility] Medicine Obstetrics and Gynecology [facility] [place] [address] Gladys Calvillo 07/25/2025 Telephone [facility] Medicine Obstetrics and Gynecology [facility] [place] [address] Gladys Calvillo 07/19/2025 2:15 PM CDT Office Visit [facility] Medicine Maternal- Medicine [address] [facility] 7th Floor [address] [place] [address] Axenfeld-Jessica syndrome (Primary Dx); Supervision of high-risk , second trimester; History of coronary artery fistula, s/p involution; History of section; History of gestational hypertension; History of tachycardia; Scoliosis, unspecified scoliosis type, unspecified spinal region 07/19/2025 1:30 PM CDT - 07/19/2025 11:59 PM CDT Hospital Encounter [facility] - Ultrasound [address] [place] [address], 7th Floor, [address] [place] [address] Supervision of high-risk , unspecified trimester Discharge Disposition: Discharge to home or self care 07/04/2025 Telephone [facility] Medicine Obstetrics and Gynecology [address] [place] [id number] Yarelis Becker from Last 3 Months Immunizations Immunization Administration [...] History Relation Name Comments Diabetes Maternal Grandmother Kristy hartley Diabete s mellitus; Heart attack Maternal Grandmother Kristy hartley Myocard ial infarction; Hypertension Maternal Grandmother Kristy hartley Hyperte nsion; Stroke Maternal Grandmother Kristy hartley Stroke; Migraines Mother Migraine; Relation Name Status Comments Maternal Grandmother Kristy hartley Mother Social History Tobacco Use Types Packs/Day [...] of Binge Drinking Not on file 06/2023 [place] Depression Scale Answer Date Recorded [place] Depression Scale Total 4 09/06/2023 The thought [...] on file Legal Sex Female 2:59 AM BENCH MOVER Gender Identity Female 02/01/2023 7:56 AM CDT Sexual Orientation Not on file 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 Not on file Not on file Not on f ile Obstetrics History Para Term AB IAB SAB Ectopic Multiple Livin g Live Births 3 2 2 0 0 0 2 2 Date Outcome GA Total Labor Labor/2nd/3rd Weight Sex Type Anes PTL Estefanía A1 A5 Name Clin 2015 Term 39w 0d 3.515 kg (7 lb 12 oz) F C-Sec tion Livin g 2022 Term 37w 0d 0h 02m 0h 02m 3.06 kg (6 lb 11.9 oz) F C-Sec tion Genera l N Livin g 4 9 NARCISO OLAZIZA W,GIR HELIOALE Y Quinn l, Herbert Galindo MD Complications:None Delivery Location:[facility] Main C ampus ([facility] L AND D PROCEDURE) Current Summary Episode Dates Number of Fetuses Estimated Date of Delivery 07/06/2025 - Present (08/17/2025) 01/12/2026 (set by Jonatan Andre MD on 07/19/2025 based on Last Menstrual Period on 04/07/2025) Dating Summary Based On NISA GA Diff Last Menstrual Period on 04/07/2025 01/12/2026 Working Ultrasound on 06/05/2025 01/15/2026 -3d GA:8w0d Ultrasound on 07/03/2025 01/10/2026 +2d GA:12w5d Vitals Pregravid Weight Height TWG (As of 08/17/2025) Pregrav id BMI 154.9 cm (5' 1) Date GA Fund Present FHR Mvmt BP Weight Edema Alb Glu Ket Dil/ Eff/Sta 5 14w5d Inpatient data not displayed here. See encounter summary. 5 18w2d Inpatient data not displayed here. See encounter summary. Notes Progress Notes - Office Visi t - 07/19/2025 - GA:14w5d 07/19/2025 - 14w5d - Bennie Andre MD Maternal Medicine Consult Note Reason for Consult: Maternal Axenfeld-Jessica Syndrome Requesting Provider: Francisco Nicole MD Dear Dr. Nicole, We had the pleasure of seeing your patient Julián Barnett in our office today. As you know, she is a 30 y.o. at 14w5d by LMP consistent with 1st trimester Ultrasound here today for a consult regarding maternal Axenfeld-Jessica Syndrome. Her is also complicated by hx CS x2, hx coronary artery fistula s/p likely involution, vision loss of left eye, hx inappropriate sinus tachycardia, scoliosis require multiple spinal surgeries, and N/V of . This is an unplanned but desired . Today she is doing well, she reports nausea that is not responsive to unisom. Starting the past week, she has had intermittent episodes of lightheadedness/dizziness that is associated with transient dyspnea. These episodes resolve after sitting down or vomiting. She will put her pulse ox on and HR will be in the 120s. She's been off of her beta dee dee since the last to see how she would respond. She was doing well until these episodes. Denies vaginal bleeding or cramping. 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 Strauss MYRINGOTOMY W/ TUBES 11/10/2001 SPINAL FUSION (lumbar spine 1998, 1999, 2000, 2001), (thoracic spine 1999, anterior fusion T7- L1 with rods, T5-L3 with 3 subsequent lengthening procedures), (thoracic spine 2003, posterior fusion T4-L2, anterior spine, diskectomy with local bone graft T5-T12) TONSILLECTOMY 2013 TONSILLECTOMY/ADENOIDECTOMY Tonsillectomy and adenoidectomy TYMPANOSTOMY TUBE PLACEMENT Ear tubes Past Gynecologic History: Prior STIs: denies History of abnormal pap: denies Last pap smear: 12/14/22 was NILM Patient's last menstrual period was 04/07/2025. Denies history of uterine anomalies or fibroids OB History Para Term AB Living 3 2 2 0 0 2 SAB IAB Ectopic Multiple Live Births 0 2 # Outcome Date GA Lbr Malachi/2nd Weight Sex Type Anes PTL Lv 3 Current 2 Term 07/18/23 37w0d 3.06 kg (6 lb 11.9 oz) F Gen N ESTEFANÍA 1 Term 09/14/16 39w0d 3.515 kg (7 lb 12 oz) F ESTEFANÍA Current Outpatient Medications Medication Sig Dispense Refill aspirin 81 mg enteric coated tablet Take 1 tablet (81 mg total) by mouth daily EPINEPHrine 0.3 mg/0.3 mL auto-injection syringe Inject 0.3 mL (0.3 mg total) into the muscle as instructed PNV no.95/ferrous fum/folic ac ( ORAL) daily acetaminophen 32 mg/mL (Patient not taking: Reported on 07/19/2025) al & mag hydroxide with ziebhzylnxd-ktddapybfbpiaqr-gphlwxzrh (MAGIC MOUTHWASH) suspension 1-1-1 Take 10 mL by mouth every 6 (six) hours as needed (Sore throat) May cause drowsiness, if drowsiness is undesirable may gargle and spit. (Patient not taking: Reported on 07/19/2025) 240 mL 0 cyclobenzaprine (FLEXERIL) 5 mg tablet Take 1 tablet (5 mg total) by mouth 3 (three) times a day as needed for muscle spasms (Patient not taking: Reported on 07/19/2025) 5 tablet 0 docusate sodium (COLACE) 100 mg capsule Take 1 capsule (100 mg total) by mouth 2 (two) times a day for 5 days (Patient not taking: Reported on 07/19/2025) 10 capsule 0 famotidine (PEPCID) 20 mg tablet Take 1 tablet (20 mg total) by mouth 2 (two) times a day (Patient not taking: Reported on 07/19/2025) 60 tablet 2 ferrous sulfate 325 mg (65 mg of elemental iron) tablet Take 1 tablet (325 mg total) by mouth daily with breakfast (Patient not taking: Reported on 07/19/2025) 30 tablet 3 gabapentin (NEURONTIN) 100 mg capsule Take 2 capsules (200 mg total) by mouth 3 (three) times a day for 5 days (Patient not taking: Reported on 07/19/2025) 30 capsule 0 metoclopramide (REGLAN) 10 mg tablet Take 1 tablet (10 mg total) by mouth every 6 (six) hours as needed (as needed for nausea and vomiting) 120 tablet 1 ofloxacin (FLOXIN) 0.3 % otic solution Administer 5 drops into the right ear daily (Patient not taking: Reported on 07/19/2025) 5 mL 0 polyethylene glycol (MIRALAX) 17 gram/dose bulk powder Take 17 g by mouth daily for 5 days (Patient not taking: Reported on 07/19/2025) 85 g 0 propranoloL (INDERAL) 10 mg tablet Take 1 tablet (10 mg total) by mouth 3 (three) times a day as needed (for HR greater the 120 for at least 5-10mins.) (Patient not taking: Reported on 07/19/2025) 60 tablet 2 propranolol LA (INDERAL LA) 60 mg 24 hr capsule Take 1 capsule (60 mg total) by mouth daily (Patient not taking: Reported on 07/19/2025) 30 capsule 11 senna (SENOKOT) 8.6 mg tablet Take 1 tablet by mouth 2 (two) times a day for 5 days (Patient not taking: Reported on 07/19/2025) 10 tablet 0 traMADoL (ULTRAM) 50 mg tablet Take 1 tablet (50 mg total) by mouth every 6 (six) hours PRN pain. Take 500 mg of acetaminophen with each dose. Take with food.Collaborating physician Tian Waters MD (Patient not taking: Reported on 07/19/2025) 20 tablet 0 No current facility-administered medications for this visit. Family History: Family History Problem Relation Age of Onset Migraines Mother Migraine; Diabetes Maternal Grandmother Diabetes mellitus; Heart attack Maternal Grandmother Myocardial infarction; Stroke Maternal Grandmother Stroke; Hypertension Maternal Grandmother Hypertension; Neural tube defects: No Down syndrome or other chromosomal anomalies: No Hemophilia, sickle cell, bleeding/clotting disorder: No Muscular dystrophy: No Cystic fibrosis: No Intellectual disability or Fragile X: No Bertha disease: No Other defects or genetic disorders: No Allergies Allergen Reactions Prochlorperazine Dystonia Adhesive Tape-Silicones Hives Codeine Hives, Other (See comments) and Nausea & Vomiting Reaction: UNKNOWN, , , Reaction: Hives, , Latex Duloxetine Nausea only and Nausea & Vomiting Social History Tobacco Use Smoking status: Never Smokeless tobacco: Never Substance and Sexual Activity Drug use: No Sexual activity: Yes Partners: Male control/protection: None Alcohol Use: Unknown (02/16/2023) AUDIT-C Frequency of Alcohol Consumption: Monthly or less Average Number of Drinks: Not on file Frequency of Binge Drinking: Not on file Recent Concern: Alcohol Use - Alcohol Misuse (02/16/2023) AUDIT-C Frequency of Alcohol Consumption: Monthly or less Average Number of Drinks: 7 to 9 Frequency of Binge Drinking: Less than monthly Smoke cigarettes, cigars, E-cigs: No Beer, wine, or liquor: No Street drugs/marijuana: No Dating: NISA of Estimated Date of Delivery: 01/12/26 based on LMP c/w 1st trimester US Review of Systems Review of systems per HPI and otherwise all systems are negative Physical Exam Vitals BP 105/75 (BP Location: Left arm, Patient Position: Sitting) Pulse 106 Ht 154.9 cm (5' 1) Wt 165 lb 6.4 oz (75 kg) LMP 04/07/2025 SpO2 99% BMI 31.25 kg/m General: Healthy, alert, active, cooperative, and in no distress Heart: tachycardic rate Lungs: no increased effort of breathing Abdomen: soft, nontender Extremities: warm, well-perfused without cyanosis, clubbing or edema Pelvic: deferred Ultrasound 07/19/2025: 14w5d SLIUP, biometry c/w menstrual age, FGR 158 bpm Please see the separate report for full details Assessment: Ms. Julián Barnett is a danika 30 y.o. at 14w5d here today for a consult regarding: Recommendations: Problem Nausea and Vomiting of , Antepartum - Not well controlled on unisom and patient does not like the drowsy side effect profile - Hx of dystonia on compazine - Rx sent for reglan PRN for breakthrough nausea, sent on 07/19 Supervision of High-Risk , Second Trimester [] OB consult only, [x] Co-management vs. [] Full MFM Care; [] Red Team [] Blue Team Referring Provider: Francisco Nicole [phone] [x] or Medicare Insurance [x] Dating Criteria: US 06/05/25 with NISA 01/15/26 [x] Labs: Rh [B+], Ab [negative], Rubella [immune], HIV [non-reactive], HepBSAg [non-reactive], HepBSAb [not done], HepBCAb [not done], RPR [non- reactive], Hep C [non-reactive], Varicella [not done], GC/CT [negative/negative] [x] Aneuploidy Screening: NIPT low risk [] Carrier Screening: [] Hgb electrophoresis: [x] CBC/Hgb: 11.7/35.8/plt 296 [x] Hgb A1c 06/15/25: 5.2 [x] UCx: 06/15/25: negative [x] Pap: 12/14/22: NILM [x] LD ASA (if indicated): [] EPDS [ ]; PNB[facility] referral (if indicated): 2nd Trimester [] Anatomy ultrasound: [] CBC/1hr gtt at 24-28wks: [] Rhogam at 28 wks (if Rh neg): 3rd Trimester [] CBC/HIV/RPR/T&S: [] GBS: [] GC/CT (if indicated): [] testing: Counseling [] MOD: [] Place of delivery: [] Epidural: [] Accepts Blood Products: [] Stop ASA: [] MOC: [] Method of feeding: [] Inventory Analyst (specifically which provider): [] PP Depression Discussed: [] PP visits scheduled: Vaccines [] Flu Shot (Jun-Sep): [] COVID vaccine: [] Tdap (27-36wks): [] RSV vaccine (32-36wks): [] PP HPV vaccine counseling (<=26 yo): History of coronary artery fistula, 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 Follows with [facility]iology, last saw Dr Wilson 06/08/2023 Stress echo 02/2020: LV low normal systolic function, LVEF 55%. Upper normal RV size with normal systolic function. Normal diastolic function. Mild MR, mild TR. PASP 25+3. Cardiac cath 2017: likely involution of coronary artery fistula with normal coronary anatomy Echo 05/31/2023: Left ventricular systolic function is normal. EF 56%. Mild mitral and tricuspid regurg. RVSP normal. 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 Her child does have a diagnosis of ARS. G2 was also uncomplicated from perspective. Her child does not have a diagnosis of ARS. We reviewed increased risk for growth restriction, congenital heart disease and other structural anomalies. We reviewed inheritance pattern for ARS, which Ms. Barnett is familiar with. She is NOT interested in genetic counseling. We discussed potential for diagnostic genetic testing for current in the setting of known single-gene variant. Plan: [] Recommend follow up eye exam, pt to schedule [] [] [] Specialized anatomic survey at 18-20 weeks - ordered 10/9 [] echocardiogram a 20-22 weeks - ordered 07/19 [] Serial growth US starting at 24 weeks gestation History of tachycardia History of tachycardia and atypical chest pain, followed by [facility]iology. Required metoprolol for symptomatic tachycardia and palpitations in prior . She previously trialed verapamil, which did not alleviate symptoms. Transition back to metoprolol in May 2022, however stopped medication when she became . Restarted March 2023, switched to propanolol. Weaned off of meds to see how she'd respond. However, since , has had increased episodes of dizziness/lightheadedness with increased heart rate. Likely inappropriate sinus tachycardia, possible POTS. Most recent EKG 04/2025 - NSR Plan: [x] Referral sent to reestablish with Cardiology (Dr. Wilson) [] Consider restarting propanolol versus metoprolol [] Serial growth US if restarting beta dee dee [] Telemetry at time of delivery Scoliosis History of multiple spinal fusions, 13 surgeries, including thoracic and lumbar spine. Prior pregnancies required GETA due to contraindication for regional anesthesia. [] Plan for 3rd trimester anesthesia consult We have scheduled her to return in 4 weeks with a detailed anatomy US. Julián plans to deliver here at [facility]. Thank you for the opportunity to be involved in the care of your patient. Should you have any further questions or concerns, please do not hesitate to call us. She was seen and examined with Dr. Hope who is in agreement with the documented assessment and plan. Dede Andre MD Maternal Medicine Fellow Department of Obstetrics and Gynecology, PGY-5 Cosigned by Mamadou Hope MD at 07/23/2025 6:07 AM CDT Associated attestation - Mamadou Hope MD - 07/23/2025 6:07 AM CDT I have seen and examined the patient. I agree with the findings and plan of care as documented in the resident/fellow's note. My total encounter time on 07/19/2025 was 45 minutes which was spent in the activities documented in the note. This includes time spent prior to the visit and after the visit in direct care of the patient. This time does not include time spent in any separately reportable services. Progress Notes - Abstract - 07/06/2025 - GA:12w6d 07/06/2025 - 12w6d - Radha Alexander RMA Current OB records are under media tab. 2022 MFM and records are in [facility]. Cardiology records are also in [facility]. Most recent visit was 06/01/22. Echo from 05/31/23 is also in [facility]. Last Filed Vital Signs Vital Sign Reading Time Taken Comments Blood Pressure 105/75 07/19/2025 2:40 PM CDT Pulse 106 07/19/2025 2:40 PM CDT Temperature 36.8 C (98.2 F) 04/26/2025 2:42 PM CDT Respiratory Rate 16 04/26/2025 6:47 PM CDT Oxygen Saturation 99% 07/19/2025 2:40 PM CDT Inhaled Oxygen Concentration - - Weight 75 kg (165 lb 6.4 oz) 07/19/2025 2:40 PM CDT Height 154.9 cm (5' 1) 07/19/2025 2:40 PM CDT Body Mass Index 31.25 07/19/2025 2:40 PM CDT Plan of Treatment Health Maintenance Due Date Last Done Comments Hepatitis B Screening 2013 Regular Well Visit/Exam 18-64 2013 Cervical Cancer Screening 10/22/2017 10/22/2016 HPV Vaccines (1 - 3-dose SCD M series) 2022 Varicella Vaccines (2 of 2 - 13+ 2-dose series) 08/18/2023 07/21/2023 Depression Screening 09/06/2024 09/06/2023 Influenza Vaccine (#1) 2025 07/11/2016 DTaP/Tdap/Td Vaccine (3 - Td or Tdap) 05/20/2033 05/20/2023, 09/07/2016 Hepatitis C Screening Completed 06/15/2025 , 02/10/2016 Pneumococcal vaccine <65 Aged Out No longer eligible based on patient's age to complete this topic Procedures Procedure Name Priority Date/Time Associated Diagnosis Comments US OB DETAIL ANATOMY SINGLE OR FIRST GESTATION Schedule Routine, Read Routine (OP Routine) 08/13/2025 8:51 AM BENCH MOVER Axenfeld-Jessica syndrome Supervision of high-risk , second trimester History of coronary artery fistula, s/p involution History of section History of gestational hypertension US OB LIMITED Schedule Routine, Read Routine (OP Routine) 07/19/2025 1:53 PM CDT Supervision of high-risk , unspecified trimester HEMOGLOBIN A1C Routine 06/15/2025 ABO/RH Routine 06/15/2025 CBC WITHOUT DIFFERENTIAL Routine 06/15/2025 ANTIBODY SCREEN Routine 06/15/2025 RUBELLA IGG Routine 06/15/2025 RPR Routine 06/15/2025 HEPATITIS B SURFACE ANTIGEN Routine 06/15/2025 HEPATITIS C ANTIBODY Routine 06/15/2025 HIV 1/2 ANTIBODY PLUS P24 ANTIGEN Routine 06/15/2025 URINE CULTURE Routine 06/15/2025 CHLAMYDIA TRACHOMATIS CULTURE Routine 06/05/2025 N. GONORRHOEAE CULTURE Routine 06/05/2025 THINPREP IMAGING PAP REFLEX HPV MRNA E6/E7 Routine 10/22/2016 1:38 PM BENCH MOVER from Last 3 Months or Most Recently Relevant to Health Maintenance Results * US Ob Detail Anatomy Single Or First Gestation (08/13/2025 8:51 AM BENCH MOVER) Fetus# Fetus1 VIEWPOINT Estimated Weight 257 g&grams VIEWPOINT Placenta Details left lateral wrapping anterior and posterior and completely covering the internal os, Previa-yes VIEWPOINT Presentation Breech VIEWPOINT Anatomical Region Laterality Modality Body N/A Ultrasound 08/13/2025 8:52 AM BENCH MOVER Impressions 08/13/2025 10:36 AM BENCH MOVER Normal biometry and amniotic fluid. Detailed anatomic assessment as above which appeared grossly normal within the limitations of ultrasound with several exceptions today due to position. Normal adnexa. TVCL was long and closed. Placenta does cover the internal os today which we discussed is consistent with placenta previa, precautions discussed as well. Narrative Procedure Note Toña Oconnor MD - 08/13/2025 IMPRESSION: Normal biometry and amniotic fluid. Detailed anatomic assessment as abovewhich appeared grossly normal within the limitations of ultrasoundwith several exceptions today due to position. Normal adnexa. TVCLwas long and closed. Placenta does cover the internal os today which wediscussed is consistent with placenta previa, precautions discussed aswell. Mamadou Hope MD IMG OB US PROCEDU RES Final Result * US Ob Limited (07/19/2025 1:53 PM CDT) Fetus# Fetus1 VIEWPOINT Estimated Weight 115 g&grams VIEWPOINT Placenta Details anterior VIEWPOINT Presentation Breech VIEWPOINT Anatomical Region Laterality Modality Abdomen N/A Ultrasound 07/19/2025 1:54 PM CDT Impressions 07/19/2025 3:35 PM CDT 1. A single intrauterine was seen. 2. The biometry is c/w menstrual age. 3. The ovaries appeared normal bilaterally. Narrative Procedure Note Belle Cortes MD - 07/19/2025 IMPRESSION: 1. A single intrauterine was seen. 2. The biometry is c/w menstrual age. 3. The ovaries appeared normal bilaterally. us Francisco Nicole MD IMG OB US PROCEDURES Final Resu lt * HIV 1/2 Antibody plus p24 Antigen Blood (06/15/2025) SCRIBED HIV P24 Nonreactive Nonreactive , Invalid Blood Result Leobardo Nicole MD LAB MICROBIOLOGY - GENERAL ORDE RABLES Final Result * Hepatitis C antibody Blood (06/15/2025) SCRIBED HCV ab non-reacti ve Blood Result Leobardo Nicole MD LAB MICROBIOLOGY - GENERAL ORDE RABLES Final Result * ABO/Rh (06/15/2025) SCRIBED ABO/Rh B+ Blood us Francisco Nicole MD LAB BLOOD BANK TEST ORDERABLES Final Result * Rubella IgG antibody Blood (06/15/2025) Rubella IgG Scribed Immune Blood Result Leobardo Nicole MD LAB MICROBIOLOGY - GENERAL ORDE RABLES Final Result * RPR Blood (06/15/2025) SCRIBED RPR Non-Reacti ve Non-Reacti ve Blood Result Leobardo Nicole MD LAB MICROBIOLOGY - GENERAL ORDE RABLES Final Result * Hepatitis B Surface Antigen Blood (06/15/2025) SCRIBED HBsAg Nonreactive Nonreactive , Invalid Blood us Francisco Nicole MD LAB MICROBIOLOGY - GENERAL ORDE RABLES Final Result * CBC without differential (06/15/2025) Hct 35.8 Hgb 11.7 Plt 296 Blood us Francisco Nicole MD LAB BLOOD ORDERABLES Final Resu lt * Antibody screen (06/15/2025) Pathologist [facility] SCRIBED Indirect Antiglobulin negative Blood us Francisco Nicole MD LAB BLOOD BANK TEST ORDERABLES Final Result * Urine culture (06/15/2025) [facility] SCRIBED Urine culture negative us Francisco Nicole MD LAB MICROBIOLOGY - GENERAL ORDE RABLES Final Result * Hemoglobin A1c (06/15/2025) [facility] SCRIBED Hemoglobin A1c 5.2 4.0 - 5.6 % Blood us Francisco Nicole MD LAB BLOOD ORDERABLES Final Resu lt * Chlamydia trachomatis culture (06/05/2025) Pathologist [facility] SCRIBED Chlamydia culture negative us Francisco Nicole MD LAB MICROBIOLOGY - GENERAL ORDE RABLES Final Result * N. gonorrhoeae culture (06/05/2025) [facility] SCRIBED Gonorrhea culture negative us Francisco Nicole MD LAB MICROBIOLOGY - GENERAL ORDE RABLES Final Result * ThinPrep Imaging Pap Reflex HPV mRNA E6/E7 (10/22/2016 1:38 PM BENCH MOVER) Pathologist [facility] SOURCE: SEE NOTE [facility] HISTORICAL RESULTS Comment:Cervix, [...] has been evaluated with computer assisted technology. Vocational Counselor SEE NOTE [facility] HISTORICAL RESULTS Comment: TMK, CT(ASCP) CT screening location: [place] [address] [place] [id number] Test performed at [facility] [place] [address] [place] [address] Director: BLAINE FERREIRA MD 10/22/2016 1:38 PM BENCH MOVER Gloria Turner MD LAB PATHOLOGY ORDERAB LES Final Result [facility] HISTORICAL RESULTS from Last 3 Months or Most Recently Relevant to Health Maintenance Insurance [facility] [place] [address] MEDICARE MEDICARE [facility] [employer] Advance Directives For more information, please contact: [phone] * Full Code (Latest Code Status on File) Date Activated Date Inactivated Comments 07/18/2023 1:48 PM 07/21/2023 5:48 PM * Full Code Date Activated Date Inactivated Comments 07/18/2023 7:36 AM 07/18/2023 1:48 PM Full CPR in case of cardiopulmonary arrest * Full Code Date Activated Date Inactivated Comments 06/24/2022 9:18 PM 06/27/2022 5:29 PM Care Teams Box Turner Relationship Specialty Start Date End Date Chavez Evans PA [address] [place] [address] PCP - General 08/26/18 Lizzy Thompson DO [address] [place] [address] DR GEM Rolon [address] [address] Consulting Physician Otolaryngology 06/27/22
--- OUTSIDE RECORDS SUMMARY | 2025-08-17 14:25 | XMS_ITS | Data Portability ---
Author Organization [facility] Address [address] [place] [address] Care Team Providers Care Aquaculture Program Director Name Role Phone IZABEL EVANS Primary Care Provider [phone] Assessment No assessment recorded. Plan of Treatment Reminders Order Date Submit Date Provider Last Modified By Organization Details Last Modified Time Details Appointments None recorded. Lab None recorded. Referral neurologis t referral 2023 024 [facility], [address] [place], [address], 4 15:59:08 Procedures None recorded. Surgeries None recorded. Imaging CT, sinuses, w/o contrast - PA started 2022 023 dtrima Barrera (Radiology), [address] [place] [address] [place], [address], 3 09:18:06 Medication Orders epinephrin e 0.3 mg/0.3 mL injection, auto-injec tor 2024 025 [place] [id number], [address] [place], [address], 5 12:00:17 clindamyci n HCl 300 mg capsule 2022 023 [id number], [address] [place], [address], 3 10:59:00 mupirocin 2 % topical ointment 2022 023 [id number], [address] [place], [address], 11:40:29 Patient TargetsNo targets recorded. 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 Tanya sis was perfo rmed by Myranda Chapman ed Plasm a Mass Spect romet ry (ICPM S) Note 1 This test was devel oped and its tanya tical perfo rmanc e rodrigo cteri stics have been deter mined by [facility]. It has not been clear ed or appro sumeet by the FDA. This assay has been valid ated pursu ant to the CLIA regul ation s and is used for clini mj purpo ses. Ethni city: Not Hispa julio or Latin o Perfo rming Organ izati on Infor matio n: Site ID: [id number] Name: [facility]Julio sai [facility] Addre ss: [id number] [facility] [place] [address] Direc tor: Roselyn perez M.D. Not Available Not Available 05/07/2025 16:06:50 02/02/20 23 02/01/2023 Bacte myriam ident ified in Urine by Cultu re result report SEE RESULT S BELOW Test: Cultu re: Urine Speci men Sourc e: Urine Voide d Speci men Type: Urine Speci men Date: 2022 3:45 PM Resul t Date: 2022 5:50 AM Resul t Statu s: Final resul t Abnor mal: No Resul ting Lab: [facility] [address] [facility] [address] Tel: CULTU RE ----- ----- ----- --- No growt h in 1 day (dete ction level of 10,00 0 colon ies / ml.) Not Available Not Available 05/07/2025 16:06:50 02/02/20 23 02/01/2023 Drugs ident ified in Urine by Scresukh cleaning metho judy Nomin al amphetamines : negati ve Not Available Not Available 16:06:50 02/02/20 23 02/01/2023 Drugs ident ified in Urine by Scree n metho d Nomin al cannabinoids : negati ve Not Available Not Available 16:06:50 02/02/20 23 02/01/2023 Drugs ident ified in Urine by Scree n metho d Nomin al opiates: negati ve Not Available Not Available 16:06:50 02/02/20 23 02/01/2023 Drugs ident ified in Urine by Scree n metho d Nomin al benzodiazepi stephen: negati ve Not Available Not Available 16:06:50 03/01/20 23 03/01/2023 Reagi n Ab [Pres ence] in Serum by RPR RPR screen Nonrea ctive text: nonrea ctive Not Available Not Available 05/07/2025 16:06:50 0503/01/2023 Hemog lobin A1c/H emogl obin. total in Blood hemoglobin A1C/hemoglob in.total in blood text: 0-5.6 [facility] [facility] [...] >8.0% Actio n sugge sted Not Available Not Available 05/07/2025 16:06:50 03/01/20 23 03/01/2023 Rubel la virus IgG Ab [Tite r] in Serum rubella antibodies, IgG Reacti ve text: reacti ve Not Available Not Available 05/07/2025 16:06:50 03/01/20 23 03/01/2023 Rubel la virus IgG Ab [Tite r] in Serum rubella antibodies, IgG quant text: >=10 Non-r eacti ve (Non- Immun e) <10 IU/mL React boy (Immu ne) > or = 10 IU/mL Not Available Not Available 05/07/2025 16:06:50 03/01/20 23 03/01/2023 Thyro tropi n [Unit s/vol ume] in Serum or Plasm a TSH text: 0.30-5 .33 Not Available Not Available 05/07/2025 16:06:50 03/01/20 23 03/01/2023 Hepat itis B virus surfa ce Ag [Pres ence] in Serum hepatitis B surface antigen Non-re active text: non-re active This assay was perfo rmed using [facility] [employer] ratio n reage nts and test kits. Value s obtai bobby with other assay metho ds or kits canno t be used inter chin eably . Not Available Not Available 05/07/2025 16:06:50 03/01/20 23 03/01/2023 Hepat itis C virus Ab [Unit s/vol ume] in Serum hepatitis C antibody Non-re active text: non-re active Antib odies to HCV Not Detec pricila, does not exclu de the possi bilit y of expos ure to HCV. Not Available Not Available 05/07/2025 16:06:50 03/01/20 23 03/01/2023 CBC W Auto Diffe renti al panel - Blood WBC text: 3.6-10 .2 Not Available Not Available 05/07/2025 16:06:50 03/01/20 23 03/01/2023 CBC W Auto Diffe renti al panel - Blood RBC text: (based on docume nted legal sex) 4.10-5 .30 Not Available Not Available 05/07/2025 16:06:50 03/01/20 23 03/01/2023 CBC W Auto Diffe renti al panel - Blood HGB text: (based on docume nted legal sex) 11.9-1 5.8 Not Available Not Available 05/07/2025 16:06:50 03/01/20 23 03/01/2023 CBC W Auto Diffe renti al panel - Blood HCT text: (based on docume nted legal sex) 37.4-4 8.3 Not Available Not Available 05/07/2025 16:06:50 03/01/20 23 03/01/2023 CBC W Auto Diffe renti al panel - Blood MCV text: 82.0-9 9.0 Not Available Not Available 05/07/2025 16:06:50 03/01/20 23 03/01/2023 CBC W Auto Diffe renti al panel - Blood MCH text: 27.0-3 3.0 Not Available Not Available 05/07/2025 16:06:50 03/01/20 23 03/01/2023 CBC W Auto Diffe renti al panel - Blood MCHC text: 32.0-3 6.0 Not Available Not Available 05/07/2025 16:06:50 03/01/20 23 03/01/2023 CBC W Auto Diffe renti al panel - Blood RDW text: 11.0-1 5.0 Not Available Not Available 05/07/2025 16:06:50 03/01/20 23 03/01/2023 CBC W Auto Diffe renti al panel - Blood plt text: 150-45 0 Not Available Not Available 05/07/2025 16:06:50 03/01/20 23 03/01/2023 CBC W Auto Diffe renti al panel - Blood MPV text: 9.8-12 .7 Not Available Not Available 05/07/2025 16:06:50 03/01/20 23 03/01/2023 CBC W Auto Diffe renti al panel - Blood NRBC's Not Available Not Availa ble 05/07/2025 16:06:50 03/01/20 23 03/01/2023 CBC W Auto Diffe renti al panel - Blood absolute NRBCs Not Available Not Available 04/11 16:06:50 03/01/20 23 03/01/2023 CBC W Auto Diffe renti al panel - Blood neutrophils text: 37.0-7 2.0 Not Available Not Available 05/07/2025 16:06:50 03/01/20 23 03/01/2023 CBC W Auto Diffe renti al panel - Blood lymphocytes text: 16.0-4 8.0 Not Available Not Available 05/07/2025 16:06:50 03/01/20 23 03/01/2023 CBC W Auto Diffe renti al panel - Blood monocytes text: 4.0-14 .0 Not Available Not Available 05/07/2025 16:06:50 03/01/20 23 03/01/2023 CBC W Auto Diffe renti al panel - Blood eosinophils text: 0.0-9. 0 Not Available Not Available 05/07/2025 16:06:50 03/01/20 23 03/01/2023 CBC W Auto Diffe renti al panel - Blood basophils text: 0.0-2. 0 Not Available Not Available 05/07/2025 16:06:50 03/01/20 23 03/01/2023 CBC W Auto Diffe renti al panel - Blood immature granulocytes text: no define d refere nce range Not Available Not Available 05/07/2025 16:06:50 03/01/20 23 03/01/2023 CBC W Auto Diffe renti al panel - Blood absolute neutrophils text: 1.1-6. 0 Not Available Not Available 05/07/2025 16:06:50 05/22/20 23 03/01/2023 CBC W Auto Diffe renti al panel - Blood absolute lymphocytes text: 0.7-3. 4 Not Available Not Available 05/07/2025 16:06:50 03/01/20 23 03/01/2023 CBC W Auto Diffe renti al panel - Blood absolute monocytes text: 0.3-1. 0 Not Available Not Available 05/07/2025 16:06:50 03/01/20 23 03/01/2023 CBC W Auto Diffe renti al panel - Blood absolute eosinophils text: 0.0-0. 6 Not Available Not Available 05/07/2025 16:06:50 03/01/20 23 03/01/2023 CBC W Auto Diffe renti al panel - Blood absolute basophils text: 0.0-0. 1 Not Available Not Available 05/07/2025 16:06:50 03/01/20 23 03/01/2023 CBC W Auto Diffe renti al panel - Blood absolute immature granulocytes text: 0.00-0 .10 2022 3:37 AM: P indic ates parti al resul ts on a panel have been relea sed. Addit ional resul ts will follo w. 2022 3:37 AM: This resul t has been final verif ied. No addit ional or chin ed resul ts are expec pricila. Not Available Not Available 05/07/2025 16:06:50 12/23/19 23 12/21/2022 CT, head, w/o contr ast No observ ation record ed. [address], [address], 12/22/2022 09:05:55 01/16/20 24 01/16/2024 XR, chest No observ ation record ed. [address], [address], 01/17/2024 09:09:01 01/17/20 24 01/16/2024 CT, head, w/o contr ast No observ ation record ed. [address], [address], 01/17/2024 09:09:12 01/17/20 24 01/16/2024 CT, abdom en + pelvi s, w/ contr ast No observ ation record ed. [address], [place], [address], 01/17/2024 09:09:36 01/17/20 24 01/17/2024 MRI, brain + brain stem, w/wo contr ast No observ ation record ed. [address], [place], [address], 01/17/2024 11:02:30 01/18/20 24 01/18/2024 MRI, cervi mj spine , w/o contr ast No observ ation record ed. [address], [place], [address], 01/18/2024 14:45:14 01/18/20 24 01/18/2024 MRI, thora cic spine , w/o contr ast No observ ation record ed. [address], [place], [address], 01/18/2024 14:45:34 01/18/20 24 01/18/2024 MRI, lumba r spine , w/o contr ast No observ ation record ed. [address], [place], [address], 01/18/2024 14:45:59 01/23/20 25 01/22/2025 XR, chest No observ ation record ed. [address], [place], [address], 01/22/2025 14:20:55 01/23/20 25 01/22/2025 CT, brain , w/o contr ast No observ ation record ed. [address], [place], [address], 01/22/2025 14:21:16 04/25/20 25 04/25/2025 XR, chest No observ ation record ed. [facility] [address] [place], [address], 04/26/2025 09:18:27 Result Notes None recorded. 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 Procedures Surgical History Date Name Laterality Status Provider Name and Address Organization Details Recorded Time 10/11/19 18 Date of Last Pap Smear completed Elina Smith MA [facility] 12/12/2019 15:48:12 Eye Surgery completed Reta [place]ales [place] [facility] 07/16/2015 14:01:59 Back Surgery completed Reta [place] 07/16/2015 14:01:59 Tonsillectomy completed Reta [place]ales [place] - [place] 07/16/2015 14:01:59 Imaging Results None recorded. Procedure Notes None recorded. Medical Equipment None Reported. Allergies Allergen ID Allergen Name Allergen Category Reaction Reaction Severity Criticality Documentation Date Start Date Code Code System Note Provider Name and Address Organization Details Recorded Time 675464 prochlorp erazine medicatio n Not available Not available Not available 07/13/2019 8704 RxNorm KALANI [place], [place] - [facility] 9 11:56:08 115622 latex environme nt,medica tion Not available Not available Not available 07/13/2019 40499 91 RxNorm KALANI [place], [place] - [facility] 9 11:56:08 59959 codeine medicatio n hives moderate Not available 07/16/2015 2670 RxNorm KALANI [place], [place] - [facility] 5 14:01:59 14598 Compazine medicatio n Not available Not available Not available 07/16/2015 51075 6 RxNorm KALANI [place], [place] - [facility] 5 14:01:59 90929 adhesive tape environme nt,medica tion Not available Not available Not available 07/16/2015 KALANI [place], [place] - [facility] 5 14:01:59 Medications Name Sig Start Date Stop Date Status Note LastModified by Organization Details LastModified Time verapamil ER (SR) 120 mg tablet,exte nded release TAKE 1 TABLET BY MOUTH NIGHTLY 11/18 completed Not Available Not Available Not Available cyclobenzap rine 10 mg tablet TAKE 1 TABLET BY MOUTH THREE TIMES A DAY NEEDED FOR MUSCLE SPASMS 11/18 completed Not Available Not Available Not Available amoxicillin 500 mg capsule Take 1 capsule 3 times a day by oral route for 10 days. 11/18 completed Not Available Not Available Not Available buspirone 5 mg tablet TAKE TWO TABLETS BY MOUTH TWO TIMES A DAY 06/27 completed Not Available Not Available Not Available bupropion HCl SR 150 mg tablet,12 hr sustained-r elease Take 1 tablet twice a day by oral route for 30 days. 06/10 completed Not Available Not Available Not Available butalbital- acetaminoph en-caffeine 50 mg-325 mg-40 mg capsule 06/27 completed Not Available Not Available Not Available prednisone 10 mg tablet PLEASE SEE ATTACHED FOR DETAILED DIRECTION S 11/18 completed Not Available Not Available Not Available venlafaxine ER 75 mg capsule,ext ended release 24 hr Take 1 capsule every day by oral route for 30 days. 06/10 completed Not Available Not Available Not Available clindamycin HCl 300 mg capsule TAKE 1 CAPSULE BY MOUTH EVERY 6 HOURS FOR 14 DAYS 09/08 completed Not Available Not Available Not Available ibuprofen 800 mg tablet TAKE 1 TABLET (800 MG TOTAL) BY MOUTH 3 (THREE) TIMES A DAY NEEDED FOR PAIN/SWEL LING - WITH FOOD 11/18 completed Not Available Not Available Not Available Lidocaine Viscous 2 % mucosal solution 11/28 completed Not Available Not Available Not Available riboflavin (vitamin B2) 100 mg tablet TAKE 4 TABLETS BY MOUTH DAILY 05/08 completed Not Available Not Available Not Available metoprolol succinate ER 50 mg tablet,exte nded release 24 hr TAKE 1 TABLET BY MOUTH EVERY DAY 05/08 completed Not Available Not Available Not Available hydrocodone 5 mg-acetamin ophen 325 mg tablet TAKE 1 TABLET BY MOUTH EVERY 6 HOURS NEEDED FOR PAIN OR 1/2 TABLET FOR COUGH NEEDED 11/18 completed Not Available Not Available Not Available epinephrine (Jr) 0.15 mg/0.3 mL injection,a uto-injecto r inject as directed for anaphylax is 06/29 completed Not Available Not Available Not Available dexamethaso ne 6 mg tablet TAKE 1 TABLET (6 MG TOTAL) BY MOUTH 2 (TWO) TIMES A DAY WITH MEALS FOR 3 DAYS 11/18 completed Not Available Not Available Not Available propranolol ER 60 mg capsule,24 hr,extended release TAKE 1 CAPSULE BY MOUTH EVERY DAY 05/08 completed Not Available Not Available Not Available sumatriptan 50 mg tablet TAKE 1 TAB BY MOUTH AT ONSET OF HEADACHE. MAY REPEAT DOSE IN 2 HOURS. MAX 2 TABS PER DAY 11/18 completed Not Available Not Available Not Available penicillin V potassium 500 mg tablet TAKE 1 TABLET BY MOUTH EVERY 12 HOURS FOR 10 DAYS 11/18 completed Not Available Not Available Not Available ciprofloxac in 500 mg tablet TAKE 1 TABLET BY MOUTH EVERY 12 HOURS FOR 10 DAYS 06/10 completed Not Available Not Available Not Available sulfamethox azole 800 mg-trimetho prim 160 mg tablet Take 1 tablet every 12 hours by oral route for 10 days. 06/27 completed Not Available Not Available Not Available hydrocodone 10 mg-acetamin ophen 325 mg tablet TAKE 1 TABLET BY MOUTH EVERY 4-6 HOURS NEEDED FOR PAIN 01/23 completed Not Available Not Available Not Available aspirin 81 mg tablet,rik yed release TAKE 1 TABLET BY MOUTH EVERY DAY 02/08 completed Not Available Not Available Not Available tramadol 50 mg tablet TAKE 1 TABLET BY MOUTH THREE TIMES A DAY NEEDED 05/08 completed Not Available Not Available Not Available butalbital- acetaminoph en-caffeine 50 mg-325 mg-40 mg tablet Take 1 tablet twice a day by oral route as needed. 06/27 completed Not Available Not Available Not Available Zofran 4 mg tablet Take 2 tablets twice a day by oral route as needed nausea/vo miting. 03/04 completed Not Available Not Available Not Available propranolol 10 mg tablet TAKE 1 TABLET BY MOUTH 3 TIMES A DAY NEEDED (FOR HR GREATER THE 120 FOR AT LEAST 5-10MINS. ) 05/08 completed Not Available Not Available Not Available ofloxacin 0.3 % ear drops ADMINISTE R 5 DROPS INTO THE RIGHT EAR DAILY 02/08 completed Not Available Not Available Not Available amoxicillin 875 mg tablet Take 1 tablet every 12 hours by oral route for 10 days. 05/22 completed Not Available Not Available Not Available famotidine 20 mg tablet TAKE 1 TABLET BY MOUTH TWICE A DAY active Not Available Not Available No t Available prednisolon e acetate 1 % eye drops,suspe nsion 06/27 completed Not Available Not Available Not Available magnesium oxide 400 mg (241.3 mg magnesium) tablet TAKE 1 TABLET BY MOUTH EVERY DAY 05/08 completed Not Available Not Available Not Available metoclopram eleanor 5 mg tablet TAKE 1 TABLET BY MOUTH EVERY 6 HOURS NEEDED 05/08 completed Not Available Not Available Not Available pantoprazol e 40 mg tablet,rik yed release TAKE 1 TABLET BY MOUTH EVERY DAY 06/10 completed Not Available Not Available Not Available tobramycin 0.3 % eye drops 06/27 completed Not Available Not Available Not Available ranitidine 150 mg tablet take 1 tablet by mouth twice daily 06/10 completed Not Available Not Available Not Available buspirone 10 mg tablet Take 1 tablet twice a day by oral route for 30 days. 2017 active Not Available Not Available Not Avai lable butalbital 50 mg-acetamin ophen 325 mg-caffeine 40 mg-codeine 30 mg cap Take 1 capsule every 4 hours by oral route as needed for 30 days. 06/27 completed Not Available Not Available Not Available docusate sodium 100 mg capsule TAKE 1 CAPSULE BY MOUTH TWICE A DAY 02/08 completed Not Available Not Available Not Available gabapentin 300 mg capsule 06/27 completed Not Available Not Available Not Available Senna Laxative 8.6 mg tablet TAKE 1 TABLET BY MOUTH EVERY DAY 02/08 completed Not Available Not Available Not Available omeprazole 20 mg capsule,del ayed release Take 1 capsule every day by oral route for 90 days. 06/10 completed Not Available Not Available Not Available Tylenol 325 mg tablet 325 mg by oral route. 01/20 completed Not Available Not Available Not Available diclofenac sodium 75 mg tablet,rik yed release Take 1 tablet twice a day by oral route for 30 days. 06/29 completed Not Available Not Available Not Available mupirocin 2 % topical ointment APPLY TO AFFECTED AREA 3 TIMES A DAY 05/08 completed Not Available Not Available Not Available gabapentin 100 mg capsule 05/08 completed Not Available Not Available Not Available metoprolol succinate ER 25 mg tablet,exte nded release 24 hr TAKE 1 TABLET (25 MG TOTAL) BY MOUTH DAILY. 05/08 completed Not Available Not Available Not Available epinephrine 0.3 mg/0.3 mL injection, auto-inject or as directed 2024 active Not Available Not Available Not Avai lable ibuprofen 600 mg tablet TAKE 1 TABLET BY MOUTH 4 TIMES A DAY NEEDED FOR PAIN WITH FOOD 05/08 completed Not Available Not Available Not Available polyethylen e glycol 3350 17 gram/dose oral powder MIX 17 GRAMS IN LIQUID AND DRINK BY MOUTH 2 (TWO) TIMES A DAY NEEDED (CONSTIPA TION) 05/08 completed Not Available Not Available Not Available levofloxaci n 750 mg tablet Take 1 tablet every day by oral route for 5 days. 12/11 completed Not Available Not Available Not Available ondansetron 4 mg disintegrat ing tablet DISSOLVE 1 TABLET ON TONGUE EVERY 6 HOURS NEEDED FOR NAUSEA AND VOMITING FOR 3 DAYS 05/08 completed Not Available Not Available Not Available dicyclomine 10 mg capsule Take 1 capsule 3 times a day by oral route for 30 days. 06/27 completed Not Available Not Available Not Available naproxen 500 mg tablet 06/27 completed Not Available Not Available Not Available amoxicillin 875 mg-potassiu m clavulanate 125 mg tablet TAKE 1 TABLET BY MOUTH EVERY 12 HOURS 11/18 completed Not Available Not Available Not Available nabumetone 500 mg tablet TAKE 1 TABLET BY MOUTH TWICE A DAY 11/18 completed Not Available Not Available Not Available oxycodone 5 mg tablet 01/23 completed Not Available Not Available Not Available azithromyci n 500 mg tablet TAKE 1 TABLET EVERY NIGHT AT BEDTIME FOR 5 DAYS 11/18 completed Not Available Not Available Not Available escitalopra m 10 mg tablet Take 1 tablet every day by oral route for 30 days. 06/10 completed Not Available Not Available Not Available cyclobenzap rine 5 mg tablet TAKE 1 TABLET BY MOUTH THREE TIMES A DAY NEEDED FOR MUSCLE SPASMS 02/08 completed Not Available Not Available Not Available Florastor 250 mg capsule Take 1 capsule twice a day by oral route for 7 days. 03/04 completed Not Available Not Available Not Available metoprolol tartrate 25 mg tablet 25 mg by oral route. 01/20 completed Not Available Not Available Not Available topiramate 50 mg tablet TAKE 1 TABLET BY MOUTH DAILY FOR 1 WEEK THEN TAKE 1 TABLET TWICE A DAY 11/28 completed Not Available Not Available Not Available duloxetine 30 mg capsule,del ayed release 06/29 completed Not Available Not Available Not Available duloxetine 60 mg capsule,del ayed release 06/29 completed Not Available Not Available Not Available FeroSul 325 mg (65 mg iron) tablet TAKE 1 TABLET BY MOUTH EVERY DAY WITH BREAKFAST 05/08 completed Not Available Not Available Not Available epinephrine 0.15 mg/0.15 mL auto-inject or (for 33 to 66 lb patients) 06/29 completed Not Available Not Available Not Available butalbital- acetaminoph en-caffeine 50 mg-300 mg-40 mg capsule Take 1 capsule every 4 hours by oral route as needed for 30 days. 06/29 completed Not Available Not Available Not Available Mitigare 0.6 mg capsule TAKE 1 CAPSULE BY MOUTH TWICE A DAY FOR 2 WEEKS 06/10 completed Not Available Not Available Not Available butalbital 25 mg-acetamin ophen 325 mg tablet Take 2 tablets every 4 hours by oral route. 06/29 completed Not Available Not Available Not Available Vitals Date Recorded Body height Body mass index (BMI) Body weight Oxygen saturation Oxygen saturation in Arterial blood by Pulse oximetry Heart rate Body temperature Systolic And Diastolic Provider Name and Address Organization Details Last Updated DateTime 3 154.94 cm 30 kg/m2 85229.1 9 g 98 % 98 % 90 /min 97.2 [degF] 118/70 mm[Hg] Jaimie hernadez MA [facility] 3 10:09:48 Date Recorded Body height Body mass index (BMI) Body weight Heart rate Oxygen saturation Oxygen saturation in Arterial blood by Pulse oximetry Systolic And Diastolic Provider Name and Address Organization Details Last Updated DateTime 4 154.94 cm 31.8 kg/m2 12496.9 2 g 96 /min 98 % 98 % 108/72 mm[Hg] Ileana Holder MA [facility] 4 11:15:15 Date Recorded Body height Body mass index (BMI) Body weight Heart rate Oxygen saturation Oxygen saturation in Arterial blood by Pulse oximetry Systolic And Diastolic Provider Name and Address Organization Details Last Updated DateTime 4 154.94 cm 30.9 kg/m2 34712.6 6 g 89 /min 97 % 97 % 124/82 mm[Hg] Ileana Holder MA [facility] 4 10:36:10 Date Recorded Body weight Body mass index (BMI) Body height Oxygen saturation Oxygen saturation in Arterial blood by Pulse oximetry Heart rate Systolic And Diastolic Provider Name and Address Organization Details Last Updated DateTime 5 64372.1 5 g 31 kg/m2 154.94 cm 98 % 98 % 82 /min 108/66 mm[Hg] Ana Crespo MA [facility] 5 11:43:23 Date Recorded Body height Body mass index (BMI) Body weight Oxygen saturation Oxygen saturation in Arterial blood by Pulse oximetry Respiratory rate Heart rate Systolic And Diastolic Provider Name and Address Organization Details Last Updated DateTime 3 154.94 cm 30.3 kg/m2 46199.8 8 g 97.98 % 97.98 % 14 /min 87 /min 123/77 mm[Hg] Ileana Holder [place] - [facility] 3 11:02:23 Social History Question Answer Notes LastModified by Organizat ion Details LastModified Time Tobacco Smoking Status Never Smoker Reta Morales MA null, [place] - [facility] 07/16/2015 14:01:59 What Is Your Level Of Caffeine Consumption? Heavy Information not available 05/22/2022 How Much Tobacco Do You Chew? None Information not available 12/12/2019 In The 14 Days Before Symptom Onset, Have You Had Close Contact With A Laboratory-confirm ed COVID-19 While That Case Was Ill? No Information n ot available 06/10/2021 In The 14 Days Before Symptom Onset, Have You Had Close Contact With A Person Who Is Under Investigation For COVID-19 While That Person Was Ill? No Information not available 06/10/2021 Have You Been To An Area Known To Be High Risk For COVID-19? No Information not available 06/10/2021 What Type Of Diet Are You Following? REGULAR Information n ot available 10/23/2020 Which Illicit Or Recreational Drugs Have You Used? None Information not available 12/12/2019 Hard Of Hearing Or Deaf In One Or Both Ears? No Information not available 12/12/2019 Legally Blind In One Or Both Eyes? No Information no t available 12/12/2019 Live Alone Or With Others? With Others Information not available 12/12/2019 What Was The Date Of Your Most Recent Tobacco Screening? 05/08/2025 Information not available 05/08/2025 How Many Children Do You Have? 1 Information not available 12/12/2019 What Is Your Relationship Status? Single Information not available 06/10/2021 Do You Use Your Seat Belt Or Car Seat Routinely? Yes Information not available 06/10/2021 Do You Have Smoke And Carbon Monoxide Detectors In Your Home? Yes Information not available 06/10/2021 Are You Passively Exposed To Smoke? No Information no t available 06/10/2021 How Much Tobacco Do You Smoke? No Information not available 12/12/2019 General Stress Level Medium Information not available 10/23/2020 Has Tobacco Cessation Counseling Been Provided? No Information not available 06/10/2021 On What Date Was Tobacco Cessation Counseling Provided? 05/08/2025 Information not available 05/08/2025 How Many Years Have You Smoked Tobacco? 0 Information not available 12/12/2019 Sex: Unknown Functional Status Question Answer Note LastModified by Organizat ion Details LastModified Time Do you use any illicit or recreational drugs? No Information not available 06/10/2021 Do you or have you ever used any other forms of tobacco or nicotine? No Information not available 06/10/2021 What is your level of alcohol consumption? Occasional Information not available 12/12/2019 Do you or have you ever used smokeless tobacco? Never used smokeless tobacco Information not available 12/12/2019 Are you currently employed? Yes Information not available 11/28/2021 Are you able to care for yourself independently? Yes Information not available 12/12/2019 What is your occupation? [employer] Information not available 05/22/2022 Do you or have you ever used e-cigarettes or vape? Never used electronic cigarettes Information not available 12/12/2019 What is your exercise level? None Information not available 05/22/2022 Mental Status Question Answer Note LastModified by Organization D etails LastModified Time Do you feel stressed (tense, restless, nervous, or anxious, or unable to sleep at night)? [id number] Information not available 05/22/2022 Family History Relationship Description Onset Age of this Age Resolved Age Notes LastModified by Organization Details LastModified Time Sister Asthma [email or web address] Not available 1 14:01:59 Brother Asthma [email or web address] Not available 07/16/2015 14:01:59 Brother Heart disease amcmanis Not available 2014 14:01:59 Brother Hypertensive disorder amcmanis Not available 2014 14:01:59 Medical History Condition Response Coronary Artery Disease N Other N High Blood Pressure N Atrial Fibrillation N Thyroid Problems N Kidney or Bladder Problems N GI Problems N Depression Y COPD N Blood Clots N Skin Problems N Eating Disorder N Anemia N Heart Attack (MT) N Anxiety Disorder Y Diabetes N Muscle, Joint, or Bone Problems N Seizures/Epilepsy N Acid Reflux (GERD) N Cancer N Stroke N Asthma N Allergies N ADHD N Substance Abuse N High Cholesterol N Hepatitis N Liver Disease N Schizophrenia N Headaches N Heart Failure N Osteoporosis N Gynecological History Statement/Question Response Flow Moderate Date of LMP 04/07/2025 Frequency of Cycle (Q days) 28 Menses Monthly Y Date of Last Pap Smear 10/11/2017 Duration of Flow (days) Age at Menarche 12 Current Control Method None Age at First Child 21 LMP Definite Obstetrics History GPAL:G 1 P 1 0 0 1 Type Value Multiple Births 0 Full Term 1 Induced 0 Spontaneous 0 Premature 0 Living 1 Ectopics 0 Total 1 Immunizations Vaccine Type Date Status Note Provider Nam e and Address Organization Details Recorded Time Influenza, split virus, quadrivalent, preservative 5 completed Not Available [facility] 10/28/2019 02:50:31 Past Encounters Encounter ID Performer Location Encounter Start Date Encounter Closed Date Diagnosis/Indication Diagnosis SNOMED-CT Code Diagnosis ICD10 Code Diagnosis IMO Codes Diagnosis Note [id number] Ben Camarena MD [facility] [address] [place] [address] 1 07/16/2015 13:32:39 07/17/2015 08:36:33 Scoliosis deformity of spine 278603058 Q67.5 [id number] Ben Camarena MD [facility] [address] [place] [address] 1 07/26/2015 14:26:21 07/29/2015 08:26:30 Nausea 116534985 R11.0 Needs infl uenza immunization 045486707 Z28.3 [id number] Ben Camarena MD [facility] [address] [place] [address] 1 08/07/2015 10:51:11 08/07/2015 14:23:40 Pyelonephritis 81431439 N16 [id number] Ben Camarena MD [facility] [address] [place] [address] 1 02/01/2018 16:10:59 02/02/2018 14:14:41 Migraine 47456144 G43.909 Dysuria 55707121 R30.0 [id number] Ben Camarena MD [facility] [address] [place] [address] 03/04/2018 13:58:06 03/04/2018 14:44:05 Scoliosis deformity of spine 260551467 M41.9 Headache 99618017 R51 [id number] Ben Camarena MD [facility] [address] [place] [address] 03/23/2018 16:47:08 03/23/2018 17:38:30 History of spinal fusion for scoliosis 354114243 Z98.1 Migraine with aura 44553 06 G43.109 Allergy to bee venom 424 923070 Z91.337 [id number] Izabel Evans PA-C [facility] [address] [place] [address] 06/29/2018 14:11:46 06/29/2018 15:10:22 Headache 06944343 R51 Allergy to bee venom 424 902502 Z91.030 Generalize d anxiety disorder 42344657 F41.1 Irritable bowel syndrome characterized by alternating bowel habit 632096563 K58.9 Aphthous u lcer of mouth 174628498 K12.0 [id number] PATRICK Cool [address] [place] [address] 07/13/2018 16:29:19 07/13/2018 17:23:25 Left flank pain 531773359 R10.9 Generalize d anxiety disorder 39299335 F41.1 [id number] Izabel Evans PA-C [facility] [address] [place] [address] 06/27/2019 18:33:27 06/27/2019 19:36:58 Lumbar radiculopathy 804446739 M54.16 Gastroesop hageal reflux disease without esophagitis 868437944 K21.9 Generalize d anxiety disorder 20735168 F41.1 Scoliosis deformity of spine 202201324 M41.05 Dyspnea 819554968 R06.09 [id number] [facility] [address] [place] [address] 07/13/2019 11:54:39 07/13/2019 12:48:53 Scoliosis deformity of spine 665020494 M41.05 Migraine without aura 56 087863 G43.009 Dyspnea on exertion 6084 5006 R06.09 Generalize d anxiety disorder 58522160 F41.1 Chronic depression 80996 0009 F34.1 Mixed anxi ety and depressive disorder 134079078 F41.8 Lumbar radiculopathy 128 176693 M54.16 [id number] Izabel Evans PA-C [facility] [address] [place] [address] 07/27/2019 11:35:49 07/27/2019 13:59:07 Chronic depression 104139346 F34.1 [id number] Izabel Evans PA-C [facility] [address] [place] [address] 12/12/2019 15:39:54 12/12/2019 16:50:26 Gastroesophageal reflux disease without esophagitis 025080140 K21.9 [id number] Ben Camarena MD [facility] [address] [place] [address] 10/23/2020 14:10:23 10/24/2020 15:17:11 Scoliosis deformity of spine 825761639 M41.05 Urinary tr act infectious disease 19579749 N10 [id number] Ben Camarena MD [facility] [address] [place] [address] 06/10/2021 16:41:22 06/10/2021 17:30:50 Long-term drug therapy 417623137 Z79.899 Migraine without aura 56 947997 G43.713 [id number] Ben Camarena MD [facility] [address] [place] [address] 11/28/2021 10:44:50 11/28/2021 12:15:59 Acute right otitis media 279463683 H65.01 [id number] Izabel Evans PA-C [facility] [address] [place] [address] 05/22/2022 10:25:03 05/22/2022 10:51:20 Anxiety about loss of memory 906800697 F41.8 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 [id number] Izabel Evans PA-C [facility] [address] [place] [address] 07/23/2022 14:53:48 07/23/2022 15:50:56 Overweight 763336408 E66.3 Obese 221719397 E66.9 Adult heal th examination 113906403 Z00.00 [id number] Izabel Evans PA-C [facility] [address] [place] [address] 11/18/2022 10:02:54 11/18/2022 10:46:42 Acute abscess of maxillary sinus 83806256 J01.01 Overweight 744748904 E66 .3 [id number] Izabel Evans PA-C [facility] [address] [place] [address] 09/08/2023 10:54:17 09/09/2023 09:47:34 Adult health examination 252868730 Z00.00 Overweight 550849123 E66 .3 [id number] Izabel Evans PA-C [facility] [address] [place] [address] 01/24/2024 11:02:15 01/27/2024 15:10:45 Idiopathic scoliosis of thoracic and lumbar spine 544839372 M41.25 Somatic dy sfunction of bilateral lower extremities 7552393661 72442 M99.06 Overweight 953013661 E66 .3 [id number] Ben Camarena MD [facility] [address] [place] [address] 02/09/2024 10:24:53 02/10/2024 12:56:20 Idiopathic scoliosis of thoracic and lumbar spine 113177494 M41.25 Idiopathic peripheral neuropathy 33950581 G60.0 [id number] Ben Camarena MD [facility] [address] [place] [address] 05/08/2025 11:11:07 05/09/2025 11:23:57 Bee sting-induced anaphylaxis 124382819 T63.441A General ex amination of patient 151469857 Z00.00 [id number] Obese class I 6202410618 06449 E66.811 E66.3 7997241315 Health Concerns Section Related Observation LastModified by Organization Detai ls LastModified Time None Recorded Concern Status LastModified by Organization Details LastModified Time None Recorded Advance Directives Directive None Recorded Payers Insurance Date Sequence Insurance Name Policy Number Policy Castellanos Covered Member ID Castellanos Member ID Guarantor Name 05/08/2025 1 [employer] [id number] Annie Rizviolomew 05/08/2025 1 [facility] (MEDICARE - MEDICAID REPLACEMENT HMO) [id number] Annie Alida [facility] [id number] [facility] 05/08/2025 3 [facility] (MEDICAID HMO) [id number] Annie Alida Taran [id number] Annie Rizviolomew 07/16/2022 2 *SELF PAY* Erlin Bardalesw 05/08/2025 1 [facility] - DOS PRIOR TO 2021 (MEDICAID REPLACEMENT - HMO) Annie Rizviolomew [id number] Annie Rizviolomew 05/08/2025 2 [place] WHEN [place]ARE OR [place]IC[place] REPLACEMENT PRIMARY) Annie Rizviolomew [id number] Annie Rizviolomew 05/08/2025 1 [place] [facility] Annie Rizviolomew [id number] Annie Rizviolomew 05/08/2025 2 [place] Annie Rizviolomew [id number] Annie Taran 05/08/2025 1 CHILD HEALTHCARE [facility] - DUAL OPT[facility] (MEDICARE - MEDICAID REPLACEMENT HMO) [id number] Annie Rizviolomew [id number] [facility] 05/08/2025 2 [facility] [place]ICA[place] H[place]) [id number] [facility] [id number] [facility] 05/08/2025 1 [place] [facility] Annie Chirinos [id number] Annie Chirinos 05/08/2025 2 [place] WHEN [place] OR [place]IC[place] REPLACEMENT PRIMARY) Annie Chirinos [id number] Annie Chirinos 05/08/2025 1 [place] Annie Chirinos [id number] Annie Chirinos 05/09/2025 [place] [facility] Annie Chirinos [id number] Annie Chirinos 05/08/2025 1 [facility] (MEDICAID HMO) [id number] Annie Chirinos [id number] Annie Chirinos Notes Date Note Type Note Provider Name and Address Organization Details Recorded Time 11/18/2022 text/html ROS as noted in the HPI The patient says she is here today for a sinus pain that has been going on for a few months. The patient say she was hospitalized for a staph infection in her right sinus in August 2022. She said why she was there she had an x-ray of her head and they saw a mass in her right sinus, so she was treated with IV antibiotics and discharged home after 4 days. She says no follow up x-ray was performed. She says she started having similar pain and swelling in the left side of her jaw so she went to an ER for treatment. They prescribed her amoxicillin there and told her to follow up with a dentist. She then went to a dentist and they pulled on of her teeth because it was cracked. She says they did an x-ray there as well but did not tell her what they found before pulling the tooth. She states she was taking augmentin from the ER still after getting her tooth pulled so she has not started the antibiotics she was prescribed by the dentist. The patient says the swelling in the left side of her jaw has improved but she is still in pain. The patient denies any nausea, vomiting, diarrhea, fever, or chills. She says her left nostril bleeds when blowing her nose. Izabel Evans PA-C Attn: [address] [place], [address], [facility] 11/18/2022 10:54:58 09/08/2023 text/html ROS as noted in the HPI work phys...no complaints Izabel Evans PA-C Attn: [address] [place], [address], [place] - [facility] 09/08/2023 11:33:35 01/24/2024 text/html ROS as noted in the HPI sudden bilateral hip weakness present since last wednesday..ER did not know why...CT MRI was inconclusive.. Izabel Evans PA-C Attn: [address] [place], [address], [place] [facility] 01/24/2024 11:37:51 02/09/2024 text/html ROS as noted in the HPI legs are working now...all things seem completely normal again...hasnt seen neuro yet...wants to RTW on wednesday..see ER note... Izabel Evans PA-C Attn: [address] [place], [address], [place] [facility] 02/09/2024 10:47:38 05/08/2025 text/html ROS as noted in the HPI work physical no complaints Izabel Evans PA-C Attn: [address] [place], [address], [place] [facility] 05/08/2025 12:00:54 OBGyn Episode Ob Episode Information Episode Created Date Number of Fetuses Patient Bloodtype Patient rh Status Prepregnancy Weight lbs Domestic Partner Domestic Partner Phone Father Name Tourist Guide Status 12/12/19 20 1 CLOSED Fetus Data First Name Last Name Admitted to NICU Weight (g) Sex Living Outcome Pediatric Complications Fetus ID Race Codes Race Delivery Type [id number] Haja Calculation Initial Haja Date Initial Exam [...] Complications Tubal Sterilization Discharge Date Comments 6 Discharge Information Feeding Method Contraceptive Method Maternal HG B and HCT Levels
--- OUTSIDE RECORDS SUMMARY | 2025-08-17 14:25 | XMS_ITS | Clinical Summary ---
Author Organization [facility] Address [address] [place] [address] Phone Care Team Providers Care Time Clock Mechanic Name Role Phone Chavez Evans Primary Care Provider [phone] Allergies Active Allergy Reactions Criticality Noted Date Comments Codeine Hives 01/08/2016 Prochlorperazine Maleate Other (see Comments) 0 01/08/2016 Medications traMADol (ULTRAM) 50 MG Tablet Take 50 mg by mouth every 8 hours as needed. Active butalbital-aceta minophen-caffein e-codeine (FIORICET WITH CODEINE) 01-353-91-30 MG Capsule Take 1 Cap by mouth [...] 19+ 3-dose series) 2014 Pap Smear 2016 Human Papillomavirus (HPV) Immunization (1 - 3-dose SCDM series) 2022 Medicare Initial AWV [id number] 08/11/2022 Cervical Cancer Screening (CCS) 2025 HPV/Cotest 2025 Influenza Immunization (#1) 2025 SARS-COV-2 Immunization ( season) 2025 Respiratory Syncytial Virus (RSV) Immunization (Adult) [...] topic Insurance MEDICARE C CHILD Care Teams Time Clock Mechanic Relationship Specialty Start Date End Date Chavez Evans, PAC [address] [place] [address] PCP - General Physician Acupuncture Physician 01/18/19
--- OUTSIDE RECORDS SUMMARY | 2025-08-17 14:26 | XMS_ITS | Data Portability ---
Author Organization [facility] [place] Address [address] [place] [address] [place] [address] Care Team Providers Care Stencil Inspector Name Role Phone IZABEL TYLER Primary Care Provider [phone] Assessment No assessment recorded. Plan of Treatment Reminders Order Date Submit Date Provider Last Modified By Organization Details Last Modified Time Details Appointments OB ROUTINE 2024 09:15A Luiz COKER MD Not available Not available Not available Lab culture, urine 2024 025 [facility] (Lab), [address] [facility], [place], [address], 07/06/2025 02:49:42 drug screen, urine 2024 025 [facility], [address], [place], [address], 07/03/2025 16:05:40 Referral None recorded. Procedures None recorded. Surgeries None recorded. Imaging US, obstetric , nuchal transluce ncy 2024 025 [email or web address] [place], [address], [place], [address], 07/03/2025 16:04:46 Medication Orders None recorded. Patient TargetsNo targets recorded. Patient InstructionsNo instructions recorded. Reason for Referral None Reported. Results Created Date Observation Date Name Description Value Unit Range Abnormal Flag Note LastModifiedBy Organization Detail LastModifiedTime 06/24/2006/24/2025 [UNIT Y] ANEUP LOIDY NIPT fraction 7.8% normal Not Available [facility] [address], [place], [address], 06/24/2025 22:48:30 06/24/20 25 06/24/2025 [UNIT Y] ANEUP LOIDY NIPT 22Q11.2 microdeletio n LOW RISK <1 in 10,000 normal Not Available [facility] [address], [place], [address], 06/24/2025 22:48:30 06/24/20 25 06/24/2025 [UNIT Y] ANEUP LOIDY NIPT sex chromosome aneuploidy NOT DETECT ED normal Not Available [facility] [address], [place], [address], 06/24/2025 22:48:30 06/24/20 25 06/24/2025 [UNIT Y] ANEUP LOIDY NIPT monosomy X LOW RISK <1 in 10,000 normal Not Available [facility] [address], [place], [address], 06/24/2025 22:48:30 06/24/20 25 06/24/2025 [UNIT Y] ANEUP LOIDY NIPT trisomy 13 LOW RISK <1 in 10,000 normal Not Available [facility] [address], [place], [address], 06/24/2025 22:48:30 06/24/20 25 06/24/2025 [UNIT Y] ANEUP LOIDY NIPT trisomy 18 LOW RISK <1 in 10,000 normal Not Available [facility] [address], [place], [address], 06/24/2025 22:48:30 06/24/20 25 06/24/2025 [UNIT Y] ANEUP LOIDY NIPT trisomy 21 LOW RISK <1 in 10,000 normal Not Available [facility] [address], [place], [address], 06/24/2025 22:48:30 06/24/20 25 06/24/2025 [UNIT Y] ANEUP LOIDY NIPT sex MALE normal Not Available [facility] [address], [place], [address], 06/24/2025 22:48:30 06/24/20 25 06/24/2025 [UNIT Y] ANEUP LOIDY NIPT gestation SINGLE TON normal Not Available [facility] [address], [place], [address], 06/24/2025 22:48:30 06/24/20 25 06/24/2025 [UNIT Y] ANEUP LOIDY NIPT for detailed report, see pdf See PDF normal Not Available [facility] [address], [place], [address], 06/24/2025 22:48:30 06/05/20 25 06/05/2025 CT/GC AND TRICH OMONA S VAGIN STEPHANIE (RRNA ), URINE chlamydia trachomatis, PCR Negati ve negati ve Not Available [facility] (Lab) [address], [place], [address], 06/06/2025 16:54:26 06/05/20 25 06/05/2025 CT/GC AND TRICH OMONA S VAGIN STEPHANIE (RRNA ), URINE neisseria gonorrhoeae, PCR Negati ve negati ve Not Available [facility] (Lab) [address], [place], [address], 06/06/2025 16:54:26 06/05/20 25 06/05/2025 CT/GC AND TRICH OMONA S VAGIN STEPHANIE (RRNA ), URINE trichomonas vaginalis ribosomal RNA (rrna) Negati ve negati ve Not Available [facility] (Lab) [address], [place], [address], 06/06/2025 16:54:26 06/15/2006/15/2025 CBC W/DIF F WBC 8.6 10'3/ uL 3.5-10 .5 Not Available [facility] (Lab) [address], [place], [address], 06/16/2025 13:23:32 06/15/20 25 06/15/2025 CBC W/DIF F RBC 4.10 10'6/ uL (based on docume nted legal sex) 3.80-5 .20 Not Available [facility] (Lab) [address] [facility], [place], [address], 06/16/2025 13:23:32 06/15/20 25 06/15/2025 CBC W/DIF F HGB 11.7 g/dL (based on docume nted legal sex) 11.6-1 5.4 Not Available [facility] (Lab) [address] [facility] [facility], [place], [address], 06/16/2025 13:23:32 06/15/20 25 06/15/2025 CBC W/DIF F HCT 35.8 % (based on docume nted legal sex) 34.0-4 5.0 Not Available [facility] (Lab) [address], [place], [address], 06/16/2025 13:23:32 06/15/2006/15/2025 CBC W/DIF F MCV 87.3 fL 80.0-9 9.0 Not Available [facility] (Lab) [address] [facility], [place], [address], 06/16/2025 13:23:32 06/15/20 25 06/15/2025 CBC W/DIF F MCH 28.5 pg 27.0-3 4.0 Not Available [facility] (Lab) [address] [facility], [place], [address], 06/16/2025 13:23:32 06/15/20 25 06/15/2025 CBC W/DIF F MCHC 32.7 g/dL 32.0-3 5.5 Not Available [facility] (Lab) [address] [facility], [place], [address], 06/16/2025 13:23:32 06/15/2006/15/2025 CBC W/DIF F RDW 13.1 % 11.0-1 5.0 Not Available [facility] (Lab) [address] [facility], [place], [address], 06/16/2025 13:23:32 06/15/2006/15/2025 CBC W/DIF F plt 296 10'3/ uL 150-40 0 Not Available [facility] (Lab) [address] [facility], [place], [address], 06/16/2025 13:23:32 06/15/2006/15/2025 CBC W/DIF F MPV 10.2 fL 8.8-12 .1 Not Available [facility] (Lab) [address] [facility], [place], [address], 06/16/2025 13:23:32 06/15/20 25 06/15/2025 CBC W/DIF F NRBC's 0.0 % 0.0 Not Available [facility] (Lab) [address] [facility], [place], [address], 06/16/2025 13:23:32 06/15/2006/15/2025 CBC W/DIF F absolute NRBCs 0.0 10'3/ uL no refere nce range establ ished Not Available [facility] (Lab) [address] [facility], [place], [address], 06/16/2025 13:23:32 06/15/2006/15/2025 CBC W/DIF F neutrophils 69.9 % 34.0-7 3.0 Not Available [facility] (Lab) [address] [facility] [facility], [place], [address], 06/16/2025 13:23:32 06/15/20 25 06/15/2025 CBC W/DIF F lymphocytes 23.2 % 15.0-5 0.0 Not Available [facility] (Lab) [address] [facility], [place], [address], 06/16/2025 13:23:32 06/15/20 25 06/15/2025 CBC W/DIF F monocytes 6.0 % 1.0-15 .0 Not Available [facility] (Lab) [address] [facility], [place], [address], 06/16/2025 13:23:32 06/15/20 25 06/15/2025 CBC W/DIF F eosinophils 0.4 % 0.0-8. 0 Not Available [facility] (Lab) [address] [facility] [facility], [place], [address], 06/16/2025 13:23:32 06/15/20 25 06/15/2025 CBC W/DIF F basophils 0.4 % 0.0-2. 0 Not Available [facility] (Lab) [address] [facility] [facility], [place], [address], 06/16/2025 13:23:32 06/15/2006/15/2025 CBC W/DIF F immature granulocytes 0.1 % no define d refere nce range Immat ure Granu locyt es (IG) repre sents autom ated enume ratio n of Metam yeloc ytes, Myelo cytes and Promy elocy ranjit when IG is < 5%. Blast s are not inclu ded in IG and repor pricila separ ately if prese nt. Not Available [facility] (Lab) [address] [facility] [facility], [place], [address], 06/16/2025 13:23:32 06/15/2006/15/2025 CBC W/DIF F absolute neutrophils 6.0 10'3/ uL 1.5-8. 0 Not Available [facility] (Lab) [address] [facility] [facility], [place], [address], 06/16/2025 13:23:32 06/15/2006/15/2025 CBC W/DIF F absolute lymphocytes 2.0 10'3/ uL 1.0-4. 0 Not Available [facility] (Lab) [address] [facility], [place], [address], 06/16/2025 13:23:32 06/15/20 25 06/15/2025 CBC W/DIF F absolute monocytes 0.5 10'3/ uL 0.2-1. 0 Not Available [facility] (Lab) [address] [facility] [facility], [place], [address], 06/16/2025 13:23:32 06/15/20 25 06/15/2025 CBC W/DIF F absolute eosinophils 0.0 10'3/ uL 0.0-0. 6 Not Available [facility] (Lab) [address] [facility] [facility], [place], [address], 06/16/2025 13:23:32 06/15/20 25 06/15/2025 CBC W/DIF F absolute basophils 0.0 10'3/ uL 0.0-0. 3 Not Available [facility] (Lab) [address] [facility], [place], [address], 06/16/2025 13:23:32 06/15/20 25 06/15/2025 CBC W/DIF F absolute immature granulocytes 0.0 10'3/ uL 0.00-0 .10 Refer ence range s for nonbi nary/ inter sex or unspe cifie d gende r patie nts have not been estab lishe d. Pleas e refer to the follo wing table for range s estab lishe d for cisge nder patie nts and evalu ate in the clini mj armen xt of the indiv idual patie nt: https :[email or web address] lazo book. nm.or g/gen derx Not Available [facility] (Lab) [address] [facility], [place], [address], 06/16/2025 13:23:32 06/15/2006/15/2025 RUBEL LA IGG ANTIB CARLITOS, QUANT rubella antibodies, IgG Reacti ve reacti ve Not Available [facility] (Lab) [address] [facility], [place], [address], 06/16/2025 13:23:32 06/15/20 25 06/15/2025 RUBEL LA IGG ANTIB CARLITOS, QUANT rubella antibodies, IgG quant 140.0 IU/mL >=10 Non-r eacti ve (Non- Immun e) <10 IU/mL React boy (Immu ne) > or = 10 IU/mL Not Available [facility] (Lab) [address] [facility], [place], [address], 06/16/2025 13:23:32 06/15/20 25 06/15/2025 HIV 1/2 ANTIG EN/AN TIBOD Y, REFLE X CONFI RMATI ON HIV antigen/anti body Nonrea ctive nonrea ctive HIV-1 antig en and HIV-1 /HIV- 2 antib odies were not detec pricila. No labor atory evide nce of HIV infec tion. Not Available [facility] (Lab) [address] [facility], [place], [address], 06/16/2025 13:23:32 06/15/2006/15/2025 HEPAT ITIS B SURFA CE ANTIG EN hepatitis B surface antigen Non-re active non-re active This assay was perfo rmed using [employer] ratio n reage nts and test kits. Value s obtai bobby with other assay metho ds or kits canno t be used inter chin eably . Not Available [facility] (Lab) [address] [facility] [address], [place], [address], 06/16/2025 13:23:33 06/15/2006/15/2025 TYPE/ RH/SC REEN ABO/Rh type B POS Not Available [facility] (Lab) [address], [place], [address], 06/16/2025 13:23:33 09/0506/15/2025 TYPE/ RH/SC REEN antibody screen NEG Not Available [facility] (Lab) [address], [place], [address], 06/16/2025 13:23:33 06/15/2006/15/2025 TYPE/ RH/SC REEN exp date 2024 23:59 Not Available [facility] (Lab) [address], [place], [address], 06/16/2025 13:23:33 06/15/2006/15/2025 HEPAT ITIS C ANTIB CARLITOS SCREE N, REFLE X TO CONFI RMATI ON hepatitis C antibody Non-re active non-re active Antib odies to HCV Not Detec pricila, does not exclu de the possi bilit y of expos ure to HCV. Not Available [facility] (Lab) [address], [place], [address], 06/16/2025 13:23:33 06/15/2006/15/2025 HEMOG LOBIN A1C hemoglobin A1C 5.2 % 4.0-5. 6 The [employer]i can [employer] iatio [...] >8.0% Actio n sugge sted Not Available [facility] (Lab) [address], [place], [address], 06/16/2025 13:23:33 06/15/20 25 06/15/2025 RPR SCREE N, REFLE X TITER /CONF IRMAT ION RPR qualitative Nonrea ctive nonrea ctive Not Available [facility] (Lab) [address], [place], [address], 06/16/2025 13:23:34 06/15/2006/15/2025 LEAD, BLOOD (ADUL T/PED IATRI C) lead, whole blood <1.0 mcg/d L <3.5 See Note 1 Tanya sis was perfo rmed by Myranda Chapman ed Plasm a Mass Spect romet ry (ICPM S) Note 1 This test was devel oped and its tanya tical perfo rmanc e rodrigo cteri stics have been deter mined by [employer]. It has not been clear ed or appro sumeet by the FDA. This assay has been valid ated pursu ant to the CLIA regul ation s and is used for clini mj purpo ses. Perfo rming Organ izati on Infor matio n: Site ID: CB Name: [employer]-Alberto kim Giovani Addre ss: [address] [place] [address] Direc tor: Alo mckeon Not Available [facility] (Lab) [address] [facility], [place], [address], 06/16/2025 13:23:34 07/03/2007/03/2025 CULTU RE: URINE result report SEE RESULT S BELOW Test: Cultu re: Urine Speci men Sourc e: Urine - Clean Catch Speci men Type: Urine Speci men Date: 2024 1155 Resul t Date: 2024 0146 Resul t Statu s: Final resul t Abnor mal: No Resul ting Lab: [facility] [address] [facility] [address] Tel: CULTU RE ----- ----- ----- --- Cultu re resul t (>=3 organ isms prese nt) indic ates possi ble conta minat ion. Repea t cultu re if sympt oms indic ate. Not Available [facility] (Lab) [address] [facility], [place], [address], 07/06/2025 02:49:42 08/26/20 25 06/05/2025 US, obste tric, 1st trime ster No observ ation record ed. vicky Iman [address], [place], [address], 06/05/2025 16:57:10 06/05/20 25 06/05/2025 US, obste tric, 1st trime ster No observ ation record ed. [email or web address] Iman [address], [place], [address], 06/05/2025 22:46:26 07/03/20 25 07/03/2025 US, obste tric, nucha l trans lucen cy No observ ation record ed. [email or web address] [place] [address], [place], [address], 07/03/2025 12:30:23 07/03/20 25 07/03/2025 US, obste tric, nucha l trans lucen cy No observ ation record ed. [email or web address] Iman [address], [place], [address], 07/03/2025 18:55:21 07/19/20 25 07/19/2025 imagi ng/di agnos tic resul t No observ ation record ed. [facility] (Psychiatry Department) [address] [place] [address], [address], 07/26/2025 11:39:27 Result Notes None recorded. Problems Name Problem SNOMED Code Status Onset Date Resolution Date Notes Provider Name and Address Organization Details Recorded Time Past pregnanc y history of section 126423787 Completed repeat under GENERAL Noemi andrea, [facility] 3 11:58:50 Pregnanc y 49991413 Completed 202207/30/2023 Charlotte andrea, [facility] 5 11:55:07 Tachycar yolis 3613275 Active 2022 has cardiolo gist, ECHO end of February, off metoprol ol Noemi Mcclendon [facility] 3 11:58:50 Tachycar yolis 7679732 Completed 2022 has cardiolo gist, ECHO end of February, off metoprol ol Noemi Mcclendon [facility], [facility] 3 11:58:50 History of spinal fusion 6554550489 9107 Completed 2022 multiple , no spinal/e pidural, CS [facility], [facility] 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, [facility] 3 11:58:50 History of spinal fusion 8422779574 9107 Active 2024 JAMIE COKER MD [address], [place], [address], [facility] 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 5 14:27:07 Past pregnanc y history of section 405934373 Active 2024 plan for [facility] JAMIE COKER MD [address], [place], [address], [facility] 5 14:27:26 Pregnanc y 81248492 Active 2024 Charlotte andrea, [facility] 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 14:26:48 Ventricu lar tachycar yolis 44302279 Active 2024 JAMIE COKER MD [address], [place], [address], [facility] 14:26:48 History of spinal fusion 7546501441 9107 Active 2024 JAMIE COKER MD [address], [place], [address], [facility] 14:26:58 Axenfeld -Jessica syndrome 171205266 Active 2024 JAMIE COKER MD [address], [place], [address], [facility] 14:27:07 Past pregnanc y history of section 382738146 Active 2024 plan for [facility] JAMIE COKER MD [address], [place], [address], [facility] 14:27:26 Past pregnanc y history of gestatio nal hyperten garima 789698683 Active 2024 in G2 pregnanc y, delivere d at 37 weeks; discussfermín COKER MD [address], [place], [address], [facility] 14:28:21 Past pregnanc y history of gestatio nal hyperten garima 873367630 Active 2024 in G2 pregnanc y, delivere d at 37 weeks; discussfermín COKER MD [address], [place], [address], [facility] 14:28:21 Problem Notes None recorded. Procedures Surgical History Date Name Laterality Status Provider Name and Address Organization Details Recorded Time 12/15/19 23 Date of Last Pap Smear completed [facility] [place] [facility] 04/06/2023 15:50:01 09/14/20 16 Caesarean Section completed [facility] 12/14/2022 15:28:24 10/11/19 16 cardiac catheterization completed [facility] 12/22/2022 19:42:33 10/11/19 14 surgical procedure on eye proper using laser completed [facility] 12/22/2022 19:43:49 10/11/19 13 Tonsillectomy completed [facility] 12/14/2022 15:37:48 10/11/19 08 application of back brace completed [facility] 12/14/2022 15:31:39 10/11/19 08 procedure on back completed [facility] 12/14/2022 15:36:11 10/11/19 07 application of back brace completed [facility] 12/14/2022 15:31:35 10/11/19 07 procedure on back completed [facility] 12/14/2022 15:36:02 10/11/19 05 application of back brace completed [facility] 12/14/2022 15:31:25 10/11/19 05 procedure on back completed [facility] 12/14/2022 15:35:51 10/11/19 05 procedure on back completed [facility] 12/14/2022 15:35:54 10/11/19 05 procedure on back completed [facility] 12/14/2022 15:35:58 10/11/19 05 surgical procedure on eye proper using laser completed [facility] 12/22/2022 19:43:33 10/11/19 04 back fusion completed [facility] 12/14/2022 15:29:02 10/11/19 04 application of back brace completed [facility] 12/14/2022 15:31:09 10/11/19 04 procedure on back completed [facility] 12/14/2022 15:35:48 10/11/19 03 application of back brace completed [facility] 12/14/2022 15:31:06 10/11/19 03 procedure on back completed [facility] 12/14/2022 15:35:44 10/11/19 03 surgical procedure on eye proper using laser completed [facility] 12/22/2022 19:43:17 10/11/19 02 application of back brace completed [facility] 12/14/2022 15:31:02 10/11/19 02 procedure on back completed [facility] 12/14/2022 15:35:41 10/11/19 01 application of back brace completed [facility] 12/14/2022 15:30:59 10/11/19 01 procedure on back completed [facility] 12/14/2022 15:35:38 10/11/19 00 [facility] 12/14/2022 15:30:52 10/11/19 00 procedure on back completed [facility] 12/14/2022 15:35:33 10/11/18 99 procedure on ear completed [facility] 12/14/2022 15:29:45 10/11/18 99 application of back brace completed [facility] 12/14/2022 15:30:44 10/11/18 99 procedure on back completed [facility] 12/14/2022 15:35:29 10/11/18 98 application of back brace completed [facility] 12/14/2022 15:30:42 10/11/18 98 procedure on back completed [facility] 12/14/2022 15:35:26 10/11/18 97 procedure on ear completed [facility] 12/14/2022 15:29:26 10/11/18 97 adenomyomectomy completed [facility] 12/14/2022 15:38:32 10/11/18 96 application of back brace completed [facility] 12/14/2022 15:30:19 10/11/18 96 procedure on back completed [facility] 12/14/2022 15:36:36 10/11/18 96 biopsy of muscle completed [facility] 12/14/2022 15:37:20 Imaging Results None recorded. Procedure Notes None recorded. Medical Equipment None Reported. Allergies Allergen ID Allergen Name Allergen Category Reaction Reaction Severity Criticality Documentation Date Start Date Code Code System Note Provider Name and Address Organization Details Recorded Time codeine medicatio n hives moderate Not available 12/14/2022 2670 RxNorm Katalina Carmichael emre, [facility] 3 15:20:39 adhesive tape environme nt,medica tion rash moderate Not available 12/14/2022 Katalina Finchcindy andrea, [facility] 3 11:36:27 Compazine medicatio n other severe Not available 12/14/202207618 6 RxNorm Katalina Carmichael emre, [facility] 3 15:20:39 Medications Name Sig [...] TAKE 1 TABLET BY MOUTH EVERY DAY 06/05 completed Not Available Not Available Not Available [...] TAKE 1 TABLET BY MOUTH EVERY DAY 06/05 completed Not Available Not Available Not Available ofloxacin 0.3 % ear drops INSTILL 10 DROPS INTO LEFT EAR EVERY DAY FOR 7 DAYS 04/07 completed Not Available Not Available Not Available magnesium oxide 400 mg (241.3 mg magnesium) tablet TAKE 1 TABLET BY MOUTH EVERY DAY 06/05 completed Not Available Not Available Not Available metoclopram eleanor 5 mg tablet TAKE 1 TABLET BY MOUTH EVERY 6 HOURS NEEDED 06/05 completed Not Available Not Available Not Available docusate sodium 100 mg capsule TAKE 1 CAPSULE BY MOUTH TWICE A DAY 06/05 completed Not Available Not Available Not Available [...] TABLET (25 MG TOTAL) BY MOUTH DAILY. 06/05 completed Not Available Not Available Not Available ibuprofen 600 mg tablet TAKE 1 TABLET BY MOUTH 4 TIMES A DAY NEEDED FOR PAIN WITH FOOD 12/14 completed Not Available Not Available Not Available polyethylen e glycol 3350 17 gram/dose oral powder MIX 17 GRAMS IN LIQUID AND DRINK BY MOUTH 2 (TWO) TIMES A DAY NEEDED (CONSTIPA TION) 06/05 completed Not Available Not Available Not Available scopolamine 1 mg over 3 days transdermal patch Apply 1 patch behind the ear every 72 hours. 06/05 completed Not Available Not Available Not Available [...] completed Not Available Not Available Not Available 1 daily 2024 active Not Available Not Available Not Avai lable FeroSul 325 mg (65 mg iron) tablet TAKE 1 TABLET BY MOUTH EVERY DAY WITH BREAKFAST 06/05 completed Not Available Not Available Not Available Vitals Date Recorded Body height Body mass index (BMI) Body weight Systolic And Diastolic Provider Name and Address Organization Details Last Updated DateTime 06/05/2025 154.94 cm 31 kg/m2 19754.15 g 116/78 mm[Hg] Clare Edmond [facility] 06/05/2025 12:38:26 Date Recorded Body height Body mass index (BMI) Body weight Systolic And Diastolic Provider Name and Address Organization Details Last Updated DateTime 07/03/2025 154.94 cm 30.8 kg/m2 66459.56 g 115/79 mm[Hg] [facility] 07/03/2025 11:54:24 Date Recorded Body height Body mass index (BMI) Body weight Systolic And Diastolic Provider Name and Address Organization Details Last Updated DateTime 07/31/2025 154.94 cm 30.6 kg/m2 55417.96 g 111/73 mm[Hg] [facility] 07/31/2025 10:32:03 Social History Question Answer Notes LastModified by Organizat ion Details LastModified Time Tobacco Smoking Status Never Smoker Katalina andrea, [facility] 03/01/2023 11:36:28 Do You Have An Advance Directive? No Information n ot available 06/05/2025 If You Are , What Was Your Level Of Alcohol Consumption Prior To ? None [email or web address] Information not available 03/01/2023 Are You Blind Or Do You Have Difficulty Seeing? No Information n ot available 12/14/2022 What Is Your Level Of Caffeine Consumption? Moderate [email or web address] Information not available 12/14/2022 How Much Tobacco Do You Chew? None [email or web address] Information not available 12/14/2022 In The 14 Days Before Symptom Onset, Have You Had Close Contact With A Laboratory-confirm ed COVID-19 While That Case Was Ill? No [email or web address] Information n ot available 12/14/2022 In The 14 Days Before Symptom Onset, Have You Had Close Contact With A Person Who Is Under Investigation For COVID-19 While That Person Was Ill? No [email or web address] Information not available 12/14/2022 Have You Been To An Area Known To Be High Risk For COVID-19? No [email or web address] Information not available 12/14/2022 Are You Deaf Or Do You Have Serious Difficulty Hearing? No [email or web address] Information not available 12/14/2022 What Type Of Diet Are You Following? REGULAR [email or web address] Information n ot available 12/14/2022 What Is The Highest Grade Or Level Of School You Have Completed Or The Highest Degree You Have Received? [id number] Information not available 03/01/2023 Are There Any Guns Present In Your Home? No Information not available 12/14/2022 Do You Use Protection During Sex? No Information not available 12/14/2022 Do You Use Your Seat Belt Or Car Seat Routinely? Yes [email or web address] Information not available 12/14/2022 Are You Sexually Active? Yes Information not available 06/05/2025 Do You Have Smoke And Carbon Monoxide Detectors In Your Home? Yes [email or web address] Information not available 12/14/2022 How Much Tobacco Do You Smoke? No [email or web address] Information not available 12/14/2022 Do You Use Sunscreen Routinely? No [email or web address] Information not available 12/14/2022 Has Tobacco Cessation Counseling Been Provided? No [email or web address] Information not available 03/01/2023 Have You Used IV Drugs? No [email or web address] Information not available 03/01/2023 Do You Have Difficulty Walking Or Climbing Stairs? No [email or web address] Information not available 03/01/2023 Sex: Unknown Functional Status Question Answer Note LastModified by Organizat ion Details LastModified Time Do you use any illicit or recreational drugs? No [email or web address] Information not available 12/14/2022 Do you or have you ever used any other forms of tobacco or nicotine? No [email or web address] Information not available 03/01/2023 What is your level of alcohol consumption? None [email or web address] Information not available 12/14/2022 Are you currently employed? Yes [email or web address] Information not available 06/05/2025 Are you able to walk independently without assistance or assistive devices? YESWOREST [email or web address] Information not available 12/14/2022 Are you able to care for yourself independently? 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 No [email or web address] Information not available 03/01/2023 What is your exercise level? Occasional [email or web address] Information not available 12/14/2022 Mental Status Question Answer Note LastModified by Organization D etails LastModified Time Do you feel stressed (tense, restless, nervous, or anxious, or unable to sleep at night)? [id number] [email or web address] Information not available 03/01/2023 Family History Relationship Description Onset Age of this Age Resolved Age Notes LastModified by Organization Details LastModified Time Mother Asthma [email or web address] Not available 12/14/2022 15:20:39 Mother Heart disease [email or web address] Not available 03/01 11:36:27 Mother Mitral valve prolapse [email or web address] Not available 06/12 10:55:51 Brother Asthma [email or web address] Not availabl e 12/14/2022 15:20:39 Brother Heart disease [email or web address] Not available 03/01 11:36:27 Sister Asthma [email or web address] Not available 12/14/2022 15:20:39 Daughter Asthma [email or web address] Not availab le 12/14/2022 15:20:39 Maternal Grandmother Heart disease [email or web address] Not available 03/01 11:36:27 Maternal Grandmother Aneurysm [email or web address] Not available 0 07/03/2025 10:55:51 Maternal Grandmother Diabetes mellitus [email or web address] Not available 03/01 11:36:27 Maternal Grandmother Hypertensive disorder [email or web address] Not available 03/01 11:36:27 Maternal Grandmother Hypercholest erolemia [email or web address] Not available 03/01 11:36:27 Maternal Grandfather Diabetes mellitus [email or web address] Not available 03/01 11:36:27 Medical History Condition [...] N Thrombophilias N Gynecological History Statement/Question Response Flow Moderate Date of Last Mammogram Date of LMP 04/07/2025 N On BCP's at Conception? N STIs/STDs N Was last menstrual period normal Y HPV Vaccine N Duration of Flow (days) 5 Current Control Method Are cycles usually normal Y Frequency of Cycle (Q days) 28 Sexually Active? Y N/A Menses Monthly N Date of DEXA bone scan Age of first menstrual cycle 12 Date of Last Pap Smear 12/14/2022 Sexual Problems? N LMP Approximate Desired Control Method N/A N Obstetrics History GPAL:G 3 P 1 0 0 1 Type Value Full Term 1 Living 1 Total 3 Past Encounters Encounter ID Performer Location Encounter Start Date Encounter Closed Date Diagnosis/Indication Diagnosis SNOMED-CT Code Diagnosis ICD10 Code Diagnosis IMO Codes Diagnosis Note [id number] David Fritz MD [facility] [address],[place] [address] 12/14/2022 14:12:31 12/14/2022 14:49:15 [id number] [facility] [address],[place] [address] 12/14/2022 14:12:48 12/14/2022 15:58:50 Gynecologic examination 57472286 Z01.419 test positive 684609530 Z32.01 Risk factors addressed: Tobacco Cessation, Safe [...] and address preventati ve healthcare . Fatigue 31472847 R53.83 Increased fatigue and feeling very cold. [id number] David Fritz MD [facility] [address],[place] [address] 01/11/2023 12:56:05 01/11/2023 13:21:28 [id number] Calre Jhaveri MD [facility] [address],[place] [address] 02/01/2023 14:05:46 02/01/2023 14:46:31 screening 596473677 Z36.82 [id number] Clare Jhaveri MD [facility] [address],[place] [address] 02/01/2023 14:06:04 02/02/2023 15:11:58 Routine care 686506912 Z34.91 Axenfeld-R ieger syndrome 198290246 Q13.89 History of spinal fusion 7843011260 9107 Z98.1 Tachycardia 6601164 R00. 0 Past pregn azra history of section 239974021 Z98.890 [id number] Clare Jhaveri MD [facility] [address],[place] [address] 03/01/2023 11:02:13 03/01/2023 14:34:42 Routine care 125468316 Z34.91 Tachycardia 9653309 R00. 0 Past pregn azra history of section 264089260 Z98.890 [id number] [facility] [address],[place] [address] 04/07/2023 10:50:17 04/07/2023 11:24:31 Routine care 586765999 Z34.92 [id number] Clare Jhaveri MD [facility] [address],[place] [address] 05/04/2023 11:29:06 05/04/2023 12:20:05 Routine care 288892577 Z34.91 [id number] Clare Jhaveri MD [facility] [address],[place] [address] 05/17/2023 11:24:58 05/17/2023 11:51:31 Routine care 292835972 Z34.91 [id number] JAMIE COKER MD [facility] [address],[place] [address] 06/05/2025 11:58:38 06/05/2025 12:31:34 [id number] JAMIE COKER MD [facility] [address],[place] [address] 06/05/2025 11:58:55 06/05/2025 15:25:30 test positive 849180216 Z32.01 461006 1. Exam today within normal limits.2. Ultrasound today confirms GA and viability. EDC . GC/Clamydi a testing done: will f/u as indicated. 4. ACOG guidelines and plan of care for reviewed with patient. All questions answered.5 . Return to office at 12 weeks for new OB visit6. Will need new OB labs at next visit.7. Genetic screening: desires. Ventricula r tachycardia 57934034 I47.20 66812 - previously had undergone attempted ablation however unsuccessf ul due to tortuous vessels- was followed by cardiology , needs to make follow up appointmen t- delivered at [facility] due to need for telemetry during delivery- symptoms have resolved History of spinal fusion 0616484573 9107 Z98.1 415434 - due to scoliosis- s/p 13 spinal surgeries- required GETA during both c section Axenfeld-R ieger syndrome 857175229 Q13.81 13555820 Past pregn azra history of section 543483347 Z98.891 41614922 - plan repeat Past pregn azra history of gestational hypertension 372453327 Z87.59 86941892 - in G2, delivered at 37 weeks- will recommend bASA ppx at 12 weeks [id number] JAMIE COKER MD [facility] [address],[place] [address] 07/03/2025 10:55:01 07/03/2025 14:32:19 Gestation period, 12 weeks 68656718 Z3A.12 7318930 Past pregn azra history of gestational hypertension 264516051 Z87.59 89796526 - in G2, delivered at 37 weeks- recommende d bASA ppx at 12 weeks History of spinal fusion 0345077526 9107 Z98.1 156011 - due to scoliosis- s/p 13 spinal surgeries- required GETA during both c section Ventricula r tachycardia 53064760 I47.20 76183 - previously had undergone attempted ablation however unsuccessf ul due to tortuous vessels- was followed by cardiology , needs to make follow up appointmen t- delivered at [facility] due to need for telemetry during delivery- currently asymptomat ic Past pregn azra history of section 704485399 Z98.891 81390442 - plan repeat Axenfeld-R ieger syndrome 313780102 Q13.81 15616071 [id number] JAMIE COKER MD [place] [address],[place] [address] 07/03/2025 10:55:47 07/03/2025 11:48:51 screening 698565842 Z36.82 Z3A.12 [id number] JAMIE COKER MD [place] [address] [address] 07/31/2025 10:20:54 07/31/2025 11:05:42 Past history of gestational hypertension 284311623 Z87.59 67216111 - in G2, delivered at 37 weeks- recommende judy bASA ppx at 12 weeks Past pregn azra history of section 864476943 Z98.891 15167131 - plan repeat Axenfeld-R ieger syndrome 934481206 Q13.81 56270366 History of spinal fusion 2975739834 9107 Z98.1 050845 - due to scoliosis- s/p 13 spinal surgeries- required GETA during both c section Ventricula r tachycardia 32629868 I47.20 28188 - previously had undergone attempted ablation however unsuccessf ul due to tortuous vessels- was followed by cardiology , needs to make follow up appointmen t- delivered at [facility] due to need for telemetry during delivery- currently asymptomat ic Gestation period, 16 weeks 99969792 Z3A.16 9923326 - continue [facility] Concerns Section Related Observation LastModified by Organization Detai ls LastModified Time None Recorded Concern Status LastModified by Organization Details LastModified Time None Recorded Advance Directives Directive N: Payers Insurance Date Sequence Insurance Name Policy Number Policy Castellanos Covered Member ID Castellanos Member ID Guarantor Name 07/28/2025 2 [place] [employer] [place] [employer] Annie Taran [id number] Annield Chirinos 07/28/2025 1 [place] Annie Alida Chirinos [id number] Annie Chirinos 06/05/2025 1 [facility] (MEDICARE - MEDICAID REPLACEMENT HMO) [id number] Annie Alida Chirinos [id number] Annie Chirinos Notes Date Note Type Note Provider Name and Address Organization Details Recorded Time 06/05/2025 text/html Presents to the office today to confirm . Patient denies any problems up to this point with her . Patient denies cramping or vaginal bleeding. Mild nausea. G1: primary c sectionG2: repeat c section at 37 weeks, gestational hypertension; delivered at [facility] due to maternal tachycardia and need for tele during delivery Medical hx significant for tachycardia during with both her prior pregnancies, no issues outside of . 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 Also has a history of 13 spinal surgeries due to scoliosis with fusion and needed general anesthesia for both c/s. She has a history of Axenfeld Jessica syndrome. Denies tobacco/EtOH/illicits . JAMIE COKER MD [address], [place], [address], [facility] 06/05/2025 15:19:36 07/31/2025 text/html Generic HPI TemplateReported by Patient JAMIE COKER MD [address], [place], [address], [facility] 07/31/2025 11:02:22 OBGyn Episode Ob Episode Information Episode Created Date Number of Fetuses Patient Bloodtype Patient rh Status Prepregnancy Weight lbs Domestic Partner Domestic Partner Phone Father Name Admissions Nurse Status 02/02/20 23 1 B Positive 157 CLOSED Fetus Data First Name Last Name Admitted to NICU Weight (g) Sex Living Outcome Pediatric Complications Fetus ID Race Codes Race Delivery Type [id number] Problems Problem Notes MFM Next Appt WASHU: 05/20 U/ S Problem Name Start Date End Date Resolution Snomed Code Not e Past history of section 443808087 repeat under GENERAL Tachycardia 02/05/2023 7819793 has car diologist, ECHO end of February, off metoprolol History of spinal fusion 02/05/2023 93865491828064 multiple, no spinal/epidural, CS under GENERAL 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 336997427 Autosomal Domin ant (iris abnormalities, glaucoma, hypertelorism, [...] Date Ultra Sound Latest Days Gestation 0 [email or web address] 02/01/2023 10/29/20 23 0 Pre-derrick Flowsheet Flowsheet Date 02/01/2023 Gracia Score Blood Edema Fundus Height Fundus Units Glucose Ketones Leukocytes Nitrite Labor Signs Protein Cervic Dilation Cervic Effacement Cervic Station neg none none trace Type Weight in lbs Pre/Post Dialysis Refused Weight 157.217604293266 BP Diastolic BP Location Tested BP Systolic [...] Jessica syndrome. She is already established at [facility] and delivered there last time. She [...] Weight in lbs Pre/Post Dialysis Refused Weight 156.511810274205 BP Diastolic BP Location Tested BP Systolic BP Type 77 112 Fetus Heart Rate Present A 155 Fetus Movement A Yes Comments Doing ok. Having daily tachy cardic episodes. Seeing cardiology 03/19 after echo on 03/09. Cardiology has her off metoprolol or the like until after echo. Back to [facility] for anatomy on 03/25. After these will determine if reasonable to deliver at and then talk with anesthesia. Flowsheet Date 04/07/2023 Gracia Score Blood Edema Fundus Height Fundus Units Glucose Ketones Leukocytes Nitrite Labor Signs Protein Cervic Dilation Cervic Effacement Cervic Station neg none none trace Type Weight in lbs Pre/Post Dialysis Refused Weight 159.698585387483 BP Diastolic BP Location Tested BP Systolic BP Type 78 118 Fetus Heart Rate Present Fetus Movement A Yes Comments patient is having some co ntractions. f/u at [facility] for anatomy on wednesday, doing well, no complaints, planning on care here and delivery at [facility] f/u 4 weeks Flowsheet Date 05/04/2023 Gracia Score Blood Edema Fundus Height Fundus Units Glucose Ketones Leukocytes Nitrite Labor Signs Protein Cervic Dilation Cervic Effacement Cervic Station neg none none trace Type Weight in lbs Pre/Post Dialysis Refused Weight 161.729083537229 BP Diastolic BP Location Tested BP Systolic BP Type 77 116 Fetus Heart Rate Present A 145 Fetus Movement A Yes Comments Diong fine. Delivering at [facility] and already did GCT there (100) and was found to be anemic, on iron. Discussed and encouraged Tdap. Will fully transfer care to [facility] at [facility] since needs to deliver there. Might have one more visit here. Flowsheet Date 05/17/2023 Gracia Score Blood Edema Fundus Height Fundus Units Glucose Ketones Leukocytes Nitrite Labor Signs Protein Cervic Dilation Cervic Effacement Cervic Station none 28 Type Weight in lbs Pre/Post Dialysis Refused Weight 161.739308836660 BP Diastolic BP Location Tested BP Systolic BP Type 75 108 Fetus Heart Rate Present A 140 Fetus Movement A Yes Comments Doing well. NO labor sx. Gre at . RH pos. GCT done. Tx to [facility]- this is last appt here. Will return . Menstrual History Last Menstrual Date Menses Monthly On Bcp Conception Prior Menses Frequency Hcg Plus Date Menarche Onset Age 0111/01/2022 Genetic Screening And Infection History Question Response Note Mental Retardation/Autism false Patient's Age Will Be 35 Years Or Older At Estim ated Date of Delivery false Thalassemia (Indonesian, Mohawk, Mediterranean, Or Background): MCV < 80 false Neural Tube Defect (Meningomyelocele, Spina Bifi da, Or Anencephaly) false Congenital Heart Defect false Down Syndrome false Cristi-Sachs (eg, Presybeterian, Cajun, Kyrgyz-Mongolian) f alse Gardenia Disease false Sickle Cell [...] Domestic Partner Domestic Partner Phone Father Name Admissions Nurse Status 12/15/19 23 1 CLOSED Fetus Data First Name Last Name Admitted to NICU Weight (g) Sex Living Outcome Pediatric Complications Fetus ID Race Codes Race Delivery Type 3515.33 8 F Full Term [id number] Primary Haja Calculation Initial Haja Date Initial [...] Domestic Partner Domestic Partner Phone Father Name Admissions Nurse Status 07/03/20 25 1 B Positive Bg pher OPEN Fetus Data First Name Last Name Admitted to NICU Weight (g) Sex Living Outcome Pediatric Complications Fetus ID Race Codes Race Delivery Type [id number] Problems Problem Notes Problem Name Start Date End Date Resolution Snomed Code Not e History of spinal fusion 07/03/2025 70817526416237 Past history of section 07/03/2025 625648521 plan for RCS Axenfeld-Jessica syndrome 07/03/2025 590967407 Past history of gestational hypertension 07/03/2025 091869065 in G2 , delivered at 37 weeks; discussed bASA ppx Ventricular tachycardia 07/03/2025 15926872 Haja Calculation Initial Haja Date Initial Exam Date Initial Exam Provider Initial Ultrasound Date Last Menstrual Period Date Ultra Sound Weeks Gestation 01/15/2026 07/03/2025 06/05/2025 04/07/2025 8 Eighteen To Twenty Week Haja Update Ultra Sound Date Fundal Height At Umbil Quickening Date Ultra Sound Latest Weeks Gestation Final Haja Confirmed By Final Haja Confirmed Date Final Haja Date Ultra Sound Latest Days Gestation 0 0 Pre-derrick Flowsheet Flowsheet Date 07/03/2025 Gracia Score Blood Edema Fundus Height Fundus Units Glucose Ketones Leukocytes Nitrite Labor Signs Protein Cervic Dilation Cervic Effacement Cervic Station Type Weight in lbs Pre/Post Dialysis Refused Weight 163.798472412681 BP Diastolic BP Location Tested BP Systolic BP Type 79 L arm 115 sitting Fetus Heart Rate Present A Present Fetus Movement Comments Patient presents to [facility] care. complicated by ventricular tachycardia, currently asymptomatic however following with cardiology. Was delivered at [facility] with both prior pregnancies due to need for telemetry. She has a history of spinal fusion, requiring general anesthesia for both c sections. Hx of 2 c sections, plan for repeat. Patient has Axenfeld-Jessica syndrome. She also has a history of gestational HTN in her most recent , and was delivered at 37 weeks. Recommend bASA ppx. No nausea or cramping. Having some constipation, discussed Miralax and stool softeners. NT/NB wnl today, LR male NIPT. New OB labs wnl. RTC 4 weeks for routine care. Flowsheet Date 07/31/2025 Gracia Score Blood Edema Fundus Height Fundus Units Glucose Ketones Leukocytes Nitrite Labor Signs Protein Cervic Dilation Cervic Effacement Cervic Station Type Weight in lbs Pre/Post Dialysis Refused Weight 162.026321811227 BP Diastolic BP Location Tested BP Systolic BP Type 73 L arm 111 sitting Fetus Heart Rate Present A 160 Fetus Movement A No Comments Patient reports daily headac hes for the past two weeks. She also reports nausea and vomiting for the pain. Has tried tension headache excedrin with no relief. Will try reglan and B2. Saw [facility], anatomy US scheduled with [facility]. RTC 4 weeks. Menstrual History Last Menstrual Date Menses Monthly On Bcp Conception Prior Menses Frequency Hcg Plus Date Menarche Onset Age 0604/07/2025 true Delivery Information Delivery Date Delivery Type Labor Anesthesia Weeks Gestation Incision Type Labor Labor Length Hrs Delivered By Post Complications Tubal Sterilization Discharge Date Comments Discharge Information Feeding Method Contraceptive Method Maternal HG B and HCT Levels Ob Episode Information Episode Created Date Number of Fetuses Patient Bloodtype Patient rh Status Prepregnancy Weight lbs Domestic Partner Domestic Partner Phone Father Name Admissions Nurse Status 07/03/20 25 1 CLOSED Fetus Data First Name Last Name Admitted to NICU Weight (g) Sex Living Outcome Pediatric Complications Fetus ID Race Codes Race Delivery Type 3005.04 7 Full Term [id number] Repeat Haja Calculation Initial Haja Date Initial Exam [...] Post Complications Tubal Sterilization Discharge Date Comments 3 Regional-Sp inal 37 Discharge Information Feeding Method Contraceptive Method Maternal HG B and HCT Levels
[2025-08-17 14:58] VITALS: BP 117/66; PULSE 92
[2025-08-17 15:30] LABS: Add Urine Microscopic? YES; Appearance Urine Clear (Clear); Glucose Urine UA Negative (Negative); Leukocyte Esterase Ur 1+ LEU/UL (Negative); Nitrate Urine Negative (Negative); Non Pathogenic Casts 0-2; Specific Grav Ur 1.024 (1.001-1.035)
--- NOTE | 2025-08-21 11:03 | PM.OBTRLD ---
OB - Triage/Final Diagnosis Visit Information Date of evaluation: 08/17/25 Reason for evaluation: other (bleeding) Comments/Additional reasons for admission: I have assessed the risk for this patient, Annie Chirinos, and determined that she would benefit from observation care. Evaluation Laboratory results: Laboratory Tests 08/17/25 14:55 Urine Color Yellow Urine Appearance Clear Urine pH 6.5 Ur Specific [place] 1.024 Urine Protein Negative Urine Glucose (UA) Negative Urine Ketones 1+ H Ur Blood (Man) Negative Urine Nitrate Negative Urine Bilirubin Negative Urine Urobilinogen 1.0 Leukocyte Esterase Rfl 1+ H Urine RBC 0-2 Urine WBC 6-10 H Ur Squamous Epith Cells Few Urine Bacteria 1+ H Urine Casts 0-2
== END 2025-08-17 16:00 | disposition home or self-care (01) ==
PROVIDERS: Advanced Practice Midwife; Admitting Provider Obstetrics & Gynecology; PCP Physician Assistant; Visit Provider Obstetrics & Gynecology
DX: O46.92 Antepartum hemorrhage, unspecified, second trimester (principal); Z3A.18 18 weeks gestation of pregnancy
CPT/HCPCS: 76815; 81001; 87086; G0378; G0379